=== PATIENT | male | born 1950 | race Caucasian/White ===

== ENCOUNTER 2018-11-09 10:32 | Inpatient (IN) ==
[2018-11-09 11:27] LABS: Basophils % 0.1 %; Hematocrit 40.5 % (37.5-50.1); Hemoglobin 13.8 g/dL (12.9-16.9); Immature Granulocytes % 1.1 % (0-4); Lymphocytes # 0.8 K/mcL (0.6-4.6); Lymphocytes % 4.2 %; Mean Corpuscular HGB Conc 34.1 g/dL (31.6-35.5); Mean Platelet Volume 9.6 fL (9.4-12.4); Monocytes # 1.7 K/mcL (0.0-1.3); Monocytes % 8.8 %; Neutrophils # 16.9 K/mcL (1.6-8.9); Platelet Count 187 K/mcL (140-400); Red Blood Count 4.31 M/mcL (4.19-5.50); Red Cell Distribution Width 14.6 % (11.5-14.5); Segmented Neutrophils % 85.8 %
[2018-11-09 11:53] LABS: Albumin 3.7 g/dL (3.5-5.7); Bilirubin,Total 1.2 mg/dL (0.3-1.0); Calcium 10.1 mg/dL (8.6-10.3); Globulin 3.6 g/dL (2.4-3.5); Potassium 4.1 mEq/L (3.5-5.1); Total Protein 7.3 g/dL (6.4-8.9); Troponin I 0.03 ng/mL (< 0.04)
[2018-11-09] MEDS ORDERED: Aspirin 81 MG TAB.CHEW PO SCH (12:15)
[2018-11-09] MEDS ORDERED: Aspirin 81 MG TAB.CHEW ONE (12:18)
[2018-11-09] MEDS ORDERED: MetroNIDAZOLE 500 MG/100 ML 500 MG/100 ML BAG IVPB ONE (12:30)
--- NOTE | 2018-11-09 13:17 | Emergency Department Note ---
Disposition Clinical Impression: Dehydration, Weakness GI bleed Qualifiers: GI bleed type/associated pathology: melena Qualified Code(s): K92.1 - Melena Pneumonia Qualifiers: Pneumonia type: due to unspecified organism Laterality: unspecified laterality Lung location: unspecified part of lung Qualified Code(s): J18.9 - Pneumonia, unspecified organism Diarrhea Qualifiers: Diarrhea type: unspecified type Qualified Code(s): R19.7 - Diarrhea, unspecified Disposition: Admitted As Inpatient Condition: Fair Time of Disposition: 16:11 General Adult HPI - General Chief complaint: ED Weakness Stated complaint: "weakness all over",CHRISTOPHER Time Seen by Provider: 11/09/18 12:01 Source: patient Limitations: no limitations - History of Present Illness HPI Narrative: 68-year-old male presenting to her 1.5 week history of worsening generalized malaise, weakness, diarrhea, daily fevers. 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 Patient states that fevers have been consistently over 101 degrees Fahrenheit with worst at 104 degrees, somewhat improved with Tylenol at home. Patient states that he has become progressively weaker and is currently unable to walk. Patient describes frequent diarrhea black in color. Onset (ago): week(s) Pain Severity: moderate Pain Scale: 5 - Related Data Home Medications Medication Instructions Recorded Confirmed Allopurinol [Zyloprim] 300 mg PO DAILY 06/05/15 04/19/18 Atorvastatin [Lipitor] 40 mg PO HS 06/05/15 04/19/18 Carvedilol [Coreg] 12.5 mg PO BID 06/05/15 04/19/18 Enoxaparin [Lovenox] 30 mg SQ Q12HR 06/05/15 06/05/15 Furosemide [Lasix] 40 mg PO BID 06/05/15 04/19/18 Gabapentin [Neurontin] 300 mg PO HS 06/05/15 04/19/18 Spironolactone [Aldactone] 25 mg PO DAILY 06/05/15 04/19/18 Tamsulosin [Flomax] 0.4 mg PO HS 06/05/15 04/19/18 Warfarin [Coumadin] 3 mg PO HS 06/05/15 04/19/18 Allergies Allergy/AdvReac Type Severity Reaction Status Date / Time Sulfa (Sulfonamide AdvReac Unknown advised by Verified 06/05/15 10:20 Antibiotics) dr ruff doesn't work for him All systems ED: reviewed and negative except as stated. Review of Systems: As Per HPI Constitutional: Reports: fever, chills, weakness Cardiovascular: Reports: dyspnea on exertion. Denies: chest pain, palpitations Respiratory: Reports: dyspnea. Denies: cough, wheezes, hemoptysis Gastrointestinal: Reports: diarrhea. Denies: abdominal pain, nausea, vomiting, constipation, hematemesis, hematochezia Genitourinary: Denies: dysuria, hematuria Musculoskeletal: Reports: back pain, neck pain Neurological: Reports: headache, weakness, numbness, paresthesias Endocrine: Reports: fatigue Past Medical History - Past Medical History Medical history: Reports: atrial fibrillation, coronary artery disease, hyperlipidemia, hypertension, kidney stones, myocardial infarction Surgical history: Reports: appendectomy, cholecystectomy, pacemaker/AICD, other Psychiatric history: Reports: no psych history - Social History Smoking Status: Never smoker Smokeless Tobacco Status: No Alcohol use: Reports: none Drug use: Reports: none Physical Exam - General Limitations: no limitations General appearance: alert, in no apparent distress - Head Head exam: normocephalic, normal inspection, other (Patient with mild bruising over the left shoulder, elbow-sustained during a recent fall.) - Eye Eye exam: Present: normal appearance, PERRL, EOMI. Absent: scleral icterus - Neck Neck exam: Present: normal inspection, trachea midline. Absent: thyromegaly - Chest Chest inspection: Present: normal inspection, symmetric chest wall rise. Absent: tenderness - Respiratory Respiratory exam: Present: normal lung sounds bilaterally. Absent: respiratory distress, wheezes, stridor, accessory muscle use, prolonged expiratory phase - Cardiovascular Cardiovascular exam: Present: regular rate, normal rhythm, normal heart sounds, +S1, +S2. Absent: systolic murmur, diastolic murmur, JVD, +S3, +S4 - Abdominal Exam Abdominal exam: Present: soft, Non-Tender, normal bowel sounds. Absent: distention, guarding, rebound, rigidity - Rectal Exam Exceptional Needs Teacher present during exam: Yes Rectal exam: Present: normal rectal tone, black stool. Absent: fecal impaction, mass, tenderness - Neurological Exam Neurological exam: Present: alert, oriented X3 - Psychiatric Psychiatric exam: Present: normal affect, normal mood - Skin Skin exam: Present: warm, dry, intact, normal color. Absent: cyanosis, diaphoresis, erythema, pallor, mottled Course Vital Signs Temperature 99.1 F 11/09/18 10:51 Pulse Rate 74 11/09/18 10:51 Respiratory Rate 18 11/09/18 10:51 Blood Pressure 103/62 11/09/18 10:51 O2 Sat by Pulse Oximetry 91 11/09/18 10:51 Temperature 99.1 F 11/09/18 10:51 Pulse Rate 72 11/09/18 14:16 Respiratory Rate 23 11/09/18 15:15 Blood Pressure 124/71 11/09/18 15:15 O2 Sat by Pulse Oximetry 92 11/09/18 14:16 Oxygen Delivery Oxygen Delivery Room Air Medical Decision Making - MDM Narrative Medical decision making narrative: BUN/creatinine elevated White blood cell count elevated Positive Hemoccult Concern for pulmonary nodules versus potential pneumonia Metronidazole plus azithromycin given for management of potential C. difficile versus pneumonia Patient to be admitted to hospitalist medicine service for further evaluation and treatments. - Medical Records Medical records reviewed: Yes I reviewed the patient's medical records. - Lab Data Lab results reviewed: Yes I reviewed the patient's lab results. Result diagrams: 11/09/18 11:14 11/09/18 11:14 Lab Results 11/09/18 11/09/18 11/09/18 Range/Units 11:14 11:14 11:14 WBC 19.7 H (4.3-11.1) K/mcL RBC 4.31 (4.19-5.50) M/mcL Hgb 13.8 (12.9-16.9) g/dL Hct 40.5 (37.5-50.1) % MCV 94.0 (83.0-100.0) fL MCH 32.0 (28.0-33.3) pg MCHC 34.1 (31.6-35.5) g/dL RDW 14.6 H (11.5-14.5) % Plt Count 187 (140-400) K/mcL MPV 9.6 (9.4-12.4) fL Immature Gran % 1.1 (0-4) % Seg Neutrophils % 85.8 % Lymphocytes % 4.2 % Monocytes % 8.8 % Eosinophils % 0.0 % Basophils % 0.1 % Neutrophils # 16.9 H (1.6-8.9) K/mcL Lymphocytes # 0.8 (0.6-4.6) K/mcL Monocytes # 1.7 H (0.0-1.3) K/mcL Eosinophils # 0.0 (0.0-0.6) K/mcL Basophils # 0.0 (0.0-0.2) K/mcL Sodium 135 L (136-145) mEq/L Potassium 4.1 (3.5-5.1) mEq/L Chloride 98 (98-107) mEq/L Carbon Dioxide 25 (23-29) mEq/L BUN 45 H (8-23) mg/dL Creatinine 2.10 H (0.70-1.30) mg/dL Est GFR ( Amer) 38 L (> 60) Est GFR (Non-Af Amer) 31 L (> 60) BUN/Creatinine Ratio 21 (6-26) Glucose 159 H (70-105) mg/dL Calculated Osmolality 295 (280-300) Calcium 10.1 (8.6-10.3) mg/dL Total Bilirubin 1.2 H (0.3-1.0) mg/dL AST 92 H (13-39) Units/L ALT 60 H (7-52) Units/L Alkaline Phosphatase 60 (34-104) Units/L Troponin I 0.03 (< 0.04) ng/mL B-Natriuretic Peptide 123 H (Less than 100) pg/mL Serum Total Protein 7.3 (6.4-8.9) g/dL Albumin 3.7 (3.5-5.7) g/dL Globulin 3.6 H (2.4-3.5) g/dL Albumin/Globulin Ratio 1.0 L (1.1-2.2) Stool Occult Bld Scrn (Negative) 11/09/18 Range/Units 13:05 WBC (4.3-11.1) K/mcL RBC (4.19-5.50) M/mcL Hgb (12.9-16.9) g/dL Hct (37.5-50.1) % MCV (83.0-100.0) fL MCH (28.0-33.3) pg MCHC (31.6-35.5) g/dL RDW (11.5-14.5) % Plt Count (140-400) K/mcL MPV (9.4-12.4) fL Immature Gran % (0-4) % Seg Neutrophils % % Lymphocytes % % Monocytes % % Eosinophils % % Basophils % % Neutrophils # (1.6-8.9) K/mcL Lymphocytes # (0.6-4.6) K/mcL Monocytes # (0.0-1.3) K/mcL Eosinophils # (0.0-0.6) K/mcL Basophils # (0.0-0.2) K/mcL Sodium (136-145) mEq/L Potassium (3.5-5.1) mEq/L Chloride (98-107) mEq/L Carbon Dioxide (23-29) mEq/L BUN (8-23) mg/dL Creatinine (0.70-1.30) mg/dL Est GFR ( Amer) (> 60) Est GFR (Non-Af Amer) (> 60) BUN/Creatinine Ratio (6-26) Glucose (70-105) mg/dL Calculated Osmolality (280-300) Calcium (8.6-10.3) mg/dL Total Bilirubin (0.3-1.0) mg/dL AST (13-39) Units/L ALT (7-52) Units/L Alkaline Phosphatase (34-104) Units/L Troponin I (< 0.04) ng/mL B-Natriuretic Peptide (Less than 100) pg/mL Serum Total Protein (6.4-8.9) g/dL Albumin (3.5-5.7) g/dL Globulin (2.4-3.5) g/dL Albumin/Globulin Ratio (1.1-2.2) Stool Occult Bld Scrn Positive A (Negative) - Radiology Data Radiology results reviewed: Yes I reviewed the patient's radiology results. Chest X-Ray 11/09/18 10:55 IMPRESSION: Vascular congestion with suggestion interstitial disease, suspicious for mild interstitial edema in the acute setting. D/ / Mark Cain MD / Mark Cain MD Interpreting Provider: Mark Cain MD Chest X-Ray 11/09/18 10:55 IMPRESSION: Vascular congestion with suggestion interstitial disease, suspicious for mild interstitial edema in the acute setting. D/ / Mark Cain MD / Mark Cain MD Interpreting Provider: Mark Cain MD Abdomen/Pelvis CT 11/09/18 12:54 IMPRESSION: 1. Small right and trace left partially loculated pleural effusions. Increased consolidative opacities in the lung bases slightly asymmetric right worse than left, either atelectasis or pneumonia. 2. Scattered nodules throughout the lungs bilaterally which are indeterminate and may be infectious, inflammatory or neoplastic in etiology. Recommend follow-up to ensure complete resolution. 3. Mildly enlarged right subcarinal/hilar lymph node, nonspecific. 4. No acute findings in the abdomen or pelvis on this unenhanced study. 5. Indeterminate bilateral renal lesions. Recommend dedicated renal MRI once acute issues have resolved. RECOMMENDATIONS: Fleischner Society guidelines for follow-up and management of incidentally detected pulmonary nodules: Multiple Solid Nodules: Nodule size greater than 8 mm In a low-risk patient, CT at 3-6 months, then consider CT at 18-24 months. In a high-risk patient, CT at 3-6 months, then CT at 18-24 months. - Low risk patients include individuals with minimal or absent history of smoking and other known risk factors. - High risk patients include individuals with a history or smoking or known risk factors. Radiology 2017 http://pubs.[facility]na.org/doi/full/10.1148/radiol.[email or web address] D/ / 11/09/2018 14:13:50 Nya Triana MD / esther Interpreting Provider: Nya Triana MD Chest CT 11/09/18 12:54 IMPRESSION: 1. Small right and trace left partially loculated pleural effusions. Increased consolidative opacities in the lung bases slightly asymmetric right worse than left, either atelectasis or pneumonia. 2. Scattered nodules throughout the lungs bilaterally which are indeterminate and may be infectious, inflammatory or neoplastic in etiology. Recommend follow-up to ensure complete resolution. 3. Mildly enlarged right subcarinal/hilar lymph node, nonspecific. 4. No acute findings in the abdomen or pelvis on this unenhanced study. 5. Indeterminate bilateral renal lesions. Recommend dedicated renal MRI once acute issues have resolved. RECOMMENDATIONS: Fleischner Society guidelines for follow-up and management of incidentally detected pulmonary nodules: Multiple Solid Nodules: Nodule size greater than 8 mm In a low-risk patient, CT at 3-6 months, then consider CT at 18-24 months. In a high-risk patient, CT at 3-6 months, then CT at 18-24 months. - Low risk patients include individuals with minimal or absent history of smoking and other known risk factors. - High risk patients include individuals with a history or smoking or known risk factors. Radiology 2017 http://pubs.[facility]na.org/doi/full/10.1148/radiol.[email or web address] D/ / 11/09/2018 14:13:50 Nya Triana MD / esther Interpreting Provider: Nya Triana MD - EKG Data EKG #1 EKG attestation: Yes I reviewed and interpreted this EKG. EKG results narrative: Patient EKG shows a sinus rhythm with a right bundle branch block and left posterior fascicular block with a rate of 74 bpm, HI interval 160 ms, QRS duration 152 ms, QT/QTc interval 405/433 ms respectively. There are no significant ST segment elevations, depressions, pathologic Q waves, noted. There are abnormally inverted T waves in V1, and V2, otherwise no acute signs of ischemic change. At this time there is no prior EKG available for comparison.
[2018-11-09] MEDS ORDERED: Azithromycin 500 MG in D5% in Water 250 ML IVPB ONE (14:08)
--- NOTE | 2018-11-09 14:35 | Emergency Department Note ---
Disposition Clinical Impression: Weakness GI bleed Qualifiers: GI bleed type/associated pathology: melena Qualified Code(s): K92.1 - Melena Pneumonia Qualifiers: Pneumonia type: due to unspecified organism Laterality: unspecified laterality Lung location: unspecified part of lung Qualified Code(s): J18.9 - Pneumonia, unspecified organism Diarrhea Qualifiers: Diarrhea type: unspecified type Qualified Code(s): R19.7 - Diarrhea, unspecified Disposition: Admitted As Inpatient Condition: Good Referrals: NONE,PCP [Primary Care Provider] - Forms: ED Satisfaction Letter General Adult HPI - General Chief complaint: ED Weakness Stated complaint: "weakness all over",CHRISTOPHER Time Seen by Provider: 11/09/18 12:01 Source: patient Limitations: no limitations - History of Present Illness Pain Scale: 5 - Related Data Home Medications Medication Instructions Recorded Confirmed Allopurinol [Zyloprim] 300 mg PO DAILY 06/05/15 04/19/18 Atorvastatin [Lipitor] 40 mg PO HS 06/05/15 04/19/18 Carvedilol [Coreg] 12.5 mg PO BID 06/05/15 04/19/18 Enoxaparin [Lovenox] 30 mg SQ Q12HR 06/05/15 06/05/15 Furosemide [Lasix] 40 mg PO BID 06/05/15 04/19/18 Gabapentin [Neurontin] 300 mg PO HS 06/05/15 04/19/18 Spironolactone [Aldactone] 25 mg PO DAILY 06/05/15 04/19/18 Tamsulosin [Flomax] 0.4 mg PO HS 06/05/15 04/19/18 Warfarin [Coumadin] 3 mg PO HS 06/05/15 04/19/18 Allergies Allergy/AdvReac Type Severity Reaction Status Date / Time Sulfa (Sulfonamide AdvReac Unknown advised by Verified 06/05/15 10:20 Antibiotics) dr ruff doesn't work for him Constitutional: Reports: fever, chills, weakness Cardiovascular: Reports: dyspnea on exertion. Denies: chest pain, palpitations Respiratory: Reports: dyspnea. Denies: cough, wheezes, hemoptysis Gastrointestinal: Reports: diarrhea. Denies: abdominal pain, nausea, vomiting, constipation, hematemesis, hematochezia Genitourinary: Denies: dysuria, hematuria Musculoskeletal: Reports: back pain, neck pain Neurological: Reports: headache, weakness, numbness, paresthesias Endocrine: Reports: fatigue Past Medical History - Past Medical History Medical history: Reports: atrial fibrillation, coronary artery disease, hyperlipidemia, hypertension, kidney stones, myocardial infarction Surgical history: Reports: appendectomy, cholecystectomy, pacemaker/AICD, other Psychiatric history: Reports: no psych history - Social History Smoking Status: Never smoker Smokeless Tobacco Status: No Alcohol use: Reports: none Drug use: Reports: none Physical Exam - General Limitations: no limitations General appearance: alert, in no apparent distress Course Vital Signs Temperature 99.1 F 11/09/18 10:51 Pulse Rate 74 11/09/18 10:51 Respiratory Rate 18 11/09/18 10:51 Blood Pressure 103/62 11/09/18 10:51 O2 Sat by Pulse Oximetry 91 11/09/18 10:51 Temperature 99.1 F 11/09/18 10:51 Pulse Rate 72 11/09/18 14:16 Respiratory Rate 22 11/09/18 14:16 Blood Pressure 136/71 11/09/18 14:16 O2 Sat by Pulse Oximetry 92 11/09/18 14:16 Oxygen Delivery Oxygen Delivery Room Air Medical Decision Making - Lab Data Result diagrams: 11/09/18 11:14 11/09/18 11:14 Lab Results 11/09/18 11/09/18 11/09/18 Range/Units 11:14 11:14 11:14 WBC 19.7 H (4.3-11.1) K/mcL RBC 4.31 (4.19-5.50) M/mcL Hgb 13.8 (12.9-16.9) g/dL Hct 40.5 (37.5-50.1) % MCV 94.0 (83.0-100.0) fL MCH 32.0 (28.0-33.3) pg MCHC 34.1 (31.6-35.5) g/dL RDW 14.6 H (11.5-14.5) % Plt Count 187 (140-400) K/mcL MPV 9.6 (9.4-12.4) fL Immature Gran % 1.1 (0-4) % Seg Neutrophils % 85.8 % Lymphocytes % 4.2 % Monocytes % 8.8 % Eosinophils % 0.0 % Basophils % 0.1 % Neutrophils # 16.9 H (1.6-8.9) K/mcL Lymphocytes # 0.8 (0.6-4.6) K/mcL Monocytes # 1.7 H (0.0-1.3) K/mcL Eosinophils # 0.0 (0.0-0.6) K/mcL Basophils # 0.0 (0.0-0.2) K/mcL Sodium 135 L (136-145) mEq/L Potassium 4.1 (3.5-5.1) mEq/L Chloride 98 (98-107) mEq/L Carbon Dioxide 25 (23-29) mEq/L BUN 45 H (8-23) mg/dL Creatinine 2.10 H (0.70-1.30) mg/dL Est GFR ( Amer) 38 L (> 60) Est GFR (Non-Af Amer) 31 L (> 60) BUN/Creatinine Ratio 21 (6-26) Glucose 159 H (70-105) mg/dL Calculated Osmolality 295 (280-300) Calcium 10.1 (8.6-10.3) mg/dL Total Bilirubin 1.2 H (0.3-1.0) mg/dL AST 92 H (13-39) Units/L ALT 60 H (7-52) Units/L Alkaline Phosphatase 60 (34-104) Units/L Troponin I 0.03 (< 0.04) ng/mL B-Natriuretic Peptide 123 H (Less than 100) pg/mL Serum Total Protein 7.3 (6.4-8.9) g/dL Albumin 3.7 (3.5-5.7) g/dL Globulin 3.6 H (2.4-3.5) g/dL Albumin/Globulin Ratio 1.0 L (1.1-2.2) Stool Occult Bld Scrn (Negative) 11/09/18 Range/Units 13:05 WBC (4.3-11.1) K/mcL RBC (4.19-5.50) M/mcL Hgb (12.9-16.9) g/dL Hct (37.5-50.1) % MCV (83.0-100.0) fL MCH (28.0-33.3) pg MCHC (31.6-35.5) g/dL RDW (11.5-14.5) % Plt Count (140-400) K/mcL MPV (9.4-12.4) fL Immature Gran % (0-4) % Seg Neutrophils % % Lymphocytes % % Monocytes % % Eosinophils % % Basophils % % Neutrophils # (1.6-8.9) K/mcL Lymphocytes # (0.6-4.6) K/mcL Monocytes # (0.0-1.3) K/mcL Eosinophils # (0.0-0.6) K/mcL Basophils # (0.0-0.2) K/mcL Sodium (136-145) mEq/L Potassium (3.5-5.1) mEq/L Chloride (98-107) mEq/L Carbon Dioxide (23-29) mEq/L BUN (8-23) mg/dL Creatinine (0.70-1.30) mg/dL Est GFR ( Amer) (> 60) Est GFR (Non-Af Amer) (> 60) BUN/Creatinine Ratio (6-26) Glucose (70-105) mg/dL Calculated Osmolality (280-300) Calcium (8.6-10.3) mg/dL Total Bilirubin (0.3-1.0) mg/dL AST (13-39) Units/L ALT (7-52) Units/L Alkaline Phosphatase (34-104) Units/L Troponin I (< 0.04) ng/mL B-Natriuretic Peptide (Less than 100) pg/mL Serum Total Protein (6.4-8.9) g/dL Albumin (3.5-5.7) g/dL Globulin (2.4-3.5) g/dL Albumin/Globulin Ratio (1.1-2.2) Stool Occult Bld Scrn Positive A (Negative) Attestation Statement - Attestation Attestation: I examined this patient and my medical decision-making was reviewed with the Resident Physician. I agree with the documented findings, disposition and treatment plan as described except to the extent set forth below. 68 year old male presnets to the ED with complaints of weakness and is found to have a postitive fecal hemmoccult and elevated wBC with posisble pnuemonia and r/o C/diff colitis panels running. Patient has been started on azirthroy and flagyl and accepted to medicine for further workup.
[2018-11-09] MEDS ORDERED: *HR* OxyCODONE Immed Rel 5 MG TABLET PO PRN (14:49)
[2018-11-09] MEDS ORDERED: Ondansetron 4 MG/2 ML VIAL IVP PRN (14:49)
[2018-11-09] MEDS ORDERED: traMADol 50 MG TABLET PO PRN (14:49)
[2018-11-09] MEDS ORDERED: Naloxone 0.4 MG/ML INJ IVP PRN (14:49)
[2018-11-09] MEDS ORDERED: Ringers Solution, Lactated 1,000 ML IVC SCH (15:00)
[2018-11-09 16:49] LABS: INR 4.1
[2018-11-09] MEDS: Vancomycin Oral Soln 125 MG/2.5 ML UDC PO SCH ×2 (17:19→20:41)
[2018-11-09 17:32] LABS: Bilirubin,Urine Negative (Negative); Blood,Urine Moderate (Negative); Clarity,Urine Cloudy (Clear); Color,Urine Yellow (Yellow); Glucose,Urine (UA) Normal (Normal); Ketones,Urine Negative (Negative); Leukocyte Esterase,Urine Small (Negative); Nitrite,Urine Negative (Negative); Protein,Urine 100 mg/dL (Neg-Trace); Specific Gravity,Urine 1.018 (1.010-1.025); Urobilinogen,Urine Normal (Normal)
[2018-11-09 17:44] LABS: Granular Casts,Urine Few per lpf (None Seen); Hyaline Casts,Urine Few per lpf (None-Few)
[2018-11-09 17:45] LABS: Amorphous Sediment,Urine Few (Few); Bacteria,Urine Moderate per hpf (None-Few); Squamous Epithelial Cell,Urine Few per lpf (None-Few)
--- NOTE | 2018-11-09 18:02 | Internal Med History&Physical ---
Date of Encounter: 11/09/18 Time of Encounter: 16:30 Internal Medicine - H&P: HPI Chief complaint: loose stool Admitted From: Home Plans for Post Hospital Care: Transfer [facility] History of present illness: Mr. Morris is a 68 year old male with hx of a fib on coumadin and CAD brought to ED due to weakness and pain. He was evaluated and subsequently admitted. Mr Morris stated he fell "middle of last week" and laid on the floor for 4 hours. Since that time he has had total body pain and basically has been in bed. He did hit his head on the dresser when he fell. Says he has had fevers 1 01-104. No CP. Feels dyspneic but "not too bad." Has had loose watery diarrhea as well. Denies overt blood in stool. Says he hurts "from toes to above my chest." Nothing has helped it and moving makes it worse. Feels very thirsty at this time. Has had some headache as well. No ill contacts. In ED he was evaluated and there was concern for C diff and possible pneumonia. Past Med Surg Social Fam HX - Past Medical History Source: patient Medical history: atrial fibrillation, coronary artery disease, hyperlipidemia, hypertension, kidney stones, myocardial infarction Additional medical history: mrsa, sleep apnea,. wound on right foot Psychiatric history: no psych history - Past Surgical History Surgical History: appendectomy, cholecystectomy, pacemaker/AICD, other Additional surgical history: eye sx, foot sx - Social History Smoking Status: Never smoker Smokeless Tobacco Status: No Alcohol use: none Drug use: none - Family History Mother Adopted: No Family Member Ethnicity: Non- Living Status: Hx Family Cardiac Disorders: No Hx Family Respiratory Disorders: No Hx Family Cancer: Yes Hx Family GI Disorders: No Hx Family Endocrine Disorder: Yes (Diabetes) Hx Family Neuromuscular Disorders: No Hx Family Neurologic Disorders: No Hx Family HEENT Disorders: No Hx Family Autoimmune Disorders: No Father Adopted: No Family Member Ethnicity: Non- Living Status: Hx Family Cardiac Disorders: No Hx Family Respiratory Disorders: No Hx Family Cancer: Yes Hx Family GI Disorders: No Hx Family Endocrine Disorder: No Hx Family Neuromuscular Disorders: No Hx Family Neurologic Disorders: No Hx Family HEENT Disorders: No Hx Family Autoimmune Disorders: No Internal Medicine - H&P: Meds Allopurinol [Zyloprim] 300 mg PO DAILY 06/05/15 [History] Atorvastatin [Lipitor] 40 mg PO HS 06/05/15 [History] Carvedilol [Coreg] 12.5 mg PO BID 06/05/15 [History] Enoxaparin [Lovenox] 30 mg SQ Q12HR 06/05/15 [History] Furosemide [Lasix] 40 mg PO BID 06/05/15 [History] Gabapentin [Neurontin] 300 mg PO HS 06/05/15 [History] Spironolactone [Aldactone] 25 mg PO DAILY 06/05/15 [History] Tamsulosin [Flomax] 0.4 mg PO HS 06/05/15 [History] Warfarin [Coumadin] 3 mg PO HS 06/05/15 [History] Allergy/AdvReac Type Severity Reaction Status Date / Time Sulfa (Sulfonamide AdvReac Unknown advised by Verified 06/05/15 10:20 Antibiotics) dr ruff doesn't work for him All Systems PM: A 10-system review of systems was performed and is negative for pertinent findings except as documented above in the HPI. - Constitutional Constitutional: fatigue, fever(s), lethargy, malaise, weakness - EENT Eyes: no change in vision, no loss of vision Ears: no decreased hearing Nose, mouth and throat: no dry mouth, no sinus pain - Cardiovascular Cardiovascular ROS IM: dyspnea, no chest pain, no dyspnea on exertion - Gastrointestinal Gastrointestinal: diarrhea, no abdominal pain, no hematochezia - Genitourinary Genitourinary ROS male: urinary urgency, no dysuria - Musculoskeletal Musculoskeletal ROS IM: arthralgias, no back pain, no muscle weakness - Integumentary Integumentary IM: no rash - Neurological Neurological ROS: no confusion, no tremor(s) Additional comments: Pt says he is getting "Alzheimers" - Endocrine Endocrine IM: no excessive sweating - Hematologic/Lymphatic Hematologic/Lymphatic: no easy bleeding - Allergic/Immunologic Allergic/Immunologic: no seasonal rhinorrhea - Constitutional Vitals: Temp Pulse Resp BP Pulse Ox 99.9 F H 78 16 157/77 91 11/09/18 17:21 11/09/18 17:21 11/09/18 17:21 11/09/18 17:21 04/12/19 17:21 General appearance: Present: A&O X 3, obese Exam: See below - Head Head exam: Present: atraumatic, normocephalic - Eye Eye exam: Present: EOMI, PERRL - ENT ENT exam: Present: mucous membranes dry - Neck Neck exam general surgery: Present: supple - Respiratory Respiratory exam: Present: decreased breath sounds. Absent: rhonchi, wheezes - Cardiovascular Cardiovascular exam: Present: RRR. Absent: tachycardia - GI/Abdominal GI/Abdominal exam: Present: diminished bowel sounds, soft, tenderness Additional comments: Tender LLQ area. No peritoneal signs. - Extremities Exam Extremities exam: Present: warm Additional comments: Dressing on R foot. - Neurological Exam Neurological exam: Present: alert, oriented X3 Additional comments: Pt able to move all extremities. Sensation intact. Denies back pain. - Skin Skin exam: Present: dry, warm. Absent: rash Internal Med - H&P Results - Labs CBC & Chem 7: 11/09/18 11:14 11/09/18 11:14 Labs: Short CBC 11/09/18 Range/Units 11:14 WBC 19.7 H (4.3-11.1) K/mcL Hgb 13.8 (12.9-16.9) g/dL Hct 40.5 (37.5-50.1) % Plt Count 187 (140-400) K/mcL Neutrophils # 16.9 H (1.6-8.9) K/mcL BMP 11/09/18 11:14 Sodium 135 L Potassium 4.1 Chloride 98 Carbon Dioxide 25 BUN 45 H Creatinine 2.10 H Glucose 159 H Calcium 10.1 Cardiac Enzymes 11/09/18 Range/Units 11:14 Troponin I 0.03 (< 0.04) ng/mL Liver Function 11/09/18 Range/Units 11:14 Total Bilirubin 1.2 H (0.3-1.0) mg/dL AST 92 H (13-39) Units/L ALT 60 H (7-52) Units/L Alkaline Phosphatase 60 (34-104) Units/L Albumin 3.7 (3.5-5.7) g/dL Urine 11/09/18 Range/Units 17:18 Urine Color Yellow (Yellow) Urine Clarity Cloudy A (Clear) Urine pH 5.0 (5.0-8.0) pH Units Ur Specific [place] 1.018 (1.010-1.025) Urine Protein 100 H (Neg-Trace) mg/dL Urine Glucose (UA) Normal (Normal) mg/dL - Impressions ITS Impressions Chest X-Ray 11/09/18 10:55 IMPRESSION: Vascular congestion with suggestion interstitial disease, suspicious for mild interstitial edema in the acute setting. D/ / Mark Cain MD / Mark Cain MD Interpreting Provider: Mark Cain MD Abdomen/Pelvis CT 11/09/18 12:54 IMPRESSION: 1. Small right and trace left partially loculated pleural effusions. Increased consolidative opacities in the lung bases slightly asymmetric right worse than left, either atelectasis or pneumonia. 2. Scattered nodules throughout the lungs bilaterally which are indeterminate and may be infectious, inflammatory or neoplastic in etiology. Recommend follow-up to ensure complete resolution. 3. Mildly enlarged right subcarinal/hilar lymph node, nonspecific. 4. No acute findings in the abdomen or pelvis on this unenhanced study. 5. Indeterminate bilateral renal lesions. Recommend dedicated renal MRI once acute issues have resolved. RECOMMENDATIONS: Fleischner Society guidelines for follow-up and management of incidentally detected pulmonary nodules: Multiple Solid Nodules: Nodule size greater than 8 mm In a low-risk patient, CT at 3-6 months, then consider CT at 18-24 months. In a high-risk patient, CT at 3-6 months, then CT at 18-24 months. - Low risk patients include individuals with minimal or absent history of smoking and other known risk factors. - High risk patients include individuals with a history or smoking or known risk factors. Radiology 2017 http://pubs.rsna.org/doi/full/10.1148/radiol.[email or web address] D/ / 11/09/2018 14:13:50 Nya Triana MD / [email or web address] Interpreting Provider: Nya Triana MD Chest CT 11/09/18 12:54 IMPRESSION: 1. Small right and trace left partially loculated pleural effusions. Increased consolidative opacities in the lung bases slightly asymmetric right worse than left, either atelectasis or pneumonia. 2. Scattered nodules throughout the lungs bilaterally which are indeterminate and may be infectious, inflammatory or neoplastic in etiology. Recommend follow-up to ensure complete resolution. 3. Mildly enlarged right subcarinal/hilar lymph node, nonspecific. 4. No acute findings in the abdomen or pelvis on this unenhanced study. 5. Indeterminate bilateral renal lesions. Recommend dedicated renal MRI once acute issues have resolved. RECOMMENDATIONS: Fleischner Society guidelines for follow-up and management of incidentally detected pulmonary nodules: Multiple Solid Nodules: Nodule size greater than 8 mm In a low-risk patient, CT at 3-6 months, then consider CT at 18-24 months. In a high-risk patient, CT at 3-6 months, then CT at 18-24 months. - Low risk patients include individuals with minimal or absent history of smoking and other known risk factors. - High risk patients include individuals with a history or smoking or known risk factors. Radiology 2017 http://pubs.rsna.org/doi/full/10.1148/radiol.[email or web address] D/ / 11/09/2018 14:13:50 Nya Triana MD / esther Interpreting Provider: Nya Triana MD - Assessment and Plan (1) Rhabdomyolysis Current Visit: Yes Status: Acute Assessment and plan: Pt reports fall occurring about a week ago. Current CPK is over 1400 and creatinine is elevated over baseline. Pt has diffuse pain consistent with myalgia. Admit to hospital. IV bicarb drip ordered at 150ml/hr (urine pH is 5) Recheck CPK in morning. Pain control. Qualifiers: Rhabdomyolysis type: traumatic Encounter type: initial encounter Qualified Code(s): T79.6XXA - Traumatic ischemia of muscle, initial encounter (2) Dehydration Current Visit: Yes Status: Acute Assessment and plan: Pt is clinically dehydrated. He has been having profuse diarrhea and had fall last week. Will treat with IV fluids at this time. (3) Acute renal failure Current Visit: Yes Status: Acute Assessment and plan: Pt has baseline creatinine around 1.3 His creatinine is elevated on admission Most likely this is ATN related to acute rhabdomyolysis. Hydrate today. Recheck labs tomorrow. Qualifiers: Acute renal failure type: with acute tubular necrosis Qualified Code(s): N17.0 - Acute kidney failure with tubular necrosis (4) Diarrhea Current Visit: Yes Status: Acute Assessment and plan: Pt has been having profuse watery diarrhea for days. Hydrate. GI panel ordered. Has mild elevation in LFTs - hepatitis panel ordered - hep A would do this Qualifiers: Diarrhea type: presumed infectious Qualified Code(s): R19.7 - Diarrhea, unspecified (5) Pneumonia Current Visit: Yes Status: Suspected Assessment and plan: Pt had fall last week and prolonged time on floor. He has been essentially immobile since fall (lying in bed). Will start Unasyn today and reassess as clinical status improves. Qualifiers: Pneumonia type: aspiration pneumonia Laterality: right Lung location: lower lobe of lung Qualified Code(s): J69.0 - Pneumonitis due to inhalation of food and vomit (6) UTI (urinary tract infection) Current Visit: Yes Status: Suspected Assessment and plan: Pt has UA evidence of UTI and has urgency on exam. UA has mod blood and 3-5 RBCs which could also be due to rhabdo. Will treat with unasyn and azithromycin for pneumonia and anticipate will cover urine as well till culture returns. Has leukocytosis as well. Qualifiers: Urinary tract infection type: acute cystitis Hematuria presence: with hematuria Qualified Code(s): N30.01 - Acute cystitis with hematuria (7) GI bleed Current Visit: Yes Status: Suspected Assessment and plan: Pt presents with significant diarrhea. Stool guiac positive but H/H stable (though he is very dehydrated). Recheck H/H in AM. May need further GI work up. Qualifiers: GI bleed type/associated pathology: melena Qualified Code(s): K92.1 - Melena (8) Atrial fibrillation Current Visit: Yes Status: Chronic Assessment and plan: Pt with hx of atrial fibrillation. Currently on coumadin and INR elevated. Pt hit head last week - STAT head CT ordered. Hold coumadin today. Qualifiers: Atrial fibrillation type: chronic Qualified Code(s): I48.2 - Chronic atrial fibrillation (9) HTN (hypertension) Current Visit: Yes Status: Chronic Assessment and plan: BP elevated on admission. Home meds have been ordered. Will start after CT head returned. Qualifiers: Hypertension type: essential hypertension Qualified Code(s): I10 - Essential (primary) hypertension (10) CAD (coronary artery disease) Current Visit: Yes Status: Chronic Assessment and plan: Pt has hx of CAD with multiple RI/stents. Continue home cardiac meds on admit. Hold Lasix at this time due to rhabdo and acute renal failure. Qualifiers: Coronary Disease-Associated Artery/Lesion type: [place] artery [place] vs. transplanted heart: ramona heart Associated angina: without angina Qualified Code(s): I25.10 - Atherosclerotic heart disease of [place] coronary artery without angina pectoris (11) Morbid obesity with BMI of 40.0-44.9, adult Current Visit: Yes Status: Chronic Assessment and plan: Chronic issue. - Time Spent With Patient Total time spent is greater than 50% in coordination of care (as documented) at patient's floor/unit and/or counseling patient:
[2018-11-09 19:11] LABS: Hepatitis B Surface Antigen Nonreactive (Nonreactive)
[2018-11-09] MEDS: Acetaminophen 325 MG TABLET PO PRN (19:18)
[2018-11-09 19:40] LABS: Hepatitis C Virus Antibody Nonreactive (Nonreactive)
[2018-11-09 19:41] LABS: Hepatitis B Core IgM Nonreactive (Nonreactive)
[2018-11-09] MEDS: Gabapentin 300 MG CAPSULE PO SCH (20:41)
[2018-11-09] MEDS: Ampicillin/Sulbactam 1,500 MG in 0.9 % Sodium Chloride Mini Bag 100 ML IVPB SCH (20:49)
[2018-11-09] MEDS: Sodium Bicarbonate 150 MEQ in D5% in Water 1,000 ML IVC SCH (21:42)
[2018-11-09 23:09] LABS: Adenovirus Not Detected (Not Detect); Bordetella Pertussis Not Detected (Not Detect); Chlamydophila pneumoniae Not Detected (Not Detect); Coronavirus 229E Not Detected (Not Detect); Coronavirus HKU1 Not Detected (Not Detect); Coronavirus NL63 Not Detected (Not Detect); Coronavirus OC43 Not Detected (Not Detect); Human Metapneumovirus Not Detected (Not Detect); Human Rhinovirus/Enterovirus Not Detected (Not Detect); Influenza A Subtype 2009 H1 Not Detected (Not Detect); Influenza A Untypeable Not Detected (Not Detect); Influenza B Not Detected (Not Detect); Mycoplasma pneumoniae Not Detected (Not Detect); Parainfluenza Virus 1 Not Detected (Not Detect); Parainfluenza Virus 2 Not Detected (Not Detect); Parainfluenza Virus 3 Not Detected (Not Detect); Parainfluenza Virus 4 Not Detected (Not Detect); Respiratory Syncytial Virus Not Detected (Not Detect)
[2018-11-10] MEDS ORDERED: Acetaminophen 325 MG TABLET PO ONE (00:15)
[2018-11-10 02:43] LABS: Basophils % 0.2 %; Hematocrit 35.1 % (37.5-50.1); Immature Granulocytes % 0.9 % (0-4); Lymphocytes # 0.7 K/mcL (0.6-4.6); Lymphocytes % 3.4 %; Mean Corpuscular HGB Conc 34.5 g/dL (31.6-35.5); Mean Corpuscular Hemoglobin 31.4 pg (28.0-33.3); Mean Corpuscular Volume 91.2 fL (83.0-100.0); Mean Platelet Volume 10.1 fL (9.4-12.4); Monocytes # 1.6 K/mcL (0.0-1.3); Monocytes % 7.9 %; Neutrophils # 17.2 K/mcL (1.6-8.9); Platelet Count 181 K/mcL (140-400); Red Blood Count 3.85 M/mcL (4.19-5.50); Red Cell Distribution Width 14.7 % (11.5-14.5); Segmented Neutrophils % 87.6 %
[2018-11-10 02:45] LABS: Hemoglobin 12.1 g/dL (12.9-16.9)
[2018-11-10 02:51] LABS: Prothrombin Time 56.3 Seconds (9.4-12.1)
[2018-11-10 02:59] LABS: Albumin 3.2 g/dL (3.5-5.7); Bilirubin,Direct 0.2 mg/dL (0.0-0.2); Bilirubin,Indirect 0.6 mg/dL (0.0-1.2); Bilirubin,Total 0.8 mg/dL (0.3-1.0); Globulin 3.3 g/dL (2.4-3.5); Total Protein 6.5 g/dL (6.4-8.9)
[2018-11-10 03:00] LABS: Calcium 9.4 mg/dL (8.6-10.3); Magnesium 1.9 mg/dL (1.6-2.6); Potassium 3.4 mEq/L (3.5-5.1)
[2018-11-10 03:10] LABS: Platelet Estimate Normal (Normal); Reactive Lymphocytes Present (Not Present)
[2018-11-10] MEDS: Ampicillin/Sulbactam 1,500 MG in 0.9 % Sodium Chloride Mini Bag 100 ML IVPB SCH ×3 (04:14→18:09)
[2018-11-10 04:58] LABS: Hepatitis A Antibody IgM Nonreactive (Nonreactive)
[2018-11-10 04:58] LABS: Bilirubin,Urine Negative (Negative); Blood,Urine Large (Negative); Clarity,Urine Cloudy (Clear); Color,Urine Red (Yellow); Glucose,Urine (UA) Normal (Normal); Ketones,Urine Trace mg/dL (Negative); Leukocyte Esterase,Urine Moderate (Negative); Nitrite,Urine Negative (Negative); Protein,Urine 100 mg/dL (Neg-Trace); Specific Gravity,Urine 1.014 (1.010-1.025); Urobilinogen,Urine Normal (Normal)
[2018-11-10 05:00] LABS: Bacteria,Urine None Seen per hpf (None-Few); Hyaline Casts,Urine None Seen per lpf (None-Few); RBC,Urine TNTC per hpf (0-3); Squamous Epithelial Cell,Urine Many per lpf (None-Few); WBC,Urine 15-30 per hpf (0-3)
[2018-11-10 05:20] LABS: Transitional Epi Cells,Urine Few per hpf (None-Few)
[2018-11-10] MEDS: Sodium Bicarbonate 150 MEQ in D5% in Water 1,000 ML IVC SCH ×3 (05:24→22:30)
[2018-11-10] MEDS ORDERED: Perflutren Lipid Microsphere 1.3 ML in 0.9 % Sodium Chloride 8.7 ML IVP ONE (08:16)
[2018-11-10] MEDS: Acetaminophen 325 MG TABLET PO PRN ×2 (08:16→23:20)
[2018-11-10] MEDS: Aspirin Enteric Coated 81 MG Tablet PO SCH (08:16)
[2018-11-10] MEDS: Vancomycin Oral Soln 125 MG/2.5 ML UDC PO SCH (08:17)
[2018-11-10] MEDS: Azithromycin 500 MG in D5% in Water 250 ML IVPB SCH (08:20)
[2018-11-10] MEDS ORDERED: Perflutren Lipid Microsphere 2 ML VIAL ONE (08:21)
[2018-11-10 09:47] LABS: Adenovirus F 40/41 PCR Not detected (Not detect); Astrovirus PCR Not detected (Not detect); C.difficile Toxin A/B Gene PCR Not detected (Not detect); Campylobacter by PCR Not detected (Not detect); Cryptosporidium by PCR Not detected (Not detect); Cyclospora cayetanensis PCR Not detected (Not detect); E. coli O157 by PCR Not detected (Not detect); Entamoeba histolytica PCR Not detected (Not detect); Enteroaggregative E.coli(EAEC) Not detected (Not detect); Enteropathogenic E.coli(EPEC) Not detected (Not detect); Enterotoxigenic E.coli (ETEC) Not detected (Not detect); Giardia lamblia PCR Not detected (Not detect); Norovirus GI/GII PCR Not detected (Not detect); Plesiomonas shigelloides PCR Not detected (Not detect); Rotavirus A PCR Not detected (Not detect); Salmonella PCR Not detected (Not detect); Sapovirus PCR Not detected (Not detect); Shig/EnteroinvasiveE coli EIEC Not detected (Not detect); Shigalike tox-prod E coli STEC Not detected (Not detect); Vibrio PCR Not detected (Not detect); Vibrio cholerae PCR Not detected (Not detect); Yersinia enterocolitica PCR Not detected (Not detect)
[2018-11-10] MEDS: Levalbuterol Neb 1.25 MG/3 ML IH SCH ×2 (09:56→21:37)
[2018-11-10 11:18] LABS: Acinetobacter baumannii by PCR Not Detected (Not Detect); Candida albicans by PCR Not Detected (Not Detect); Candida glabrata by PCR Not Detected (Not Detect); Candida krusei by PCR Not Detected (Not Detect); Candida parapsilosis by PCR Not Detected (Not Detect); Candida tropicalis by PCR Not Detected (Not Detect); Enterobacter cloacae Cmplx PCR Not Detected (Not Detect); Enterobacteriaceae by PCR Not Detected (Not Detect); Enterococcus by PCR Not Detected (Not Detect); Escherichia coli by PCR Not Detected (Not Detect); Klebsiella oxytoca by PCR Not Detected (Not Detect); Klebsiella pneumoniae by PCR Not Detected (Not Detect); Proteus by PCR Not Detected (Not Detect); Pseudomonas aeruginosa by PCR Not Detected (Not Detect); Serratia marcescens by PCR Not Detected (Not Detect); Staphylococcus aureus by PCR DETECTED (Not Detect); Staphylococcus by PCR Not Detected (Not Detect); Streptococcus agalactiae(B)PCR Not Detected (Not Detect); Streptococcus by PCR Not Detected (Not Detect); Streptococcus pneumoniae PCR Not Detected (Not Detect); Streptococcus pyogenes (A) PCR Not Detected (Not Detect); mecA Methicillin-Resist Gene DETECTED (Not Detect)
--- NOTE | 2018-11-10 11:37 | Internal Med Progress Note ---
<Sepideh Morejon - Last Filed: 11/10/18 17:52> Hospitalist Progress Note - Encounter Date of Encounter: 11/10/18 Time of Encounter: 11:35 - Subjective Interval History: Patient seen examined at bedside. He is alert and oriented times 3. He admits to diarrhea that is unchanged. He denies fever, chills, shortness of breath, cough, chest pain, abdominal pain, dysuria, hematuria, melena, hematochezia. He has no other complaints. - Exam Vitals: Temp Pulse Resp BP Pulse Ox 99.8 F H 134 20 113/72 93 11/10/18 10:46 11/10/18 10:46 11/10/18 10:46 11/10/18 10:46 11/10/18 10:46 Exam: Gen.: Vitals noted. No acute distress. AAOx3 HEENT: oropharynx clear, Normocephalic, atraumatic Neck: Supple. No adenopathy. Cardiac: tachycardic, no murmur, +S1/S2 Pulmonary: CTA bilaterally, no wheezes, rales or rhonchi, equal chest expansion Abdomen: soft, nontender, Bowel sounds noted, no guarding Extremities: no BLE edema, nontender calf, no cyanosis or clubbing skin: scabs on bilateral lower extremities Neuro: A&Ox3, moves all extremities, no focal deficits Psych: Appropriate mood and behavior - Assessment and Plan (1) Pneumonia Current Visit: Yes Status: Suspected Assessment and Plan: Pneumonia likely community acquired -afebrile, hemodynamically stable -WBC 19.6 (was 19.7) -patient denies increased shortness of breath or cough -chest CT demonstrating small right interest left partially likely to pleural effusions with findings concerning for pneumonia. Scattered nodules throughout the lungs bilaterally but maybe infectious or inflammatory or neoplastic. plan: -continue unasyn IV day 2 -continue vancomycin day 1 -continue azithromycin day 2 -continue bronchodilators such as Xopenex as needed -pulmonary nodules on chest CT will need repeat CT follow-up outpatient (2) Bacteremia Current Visit: Yes Status: Acute Assessment and Plan: MRSA Bacteremia -this is likely secondary to urinary tract infection as it is growing the same bacteria -11/09/2018 blood culture growing MRSA x2 Plan: -continue IV vancomycin day 1 -will repeat blood cultures (3) GI bleed Current Visit: Yes Status: Suspected Assessment and Plan: Concerned for G.I. bleed possibly due to positive stool occult. This is in the setting of supratherapeutic INR. -hemodynamically stable -hemoglobin 12.1 (13.8 on admission) -stool occult positive Plan: -will continue monitor H&H -may need G.I. workup if decreases (4) Diarrhea Current Visit: Yes Status: Acute Assessment and Plan: Patient presented complaining of profuse continue diarrhea. Son was concerned he had C diff. -Possibly secondary to medication -Stool culture negative for C diff or any other virus -will continue to monitor -during admission patient has not had many bowel movements of diarrhea (5) Rhabdomyolysis Current Visit: Yes Status: Acute Assessment and Plan: Rhabdomyolysis which subsequently caused acute renal failure, secondary to patient having a recent fall and laying for many hours on the ground. -Creatinine kinase 1413 on admission -creatinine kinase currently 863 Plan: -will continue to monitor (6) UTI (urinary tract infection) Current Visit: Yes Status: Suspected Assessment and Plan: Urinary tract infection on urinalysis -Patient denied dysuria could admitted urinary frequency -urinalysis with leukocyte esterase and WBC, granular casts -urinalysis growing Staphylococcus aureus Plan: -continue Rendon catheter -await urinalysis sensitivity -continue vancomycin (7) Acute renal failure Current Visit: Yes Status: Acute Assessment and Plan: Acute renal failure. At admission creatinine 2.1 -likely secondary to rhabdomyolysis -creatinine 1.53 improved -I&O: 1250/1075 + 175 -urinalysis with leukocyte esterase and WBC, granular casts -abdomen/pelvis CT demonstrating bilateral renal lesions with recommendations of dedicated renal MRI Plan: -bilateral renal lesions on abdomen/pelvis CT with recommendations of dedicated renal MRI follow-up -acute renal failure is improving -continue renal protective strategy including renal dose medication and avoid nephrotoxic agents -monitor serum creatinine -monitor I&O (8) Dehydration Current Visit: Yes Status: Acute Assessment and Plan: Dehydration on admission. Patient received IV fluids (9) Atrial fibrillation Current Visit: Yes Status: Chronic Assessment and Plan: History of atrial fibrillation on anticoagulation with Coumadin and rate c ontrolled with carvedilol -continue Coumadin and carvedilol (10) Chronic ulcer of right foot with fat layer exposed Current Visit: No Status: Acute Assessment and Plan: Patient with a chronic wound ulcer of the foot for which he follows with Dr. Darby of podiatry -will consult wound care for further management (11) HTN (hypertension) Current Visit: Yes Status: Chronic Assessment and Plan: History of hypertension taking carvedilol, spironolactone, Lasix -blood pressure stable -continue home carvedilol -labetalol IV PRN (12) CAD (coronary artery disease) Current Visit: Yes Status: Chronic Assessment and Plan: History of CAD taking atorvastatin, carvedilol, spironolactone -continue aspirin, atorvastatin, carvedilol (13) Morbid obesity with BMI of 40.0-44.9, adult Current Visit: Yes Status: Chronic Assessment and Plan: Lifestyle changes (14) DVT prophylaxis Current Visit: Yes Status: Acute Assessment and Plan: Continue home Coumadin (15) Supratherapeutic INR Current Visit: Yes Status: Acute Assessment and Plan: Supratherapeutic INR. INR 4.1 on admission. Patient takes Coumadin for atrial fibrillation. -INR 5.0 -no obvious active bleeding -Pharmacy to manage Coumadin dose -monitor INR -Monitor for bleeding - Time Spent with Patient Total time spent is greater than 50% in coordination of care (as documented) at patient's floor/unit and/or counseling patient: Internal Medicine: Result - Labs CBC & Chem 7: 11/10/18 01:12 11/10/18 01:12 Labs: Short CBC 11/10/18 Range/Units 01:12 WBC 19.6 H (4.3-11.1) K/mcL Hgb 12.1 L D (12.9-16.9) g/dL Hct 35.1 L (37.5-50.1) % Plt Count 181 (140-400) K/mcL Neutrophils # 17.2 H (1.6-8.9) K/mcL BMP 11/09/18 11/10/18 11:14 01:12 Sodium 135 L 132 L Potassium 4.1 3.4 L Chloride 98 97 L Carbon Dioxide 25 26 BUN 45 H 46 H Creatinine 2.10 H 1.53 H Glucose 159 H 178 H Calcium 10.1 9.4 Cardiac Enzymes 11/09/18 Range/Units 11:14 Troponin I 0.03 (< 0.04) ng/mL Liver Function 11/09/18 11/10/18 Range/Units 11:14 01:12 Total Bilirubin 1.2 H 0.8 (0.3-1.0) mg/dL Direct Bilirubin 0.2 (0.0-0.2) mg/dL AST 92 H 71 H (13-39) Units/L ALT 60 H 49 (7-52) Units/L Alkaline Phosphatase 60 59 (34-104) Units/L Albumin 3.7 3.2 L (3.5-5.7) g/dL Urine 11/09/18 11/10/18 Range/Units 17:18 04:30 Urine Color Yellow Red A (Yellow) Urine Clarity Cloudy A Cloudy A (Clear) Urine pH 5.0 6.0 (5.0-8.0) pH Units Ur Specific [place] 1.018 1.014 (1.010-1.025) Urine Protein 100 H 100 H (Neg-Trace) mg/dL Urine Glucose (UA) Normal Normal (Normal) mg/dL - ABG Interpretation ABG results: PT/INR, D-dimer PT 56.3 Seconds (9.4-12.1) H* 11/10/18 01:12 - Impressions Impressions Abdomen/Pelvis CT 11/09/18 12:54 IMPRESSION: 1. Small right and trace left partially loculated pleural effusions. Increased consolidative opacities in the lung bases slightly asymmetric right worse than left, either atelectasis or pneumonia. 2. Scattered nodules throughout the lungs bilaterally which are indeterminate and may be infectious, inflammatory or neoplastic in etiology. Recommend follow-up to ensure complete resolution. 3. Mildly enlarged right subcarinal/hilar lymph node, nonspecific. 4. No acute findings in the abdomen or pelvis on this unenhanced study. 5. Indeterminate bilateral renal lesions. Recommend dedicated renal MRI once acute issues have resolved. RECOMMENDATIONS: Fleischner Society guidelines for follow-up and management of incidentally detected pulmonary nodules: Multiple Solid Nodules: Nodule size greater than 8 mm In a low-risk patient, CT at 3-6 months, then consider CT at 18-24 months. In a high-risk patient, CT at 3-6 months, then CT at 18-24 months. - Low risk patients include individuals with minimal or absent history of smoking and other known risk factors. - High risk patients include individuals with a history or smoking or known risk factors. Radiology 2017 http://pubs.rsna.org/doi/full/10.1148/radiol.[email or web address] D/ / 11/09/2018 14:13:50 Nya Triana MD / esther Interpreting Provider: Nya Triana MD Chest CT 11/09/18 12:54 IMPRESSION: 1. Small right and trace left partially loculated pleural effusions. Increased consolidative opacities in the lung bases slightly asymmetric right worse than left, either atelectasis or pneumonia. 2. Scattered nodules throughout the lungs bilaterally which are indeterminate and may be infectious, inflammatory or neoplastic in etiology. Recommend follow-up to ensure complete resolution. 3. Mildly enlarged right subcarinal/hilar lymph node, nonspecific. 4. No acute findings in the abdomen or pelvis on this unenhanced study. 5. Indeterminate bilateral renal lesions. Recommend dedicated renal MRI once acute issues have resolved. RECOMMENDATIONS: Fleischner Society guidelines for follow-up and management of incidentally detected pulmonary nodules: Multiple Solid Nodules: Nodule size greater than 8 mm In a low-risk patient, CT at 3-6 months, then consider CT at 18-24 months. In a high-risk patient, CT at 3-6 months, then CT at 18-24 months. - Low risk patients include individuals with minimal or absent history of smoking and other known risk factors. - High risk patients include individuals with a history or smoking or known risk factors. Radiology 2017 http://pubs.rsna.org/doi/full/10.1148/radiol.[email or web address] D/ / 11/09/2018 14:13:50 Nya Triana MD / esther Interpreting Provider: Nya Triana MD Head CT 11/09/18 16:52 IMPRESSION: No acute intracranial abnormality. Mild parenchymal volume loss. Mild chronic microvascular disease. D/ / Javier Mathew MD / Javier Mathew MD Interpreting Provider: Javier Mathew MD Consult Discharge Plan - Plan Referrals: NONE,PCP [Primary Care Provider] - <Isak Driscoll - Last Filed: 11/10/18 18:47> Hospitalist Progress Note - Encounter Date of Encounter: 11/10/18 - Exam Vitals: Temp Pulse Resp BP Pulse Ox 99.1 F 105 24 142/83 97 11/10/18 14:17 11/10/18 14:17 11/10/18 14:17 11/10/18 14:17 11/10/18 14:17 - Assessment and Plan (1) Sepsis Current Visit: Yes Status: Acute (2) UTI (urinary tract infection) Current Visit: Yes Status: Suspected (3) Chronic ulcer of right foot with fat layer exposed Current Visit: No Status: Acute (4) GI bleed Current Visit: Yes Status: Suspected (5) Pneumonia Current Visit: Yes Status: Suspected (6) Diarrhea Current Visit: Yes Status: Acute (7) Dehydration Current Visit: Yes Status: Acute (8) Rhabdomyolysis Current Visit: Yes Status: Acute (9) Acute renal failure Current Visit: Yes Status: Acute (10) Atrial fibrillation Current Visit: Yes Status: Chronic (11) HTN (hypertension) Current Visit: Yes Status: Chronic (12) CAD (coronary artery disease) Current Visit: Yes Status: Chronic (13) Morbid obesity with BMI of 40.0-44.9, adult Current Visit: Yes Status: Chronic (14) DVT prophylaxis Current Visit: Yes Status: Acute (15) Bacteremia Current Visit: Yes Status: Acute (16) Supratherapeutic INR Current Visit: Yes Status: Acute - Time Spent with Patient Total time spent is greater than 50% in coordination of care (as documented) at patient's floor/unit and/or counseling patient: Internal Medicine: Result - Labs CBC & Chem 7: 11/10/18 01:12 11/10/18 01:12 Labs: Short CBC 11/10/18 Range/Units 01:12 WBC 19.6 H (4.3-11.1) K/mcL Hgb 12.1 L D (12.9-16.9) g/dL Hct 35.1 L (37.5-50.1) % Plt Count 181 (140-400) K/mcL Neutrophils # 17.2 H (1.6-8.9) K/mcL BMP 11/10/18 01:12 Sodium 132 L Potassium 3.4 L Chloride 97 L Carbon Dioxide 26 BUN 46 H Creatinine 1.53 H Glucose 178 H Calcium 9.4 Liver Function 11/10/18 Range/Units 01:12 Total Bilirubin 0.8 (0.3-1.0) mg/dL Direct Bilirubin 0.2 (0.0-0.2) mg/dL AST 71 H (13-39) Units/L ALT 49 (7-52) Units/L Alkaline Phosphatase 59 (34-104) Units/L Albumin 3.2 L (3.5-5.7) g/dL Urine 11/09/18 11/10/18 Range/Units 17:18 04:30 Urine Color Yellow Red A (Yellow) Urine Clarity Cloudy A Cloudy A (Clear) Urine pH 5.0 6.0 (5.0-8.0) pH Units Ur Specific [place] 1.018 1.014 (1.010-1.025) Urine Protein 100 H 100 H (Neg-Trace) mg/dL Urine Glucose (UA) Normal Normal (Normal) mg/dL - ABG Interpretation ABG results: PT/INR, D-dimer PT 56.3 Seconds (9.4-12.1) H* 11/10/18 01:12 - Impressions Impressions Abdomen/Pelvis CT 11/09/18 12:54 IMPRESSION: 1. Small right and trace left partially loculated pleural effusions. Increased consolidative opacities in the lung bases slightly asymmetric right worse than left, either atelectasis or pneumonia. 2. Scattered nodules throughout the lungs bilaterally which are indeterminate and may be infectious, inflammatory or neoplastic in etiology. Recommend follow-up to ensure complete resolution. 3. Mildly enlarged right subcarinal/hilar lymph node, nonspecific. 4. No acute findings in the abdomen or pelvis on this unenhanced study. 5. Indeterminate bilateral renal lesions. Recommend dedicated renal MRI once acute issues have resolved. RECOMMENDATIONS: Fleischner Society guidelines for follow-up and management of incidentally detected pulmonary nodules: Multiple Solid Nodules: Nodule size greater than 8 mm In a low-risk patient, CT at 3-6 months, then consider CT at 18-24 months. In a high-risk patient, CT at 3-6 months, then CT at 18-24 months. - Low risk patients include individuals with minimal or absent history of smoking and other known risk factors. - High risk patients include individuals with a history or smoking or known risk factors. Radiology 2017 http://pubs.rsna.org/doi/full/10.1148/radiol.[email or web address] D/ / 11/09/2018 14:13:50 Nya Triana MD / esther Interpreting Provider: Nya Triana MD Chest CT 11/09/18 12:54 IMPRESSION: 1. Small right and trace left partially loculated pleural effusions. Increased consolidative opacities in the lung bases slightly asymmetric right worse than left, either atelectasis or pneumonia. 2. Scattered nodules throughout the lungs bilaterally which are indeterminate and may be infectious, inflammatory or neoplastic in etiology. Recommend follow-up to ensure complete resolution. 3. Mildly enlarged right subcarinal/hilar lymph node, nonspecific. 4. No acute findings in the abdomen or pelvis on this unenhanced study. 5. Indeterminate bilateral renal lesions. Recommend dedicated renal MRI once acute issues have resolved. RECOMMENDATIONS: Fleischner Society guidelines for follow-up and management of incidentally detected pulmonary nodules: Multiple Solid Nodules: Nodule size greater than 8 mm In a low-risk patient, CT at 3-6 months, then consider CT at 18-24 months. In a high-risk patient, CT at 3-6 months, then CT at 18-24 months. - Low risk patients include individuals with minimal or absent history of smoking and other known risk factors. - High risk patients include individuals with a history or smoking or known risk factors. Radiology 2017 http://pubs.rsna.org/doi/full/10.1148/radiol.[email or web address] D/ / 11/09/2018 14:13:50 Nya Triana MD / lgray Interpreting Provider: Nya Triana MD Echocardiogram 11/10/18 18:32 Impressions: Technically sub-optimal due to poor echocardiographic windows, clinical condition and body habitus. LVEF grossly normal. Indeterminate diastolic function. Probably normal right ventricular function. No significant valvular dysfunction. No evidence of pulmonary hypertension. Recommend repeat Echo after rate control. Left Ventricular Wall Motion: Rest Echo Findings The apical inferior, mid inferior, basal inferior, apical anterior, mid anterior, basal anterior, mid anterior septal, mid inferior lateral, basal anterior septal and basal inferior lateral ho were not visualized. All other wall segments showed normal motion. Findings: Study Quality * Technically sub-optimal due to poor echocardiographic windows, clinical condition and body habitus. ECG Findings * Atrial fibrillation with RVR, BBB. Left Ventricle * LVEF grossly normal. * Unable to evaluate segmental wall motion due to technical quality. * Indeterminate diastolic function. * Definity echo contrast was used. Right Ventricle * RV not well visualized, probably normal right ventricular sized and function. Left Atrium * Left atrium is not well visualized. Right Atrium * Right atrium is not well visualized. Interatrial Septum * Interatrial septum not well evaluated. Aortic Valve * Aortic valve not well visualized. * No aortic stenosis. * No aortic regurgitation. Mitral Valve * Mitral valve not well visualized. * No mitral stenosis. * Trace mitral regurgitation. Tricuspid Valve * Tricuspid valve not well visualized. * No tricuspid stenosis. * Trace tricuspid regurgitation. * Unable to estimate RVSP due to lack of TR jet. * No evidence of pulmonary hypertension. * Estimated RA pressure is 3 mmHg. Pulmonic Valve * Pulmonic valve is not well visualized. * No pulmonic regurgitation. * No pulmonic stenosis. Aorta * Aorta not well visualized, Pericardium * The pericardium appears normal. IVC * The IVC is not dilated. * > 50% respiratory change - Attending Attestation I examined this patient and my medical decision-making was reviewed with the Resident Physician on 11/10/18. I agree with the documented findings, dispos ition and treatment plan as described except to the extent set forth below. Mr Morris is currently admitted for sepsis due to MRSA bacteremia and UTI. He remains moderate to high risk due to potential for worsening clinical status. Mr Morris is looking and feeling better today. He is able to sit on the side of the bed. No fever since last evening. No CP or worsening dyspnea. Still has diarrhea that is dark. Had hematuria last night as well. Exam alert Mod distress when moving around Mucus membranes dry Heart reg and not tachy Decreased breath sounds but no wheeze ABd soft and nontender Some edema noted I/P 1. Sepsis due to MRSA - on IV Vancomycin. Will need repeat cultures and echocardiogram and LOY 2. MRSA UTI - Vancomycin 3. Diarrhea - GI panel negative. ? if bleeding versus another cause. Check H/H tomorrow. 4. Foot wound - wound care consult. 5. Morbid obesity 6. Acute rhabdo - improving. Continue IV fluids 7. VAZQUEZ - improving 8. CKD 3 Further diagnoses and plan as above. <Simran Morejonanie - Last Filed: 11/10/18 17:52> (1) Pneumonia Qualifiers: Pneumonia type: aspiration pneumonia Laterality: right Lung location: lower lobe of lung (3) GI bleed Qualifiers: GI bleed type/associated pathology: melena Qualified Code(s): K92.1 - Melena (4) Diarrhea Qualifiers: Diarrhea type: presumed infectious Qualified Code(s): R19.7 - Diarrhea, unspecified (5) Rhabdomyolysis Qualifiers: Rhabdomyolysis type: traumatic Encounter type: initial encounter Qualified Code(s): T79.6XXA - Traumatic ischemia of muscle, initial encounter (6) UTI (urinary tract infection) Qualifiers: Urinary tract infection type: acute cystitis Hematuria presence: with hematuria Qualified Code(s): N30.01 - Acute cystitis with hematuria (7) Acute renal failure Qualifiers: Acute renal failure type: with acute tubular necrosis Qualified Code(s): N17.0 - Acute kidney failure with tubular necrosis (9) Atrial fibrillation Qualifiers: Atrial fibrillation type: chronic Qualified Code(s): I48.2 - Chronic atrial fibrillation (11) HTN (hypertension) Qualifiers: Hypertension type: essential hypertension Qualified Code(s): I10 - Essential (primary) hypertension (12) CAD (coronary artery disease) Qualifiers: Coronary Disease-Associated Artery/Lesion type: [place] artery [place] vs. transplanted heart: [place] heart Associated angina: without angina Qualified Code(s): I25.10 - Atherosclerotic heart disease of [place] coronary artery without angina pectoris <Isak Driscoll Herbert - Last Filed: 11/10/18 18:47> (1) Sepsis Qualifiers: Sepsis type: methicillin resistant Staphylococcus aureus Qualified Code(s): A41.02 - Sepsis due to Methicillin resistant Staphylococcus aureus (2) UTI (urinary tract infection) Qualifiers: Urinary tract infection type: acute cystitis Hematuria presence: with hematuria Qualified Code(s): N30.01 - Acute cystitis with hematuria (4) GI bleed Qualifiers: GI bleed type/associated pathology: melena Qualified Code(s): K92.1 - Melena (5) Pneumonia Qualifiers: Pneumonia type: aspiration pneumonia Laterality: right Lung location: lower lobe of lung (6) Diarrhea Qualifiers: Diarrhea type: presumed infectious Qualified Code(s): R19.7 - Diarrhea, unspecified (8) Rhabdomyolysis Qualifiers: Rhabdomyolysis type: traumatic Encounter type: subsequent encounter Qualified Code(s): T79.6XXD - Traumatic ischemia of muscle, subsequent encounter (9) Acute renal failure Qualifiers: Acute renal failure type: with acute tubular necrosis Qualified Code(s): N17.0 - Acute kidney failure with tubular necrosis (10) Atrial fibrillation Qualifiers: Atrial fibrillation type: chronic Qualified Code(s): I48.2 - Chronic atrial fibrillation (11) HTN (hypertension) Qualifiers: Hypertension type: essential hypertension Qualified Code(s): I10 - Essential (primary) hypertension (12) CAD (coronary artery disease) Qualifiers: Coronary Disease-Associated Artery/Lesion type: [place] artery [place] vs. transplanted heart: [place] heart Associated angina: without angina Qualified Code(s): I25.10 - Atherosclerotic heart disease of [place] coronary artery without angina pectoris
[2018-11-10] MEDS: *HR* Labetalol 20 MG/4 ML SYRINGE IVP PRN (11:56)
[2018-11-10] MEDS ORDERED: Vancomycin 1 EACH in 0.9 % Sodium Chloride 500 ML IVPB SCH (14:00)
[2018-11-10] MEDS ORDERED: Warfarin perPT PO PRN (18:00)
[2018-11-10] MEDS: Gabapentin 300 MG CAPSULE PO SCH (22:30)
[2018-11-11 01:47] LABS: Basophils % 0.1 %; Hematocrit 30.2 % (37.5-50.1); Lymphocytes # 1.2 K/mcL (0.6-4.6); Lymphocytes % 6.8 %; Mean Corpuscular HGB Conc 34.4 g/dL (31.6-35.5); Mean Corpuscular Hemoglobin 31.2 pg (28.0-33.3); Mean Corpuscular Volume 90.7 fL (83.0-100.0); Mean Platelet Volume 10.3 fL (9.4-12.4); Monocytes # 1.7 K/mcL (0.0-1.3); Monocytes % 9.5 %; Neutrophils # 14.8 K/mcL (1.6-8.9); Platelet Count 176 K/mcL (140-400); Red Blood Count 3.33 M/mcL (4.19-5.50); Red Cell Distribution Width 14.6 % (11.5-14.5); Segmented Neutrophils % 82.6 %
[2018-11-11 01:53] LABS: Hemoglobin 10.4 g/dL (12.9-16.9)
[2018-11-11 01:58] LABS: Prothrombin Time 55.6 Seconds (9.4-12.1)
[2018-11-11 01:59] LABS: INR 4.9
[2018-11-11 02:05] LABS: Calcium 8.7 mg/dL (8.6-10.3)
[2018-11-11 02:14] LABS: Platelet Estimate Normal (Normal)
[2018-11-11] MEDS: Ampicillin/Sulbactam 1,500 MG in 0.9 % Sodium Chloride Mini Bag 100 ML IVPB SCH ×3 (04:22→18:39)
[2018-11-11] MEDS: Sodium Bicarbonate 150 MEQ in D5% in Water 1,000 ML IVC SCH (06:59)
[2018-11-11] MEDS: Levalbuterol Neb 1.25 MG/3 ML IH SCH ×2 (07:58→21:13)
[2018-11-11] MEDS: Aspirin Enteric Coated 81 MG Tablet PO SCH (08:53)
[2018-11-11] MEDS: Azithromycin 500 MG in D5% in Water 250 ML IVPB SCH (08:58)
--- NOTE | 2018-11-11 09:12 | Internal Med Progress Note ---
<Sepideh Morejon - Last Filed: 11/11/18 09:09> Hospitalist Progress Note - Encounter Date of Encounter: 11/11/18 Time of Encounter: 08:50 - Subjective Interval History: Patient seen them examined at bedside. He is alert and oriented times 3. He reports that he will occasionally have difficulty initially starting his urinary stream. Denies dysuria, hematuria, fever, chills, chest pain, shortness of breath, body aches. There were no overnight events. He did Timothy fever of 101.5 yesterday evening. - Exam Vitals: Temp Pulse Resp BP Pulse Ox 98.3 F 83 18 133/69 96 11/11/18 06:25 11/11/18 06:25 11/11/18 07:58 11/11/18 06:25 11/11/18 07:58 Exam: Gen.: Vitals noted. No acute distress. AAOx3 HEENT: oropharynx clear, Normocephalic, atraumatic Neck: Supple. No adenopathy. Cardiac: tachycardic, no murmur, +S1/S2 Pulmonary: bilaterally wheezes, rales or rhonchi, equal chest expansion Abdomen: soft, nontender, Bowel sounds noted, no guarding Extremities: no BLE edema, nontender calf, no cyanosis or clubbing skin: scabs on bilateral lower extremities, right foot is bandaged from wound being treated Neuro: A&Ox3, moves all extremities, no focal deficits Psych: Appropriate mood and behavior - Assessment and Plan (1) Bacteremia Current Visit: Yes Status: Acute Assessment and Plan: MRSA Bacteremia -this is likely secondary to urinary tract infection as it is growing the same bacteria -11/09/2018 blood culture growing MRSA x2 -11/11/2018 blood cultures pending -TTE was technically suboptimal due to poor echocardiographic window in body habitus. No significant valvular dysfunction. -There are no vascular, immunologic findings of endocarditis such as [place] lesions, [place] nodes Plan: -continue IV vancomycin - LOY ordered -will repeat blood cultures (2) UTI (urinary tract infection) Current Visit: Yes Status: Suspected Assessment and Plan: Urinary tract infection on urinalysis -Patient denied dysuria could admitted urinary frequency -urinalysis with leukocyte esterase and WBC, granular casts -urinalysis growing MRSA -patient denied recent catheterization Plan: -continue Ackerman catheter -await urinalysis sensitivity -continue vancomycin (3) Pneumonia Current Visit: Yes Status: Suspected Assessment and Plan: Pneumonia likely community acquired -patient denies increased shortness of breath or cough -chest CT demonstrating small right interest left partially likely to pleural effusions with findings concerning for pneumonia. Scattered nodules throughout the lungs bilaterally but maybe infectious or inflammatory or neoplastic. plan: -continue unasyn IV day 3 -continue vancomycin day 2 -continue azithromycin day 3 -continue bronchodilators such as Xopenex as needed -pulmonary nodules on chest CT will need repeat CT follow-up outpatient (4) Supratherapeutic INR Current Visit: Yes Status: Acute Assessment and Plan: Supratherapeutic INR. INR 4.1 on admission. Patient takes Coumadin for atrial fibrillation. -INR 4.9, yesterday 5.0 -no obvious active bleeding -Pharmacy to manage Coumadin dose -monitor INR -Monitor for bleeding (5) Acute renal failure Current Visit: Yes Status: Acute Assessment and Plan: Acute renal failure. At admission creatinine 2.1 -likely secondary to rhabdomyolysis -creatinine 1.47 improved -I&O: 4350/1775 + 2575 -urinalysis with leukocyte esterase and WBC, granular casts -abdomen/pelvis CT demonstrating bilateral renal lesions with recommendations of dedicated renal MRI Plan: -bilateral renal lesions on abdomen/pelvis CT with recommendations of dedicated renal MRI follow-up -acute renal failure is improving -continue renal protective strategy including renal dose medication and avoid nephrotoxic agents -monitor serum creatinine -monitor I&O (6) Rhabdomyolysis Current Visit: Yes Status: Acute Assessment and Plan: Improving Rhabdomyolysis which subsequently caused acute renal failure, secondary to patient having a recent fall and laying for many hours on the ground. -Creatinine kinase 1413 on admission -creatinine kinase currently 863 -received IV sodium bicarb Plan: -will continue to monitor (7) GI bleed Current Visit: Yes Status: Suspected Assessment and Plan: Concerned for G.I. bleed possibly due to positive stool occult. This is in the setting of supratherapeutic INR. -hemodynamically stable -hemoglobin 10.4 (13.8 on admission) -stool occult positive Plan: -will continue monitor H&H -may need G.I. workup if decreases -Coumadin for his age of fibrillation is currently being managed by pharmacy. He is not receiving any doses due to bleeding and supratherapeutic INR. (8) Diarrhea Current Visit: Yes Status: Acute Assessment and Plan: Patient presented complaining of profuse continue diarrhea. Son was concerned he had C diff. -Possibly secondary to medication -Stool culture negative for C diff or any other virus -will continue to monitor -during admission patient has not had many bowel movements of diarrhea (9) Chronic ulcer of right foot with fat layer exposed Current Visit: No Status: Acute Assessment and Plan: Patient with a chronic wound ulcer of the foot for which he follows with Dr. Darby of podiatry -will consult wound care for further management (10) Dehydration Current Visit: Yes Status: Acute Assessment and Plan: Dehydration on admission. Patient received IV fluids (11) Atrial fibrillation Current Visit: Yes Status: Chronic Assessment and Plan: History of atrial fibrillation on anticoagulation with Coumadin and rate controlled with carvedilol -continue carvedilol -Coumadin being held due to supratherapeutic INR. Management perpharmacy (12) HTN (hypertension) Current Visit: Yes Status: Chronic Assessment and Plan: History of hypertension taking carvedilol, spironolactone, Lasix -blood pressure stable -continue home carvedilol -labetalol IV PRN (13) CAD (coronary artery disease) Current Visit: Yes Status: Chronic Assessment and Plan: History of CAD taking atorvastatin, carvedilol, spironolactone -continue aspirin, atorvastatin, carvedilol (14) Morbid obesity with BMI of 40.0-44.9, adult Current Visit: Yes Status: Chronic Assessment and Plan: Lifestyle changes (15) DVT prophylaxis Current Visit: Yes Status: Acute Assessment and Plan: SCD (16) Sepsis Current Visit: Yes Status: Acute Assessment and Plan: Patient met sepsis criteria on admission with 2 SIRS: temperature 101, WBC 19.7. Patient an initial presentation was not hemodynamically unstable and did not require the 30ml/kg IVF. -source is UTI, bacteremia, pneumonia -organism is MRSA -afebrile (was febrile overnight with a temperature max of 101.5) -WBC 17.9 (was 19.7) improving -hemodynamically stable -WBC 17.9 improving -urinalysis growing MRSA -11/09/2018 blood culture growing MRSA x2 -11/11/2018 blood cultures pending -chest CT demonstrating small right interest left partially likely to pleural effusions with findings concerning for pneumonia. Scattered nodules throughout the lungs bilaterally but maybe infectious or inflammatory or neoplastic. Plan: -continue IV vancomycin Day 3 -await blood culture results -continue contact precautions - Time Spent with Patient Total time spent is greater than 50% in coordination of care (as documented) at patient's floor/unit and/or counseling patient: Internal Medicine: Result - Labs CBC & Chem 7: 11/11/18 01:05 11/11/18 01:05 Labs: Short CBC 11/11/18 Range/Units 01:05 WBC 17.9 H (4.3-11.1) K/mcL Hgb 10.4 L D (12.9-16.9) g/dL Hct 30.2 L (37.5-50.1) % Plt Count 176 (140-400) K/mcL Neutrophils # 14.8 H (1.6-8.9) K/mcL BMP 11/11/18 01:05 Sodium 134 L Potassium 3.0 L Chloride 94 L Carbon Dioxide 31 H BUN 54 H Creatinine 1.47 H Glucose 173 H Calcium 8.7 Urine 11/09/18 Range/Units 17:18 Urine Color Yellow (Yellow) Urine Clarity Cloudy A (Clear) Urine pH 5.0 (5.0-8.0) pH Units Ur Specific [place] 1.018 (1.010-1.025) Urine Protein 100 H (Neg-Trace) mg/dL Urine Glucose (UA) Normal (Normal) mg/dL - ABG Interpretation ABG results: PT/INR, D-dimer PT 55.6 Seconds (9.4-12.1) H* 11/11/18 01:05 - Impressions Impressions Abdomen/Pelvis CT 11/09/18 12:54 IMPRESSION: 1. Small right and trace left partially loculated pleural effusions. Increased consolidative opacities in the lung bases slightly asymmetric right worse than left, either atelectasis or pneumonia. 2. Scattered nodules throughout the lungs bilaterally which are indeterminate and may be infectious, inflammatory or neoplastic in etiology. Recommend follow-up to ensure complete resolution. 3. Mildly enlarged right subcarinal/hilar lymph node, nonspecific. 4. No acute findings in the abdomen or pelvis on this unenhanced study. 5. Indeterminate bilateral renal lesions. Recommend dedicated renal MRI once acute issues have resolved. RECOMMENDATIONS: Fleischner Society guidelines for follow-up and management of incidentally detected pulmonary nodules: Multiple Solid Nodules: Nodule size greater than 8 mm In a low-risk patient, CT at 3-6 months, then consider CT at 18-24 months. In a high-risk patient, CT at 3-6 months, then CT at 18-24 months. - Low risk patients include individuals with minimal or absent history of smoking and other known risk factors. - High risk patients include individuals with a history or smoking or known risk factors. Radiology 2017 http://pubs.rsna.org/doi/full/10.1148/radiol.0992810034 D/ / 11/09/2018 14:13:50 Nya Triana MD / esther Interpreting Provider: Nya Triana MD Chest CT 11/09/18 12:54 IMPRESSION: 1. Small right and trace left partially loculated pleural effusions. Increased consolidative opacities in the lung bases slightly asymmetric right worse than left, either atelectasis or pneumonia. 2. Scattered nodules throughout the lungs bilaterally which are indeterminate and may be infectious, inflammatory or neoplastic in etiology. Recommend follow-up to ensure complete resolution. 3. Mildly enlarged right subcarinal/hilar lymph node, nonspecific. 4. No acute findings in the abdomen or pelvis on this unenhanced study. 5. Indeterminate bilateral renal lesions. Recommend dedicated renal MRI once acute issues have resolved. RECOMMENDATIONS: Fleischner Society guidelines for follow-up and management of incidentally detected pulmonary nodules: Multiple Solid Nodules: Nodule size greater than 8 mm In a low-risk patient, CT at 3-6 months, then consider CT at 18-24 months. In a high-risk patient, CT at 3-6 months, then CT at 18-24 months. - Low risk patients include individuals with minimal or absent history of smoking and other known risk factors. - High risk patients include individuals with a history or smoking or known risk factors. Radiology 2017 http://pubs.rsna.org/doi/full/10.1148/radiol.[email or web address] D/ / 11/09/2018 14:13:50 Nya Triana MD / esther Interpreting Provider: Nya Triana MD Echocardiogram 11/10/18 18:32 Impressions: Technically sub-optimal due to poor echocardiographic windows, clinical condition and body habitus. LVEF grossly normal. Indeterminate diastolic function. Probably normal right ventricular function. No significant valvular dysfunction. No evidence of pulmonary hypertension. Recommend repeat Echo after rate control. Left Ventricular Wall Motion: Rest Echo Findings The apical inferior, mid inferior, basal inferior, apical anterior, mid anterior, basal anterior, mid anterior septal, mid inferior lateral, basal anterior septal and basal inferior lateral ho were not visualized. All other wall segments showed normal motion. Findings: Study Quality * Technically sub-optimal due to poor echocardiographic windows, clinical condition and body habitus. ECG Findings * Atrial fibrillation with RVR, BBB. Left Ventricle * LVEF grossly normal. * Unable to evaluate segmental wall motion due to technical quality. * Indeterminate diastolic function. * Definity echo contrast was used. Right Ventricle * RV not well visualized, probably normal right ventricular sized and function. Left Atrium * Left atrium is not well visualized. Right Atrium * Right atrium is not well visualized. Interatrial Septum * Interatrial septum not well evaluated. Aortic Valve * Aortic valve not well visualized. * No aortic stenosis. * No aortic regurgitation. Mitral Valve * Mitral valve not well visualized. * No mitral stenosis. * Trace mitral regurgitation. Tricuspid Valve * Tricuspid valve not well visualized. * No tricuspid stenosis. * Trace tricuspid regurgitation. * Unable to estimate RVSP due to lack of TR jet. * No evidence of pulmonary hypertension. * Estimated RA pressure is 3 mmHg. Pulmonic Valve * Pulmonic valve is not well visualized. * No pulmonic regurgitation. * No pulmonic stenosis. Aorta * Aorta not well visualized, Pericardium * The pericardium appears normal. IVC * The IVC is not dilated. * > 50% respiratory change Consult Discharge Plan - Plan Referrals: NONE,PCP [Primary Care Provider] - <Isak Driscoll - Last Filed: 11/11/18 16:31> Hospitalist Progress Note - Encounter Date of Encounter: 11/11/18 - Exam Vitals: Temp Pulse Resp BP Pulse Ox 98.8 F 135 21 106/69 96 11/11/18 14:29 11/11/18 14:29 11/11/18 14:29 11/11/18 14:29 11/11/18 14:29 - Assessment and Plan (1) Chronic ulcer of right foot with fat layer exposed Current Visit: No Status: Acute (2) GI bleed Current Visit: Yes Status: Suspected (3) Pneumonia Current Visit: Yes Status: Suspected (4) Diarrhea Current Visit: Yes Status: Acute (5) Dehydration Current Visit: Yes Status: Acute (6) Rhabdomyolysis Current Visit: Yes Status: Acute (7) Acute renal failure Current Visit: Yes Status: Acute (8) UTI (urinary tract infection) Current Visit: Yes Status: Suspected (9) Atrial fibrillation Current Visit: Yes Status: Chronic (10) HTN (hypertension) Current Visit: Yes Status: Chronic (11) CAD (coronary artery disease) Current Visit: Yes Status: Chronic (12) Morbid obesity with BMI of 40.0-44.9, adult Current Visit: Yes Status: Chronic (13) DVT prophylaxis Current Visit: Yes Status: Acute (14) Bacteremia Current Visit: Yes Status: Acute (15) Supratherapeutic INR Current Visit: Yes Status: Acute (16) Sepsis Current Visit: Yes Status: Acute - Time Spent with Patient Total time spent is greater than 50% in coordination of care (as documented) at patient's floor/unit and/or counseling patient: Internal Medicine: Result - Labs CBC & Chem 7: 11/11/18 01:05 11/11/18 01:05 Labs: Short CBC 11/11/18 Range/Units 01:05 WBC 17.9 H (4.3-11.1) K/mcL Hgb 10.4 L D (12.9-16.9) g/dL Hct 30.2 L (37.5-50.1) % Plt Count 176 (140-400) K/mcL Neutrophils # 14.8 H (1.6-8.9) K/mcL BMP 11/11/18 01:05 Sodium 134 L Potassium 3.0 L Chloride 94 L Carbon Dioxide 31 H BUN 54 H Creatinine 1.47 H Glucose 173 H Calcium 8.7 - ABG Interpretation ABG results: PT/INR, D-dimer PT 55.6 Seconds (9.4-12.1) H* 11/11/18 01:05 - Attending Attestation I examined this patient and my medical decision-making was reviewed with the Resident Physician on 11/11/18. I agree with the documented findings, disposition and treatment plan as described except to the extent set forth below. Mr Morris is currently admitted for sepsis related to MRSA UTI/bacteremia. He remains moderate to high risk due to potential for worsening clinical status. Mr Morris feels OK. He is wanting to take a nap. Had fever last night but none now. No CP or SOB. Some cough. Still with some diarrhea. Tolerating ackerman at this time. Exam Alert Comfortable Mucus membranes dry Heart irreg - tachy now No wheeze. Diminished Abd soft and nontender Edema present Moves all extremities I/P 1. Sepsis due to MRSA - UTI and bacteremia. On IV Vancomycin. TTE poor quality. Will need LOY. 2. Atrial fibrillation - rate uncontrolled. Meds to be adjusted. 3. Morbid obesity 4. Acute renal failure - resolved 5. CKD 3 Further diagnoses and plan as above. <MorejonSepideh - Last Filed: 11/11/18 09:09> (2) UTI (urinary tract infection) Qualifiers: Urinary tract infection type: acute cystitis Hematuria presence: with hematuria Qualified Code(s): N30.01 - Acute cystitis with hematuria (3) Pneumonia Qualifiers: Pneumonia type: aspiration pneumonia Laterality: right Lung location: lower lobe of lung (5) Acute renal failure Qualifiers: Acute renal failure type: with acute tubular necrosis Qualified Code(s): N17.0 - Acute kidney failure with tubular necrosis (6) Rhabdomyolysis Qualifiers: Rhabdomyolysis type: traumatic Encounter type: subsequent encounter Qualified Code(s): T79.6XXD - Traumatic ischemia of muscle, subsequent encounter (7) GI bleed Qualifiers: GI bleed type/associated pathology: melena Qualified Code(s): K92.1 - Melena (8) Diarrhea Qualifiers: Diarrhea type: presumed infectious Qualified Code(s): R19.7 - Diarrhea, unspecified (11) Atrial fibrillation Qualifiers: Atrial fibrillation type: chronic Qualified Code(s): I48.2 - Chronic atrial fibrillation (12) HTN (hypertension) Qualifiers: Hypertension type: essential hypertension Qualified Code(s): I10 - Essential (primary) hypertension (13) CAD (coronary artery disease) Qualifiers: Coronary Disease-Associated Artery/Lesion type: [place] artery [place] vs. transplanted heart: [place] heart Associated angina: without angina Qualified Code(s): I25.10 - Atherosclerotic heart disease of [place] coronary artery without angina pectoris (16) Sepsis Qualifiers: Sepsis type: methicillin resistant Staphylococcus aureus Qualified Code(s): A41.02 - Sepsis due to Methicillin resistant Staphylococcus aureus <Isak Driscoll - Last Filed: 11/11/18 16:31> (2) GI bleed Qualifiers: GI bleed type/associated pathology: melena Qualified Code(s): K92.1 - Melena (3) Pneumonia Qualifiers: Pneumonia type: aspiration pneumonia Laterality: right Lung location: lower lobe of lung Qualified Code(s): J69.0 - Pneumonitis due to inhalation of food and vomit (4) Diarrhea Qualifiers: Diarrhea type: presumed infectious Qualified Code(s): R19.7 - Diarrhea, unspecified (6) Rhabdomyolysis Qualifiers: Rhabdomyolysis type: traumatic Encounter type: subsequent encounter Qualified Code(s): T79.6XXD - Traumatic ischemia of muscle, subsequent encounter (7) Acute renal failure Qualifiers: Acute renal failure type: with acute tubular necrosis Qualified Code(s): N17.0 - Acute kidney failure with tubular necrosis (8) UTI (urinary tract infection) Qualifiers: Urinary tract infection type: acute cystitis Hematuria presence: with hematuria Qualified Code(s): N30.01 - Acute cystitis with hematuria (9) Atrial fibrillation Qualifiers: Atrial fibrillation type: chronic Qualified Code(s): I48.2 - Chronic atrial fibrillation (10) HTN (hypertension) Qualifiers: Hypertension type: essential hypertension Qualified Code(s): I10 - Essential (primary) hypertension (11) CAD (coronary artery disease) Qualifiers: Coronary Disease-Associated Artery/Lesion type: [place] artery [place] vs. transplanted heart: [place] heart Associated angina: without angina Qualified Code(s): I25.10 - Atherosclerotic heart disease of [place] coronary artery without angina pectoris (16) Sepsis Qualifiers: Sepsis type: methicillin resistant Staphylococcus aureus Qualified Code(s): A41.02 - Sepsis due to Methicillin resistant Staphylococcus aureus
--- NOTE | 2018-11-11 10:14 | Electrocardiograph Report ---
[place] [employer] Test Date: 2018-11-09 Pat Name: Yaakov Morris Department: [id number] Room: 3A25 Gender: M Spd Manager: : [id number] Requested By: Roscoe Diaz Order Number: [id number] Reading MD: Usama Jolly Measurements Intervals [place] Rate: 74 P: -5 TN: 162 QRS: 136 QRSD: 152 T: 7 QT: 405 QTc: 433 Interpretive Statements SINUS RHYTHM RIGHT BUNDLE BRANCH BLOCK LEFT POSTERIOR FASCICULAR BLOCK Electronically Signed On 11-11-2018 10:13:01 EDT by Usama Jolly
[2018-11-11] MEDS: *HR* Labetalol 20 MG/4 ML SYRINGE IVP PRN ×2 (14:20→15:37)
[2018-11-11] MEDS: Gabapentin 300 MG CAPSULE PO SCH (20:07)
[2018-11-11 23:26] LABS: Acinetobacter baumannii by PCR Not Detected (Not Detect); Candida albicans by PCR Not Detected (Not Detect); Candida glabrata by PCR Not Detected (Not Detect); Candida krusei by PCR Not Detected (Not Detect); Candida parapsilosis by PCR Not Detected (Not Detect); Candida tropicalis by PCR Not Detected (Not Detect); Enterobacter cloacae Cmplx PCR Not Detected (Not Detect); Enterobacteriaceae by PCR Not Detected (Not Detect); Enterococcus by PCR Not Detected (Not Detect); Escherichia coli by PCR Not Detected (Not Detect); Klebsiella oxytoca by PCR Not Detected (Not Detect); Klebsiella pneumoniae by PCR Not Detected (Not Detect); Proteus by PCR Not Detected (Not Detect); Pseudomonas aeruginosa by PCR Not Detected (Not Detect); Serratia marcescens by PCR Not Detected (Not Detect); Staphylococcus aureus by PCR DETECTED (Not Detect); Staphylococcus by PCR DETECTED (Not Detect); Streptococcus agalactiae(B)PCR Not Detected (Not Detect); Streptococcus by PCR Not Detected (Not Detect); Streptococcus pneumoniae PCR Not Detected (Not Detect); Streptococcus pyogenes (A) PCR Not Detected (Not Detect); blaKPC Carbapenem-Resist Gene Not Detected (Not Detect); mecA Methicillin-Resist Gene DETECTED (Not Detect); vanA/B Vancomycin-Resist Genes Not Detected (Not Detect)
[2018-11-12] MEDS: Ampicillin/Sulbactam 1,500 MG in 0.9 % Sodium Chloride Mini Bag 100 ML IVPB SCH ×3 (03:40→19:59)
[2018-11-12 05:29] LABS: Basophils % 0.1 %; Eosinophils # 0.1 K/mcL (0.0-0.6); Eosinophils % 0.8 %; Hematocrit 26.3 % (37.5-50.1); Hemoglobin 9.1 g/dL (12.9-16.9); Immature Granulocytes % 1.5 % (0-4); Lymphocytes # 1.1 K/mcL (0.6-4.6); Lymphocytes % 7.7 %; Mean Corpuscular HGB Conc 34.6 g/dL (31.6-35.5); Mean Corpuscular Hemoglobin 31.6 pg (28.0-33.3); Mean Corpuscular Volume 91.3 fL (83.0-100.0); Mean Platelet Volume 10.1 fL (9.4-12.4); Monocytes # 1.6 K/mcL (0.0-1.3); Neutrophils # 11.2 K/mcL (1.6-8.9); Platelet Count 189 K/mcL (140-400); Red Blood Count 2.88 M/mcL (4.19-5.50); Red Cell Distribution Width 14.8 % (11.5-14.5); Segmented Neutrophils % 78.9 %
[2018-11-12 05:37] LABS: INR 5.9; Prothrombin Time 66.3 Seconds (9.4-12.1)
[2018-11-12 05:47] LABS: BUN/Creatinine Ratio 40 (6-26); Blood Urea Nitrogen 51 mg/dL (8-23); Calcium 9.5 mg/dL (8.6-10.3); Carbon Dioxide 32 mEq/L (23-29); Chloride 100 mEq/L (98-107); Glucose 139 mg/dL (70-105); Magnesium 2.5 mg/dL (1.6-2.6); Osmolality,Calculated 302 (280-300); Potassium 3.3 mEq/L (3.5-5.1); Sodium 138 mEq/L (136-145); eGFR For Non-African Americans 55 (> 60)
[2018-11-12] MEDS ORDERED: Lidocaine Viscous Oral Soln 15 ML SOLUTION MM PRN ×2 (08:14→13:18)
[2018-11-12] MEDS ORDERED: *HR* FentaNYL (PF) 100 MCG/2 ML VIAL IVP PRN ×2 (08:14→13:18)
[2018-11-12] MEDS ORDERED: *HR* Midazolam HCl 5 MG/5 ML VIAL IVP PRN (08:15)
[2018-11-12] MEDS ORDERED: 0.9 % Sodium Chloride 500 ML IVC ONE ×2 (08:15→13:19)
[2018-11-12] MEDS: Aspirin Enteric Coated 81 MG Tablet PO SCH (08:50)
[2018-11-12] MEDS: Azithromycin 500 MG in D5% in Water 250 ML IVPB SCH (08:51)
--- NOTE | 2018-11-12 10:11 | Internal Med Progress Note ---
<Polly Cade - Last Filed: 11/12/18 18:16> Hospitalist Progress Note - Encounter Date of Encounter: 11/12/18 Time of Encounter: 09:00 - Subjective Interval History: Mr. Morris is a 68Yo M with a h/o a-fib, CAD and and HTN who initially presented d/t weakness, pain and diarrhea. Pt was found to have MRSA bacteremia 2/2 UTI and PNA. Today pt has no complaints and denies fever, chills, H/A, dizziness, chest pain, palpitations, SOB, cough, dyspnea, NVD, constipation, abdominal pain, dysuria, urinary frequency or urgency. - Exam Vitals: Temp Pulse Resp BP Pulse Ox 98.1 F 74 16 126/62 90 11/12/18 06:50 11/12/18 06:50 11/12/18 06:50 11/12/18 08:58 11/12/18 06:50 Exam: General: AAOX3, NAD, answers questions appropriately Cardiovascular: distant heart sounds, no murmurs, no gallops Respiratory: Wheezing heard bilaterally increased on the left, equal chest expansion Abdomen: normal bowel sounds X4, soft, non-tender to palpation, no guarding Ext: no pedal/leg edema bilaterally Skin: right foot is bandaged d/t chronic foot ulcer that is being treated - Assessment and Plan (1) Sepsis Current Visit: Yes Status: Acute Assessment and Plan: Patient met sepsis criteria on admission with 2 SIRS: temperature 101, WBC 19.7. Patient on initial presentation was not hemodynamically unstable and did not require the 30ml/kg IVF. Infectious source is likely 2/2 UTI vs bacteremia vs pneumonia /12 blood cx MRSA X2 4/12 urine cx MRSA 4/ chest CT demonstrating small right interest left partially likely to pl eural effusions with findings concerning for pneumonia. Scattered nodules throughout the lungs bilaterally but maybe infectious or inflammatory or neoplastic. / blood cx growing gram + cocci / Respiratory panel positive for MRSA gene Pt currently hemodynamically stable and is afebrile at 98.5, WBC at 14.2 improved from 17.9 yesterday, HR 65-112, RR 14-28 Pt meets sepsis criteria with 3/4 SIRS and a present source of infection Plan: -continue IV vancomycin Day 3 -Continue unasyn day 4 -Continue azithromycin day 4 -continue contact precautions -will repeat blood cx -CRP pending -Sputum cx pending -Strep pneumo and legionella pending -ID following (2) Bacteremia Current Visit: Yes Status: Acute Assessment and Plan: Likely 2/2 UTI vs PNA vs chronic right foot ulcer 11/09- blood culture MRSA x2 11/11- blood cultures growing gram + cocci 11/10-TTE was technically suboptimal due to poor echocardiographic window in body habitus. No significant valvular dysfunction. There are no vascular, immunologic findings of endocarditis such as [place] lesions, [place] nodes Patient has one major and two minor modified Romero's criteria LOY attempted today however pt drank water after being NPO and INR was 5.9, not in patients best interest to have instrumentation done until his INR decreases to a therapeutic range Plan: -continue IV vancomycin -LOY ordered -repeat blood cultures -ID following (3) UTI (urinary tract infection) Current Visit: Yes Status: Suspected Assessment and Plan: Pt has urinary tract infection on urinalysis with positive WBC and leukocyte esterase, pt denies fever, chills, dysuria, or urinary frequency or urgency today, patient denied recent catheterization 11/09 U/A with leukocyte esterase, WBC, and granular casts 11/09 Urine Cx MRSA resistant to oxacillin and cipro 11/10 U/A positive WBC, leukocyte esterase, and protein Plan: -continue Rendon catheter -continue vancomycin (4) Pneumonia Current Visit: Yes Status: Suspected Assessment and Plan: Pneumonia likely community acquired, patient denies shortness of breath or cough today 11/[address] demonstrating small right and trace left partially loculated pleural effusions with findings concerning for pneumonia/atelectasis. Scattered nodules throughout the lungs bilaterally but maybe infectious or inflammatory or neoplastic. 11/11 Respiratory panel positive for MRSA gene plan: -continue unasyn IV day 4 -continue vancomycin day 3 -continue azithromycin day 4 -continue bronchodilators such as Xopenex as needed -pulmonary nodules on chest CT will need repeat CT follow-up outpatient -Sputum cx pending -strep pneumo and legionella pending (5) Supratherapeutic INR Current Visit: Yes Status: Acute Assessment and Plan: Pt has Supratherapeutic INR which was 4.1 on admission. Patient takes Coumadin for atrial fibrillation. INR today is 5.9, yesterday 4.9 Pt having no obvious active bleeding, has positive stool occult test s/p 1 FFP Plan: -Pharmacy to manage Coumadin dose -monitor INR -Monitor for bleeding (6) Acute renal failure Current Visit: Yes Status: Acute Assessment and Plan: Acute renal failure likey 2/2 rhabdomyolysis. Cr on admission was 2.1 Cr today is improved at 1.29 I&Os today: intake total 513mL, output total 2125mL 11/09 CT abd/pelvis showed bilateral renal lesions and recommend dedicated renal MRI once acute issues have resolved 11/09 U/A showed positive leukocyte esterase, WBC, and granular casts 11/10 U/A showed positive leukocyte esterase, protein, WBC and TNTC RBC Pt acute renal failure has improved Plan: -Improving -avoid nephrotoxic substances and renally dose medications -monitor Cr -Monitor I&Os (7) Rhabdomyolysis Current Visit: Yes Status: Acute Assessment and Plan: Rhabdomyolysis 2/2 pt having recent fall resulting in pt laying on the floor for 4 hours, pt reported general body pain and mylagias on admission CK on admission was 1413 CK on 11/10 was improved at 863 Pt received IV sodium bicarbonate Today pt denies pain and states he feels fine Plan: -Continue to monitor (8) GI bleed Current Visit: Yes Status: Suspected Assessment and Plan: Pt was found to have a positive stool occult test. Pt currently has supratherapeutic INR. Pt is currently hemodynamically stable Concern for GI bleed possibly 2/2 INR, ulcer, polyps, colon ca Hgb today is 9.1 down from 10.4 yesterday Pt received FFP today Plan: -Monitor H&H -Coumadin held, managed by pharmacy -Plans for EGD and colonoscopy once INR is 1.5 or less per GI recommendations -Check INR in AM -GI recommends iron profile, ferritin, folate and B12 (9) Diarrhea Current Visit: Yes Status: Acute Assessment and Plan: Pt admitted to profuse diarrhea on admission, possibly 2/2 medication 11/10 C-diff negative 11/10 Stool Cx negative for other viral/bacterial causes Today pt denies diarrhea or constipation. Plan: -Continue to monitor -GI recommends check fecal calprotectin (10) Chronic ulcer of right foot with fat layer exposed Current Visit: No Status: Acute Assessment and Plan: Pt has a chronic ulcer of the right foot on the inner surface which is managed by Dr. Darby of podiatry. Foot is currently bandaged. Plan: -Wound care consulted (11) Dehydration Current Visit: Yes Status: Acute Assessment and Plan: Pt was dehydrated on admission and was given IVF Plan: -Continue to monitor (12) Atrial fibrillation Current Visit: Yes Status: Chronic Assessment and Plan: Pt has h/o a-fib for which he takes coumadin, pt also takes home carvedilol for rate control HR today 65-112 PT INR today was 66.3 and 5.9 respectively Plan: -Continue home carvedilol -Coumadin held d/t supratherapeutic INR -Continue IV labetolol IV PRN (13) HTN (hypertension) Current Visit: Yes Status: Chronic Assessment and Plan: Pt BP today is stable at 124-146/56-84. Takes home Carvedilol, lasix and spironolactone Plan: -Continue home carvedilol -Continue labetolol PRN (14) CAD (coronary artery disease) Current Visit: Yes Status: Chronic Assessment and Plan: Pt has h/o CAD, and takes home atorvastatin, carvedilol and spironolactone Plan: -Continue ASA -Continue Statin, carvedilol (15) Morbid obesity with BMI of 40.0-44.9, adult Current Visit: Yes Status: Chronic Assessment and Plan: Pt BMI is 41.2. Plan: -Lifestyle modifications (16) DVT prophylaxis Current Visit: Yes Status: Acute Assessment and Plan: Plan: -SCDs - Time Spent with Patient Total time spent is greater than 50% in coordination of care (as documented) at patient's floor/unit and/or counseling patient: Internal Medicine: Result - Labs CBC & Chem 7: 11/12/18 05:15 11/12/18 05:15 Labs: Short CBC 11/12/18 Range/Units 05:15 WBC 14.2 H (4.3-11.1) K/mcL Hgb 9.1 L (12.9-16.9) g/dL Hct 26.3 L (37.5-50.1) % Plt Count 189 (140-400) K/mcL Neutrophils # 11.2 H (1.6-8.9) K/mcL BMP 11/12/18 05:15 Sodium 138 Potassium 3.3 L Chloride 100 Carbon Dioxide 32 H BUN 51 H Creatinine 1.29 Glucose 139 H Calcium 9.5 - ABG Interpretation ABG results: PT/INR, D-dimer PT 66.3 Seconds (9.4-12.1) H* 11/12/18 05:15 Consult Discharge Plan - Plan Referrals: NONE,PCP [Primary Care Provider] - <Isak Driscoll - Last Filed: 11/12/18 19:29> Hospitalist Progress Note - Encounter Date of Encounter: 11/12/18 - Exam Vitals: Temp Pulse Resp BP Pulse Ox 98.5 F 74 16 127/84 96 11/12/18 16:10 11/12/18 16:10 11/12/18 16:10 11/12/18 16:10 11/12/18 16:10 - Assessment and Plan (1) Chronic ulcer of right foot with fat layer exposed Current Visit: No Status: Acute (2) GI bleed Current Visit: Yes Status: Suspected (3) Pneumonia Current Visit: Yes Status: Suspected (4) Diarrhea Current Visit: Yes Status: Acute (5) Dehydration Current Visit: Yes Status: Acute (6) Rhabdomyolysis Current Visit: Yes Status: Acute (7) Acute renal failure Current Visit: Yes Status: Acute (8) UTI (urinary tract infection) Current Visit: Yes Status: Suspected (9) Atrial fibrillation Current Visit: Yes Status: Chronic (10) HTN (hypertension) Current Visit: Yes Status: Chronic (11) CAD (coronary artery disease) Current Visit: Yes Status: Chronic (12) Morbid obesity with BMI of 40.0-44.9, adult Current Visit: Yes Status: Chronic (13) DVT prophylaxis Current Visit: Yes Status: Acute (14) Bacteremia Current Visit: Yes Status: Acute (15) Supratherapeutic INR Current Visit: Yes Status: Acute (16) Sepsis Current Visit: Yes Status: Acute - Time Spent with Patient Total time spent is greater than 50% in coordination of care (as documented) at patient's floor/unit and/or counseling patient: Internal Medicine: Result - Labs CBC & Chem 7: 11/12/18 05:15 11/12/18 05:15 Labs: Short CBC 11/12/18 Range/Units 05:15 WBC 14.2 H (4.3-11.1) K/mcL Hgb 9.1 L (12.9-16.9) g/dL Hct 26.3 L (37.5-50.1) % Plt Count 189 (140-400) K/mcL Neutrophils # 11.2 H (1.6-8.9) K/mcL BMP 11/12/18 05:15 Sodium 138 Potassium 3.3 L Chloride 100 Carbon Dioxide 32 H BUN 51 H Creatinine 1.29 Glucose 139 H Calcium 9.5 - ABG Interpretation ABG results: PT/INR, D-dimer PT 66.3 Seconds (9.4-12.1) H* 11/12/18 05:15 - Attending Attestation The history, physical exam, and medical decision making was performed by the medical student either while I was physically present and actively involved or I personally re-performed the exam and medical decision making. I have verified the accuracy of the medical student's documentation with regards to the history, physical exam findings, and medical decision making on 11/12/18. Mr Morris is currently admitted for acute MRSA bacteremia and UTI. He remains moderate to high risk due to potential for worsening clinical status. Mr Morris is doing about the same. No fever at this time. No CP. No abd pain. Tolerating IV abx. Repeat blood cultures remain positive. Exam alert Comfortable Normocephalic Mucus membranes dry Neck supple Heart irreg - not tachy now. Scant rhonchi bilaterally Abd soft and nontender now Edema present Pulses palpable Moves extremities I/P 1. Sepsis due to MRSA - on IV Vancomycin. ID consulted today. 2. MRSA UTI - on IV Vancomycin 3. Elevated INR - FFP given today 4. Chronic atrial fibrillation - rate better controlled today. 4. Morbid obesity Further diagnoses and plan as above Hopeful for LOY tomorrow. <Polly Cade - Last Filed: 11/12/18 18:16> (1) Sepsis Qualifiers: Sepsis type: methicillin resistant Staphylococcus aureus Qualified Code(s): A41.02 - Sepsis due to Methicillin resistant Staphylococcus aureus (3) UTI (urinary tract infection) Qualifiers: Urinary tract infection type: acute cystitis Hematuria presence: with hematuria Qualified Code(s): N30.01 - Acute cystitis with hematuria (4) Pneumonia Qualifiers: Pneumonia type: due to unspecified organism Laterality: right Lung location: lower lobe of lung Qualified Code(s): J18.1 - Lobar pneumonia, unspecified organism (6) Acute renal failure Qualifiers: Acute renal failure type: with acute tubular necrosis Qualified Code(s): N17.0 - Acute kidney failure with tubular necrosis (7) Rhabdomyolysis Qualifiers: Rhabdomyolysis type: traumatic Encounter type: subsequent encounter Qualified Code(s): T79.6XXD - Traumatic ischemia of muscle, subsequent encounter (8) GI bleed Qualifiers: GI bleed type/associated pathology: melena Qualified Code(s): K92.1 - Melena (9) Diarrhea Qualifiers: Diarrhea type: presumed infectious Qualified Code(s): R19.7 - Diarrhea, unspecified (12) Atrial fibrillation Qualifiers: Atrial fibrillation type: chronic Qualified Code(s): I48.2 - Chronic atrial fibrillation (13) HTN (hypertension) Qualifiers: Hypertension type: essential hypertension Qualified Code(s): I10 - Essential (primary) hypertension (14) CAD (coronary artery disease) Qualifiers: Coronary Disease-Associated Artery/Lesion type: [place] artery [place] vs. transplanted heart: [place] heart Associated angina: without angina Qualified Code(s): I25.10 - Atherosclerotic heart disease of [place] coronary artery without angina pectoris <Isak Driscoll - Last Filed: 11/12/18 19:29> (2) GI bleed Qualifiers: GI bleed type/associated pathology: melena Qualified Code(s): K92.1 - Melena (3) Pneumonia Qualifiers: Pneumonia type: due to unspecified organism Laterality: right Lung location: lower lobe of lung Qualified Code(s): J18.1 - Lobar pneumonia, unspecified organism (4) Diarrhea Qualifiers: Diarrhea type: presumed infectious Qualified Code(s): R19.7 - Diarrhea, unspecified (6) Rhabdomyolysis Qualifiers: Rhabdomyolysis type: traumatic Encounter type: subsequent encounter Qualified Code(s): T79.6XXD - Traumatic ischemia of muscle, subsequent encounter (7) Acute renal failure Qualifiers: Acute renal failure type: with acute tubular necrosis Qualified Code(s): N17.0 - Acute kidney failure with tubular necrosis (8) UTI (urinary tract infection) Qualifiers: Urinary tract infection type: acute cystitis Hematuria presence: with hematuria Qualified Code(s): N30.01 - Acute cystitis with hematuria (9) Atrial fibrillation Qualifiers: Atrial fibrillation type: chronic Qualified Code(s): I48.2 - Chronic atrial f ibrillation (10) HTN (hypertension) Qualifiers: Hypertension type: essential hypertension Qualified Code(s): I10 - Essential (primary) hypertension (11) CAD (coronary artery disease) Qualifiers: Coronary Disease-Associated Artery/Lesion type: [place] artery [place] vs. transplanted heart: [place] heart Associated angina: without angina Qualified C ode(s): I25.10 - Atherosclerotic heart disease of [place] coronary artery without angina pectoris (16) Sepsis Qualifiers: Sepsis type: methicillin resistant Staphylococcus aureus Qualified Code(s): A41.02 - Sepsis due to Methicillin resistant Staphylococcus aureus
[2018-11-12] MEDS: Levalbuterol Neb 1.25 MG/3 ML IH SCH ×2 (10:19→21:55)
[2018-11-12] MEDS ORDERED: 0.9 % Sodium Chloride 250 ML ONE (10:27)
--- NOTE | 2018-11-12 11:04 | Infectious Disease Consult ---
Infectious Disease-Consult - Encounter Date/Time Date of Encounter: 11/12/18 Time of Encounter: 10:59 - Data of Consult Patient: new to practice Reason for consult: MRSA bacteremia Consult date: 11/12/18 Requesting Physician: Isak Driscoll DO Primary Care Provider: PCP NONE - HPI HPI: Mr. Morris is a 68-year-old male with past medical history of VA status post CABG, A. fib on Coumadin, CAD, hyperlipidemia, hypertension, and pacer/AICD. The patient was admitted to the hospital for for dehydration, weakness, pneumonia, diarrhea, and GI bleed. We are consulted for for further workup and treatment recommendations for MRSA bacteremia. Briefly, the patient is a 68-year-old male with past medical history as stated above. The patient presented to the emergency department with a one-week history of generalized fatigue, malaise, weakness, diarrhea, and fevers of 101-104 at home. Upon arrival, the patient had a low-grade temp of 99 1. He had leukocytosis and an acute kidney injury. His LFTs were mildly elevated. His INR was high at 4.1. Urinalysis was positive for pyuria. Blood cultures were obtained 2 sets. Chest x-ray showed vascular congestion with interstitial lung disease. He had a CT of the chest, abdomen, and pelvis that showed a small right and trace left loculated pleural effusions with scattered pulmonary nodules as well as nonspecific indeterminate bilateral renal lesions. Due to concern for C. difficile, he was given IV Flagyl and oral vancomycin in the ER and admitted to the hospital for further evaluation. Since admission, the patient has had fevers as high as 102.5 and some tachycardia. He had a CT of the head that was negative. He had a MRSA screen that was positive. Fecal occult blood test was positive as well. He had a GI panel and C. difficile PCR that were negative. LFTs have normalized. On admission, his CK level was noted to be elevated at 1413. Blood x2 sets and urine culture obtained in the emergency department are positive for MRSA. Repeat blood cultures obtained 11/11/18 are also +2 out of 2 sets. His INR remains elevated at 5.9. His transthoracic echocardiogram that was suboptimal due to the patient's body habitus. He is scheduled to undergo a LOY later today. Currently, the patient is on IV azithromycin, IV Vancomycin, and IV Unasyn. We've been asked to evaluate and make further recommendations. During my exam today, the patient is somewhat of a poor historian, therefore, most of the information is obtained from the patient's is at the bedside. Apparently, the patient became weak and tired and fatigued and fell last Monday at home. He laid on the floor most of the night unable to get up. He continued to feel worse and his symptoms progressed. They endorse fevers, chills, and rigors. Denies headache or neck pain. States he generally felt overall very poor. Denies any specific joint or extremity pain. Denies chest pain. Reports some shortness of breath, but denies cough. Denies nausea, vomiting, or constipation. Reports profuse diarrhea that is green in nature. Denies abdominal pain or urinary complaints. Denies oral thrush. Reports multiple scabbed lesions to the bilateral lower extremities from when he fell. Reports a chronic ulceration to the lateral aspect of the right foot for which she follows with Dr. Darby to wound clinic. Per his , it looks better and has not had any drainage or foul odor from it. The patient lives at home with his . He is retired. He denies any tobacco, alcohol, or illicit drug use. Denies any chronic infectious diseases. Denies any pet or animal exposures. - ROS Review of Systems: All systems reviewed and no additional remarkable complaints except as stated. - Results CBC & Chem 7: 11/13/18 07:23 11/13/18 07:23 - Exam Vitals: Temp Pulse Resp BP Pulse Ox 98.1 F 74 16 126/62 90 11/12/18 06:50 11/12/18 06:50 11/12/18 10:22 11/12/18 08:58 11/12/18 10:22 Exam: Head: Atraumatic, normal inspection, normocephalic. Eye: EOMI, PERRLA, no scleral icterus noted. No subconjunctival hemorrhage noted. ENT: Mucous membranes dry. No odontogenic infection noted. Neck: Normal inspection, no meningismus. Respiratory: Fine expiratory wheezes throughout. No rales, respiratory distress, rhonchi noted. Cardiovascular: Regular rate and irregular rhythm, S1 and S2 audible. No murmurs, rubs, or gallops. GI: Soft, nondistended, normal bowel sounds. Nontender. Incontinent of liquid green stool. Rendon catheter noted to be draining clear yellow urine. Extremities: No joint swelling, pedal edema, or tenderness noted. Ulceration noted to the lateral aspect of the right foot overlying MTP joint #5. Wound bed is pink and moist with wound edges dry and scabbed. No surrounding erythema or fluctuance noted. No foul odor or drainage noted. Back: Normal inspection. No vertebral tenderness noted. Neurological: Alert, oriented 3, no focal deficits. Psychiatric: normal affect, normal mood. Skin: Dry, intact, warm. Pale. No rashes. Additional exam findings: Pacer/AICD site noted to the left upper chest well healed, nontender without erythema. Atorvastatin [Lipitor] 40 mg PO DAILY 11/11/18 [History] Carvedilol 12.5 mg PO BID 11/11/18 [History] Enoxaparin [Lovenox] 30 mg SQ Q12HR 11/11/18 [History] RX: Allopurinol [Zyloprim 300 MG] 300 mg PO DAILY 11/11/18 [History] RX: Furosemide [Lasix] 40 mg PO BID 11/11/18 [History] RX: Gabapentin [Neurontin] 300 mg PO TID 11/11/18 [History] RX: Spironolactone 50 mg PO BID 11/11/18 [History] Tamsulosin HCl [Flomax] 0.4 mg PO DAILY 11/11/18 [History] Warfarin [Coumadin] 3 mg PO SUTUWETHSA 11/11/18 [History] Warfarin [Coumadin] 4.5 mg PO MOFR 11/11/18 [History] Allergy/AdvReac Type Severity Reaction Status Date / Time Sulfa (Sulfonamide AdvReac Unknown advised by Verified 06/05/15 10:20 Antibiotics) dr ruff doesn't work for him - Assessment and Plan (1) Sepsis Current Visit: Yes Status: Acute The patient had 3 sepsis criteria with acute kidney injury. Likely secondary to MRSA bacteremia. Improved. White blood cell count is trending down. Acute kidney injury is improved. Afebrile 24 hours. Tachycardia resolved. Blood cultures drawn 11/09/18 a +2 out of 2 sets for MRSA. Repeat blood cultures from 11/11/18 are positive for MRSA. Qualifiers: Sepsis type: methicillin resistant Staphylococcus aureus Qualified Code(s): A41.02 - Sepsis due to Methicillin resistant Staphylococcus aureus SNOMED Code(s): 63694609 (2) Bacteremia Current Visit: Yes Status: Acute Causative organism: MRSA. Source: Unclear. The patient does have a chronic nonhealing ulceration to the right foot, however, does not appear clinically infected. Blood cultures drawn 11/09/18 are +2 out of 2 sets. Repeat blood cultures on 11/11/18 are +2 out of 2 sets. Complicated due to the presence of a pacer/AICD and left hip hardware as well as likely septic emboli to the lung and seeding of the kidneys. TTE suboptimal. No endocarditis stigmata noted on exam. The patient has one major and 2 minor modified Bullock criteria. Currently on IV vancomycin. SNOMED Code(s): 1754938 (3) Pneumonia Current Visit: Yes Status: Suspected CT chest showed small right and trace left partially loculated pleural effusions with increased consolidative opacities in the lung bases slightly asymmetric right worse than left, either atelectasis or pneumonia. Causative organism: Unclear. MRSA screen is positive. Given the patient's weakness, aspiration is on the differential. Currently on vancomycin, Unasyn, and Zithromax. Qualifiers: Pneumonia type: due to unspecified organism Laterality: right Lung location: lower lobe of lung Qualified Code(s): J18.1 - Lobar pneumonia, unspecified organism SNOMED Code(s): 445712308 (4) Acute renal failure Current Visit: Yes Status: Acute Likely secondary to sepsis, dehydration, and rhabdomyolysis. Improved. Continue to trend. Dosage of medications. Avoid nephrotoxins as able. Qualifiers: Acute renal failure type: with acute tubular necrosis Qualified Code(s): N17.0 - Acute kidney failure with tubular necrosis SNOMED Code(s): 46486648 (5) Pulmonary nodules Current Visit: Yes Status: Acute CT chest showed scattered nodules throughout the lungs bilaterally which are indeterminate and may be infectious, inflammatory, or neoplastic in etiology. Given the patient's MRSA bacteremia, concern for septic emboli. SNOMED Code(s): 909448676 (6) Asymptomatic bacteriuria Current Visit: Yes Status: Acute Urine culture positive for MRSA. The patient was asymptomatic prior to admission. Likely secondary to seeding of the kidneys from the bacteremia. Currently on vancomycin. SNOMED Code(s): 342080669 (7) Supratherapeutic INR Current Visit: Yes Status: Acute Etiology: Unclear. INR remains elevated at 5.9. Further workup and management per the primary team. SNOMED Code(s): 040254023 (8) Elevated liver function tests Current Visit: Yes Status: Resolved Total bili, AST, ALT, alkaline phosphatase elevated on admission. Etiology: Unclear. Sepsis versus other. Hepatitis profile negative. Resolved. SNOMED Code(s): 421122622, 877859885 (9) Chronic ulcer of right foot with fat layer exposed Current Visit: No Status: Acute Location: Lateral aspect of fifth metatarsal on the right foot. Likely secondary to callus her patient's history. Follows with the [facility]. Clinically does not appear infected, but as a potential source for the patient's bacteremia. SNOMED Code(s): 197845682 (10) GI bleed Current Visit: Yes Status: Suspected Hemoglobin down to 9. Fecal occult blood test positive. GI consulted. Qualifiers: GI bleed type/associated pathology: melena Qualified Code(s): K92.1 - Melena SNOMED Code(s): 49318729 (11) Weakness Current Visit: Yes Status: Acute Likely secondary to sepsis. PT/OT to evaluate. SNOMED Code(s): 09534380 (12) Diarrhea Current Visit: Yes Status: Acute Etiology: Unclear. C. difficile negative. GI panel negative. GI consulted. Qualifiers: Diarrhea type: presumed infectious Qualified Code(s): R19.7 - Diarrhea, unspecified SNOMED Code(s): 37617454 (13) Dehydration Current Visit: Yes Status: Acute Likely secondary to poor by mouth intake and high GI output. Management per the primary team. SNOMED Code(s): 62199544 (14) Rhabdomyolysis Current Visit: Yes Status: Acute Likely secondary to fall. CK noted to be 1400 on admission. Improved. Further workup and management per the primary team. Qualifiers: Rhabdomyolysis type: traumatic Encounter type: subsequent encounter Qualified Code(s): T79.6XXD - Traumatic ischemia of muscle, subsequent encounter SNOMED Code(s): 263148982 (15) Atrial fibrillation Current Visit: Yes Status: Chronic Qualifiers: Atrial fibrillation type: chronic Qualified Code(s): I48.2 - Chronic atrial fibrillation SNOMED Code(s): 25053195 (16) HTN (hypertension) Current Visit: Yes Status: Chronic Qualifiers: Hypertension type: essential hypertension Qualified Code(s): I10 - Essential (primary) hypertension SNOMED Code(s): 79088944 (17) CAD (coronary artery disease) Current Visit: Yes Status: Chronic Qualifiers: Coronary Disease-Associated Artery/Lesion type: [place] artery [place] vs. transplanted heart: [place] heart Associated angina: without angina Qualified Code(s): I25.10 - Atherosclerotic heart disease of [place] coronary artery without angina pectoris SNOMED Code(s): 82351198 (18) Morbid obesity with BMI of 40.0-44.9, adult Current Visit: Yes Status: Chronic SNOMED Code(s): 992965173, 97860802219975 - Recommendations Recommendations: Check ESR and CRP. Check respiratory infectious panel. Check strep pneumococcal and legionella urinary antigens. Since sputum for culture if the patient was able to provide an adequate specimen. Check rheumatoid factor. Repeat blood cultures 2 sets. LOY prior to discharge. Recommend podiatry to evaluate. Recommend pulmonology to evaluate. Discontinue Unasyn. Start Zosyn 3.375 g IV every 8 hours. Continue vancomycin IV. Pharmacy to dose. Goal trough approximately 15. Continue azithromycin 500 mg IV daily for now. If urinary antigen tests are negative, can discontinue. Duration of treatment depends on the clinical picture, but likely at least 4 weeks. Monitor renal function for drug toxicity and does adjust antibiotics. guest services assistant to assist with discharge planning. Avoid insertion of long-term IV access until repeat blood cultures are negative 48 hours. Past Med Surg Social Fam HX - Past Medical History Medical history: atrial fibrillation, coronary artery disease, hyperlipidemia, hypertension, kidney stones, myocardial infarction Additional medical history: mrsa, sleep apnea,. wound on right foot Psychiatric history: no psych history - Past Surgical History Surgical History: appendectomy, cholecystectomy, pacemaker/AICD, other Additional surgical history: eye sx, foot sx - Social History Smoking Status: Never smoker Smokeless Tobacco Status: No Alcohol use: none Drug use: none - Family History Father Adopted: No Family Member Ethnicity: Non- Living Status: Hx Family Cardiac Disorders: No Hx Family Respiratory Disorders: No Hx Family Cancer: Yes Hx Family GI Disorders: No Hx Family Endocrine Disorder: No Hx Family Neuromuscular Disorders: No Hx Family Neurologic Disorders: No Hx Family HEENT Disorders: No Hx Family Autoimmune Disorders: No Mother Adopted: No Family Member Ethnicity: Non- Living Status: Hx Family Cardiac Disorders: No Hx Family Respiratory Disorders: No Hx Family Cancer: Yes Hx Family GI Disorders: No Hx Family Endocrine Disorder: Yes (Diabetes) Hx Family Neuromuscular Disorders: No Hx Family Neurologic Disorders: No Hx Family HEENT Disorders: No Hx Family Autoimmune Disorders: No Consult Discharge Plan - Plan Referrals: NONE,PCP [Primary Care Provider] - - Attending Attestation I have personally performed a face to face evaluation on this patient. I have reviewed and agree with the care plan. History and Exam by me shows: Patient seen and examined. at bedside. Assessment and plan: Sepsis Bacteremia causative organism MRSA. Source likely chronic nonhealing ulceration of the right footcomplicated because the patient has an AICD and has a right hip for plastic Pneumonia questionable at best. There are nodules, likely due to septic emboli. Acute kidney injury Asymptomatic bacteriuria Supratherapeutic INR Recommendations For now continue broad-spectrum antibiotics. I will discuss with pulmonary. I looked at the CAT scan myself was really not impressed with what they called pneumonia but we will see. There is no signs of aspiration. We might de- escalate antibiotics adjust vancomycin. Patient will need LOY prior to discharge Duration of treatment at least 6 weeks We will probably start rifampin prior to discharge
[2018-11-12] MEDS ORDERED: *HR* Midazolam HCl 2 MG/2 ML VIAL IVP PRN (13:19)
[2018-11-12] MEDS ORDERED: *HR* Midazolam HCl 5 MG/5 ML VIAL IVP ONE ×2 (14:08)
--- NOTE | 2018-11-12 14:55 | Event Note ---
Date of Encounter: 11/12/18 Time of Encounter: 14:51 LOY ordered to evaluate bacteremia. Procedure held this morning as patient was not NPO and drank water. We brought patient down this afternoon to perform the procedure. Unfortunately, his INR is 5.9. He was reportedly given FFP, but INR has not been rechecked. Although we commonly perform TEEs with a therapeutic INR, it is not in this patient's best interest to have instrumentation at this time until his INR comes down to a therapeutic range. Clinically, he appears to be stable. Please make patient NPO after midnight and recheck INR as clinically appropriate. Thanks, [place]
--- NOTE | 2018-11-12 16:16 | Gastroenterology Consult Note ---
<Bk Topete - Last Filed: 11/12/18 16:13> Date of Encounter: 11/12/18 Time of Encounter: 11:30 - Assessment and plan (1) Anemia Current Visit: Yes Status: Acute Assessment and plan: Hgb 13.8 on admission and today Hgb 9.1. Continue to monitor CBC and transfuse PRBC as needed. Plan for EGD and colonoscopy once INR 1.5 or less. Patient received FFP today. Check INR in AM. Check iron profile, ferritin, folate, and B12. Qualifiers: Anemia type: unspecified type Qualified Code(s): D64.9 - Anemia, unspecified (2) GI bleed Current Visit: Yes Status: Suspected Assessment and plan: Fecal occult blood test positive. hgb dropped to 9.1 today. Plan for EGD and colonoscopy once INR 1.5 or less. Qualifiers: GI bleed type/associated pathology: melena Qualified Code(s): K92.1 - Melena (3) Diarrhea Current Visit: Yes Status: Acute Assessment and plan: GI panel negative. Check fecal calprotectin. Plan for colonoscopy once INR 1.5 or less. Qualifiers: Diarrhea type: presumed infectious Qualified Code(s): R19.7 - Diarrhea, unspecified (4) Supratherapeutic INR Current Visit: Yes Status: Acute Assessment and plan: His INR 4.1 on admission which has increased to 5.9 today. Patient received FFP today. Recheck INR in AM. Plan for EGD and colonoscopy once INR 1.5 or less. - Time Spent With Patient Total time spent is greater than 50% in coordination of care (as documented) at patient's floor/unit and/or counseling patient: GI History of Present Illness - Data of Consult Patient: known to practice within the last 3 years Consult date: 11/12/18 Requesting Physician: Isak Driscoll DO - Consult Narrative Reason for consult: GI bleed History of present illness: Mr. Morris is a 68 year old male with PMHx of Afib on Coumadin, CAD, HLD, HTN, kidney stones, [place], pacemaker/defibrillator presented to the ED with generalized fatigue, malaise, weakness, diarrhea, and fevers of 101-104 at home. He reports diarrhea, and was started on Flagyl and Vanco in the ED for concern of Cdiff (GI panel and Cdiff PCR negative). We were consulted to evaluate possible GI bleed with positive fecal occult blood test in setting of suprathera peutic INR. His INR 4.1 on admission which has increased to 5.[address] A/P showed no acute abnormalities in the abdomen or pelvis. Procedures: Colonoscopy 06/05/2015 Dr. Kauffman: Two tubular adenoma ranging 3-10 mm, 6 mm tubulovillous adenoma, internal hemorrhoids, repeat 3 years. NSAIDs: None Anticoagulation: Coumadin Past Med Surg Social Fam HX - Past Medical History Medical history: atrial fibrillation, coronary artery disease, diabetes, hyperlipidemia, hypertension, kidney stones, myocardial infarction Additional medical history: mrsa, sleep apnea,. wound on right foot Psychiatric history: no psych history - Past Surgical History Surgical History: appendectomy, cholecystectomy, coronary bypass (CABG), pacemaker/AICD, other Additional surgical history: eye sx, foot sx - Social History Smoking Status: Former smoker Smokeless Tobacco Status: No Alcohol use: none Drug use: none - Family History Mother Adopted: No Family Member Ethnicity: Non- Living Status: Hx Family Cardiac Disorders: No Hx Family Respiratory Disorders: No Hx Family Cancer: Yes Hx Family GI Disorders: No Hx Family Endocrine Disorder: Yes (Diabetes) Hx Family Neuromuscular Disorders: No Hx Family Neurologic Disorders: No Hx Family HEENT Disorders: No Hx Family Autoimmune Disorders: No Father Adopted: No Family Member Ethnicity: Non- Living Status: Hx Family Cardiac Disorders: No Hx Family Respiratory Disorders: No Hx Family Cancer: Yes Hx Family GI Disorders: No Hx Family Endocrine Disorder: No Hx Family Neuromuscular Disorders: No Hx Family Neurologic Disorders: No Hx Family HEENT Disorders: No Hx Family Autoimmune Disorders: No - Gastrointestinal Gastrointestinal: Present: as per HPI - Constitutional Constitutional: as per HPI - EENT Eyes: as per HPI Ears: Present: as per HPI Nose, mouth and throat: Present: as per HPI - Cardiovascular Cardiovascular ROS: Present: as per HPI - Respiratory Respiratory IM: Present: as per HPI - Genitourinary Genitourinary: Absent: change in color, Urinary frequency - Neurological ROS Neurological GI: Present: as per HPI - Hematologic/Lymphatic Hematologic/Lymphatic pediatric: Present: as per HPI - Musculoskeletal Musculoskeletal ROS GI: Present: as per HPI - Integumentary Integumentary GI: Present: as per HPI - Psychiatric ROS Psychiatric GI: Present: as per HPI - Endocrine Endocrine IM: Present: as per HPI - Constitutional Vitals: Temp Pulse Resp BP Pulse Ox 98.5 F 74 16 127/84 96 11/12/18 16:10 11/12/18 16:10 11/12/18 16:10 11/12/18 16:10 11/12/18 16:10 General appearance: Present: cooperative, A&O X 3, no acute distress, answers questions appropriately - Head Head exam: Present: atraumatic, normocephalic - Eye Eye exam: Present: normal appearance, sclera anicteric - ENT ENT exam: Present: mucous membranes dry - Neck Neck exam general surgery: Present: normal inspection, trachea midline - Respiratory Respiratory exam: Present: CTAB. Absent: rales, rhonchi - Cardiovascular Cardiovascular exam: Present: RRR, +S1, +S2 - GI/Abdominal GI/Abdominal exam: Present: soft, no peritoneal signs. Absent: distended, firm, guarding, tenderness - Rectal Rectal exam: Present: deferred - Extremities Exam Extremities exam: Present: warm - Neurological Exam Neurological exam: Present: no focal deficits - Psychiatric Psychiatric exam: Present: normal affect, normal mood - Skin Skin exam: Present: dry, intact, normal color, warm Results - Labs CBC & Chem 7: 11/12/18 05:15 11/12/18 05:15 Labs: Last Result ESR 125 mm/hr (0-10) H 11/12/18 15:40 Calcium 9.5 mg/dL (8.6-10.3) 11/12/18 05:15 Troponin I 0.03 ng/mL (< 0.04) 11/09/18 11:14 Entire Visit Hgb 9.1 g/dL (12.9-16.9) L 11/12/18 05:15 Hct 26.3 % (37.5-50.1) L 11/12/18 05:15 PT 66.3 Seconds (9.4-12.1) H* 11/12/18 05:15 Total Bilirubin 0.8 mg/dL (0.3-1.0) 11/10/18 01:12 AST 71 Units/L (13-39) H 11/10/18 01:12 ALT 49 Units/L (7-52) 11/10/18 01:12 E. coli (PCR) Not Detected (Not Detect) 11/11/18 01:05 - ABG ABG results: PT/INR, D-dimer PT 66.3 Seconds (9.4-12.1) H* 11/12/18 05:15 Consult Discharge Plan - Plan Referrals: NONE,PCP [Primary Care Provider] - <Génesis Kauffman - Last Filed: 11/12/18 19:40> Date of Encounter: 11/12/18 Time of Encounter: 14:00 - Time Spent With Patient Total time spent is greater than 50% in coordination of care (as documented) at patient's floor/unit and/or counseling patient: GI History of Present Illness - Data of Consult Requesting Physician: Isak Driscoll DO - Consult Narrative History of present illness: Mr. Morris is a 68 year old male - Constitutional Vitals: Temp Pulse Resp BP Pulse Ox 98.5 F 74 16 127/84 96 11/12/18 16:10 11/12/18 16:10 11/12/18 16:10 11/12/18 16:10 11/12/18 16:10 Results - Labs CBC & Chem 7: 11/12/18 05:15 11/12/18 05:15 Labs: Last Result ESR 125 mm/hr (0-10) H 11/12/18 15:40 Calcium 9.5 mg/dL (8.6-10.3) 11/12/18 05:15 Iron 34 mcg/dL (65-175) L 11/12/18 16:22 % Saturation 16 % (20-55) L 11/12/18 16:22 Transferrin 148 mg/dL (203-362) L 11/12/18 16:22 Ferritin 565 ng/mL (20-250) H 11/12/18 16:22 Troponin I 0.03 ng/mL (< 0.04) 11/09/18 11:14 C-Reactive Protein 201 mg/L (Less than 10) H 11/12/18 16:09 Vitamin B12 814 pg/mL (250-1100) 11/12/18 16:22 Folate > 22.3 ng/mL (3.0-16.0) H 11/12/18 16:22 Entire Visit Hgb 9.1 g/dL (12.9-16.9) L 11/12/18 05:15 Hct 26.3 % (37.5-50.1) L 11/12/18 05:15 PT 66.3 Seconds (9.4-12.1) H* 11/12/18 05:15 Ferritin 565 ng/mL (20-250) H 11/12/18 16:22 Total Bilirubin 0.8 mg/dL (0.3-1.0) 11/10/18 01:12 AST 71 Units/L (13-39) H 11/10/18 01:12 ALT 49 Units/L (7-52) 11/10/18 01:12 Folate > 22.3 ng/mL (3.0-16.0) H 11/12/18 16:22 E. coli (PCR) Not Detected (Not Detect) 11/11/18 01:05 - ABG ABG results: PT/INR, D-dimer PT 66.3 Seconds (9.4-12.1) H* 11/12/18 05:15 - Attending Attestation I have personally performed a face to face evaluation on this patient. I have reviewed and agree with the care plan. History and Exam by me shows: Patient seen. Examination alert and awake not in acute distress.A; Pt with Afib on Coumadin, CAD, HLD, HTN, kidney stones, [place], pacemaker/defibrillator presented to the ED with generalized fatigue, malaise, weakness, diarrhea, and fevers of 101-104 at home. Now with MRSA bacteremia suspicious for endocarditis. LOY today not done because of his high INR. #2: Pt With drop in his hemoglobin but no overt GI bleeding. Has supratherapeutic INR REc: We will wait for endoscopy till MRSA bacteremia diagnosis is more clear and his INR is less than 1.5. No acute indication for scopes at this point
[2018-11-12 17:12] LABS: % Iron Saturation 16 % (20-55); Iron 34 mcg/dL (65-175); Transferrin 148 mg/dL (203-362)
[2018-11-12 17:30] LABS: Ferritin 565 ng/mL (20-250)
[2018-11-12 17:34] LABS: Adenovirus Not Detected (Not Detect); Bordetella Pertussis Not Detected (Not Detect); Chlamydophila pneumoniae Not Detected (Not Detect); Coronavirus 229E Not Detected (Not Detect); Coronavirus HKU1 Not Detected (Not Detect); Coronavirus NL63 Not Detected (Not Detect); Coronavirus OC43 Not Detected (Not Detect); Human Metapneumovirus Not Detected (Not Detect); Human Rhinovirus/Enterovirus Not Detected (Not Detect); Influenza A Subtype 2009 H1 Not Detected (Not Detect); Influenza A Untypeable Not Detected (Not Detect); Influenza B Not Detected (Not Detect); Mycoplasma pneumoniae Not Detected (Not Detect); Parainfluenza Virus 1 Not Detected (Not Detect); Parainfluenza Virus 2 Not Detected (Not Detect); Parainfluenza Virus 3 Not Detected (Not Detect); Parainfluenza Virus 4 Not Detected (Not Detect); Respiratory Syncytial Virus Not Detected (Not Detect)
[2018-11-12 17:47] LABS: Folate > 22.3 ng/mL (3.0-16.0); Vitamin B12 814 pg/mL (250-1100)
[2018-11-12] MEDS: Pantoprazole 40 MG VIAL IVP SCH (17:49)
[2018-11-12] MEDS: Gabapentin 300 MG CAPSULE PO SCH (20:00)
[2018-11-12] MEDS ORDERED: diazePAM 2 MG TABLET PO ONE (22:38)
[2018-11-13] MEDS ORDERED: Furosemide 40 MG/4 ML VIAL IVP ONE (01:32)
[2018-11-13] MEDS ORDERED: diazePAM 10 MG/2 ML SYRINGE IVP ONE (01:34)
[2018-11-13] MEDS: Ampicillin/Sulbactam 1,500 MG in 0.9 % Sodium Chloride Mini Bag 100 ML IVPB SCH (02:13)
[2018-11-13] MEDS: Levalbuterol Neb 1.25 MG/3 ML IH SCH ×8 (04:03→23:38)
--- NOTE | 2018-11-13 05:10 | Event Note ---
Date of Encounter: 11/12/18 Time of Encounter: 22:37 Alerted by patient's nurse LEXUS Tavarez that patient was becoming agitated and threatening to hit and kick staff. One-time order of 2 mg by mouth Valium ordered. Alerted at 22:46 the patient's heart rate was in the 130s, likely due to agitation. Notified at 23:18 the patient was now calmer but heart rate was still 120s to 140s and looking like A. fib for which patient has a history. Stat EKG ordered which showed A. fib with RVR. Cardizem gtt ordered to start at 2.5. Titrated to 5 at 00:59 w/BP at the time 118/76. Pts. IV site went bad so second IV site obtained. Alerted at 01:10 to come see patient who is noted to be diaphoretic. Went to see pt. immediately who denied any CP, SOB, headache, or other complaints or symptoms. Pt. became agitated during examination and was trying to get out of bed to urinate even though Rendon is in place. Bladder scans PRN ordered to assess retention. Pt. normally takes PO lasix 40 mg BID but has not received any while inpatient. One-time dose of 40 mg IV push Lasix ordered with instructions to monitor I&O carefully. Second dose of IVP Valium 2.5 mg ordered to help calm patient who again was swinging at staff. Cardizem gtt will continue to be titrated until HR <80. Sitter ordered. U/A ordered. Strict I&O hourly. Nurse instructed to continue monitoring pt. very closely and notify me immediately of any adverse changes.
[2018-11-13 05:51] LABS: Bilirubin,Urine Negative (Negative); Blood,Urine Large (Negative); Clarity,Urine Clear (Clear); Color,Urine Yellow (Yellow); Glucose,Urine (UA) Normal (Normal); Ketones,Urine Negative (Negative); Leukocyte Esterase,Urine Negative (Negative); Nitrite,Urine Negative (Negative); PH,Urine 6.5 pH Units (5.0-8.0); Protein,Urine 30 mg/dL (Neg-Trace); Specific Gravity,Urine 1.014 (1.010-1.025); Urobilinogen,Urine Normal (Normal)
[2018-11-13 05:52] LABS: Bacteria,Urine None Seen per hpf (None-Few); Hyaline Casts,Urine None Seen per lpf (None-Few); RBC,Urine TNTC per hpf (0-3); Squamous Epithelial Cell,Urine Many per lpf (None-Few)
[2018-11-13] MEDS: Pantoprazole 40 MG VIAL IVP SCH ×2 (06:11→17:22)
--- NOTE | 2018-11-13 07:02 | Electrocardiograph Report ---
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
[2018-11-13 07:46] LABS: Basophils % 0.1 %; Eosinophils % 0.2 %; Hematocrit 26.1 % (37.5-50.1); Hemoglobin 8.9 g/dL (12.9-16.9); Immature Granulocytes % 3.6 % (0-4); Lymphocytes # 1.6 K/mcL (0.6-4.6); Lymphocytes % 7.2 %; Mean Corpuscular HGB Conc 34.1 g/dL (31.6-35.5); Mean Corpuscular Hemoglobin 31.8 pg (28.0-33.3); Mean Corpuscular Volume 93.2 fL (83.0-100.0); Mean Platelet Volume 10.2 fL (9.4-12.4); Monocytes # 2.5 K/mcL (0.0-1.3); Monocytes % 11.3 %; Neutrophils # 16.8 K/mcL (1.6-8.9); Nucleated Red Blood Cells 0.1 /100 WBC (0); Platelet Count 362 K/mcL (140-400); Red Cell Distribution Width 14.6 % (11.5-14.5); Segmented Neutrophils % 77.6 %
[2018-11-13 07:55] LABS: INR 4.9; Prothrombin Time 55.5 Seconds (9.4-12.1)
[2018-11-13 07:58] LABS: BUN/Creatinine Ratio 43 (6-26); Blood Urea Nitrogen 54 mg/dL (8-23); Calcium 9.7 mg/dL (8.6-10.3); Carbon Dioxide 28 mEq/L (23-29); Chloride 103 mEq/L (98-107); Glucose 171 mg/dL (70-105); Osmolality,Calculated 311 (280-300); Potassium 3.4 mEq/L (3.5-5.1); Sodium 141 mEq/L (136-145); eGFR For Non-African Americans 57 (> 60)
--- NOTE | 2018-11-13 08:50 | Internal Med Progress Note ---
<Polly Cade - Last Filed: 11/13/18 11:27> Hospitalist Progress Note - Encounter Date of Encounter: 11/13/18 Time of Encounter: 08:00 - Subjective Interval History: Mr. Morris is a 68Yo M with a h/o a-fib, CAD and and HTN who initially presented d/t weakness, pain and diarrhea. Pt was found to have MRSA bacteremia 2/2 UTI and PNA. Today pt has no complaints and denies fever, chills, H/A, dizziness, chest pain, palpitations, SOB, cough, dyspnea, NVD, constipation, abdominal pain, dysuria, urinary frequency or urgency. Nurse reports that pt had loose stool this AM that was sent for culture. Pt had increased agitation and elevated HR overnight and was found to be in afib with RVR, pt was given cardizem drip. - Exam Vitals: Temp Pulse Resp BP Pulse Ox 97.8 F 133 20 126/84 93 11/13/18 08:00 11/13/18 04:25 11/13/18 08:00 11/13/18 08:00 11/13/18 08:00 Exam: General: AAOX3, NAD, answers questions appropriately, somnolent Cardiovascular: irregular rate and rhythm consistent with pt known afib, no murmurs, no gallops Respiratory: Wheezing heard bilaterally increased on the left, equal chest expansion Abdomen: normal bowel sounds X4, soft, non-tender to palpation, no guarding Ext: no pedal/leg edema bilaterally Skin: right foot is bandaged d/t chronic foot ulcer that is being treated - Assessment and Plan (1) Sepsis Current Visit: Yes Status: Acute Assessment and Plan: Patient met sepsis criteria on admission with 2 SIRS: temperature 101, WBC 19.7. Patient on initial presentation was not hemodynamically unstable and did not require the 30ml/kg IVF. Infectious source is likely 2/2 UTI vs bacteremia vs pneumonia vs septic emboli vs aspiration PNA 4/ blood cx MRSA X2 4/12 urine cx MRSA 4/ chest CT demonstrating small right interest left partially likely to pleural effusions with findings concerning for pneumonia. Scattered nodules throughout the lungs bilaterally but maybe infectious or inflammatory or neoplastic. / blood cx MRSA X2 11/11 Respiratory panel positive for MRSA gene 11/12 CRP is high at 201 11/12 Strep pneumoniae and legionella are negative Pt currently hemodynamically stable and is afebrile at 97.8-98.6, WBC at 21.7 increased from 14.2 yesterday, HR 120-140, RR 17-25 Pt meets sepsis criteria with 3/4 SIRS and a present source of infection Plan: -continue IV vancomycin Day 4 -Continue unasyn day 5 -Continue azithromycin day 5 -continue contact precautions -will repeat blood cx -Sputum cx pending -ID following -GI following (2) Bacteremia Current Visit: Yes Status: Acute Assessment and Plan: Likely 2/2 UTI vs PNA vs chronic right foot ulcer 11/09- blood culture MRSA x2 11/11- blood cultures MRSA X2 11/10-TTE was technically suboptimal due to poor echocardiographic window in body habitus. No significant valvular dysfunction. There are no vascular, immunologic findings of endocarditis such as [place] lesions, [place] nodes Patient has one major and two minor modified Romero's criteria LOY attempted yesterday however pt drank water after being NPO and INR was 5.9, not in patients best interest to have instrumentation done until his INR decreases to a therapeutic range INR today is 4.9 Plan: -continue IV vancomycin -LOY ordered -repeat blood cultures -ID following (3) Agitation Current Visit: Yes Status: Acute Assessment and Plan: Nursing reports pt became agitated overnight threatening to hit and kick staff and HR became elevated in 130s, was found to be in afib with RVR and was put on cardizem drip. HR today is still in 120-140s today. Unclear if agitation is due to alcohol abuse, pt was put on CIWA protocol d/t unclear pt h/o alcoholism. Plan: -CIWA protocol -Continue to monitor (4) UTI (urinary tract infection) Current Visit: Yes Status: Suspected Assessment and Plan: Pt has urinary tract infection on urinalysis with positive WBC and leukocyte esterase, pt denies fever, chills, dysuria, or urinary frequency or urgency today, patient denied recent catheterization / U/A with leukocyte esterase, WBC, and granular casts 11/09 Urine Cx MRSA resistant to oxacillin and cipro 11/10 U/A positive WBC, leukocyte esterase, and protein /16 U/A positive for protein, WBC and TNTC RBC; no bacteria, leukocyte esterase or nitrites seen Plan: -continue Rendon catheter -continue vancomycin (5) Pneumonia Current Visit: Yes Status: Suspected Assessment and Plan: Pneumonia likely community acquired, patient denies shortness of breath or cough today, concerns for aspiration PNA or septic emboli 11/[address] demonstrating small right and trace left partially loculated pleural effusions with findings concerning for pneumonia/atelectasis. Scattered nodules throughout the lungs bilaterally but maybe infectious or inflammatory or neoplastic. 11/11 Respiratory panel positive for MRSA gene 11/12 Strep Pneumo and legionella negative plan: -continue unasyn IV day 5 -continue vancomycin day 4 -continue azithromycin day 5 -continue bronchodilators such as Xopenex as needed -pulmonary nodules on chest CT will need repeat CT follow-up outpatient -Sputum cx pending (6) Supratherapeutic INR Current Visit: Yes Status: Acute Assessment and Plan: Pt has Supratherapeutic INR which was 4.1 on admission. Patient takes Coumadin for atrial fibrillation. INR today is 4.9, yesterday 5.9 Pt having no obvious active bleeding, has positive stool occult test s/p 1 FFP Plan: -2nd FFP and vit K ordered -Pharmacy to manage Coumadin dose -monitor INR, recheck at 2pm -Monitor for bleeding (7) Acute renal failure Current Visit: Yes Status: Acute Assessment and Plan: Acute renal failure likey 2/2 rhabdomyolysis. Cr on admission was 2.1 Cr today is improved at 1.25 I&Os currently today: intake total 160.2mL, output total 1500mL 11/09 CT abd/pelvis showed bilateral renal lesions and recommend dedicated renal MRI once acute issues have resolved 11/09 U/A showed positive leukocyte esterase, WBC, and granular casts 11/10 U/A showed positive leukocyte esterase, protein, WBC and TNTC RBC 11/13 U/A showed positive WBC, TNTC RBC, and protein Pt acute renal failure has improved Plan: -Improving -avoid nephrotoxic substances and renally dose medications -monitor Cr -Monitor I&Os (8) Rhabdomyolysis Current Visit: Yes Status: Acute Assessment and Plan: Rhabdomyolysis 2/2 pt having recent fall resulting in pt laying on the floor for 4 hours, pt reported general body pain and mylagias on admission CK on admission was 1413 CK on 11/10 was improved at 863 Pt received IV sodium bicarbonate Today pt denies pain and has no complaints Plan: -Continue to monitor (9) GI bleed Current Visit: Yes Status: Suspected Assessment and Plan: Pt was found to have a positive stool occult test. Pt currently has supratherapeutic INR. Pt is currently hemodynamically stable Concern for GI bleed possibly 2/2 INR, ulcer, polyps, colon ca Hgb today is 8.9 down from 9.1 yesterday Pt received FFP yesterday 11/13 Fe 34; % saturation 16; Transferrin 148; Ferritin 565 11/13 Vitamin B12 814; Folate >22.3 Plan: -2nd FFP and vit K ordered -Monitor H&H -Coumadin held, managed by pharmacy -Plans for EGD and colonoscopy once INR is 1.5 or less per GI recommendations -Check INR this afternoon (10) Diarrhea Current Visit: Yes Status: Acute Assessment and Plan: Pt admitted to profuse diarrhea on admission, possibly 2/2 medication 11/10 C-diff negative 11/10 Stool Cx negative for other viral/bacterial causes Today pt denies diarrhea or constipation, however patient's sitter admits to pt having a loose foamy appearing bowel movement that was sent for culture this AM Plan: -Continue to monitor -GI recommends check fecal calprotectin (11) Chronic ulcer of right foot with fat layer exposed Current Visit: No Status: Acute Assessment and Plan: Pt has a chronic ulcer of the right foot on the inner surface which is managed by Dr. Darby of podiatry. Foot is currently bandaged. Plan: -Wound care consulted (12) Dehydration Current Visit: Yes Status: Acute Assessment and Plan: Pt was dehydrated on admission and was given IVF Plan: -Continue to monitor (13) Atrial fibrillation Current Visit: Yes Status: Chronic Assessment and Plan: Pt has h/o a-fib for which he takes coumadin, pt also takes home carvedilol for rate control HR today 120-140 PT INR today was 55.5 and 4.9 respectively Overnight pt became agitated, had an elevated HR and was found to be in afib with RVR, pt was put on a cardizem drip Plan: -Continue cardizem drip -Continue home carvedilol -Coumadin held d/t supratherapeutic INR -Continue IV labetolol IV PRN (14) HTN (hypertension) Current Visit: Yes Status: Chronic Assessment and Plan: Pt BP today is stable at 118-138/75-89. Takes home Carvedilol, lasix and spironolactone Plan: -Continue home carvedilol -Continue labetolol PRN (15) CAD (coronary artery disease) Current Visit: Yes Status: Chronic Assessment and Plan: Pt has h/o CAD, and takes home atorvastatin, carvedilol and spironolactone Plan: -Continue ASA -Continue Statin, carvedilol (16) Morbid obesity with BMI of 40.0-44.9, adult Current Visit: Yes Status: Chronic Assessment and Plan: Pt BMI is 41.2. Plan: -Lifestyle modifications (17) DVT prophylaxis Current Visit: Yes Status: Acute Assessment and Plan: Plan: -SCDs - Time Spent with Patient Total time spent is greater than 50% in coordination of care (as documented) at patient's floor/unit and/or counseling patient: Internal Medicine: Result - Labs CBC & Chem 7: 11/13/18 07:23 11/13/18 07:23 Labs: Short CBC 11/13/18 Range/Units 07:23 WBC 21.7 H D (4.3-11.1) K/mcL Hgb 8.9 L (12.9-16.9) g/dL Hct 26.1 L (37.5-50.1) % Plt Count 362 D (140-400) K/mcL Neutrophils # 16.8 H (1.6-8.9) K/mcL BMP 11/13/18 07:23 Sodium 141 Potassium 3.4 L Chloride 103 Carbon Dioxide 28 BUN 54 H Creatinine 1.25 Glucose 171 H Calcium 9.7 Urine 11/13/18 Range/Units 05:13 Urine Color Yellow (Yellow) Urine Clarity Clear (Clear) Urine pH 6.5 (5.0-8.0) pH Units Ur Specific [place] 1.014 (1.010-1.025) Urine Protein 30 H (Neg-Trace) mg/dL Urine Glucose (UA) Normal (Normal) mg/dL Urine Clinitest Cancelled - ABG Interpretation ABG results: PT/INR, D-dimer PT 55.5 Seconds (9.4-12.1) H* 11/13/18 07:23 - Impressions Impressions Chest X-Ray 11/13/18 01:23 IMPRESSION: Mild cardiomegaly with features essentially equivocal for heart failure given shallow inspiratory effort. Bilateral opacities favored to reflect atelectasis with or without edema. Correlate for clinical signs of infection. D/ / James Corado / James Corado Interpreting Provider: James Coraod Consult Discharge Plan - Plan Referrals: NONE,PCP [Primary Care Provider] - <Isak Driscoll - Last Filed: 11/13/18 17:51> Hospitalist Progress Note - Encounter Date of Encounter: 11/13/18 - Exam Vitals: Temp Pulse Resp BP Pulse Ox 99.4 F 106 18 134/76 95 11/13/18 16:00 11/13/18 16:00 11/13/18 16:15 11/13/18 16:00 11/13/18 16:15 - Assessment and Plan (1) Chronic ulcer of right foot with fat layer exposed Current Visit: No Status: Acute (2) GI bleed Current Visit: Yes Status: Suspected (3) Pneumonia Current Visit: Yes Status: Suspected (4) Diarrhea Current Visit: Yes Status: Acute (5) Dehydration Current Visit: Yes Status: Acute (6) Rhabdomyolysis Current Visit: Yes Status: Acute (7) Acute renal failure Current Visit: Yes Status: Acute (8) UTI (urinary tract infection) Current Visit: Yes Status: Suspected (9) Atrial fibrillation Current Visit: Yes Status: Chronic (10) HTN (hypertension) Current Visit: Yes Status: Chronic (11) CAD (coronary artery disease) Current Visit: Yes Status: Chronic (12) Morbid obesity with BMI of 40.0-44.9, adult Current Visit: Yes Status: Chronic (13) DVT prophylaxis Current Visit: Yes Status: Acute (14) Bacteremia Current Visit: Yes Status: Acute (15) Supratherapeutic INR Current Visit: Yes Status: Acute (16) Sepsis Current Visit: Yes Status: Acute - Time Spent with Patient Total time spent is greater than 50% in coordination of care (as documented) at patient's floor/unit and/or counseling patient: Internal Medicine: Result - Labs CBC & Chem 7: 11/13/18 07:23 11/13/18 07:23 Labs: Short CBC 11/13/18 Range/Units 07:23 WBC 21.7 H D (4.3-11.1) K/mcL Hgb 8.9 L (12.9-16.9) g/dL Hct 26.1 L (37.5-50.1) % Plt Count 362 D (140-400) K/mcL Neutrophils # 16.8 H (1.6-8.9) K/mcL BMP 11/13/18 07:23 Sodium 141 Potassium 3.4 L Chloride 103 Carbon Dioxide 28 BUN 54 H Creatinine 1.25 Glucose 171 H Calcium 9.7 Urine 11/13/18 Range/Units 05:13 Urine Color Yellow (Yellow) Urine Clarity Clear (Clear) Urine pH 6.5 (5.0-8.0) pH Units Ur Specific [place] 1.014 (1.010-1.025) Urine Protein 30 H (Neg-Trace) mg/dL Urine Glucose (UA) Normal (Normal) mg/dL Urine Clinitest Cancelled - ABG Interpretation ABG results: PT/INR, D-dimer PT 37.1 Seconds (9.4-12.1) H 11/13/18 14:00 - Impressions Impressions Chest X-Ray 11/13/18 01:23 IMPRESSION: Mild cardiomegaly with features essentially equivocal for heart failure given shallow inspiratory effort. Bilateral opacities favored to reflect atelectasis with or without edema. Correlate for clinical signs of infection. D/ / James Corado / James Corado Interpreting Provider: James Corado - Attending Attestation The history, physical exam, and medical decision making was performed by the medical student either while I was physically present and actively involved or I personally re-performed the exam and medical decision making. I have verified the accuracy of the medical student's documentation with regards to the history, physical exam findings, and medical decision making on 11/13/18. Mr Morris is currently admitted for sepsis related to MRSA. He remains moderate to high risk due to potential for worsening clinical status. Mr Morris is resting at this time. Last night he became very agitated and was given sedation. He is calm at this time. No fever or chills. No new symptoms. Exam alert Comfortable Normocephalic Mucus membranes dry Heart irreg - not tachy now Decreased breath sounds ABd soft Edema unchanged Moves extremities I/P 1. Sepsis due to MRSA - on IV abx. Trying to get LOY. 2. Agitation - denies ETOH. Started CIWA 3. Atrial fibrillation - on drip at this time. Will increase PO meds Further diagnoses and plan as above. <Polly Cade - Last Filed: 11/13/18 11:27> (1) Sepsis Qualifiers: Sepsis type: methicillin resistant Staphylococcus aureus Qualified Code(s): A41.02 - Sepsis due to Methicillin resistant Staphylococcus aureus (4) UTI (urinary tract infection) Qualifiers: Urinary tract infection type: acute cystitis Hematuria presence: with hematuria Qualified Code(s): N30.01 - Acute cystitis with hematuria (5) Pneumonia Qualifiers: Pneumonia type: due to unspecified organism Laterality: right Lung location: lower lobe of lung Qualified Code(s): J18.1 - Lobar pneumonia, unspecified organism (7) Acute renal failure Qualifiers: Acute renal failure type: with acute tubular necrosis Qualified Code(s): N17.0 - Acute kidney failure with tubular necrosis (8) Rhabdomyolysis Qualifiers: Rhabdomyolysis type: traumatic Encounter type: subsequent encounter Q ualified Code(s): T79.6XXD - Traumatic ischemia of muscle, subsequent encounter (9) GI bleed Qualifiers: GI bleed type/associated pathology: melena Qualified Code(s): K92.1 - Melena (10) Diarrhea Qualifiers: Diarrhea type: presumed infectious Qualified Code(s): R19.7 - Diarrhea, unspecified (13) Atrial fibrillation Qualifiers: Atrial fibrillation type: chronic Qualified Code(s): I48.2 - Chronic atrial fibrillation (14) HTN (hypertension) Qualifiers: Hypertension type: essential hypertension Qualified Code(s): I10 - Essential (primary) hypertension (15) CAD (coronary artery disease) Qualifiers: Coronary Disease-Associated Artery/Lesion type: [place] artery [place] vs. transplanted heart: [place] heart Associated angina: without angina Qualified Code(s): I25.10 - Atherosclerotic heart disease of [place] coronary artery without angina pectoris <Isak Driscoll - Last Filed: 11/13/18 17:51> (2) GI bleed Qualifiers: GI bleed type/associated pathology: melena Qualified Code(s): K92.1 - Melena (3) Pneumonia Qualifiers: Pneumonia type: due to unspecified organism Laterality: right Lung location: lower lobe of lung Qualified Code(s): J18.1 - Lobar pneumonia, unspecified organism (4) Diarrhea Qualifiers: Diarrhea type: presumed infectious Qualified Code(s): R19.7 - Diarrhea, unspecified (6) Rhabdomyolysis Qualifiers: Rhabdomyolysis type: traumatic Encounter type: subsequent encounter Qualified Code(s): T79.6XXD - Traumatic ischemia of muscle, subsequent encounter (7) Acute renal failure Qualifiers: Acute renal failure type: with acute tubular necrosis Qualified Code(s): N17.0 - Acute kidney failure with tubular necrosis (8) UTI (urinary tract infection) Qualifiers: Urinary tract infection type: acute cystitis Hematuria presence: with hematuria Qualified Code(s): N30.01 - Acute cystitis with hematuria (9) Atrial fibrillation Qualifiers: Atrial fibrillation type: chronic Qualified Code(s): I48.2 - Chronic atrial fibrillation (10) HTN (hypertension) Qualifiers: Hypertension type: essential hypertension Qualified Code(s): I10 - Essential (primary) hypertension (11) CAD (coronary artery disease) Qualifiers: Coronary Disease-Associated Artery/Lesion type: [place] artery [place] vs. transplanted heart: [place] heart Associated angina: without angina Qualified Code(s): I25.10 - Atherosclerotic heart disease of [place] coronary artery without angina pectoris (16) Sepsis Qualifiers: Sepsis type: methicillin resistant Staphylococcus aureus Qualified Code(s): A41.02 - Sepsis due to Methicillin resistant Staphylococcus aureus
[2018-11-13] MEDS: Aspirin Enteric Coated 81 MG Tablet PO SCH (08:52)
[2018-11-13] MEDS: Azithromycin 500 MG in D5% in Water 250 ML IVPB SCH (08:52)
--- NOTE | 2018-11-13 10:00 | Electrocardiograph Report ---
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
[2018-11-13] MEDS ORDERED: 0.9 % Sodium Chloride 250 ML ONE ×2 (10:39→17:28)
[2018-11-13] MEDS ORDERED: *HR* Phytonadione 10 MG/ML AMPUL SQ ONE (10:45)
[2018-11-13] MEDS ORDERED: *HR* LORazepam 2 MG/ML VIAL IVP PRN ×3 (10:46)
--- NOTE | 2018-11-13 11:48 | Infectious Disease Progress No ---
ID Progress Note Date of Encounter: 11/13/18 Time of Encounter: 09:25 - Subjective Subjective: Patient seen and examined. Overnight events noted. Patient apparently became combative and confused overnight. Distal status appears improved this morning. He does have a sitter at the bedside. He denies any fevers or chills or rigors. Denies headache or neck pain. Denies chest pain, shortness of breath, or cough. Denies nausea, vomiting, or constipation. Per nursing documentation, he continues to have some loose stools. Denies abdominal pain. Rendon catheter remains patent. Denies any back, joint, or extremity pain at this time. - Objective CBC & Chem 7: 11/15/18 05:57 11/15/18 05:57 - Exam Vitals: Temp Pulse Resp BP Pulse Ox 98.2 F 103 19 130/85 94 11/13/18 11:25 11/13/18 11:25 11/13/18 11:25 11/13/18 11:25 11/13/18 11:25 Exam: Head: Atraumatic, normal inspection, normocephalic. Eye: EOMI, PERRLA, no scleral icterus noted. No subconjunctival hemorrhage noted. ENT: Mucous membranes dry. No odontogenic infection noted. Neck: Normal inspection, no meningismus. Respiratory: Fine expiratory wheezes throughout. No rales, respiratory distress, rhonchi noted. Cardiovascular: Regular rate and irregular rhythm, S1 and S2 audible. No murmurs, rubs, or gallops. GI: Soft, nondistended, normal bowel sounds. Nontender. Rendon catheter noted to be draining clear yellow urine. Extremities: No joint swelling, pedal edema, or tenderness noted. Right foot dressing C/D/I. Back: Normal inspection. No vertebral tenderness noted. Neurological: Alert, oriented to person, place, and time, no focal deficits. GENAO x 4 on command. Psychiatric: normal affect, normal mood. Skin: Dry, intact, warm. Pale. No rashes. Additional exam findings: Pacer/AICD site noted to the left upper chest well healed, nontender without erythema. - Assessment and Plan (1) Sepsis Current Visit: Yes Status: Acute The patient had 3 sepsis criteria with acute kidney injury and metabolic encephalopathy. Likely secondary to MRSA bacteremia. WBC worse this morning. Acute kidney injury is improved. Afebrile 48 hours. Tachycardic overnight. Blood cultures drawn 11/09/18 a +2 out of 2 sets for MRSA. Repeat blood cultures from 11/11/18 are positive for MRSA. Additional blood cultures drawn 11/13/18 are pending x 2 sets. Qualifiers: Sepsis type: methicillin resistant Staphylococcus aureus Qualified Code(s): A41.02 - Sepsis due to Methicillin resistant Staphylococcus aureus SNOMED Code(s): 54749713 (2) Bacteremia Current Visit: Yes Status: Acute Causative organism: MRSA. Source: Unclear. The patient does have a chronic nonhealing ulceration to the right foot, however, does not appear clinically infected. Blood cultures drawn 11/09/18 are +2 out of 2 sets. Repeat blood cultures on 11/11/18 are +2 out of 2 sets. Repeat blood cultures drawn 11/13/08 are pending x 2 sets. Complicated due to the presence of a pacer/AICD and left hip hardware as well as likely septic emboli to the lung and seeding of the kidneys. TTE suboptimal. No endocarditis stigmata noted on exam. Rheumatoid factor normal. The patient has one major and 2 minor modified [place] criteria. LOY ordered, but on hold due to coagulopathy. Currently on IV vancomycin. SNOMED Code(s): 7778428 (3) Acute encephalopathy Current Visit: Yes Status: Acute Likely secondary to sepsis, but concern for septic emboli to the brain. CT head negative on admission. Consider repeat imaging if AMS continues/worsens. SNOMED Code(s): 39430094, 780400836 (4) Pneumonia Current Visit: Yes Status: Ruled-out CT chest showed small right and trace left partially loculated pleural effusions with increased consolidative opacities in the lung bases slightly asymmetric ri ght worse than left, either atelectasis or pneumonia. Causative organism: Unclear. MRSA screen is positive. UATs negative. RIP negative. Given the patient's weakness, aspiration is on the differential. Currently on vancomycin, Unasyn, and Zithromax. Qualifiers: Pneumonia type: due to unspecified organism Laterality: right Lung location: lower lobe of lung Qualified Code(s): J18.1 - Lobar pneumonia, unspecified organism SNOMED Code(s): 406705707 (5) Acute renal failure Current Visit: Yes Status: Acute Likely secondary to sepsis, dehydration, and rhabdomyolysis. Improved. Continue to trend. Dose-adjust medications. Avoid nephrotoxins as able. Qualifiers: Acute renal failure type: with acute tubular necrosis Qualified Code(s): N17.0 - Acute kidney failure with tubular necrosis SNOMED Code(s): 95714629 (6) Pulmonary nodules Current Visit: Yes Status: Acute CT chest showed scattered nodules throughout the lungs bilaterally which are indeterminate and may be infectious, inflammatory, or neoplastic in etiology. Given the patient's MRSA bacteremia, concern for septic emboli. SNOMED Code(s): 999951666 (7) Asymptomatic bacteriuria Current Visit: Yes Status: Acute Urine culture positive for MRSA. The patient was asymptomatic prior to admission. Likely secondary to seeding of the kidneys from the bacteremia. Currently on vancomycin. SNOMED Code(s): 090334598 (8) Supratherapeutic INR Current Visit: Yes Status: Acute Etiology: Unclear. INR remains elevated at 4.9. Further workup and management per the primary team. SNOMED Code(s): 608653128 (9) Elevated liver function tests Current Visit: Yes Status: Resolved Total bili, AST, ALT, alkaline phosphatase elevated on admission. Etiology: Unclear. Sepsis versus other. Hepatitis profile negative. Resolved. SNOMED Code(s): 351277684, 251701587 (10) Chronic ulcer of right foot with fat layer exposed Current Visit: No Status: Acute Location: Lateral aspect of fifth metatarsal on the right foot. Likely secondary to callus her patient's history. Follows with the [facility]. Clinically does not appear infected, but as a potential source for the patient's bacteremia. ESR 125, CRP 201. SNOMED Code(s): 523279502 (11) GI bleed Current Visit: Yes Status: Suspected Hemoglobin down to 8. Fecal occult blood test positive. GI consulted. EGD/C-scope pending once INR improved. Transfusion parameters per the primary team. Qualifiers: GI bleed type/associated pathology: melena Qualified Code(s): K92.1 - Melena SNOMED Code(s): 71012427 (12) Weakness Current Visit: Yes Status: Acute Likely secondary to sepsis. PT/OT to evaluate. SNOMED Code(s): 15683310 (13) Diarrhea Current Visit: Yes Status: Acute Etiology: Unclear. C. difficile negative. GI panel negative. GI consulted. Qualifiers: Diarrhea type: presumed infectious Qualified Code(s): R19.7 - Diarrhea, uns pecified SNOMED Code(s): 95064671 (14) Dehydration Current Visit: Yes Status: Acute Likely secondary to poor by mouth intake and high GI output. Management per the primary team. SNOMED Code(s): 89791446 (15) Rhabdomyolysis Current Visit: Yes Status: Acute Likely secondary to fall. CK noted to be 1400 on admission. Improved. Further workup and management per the primary team. Qualifiers: Rhabdomyolysis type: traumatic Encounter type: subsequent encounter Qualified Code(s): T79.6XXD - Traumatic ischemia of muscle, subsequent encounter SNOMED Code(s): 094923576 (16) Atrial fibrillation Current Visit: Yes Status: Chronic Qualifiers: Atrial fibrillation type: chronic Qualified Code(s): I48.2 - Chronic atrial fibrillation SNOMED Code(s): 46223131 (17) HTN (hypertension) Current Visit: Yes Status: Chronic Qualifiers: Hypertension type: essential hypertension Qualified Code(s): I10 - Essential (primary) hypertension SNOMED Code(s): 15971670 (18) CAD (coronary artery disease) Current Visit: Yes Status: Chronic Qualifiers: Coronary Disease-Associated Artery/Lesion type: [place] artery [place] vs. transplanted heart: [place] heart Associated angina: without angina Qualified Code(s): I25.10 - Atherosclerotic heart disease of [place] coronary artery without angina pectoris SNOMED Code(s): 41938287 (19) Morbid obesity with BMI of 40.0-44.9, adult Current Visit: Yes Status: Chronic SNOMED Code(s): 429379406, 38678036336013 - Recommendations Recommendations: Since sputum for culture if the patient was able to provide an adequate specimen. Repeat blood cultures 2 sets. LOY prior to discharge. Consider MRI/repeat CT of the head if AMS persists/worsens. Recommend podiatry to evaluate. Recommend pulmonology to evaluate. Discontinue Unasyn. Start Zosyn 3.375 g IV every 8 hours. Continue vancomycin IV. Pharmacy to dose. Goal trough approximately 15. Discontinue azithromycin. Duration of treatment depends on the clinical picture, but likely at least 4 weeks. Monitor renal function for drug toxicity and does adjust antibiotics. patient financial services coordinator to assist with discharge planning. Avoid insertion of long-term IV access until repeat blood cultures are negative 48 hours. Consult Discharge Plan - Plan Referrals: NONE,PCP [Primary Care Provider] - - Attending Attestation I have personally performed a face to face evaluation on this patient. I have reviewed and agree with the care plan. History and Exam by me shows: Assessment and plan: 1.Sepsis 2.Bacteremia causative organism MRSA. Source likely chronic nonhealing ulceration of the right footcomplicated because the patient has an AICD and has a 3.right hip for plastic 4.Pneumonia questionable at best. There are nodules, likely due to septic emboli. 5.Acute kidney injury 6.Asymptomatic bacteriuria 7.Supratherapeutic INR Recommendations At this point will continue vancomycin Discussed with pulmonary team, no obvious pneumonia. Status post pleurocentesis. We will consider de-escalating antibiotics. Await for the LOY. Duration of treatment at least 6 weeks because this is complicated MRSA bacteremia Consider adding rifampin prior to discharge
[2018-11-13 14:30] LABS: INR 3.3; Prothrombin Time 37.1 Seconds (9.4-12.1)
[2018-11-13] MEDS: Piperacillin/Tazobactam 3.375 GM in 0.9 % Sodium Chloride Mini Bag 100 ML IVPB SCH ×2 (16:40→23:40)
[2018-11-13] MEDS: Gabapentin 300 MG CAPSULE PO SCH (20:25)
[2018-11-14] MEDS: Levalbuterol Neb 1.25 MG/3 ML IH SCH ×7 (04:21→21:55)
[2018-11-14 06:21] LABS: Basophils # 0.1 K/mcL (0.0-0.2); Basophils % 0.2 %; Eosinophils # 0.2 K/mcL (0.0-0.6); Eosinophils % 0.9 %; Hematocrit 21.6 % (37.5-50.1); Immature Granulocytes % 5.5 % (0-4); Lymphocytes # 2.2 K/mcL (0.6-4.6); Lymphocytes % 9.2 %; Mean Corpuscular HGB Conc 33.3 g/dL (31.6-35.5); Mean Corpuscular Hemoglobin 31.4 pg (28.0-33.3); Mean Corpuscular Volume 94.3 fL (83.0-100.0); Mean Platelet Volume 10.2 fL (9.4-12.4); Neutrophils # 17.4 K/mcL (1.6-8.9); Nucleated Red Blood Cells 0.4 /100 WBC (0); Platelet Count 393 K/mcL (140-400); Red Blood Count 2.29 M/mcL (4.19-5.50); Red Cell Distribution Width 14.7 % (11.5-14.5); Segmented Neutrophils % 74.2 %
[2018-11-14 06:31] LABS: Monocytes # 2.4 K/mcL (0.0-1.3)
[2018-11-14 06:32] LABS: Hemoglobin 7.2 g/dL (12.9-16.9); INR 3.3; Prothrombin Time 37.1 Seconds (9.4-12.1)
[2018-11-14 06:39] LABS: Calcium 9.7 mg/dL (8.6-10.3); Potassium 3.3 mEq/L (3.5-5.1)
[2018-11-14 06:49] LABS: Platelet Estimate Normal (Normal)
[2018-11-14 07:18] LABS: mecA Methicillin-Resist Gene DETECTED (Not Detect)
[2018-11-14 07:19] LABS: Acinetobacter baumannii by PCR Not Detected (Not Detect); Candida albicans by PCR Not Detected (Not Detect); Candida glabrata by PCR Not Detected (Not Detect); Candida krusei by PCR Not Detected (Not Detect); Candida parapsilosis by PCR Not Detected (Not Detect); Candida tropicalis by PCR Not Detected (Not Detect); Enterobacter cloacae Cmplx PCR Not Detected (Not Detect); Enterobacteriaceae by PCR Not Detected (Not Detect); Enterococcus by PCR Not Detected (Not Detect); Escherichia coli by PCR Not Detected (Not Detect); Klebsiella oxytoca by PCR Not Detected (Not Detect); Klebsiella pneumoniae by PCR Not Detected (Not Detect); Proteus by PCR Not Detected (Not Detect); Pseudomonas aeruginosa by PCR Not Detected (Not Detect); Serratia marcescens by PCR Not Detected (Not Detect); Staphylococcus aureus by PCR DETECTED (Not Detect); Staphylococcus by PCR Not Detected (Not Detect); Streptococcus agalactiae(B)PCR Not Detected (Not Detect); Streptococcus by PCR Not Detected (Not Detect); Streptococcus pneumoniae PCR Not Detected (Not Detect); Streptococcus pyogenes (A) PCR Not Detected (Not Detect)
[2018-11-14] MEDS ORDERED: *HR* Phytonadione 10 MG/ML AMPUL SQ ONE (08:25)
[2018-11-14] MEDS: Pantoprazole 40 MG VIAL IVP SCH ×2 (09:21→17:25)
[2018-11-14] MEDS: Piperacillin/Tazobactam 3.375 GM in 0.9 % Sodium Chloride Mini Bag 100 ML IVPB SCH (09:22)
[2018-11-14] MEDS: Aspirin Enteric Coated 81 MG Tablet PO SCH (09:47)
[2018-11-14] MEDS ORDERED: Lidocaine Viscous Oral Soln 15 ML SOLUTION MM PRN (10:32)
[2018-11-14] MEDS ORDERED: *HR* FentaNYL (PF) 100 MCG/2 ML VIAL IVP PRN (10:32)
--- NOTE | 2018-11-14 10:32 | Infectious Disease Progress No ---
ID Progress Note Date of Encounter: 11/14/18 Time of Encounter: 10:00 - Subjective Subjective: Patient seen and examined. No acute events noted overnight. Remains confused this morning and thinks he is at the [facility]. He denies any fevers or chills or rigors. Denies headache or neck pain. Denies chest pain, shortness of breath, or cough. Denies nausea, vomiting, or constipation. Per nursing documentation, he continues to have some loose stools. Incontinent of liquid brown stool during exam. Denies abdominal pain. Rendon catheter remains patent. Denies any back, joint, or extremity pain at this time. - Objective CBC & Chem 7: 11/15/18 05:57 11/15/18 05:57 - Exam Vitals: Temp Pulse Resp BP Pulse Ox 98.2 F 91 16 118/72 97 11/14/18 07:48 11/14/18 07:48 11/14/18 07:48 11/14/18 07:48 11/14/18 09:30 Exam: Head: Atraumatic, normal inspection, normocephalic. Eye: EOMI, PERRLA, no scleral icterus noted. No subconjunctival hemorrhage n oted. ENT: Mucous membranes dry. No odontogenic infection noted. Neck: Normal inspection, no meningismus. Respiratory: CTA throughout. No rales, respiratory distress, rhonchi noted. Cardiovascular: Regular rate and irregular rhythm, S1 and S2 audible. No murmurs, rubs, or gallops. GI: Soft, nondistended, normal bowel sounds. Nontender. Rendon catheter noted to be draining clear yellow urine. Extremities: No joint swelling, pedal edema, or tenderness noted. Right foot dressing C/D/I. Neurological: Alert, oriented to person and time, but not situation or place. No focal deficits. GENAO x 4 on command. Psychiatric: normal affect, normal mood. Skin: Dry, intact, warm. Pale. No rashes. Additional exam findings: Pacer/AICD site noted to the left upper chest well healed, nontender without erythema - Assessment and Plan (1) Sepsis Current Visit: Yes Status: Acute The patient had 3 sepsis criteria with acute kidney injury and metabolic encephalopathy. Likely secondary to MRSA bacteremia. WBC continues to trend up. Acute kidney injury is improved. Afebrile. Tachycardic overnight. Blood cultures drawn 11/09/18 a +2 out of 2 sets for MRSA. Repeat blood cultures from 11/11/18 are positive for MRSA. Additional blood cultures drawn 11/13/18 are positive x 2 sets as well. Qualifiers: Sepsis type: methicillin resistant Staphylococcus aureus Qualified Code(s): A41.02 - Sepsis due to Methicillin resistant Staphylococcus aureus SNOMED Code(s): 94760267 (2) Bacteremia Current Visit: Yes Status: Acute Causative organism: MRSA. Source: Unclear. The patient does have a chronic nonhealing ulceration to the right foot, however, does not appear clinically infected. Blood cultures drawn 11/09/18 are +2 out of 2 sets. Repeat blood cultures on 11/11/18 are +2 out of 2 sets. Repeat blood cultures drawn 11/13/08 are positive x 2 sets. Complicated due to the presence of a pacer/AICD and left hip hardware as well as likely septic emboli to the lung and seeding of the kidneys. TTE suboptimal. No endocarditis stigmata noted on exam. Rheumatoid factor normal. The patient has one major and 2 minor modified [place] criteria. LOY ordered, but on hold due to coagulopathy. Currently on IV vancomycin (FABRICIO 1). SNOMED Code(s): 0795512 (3) Acute encephalopathy Current Visit: Yes Status: Acute Likely secondary to sepsis, but concern for septic emboli to the brain. CT head negative on admission. Consider ABG. Consider repeat imaging if AMS continues/worsens. Discussed with the primary team. SNOMED Code(s): 02099167, 094815695 (4) Pneumonia Current Visit: Yes Status: Ruled-out CT chest showed small right and trace left partially loculated pleural effusions with increased consolidative opacities in the lung bases slightly asymmetric right worse than left, either atelectasis or pneumonia. Causative organism: Unclear. MRSA screen is positive. Given the patient's weakness, aspiration is on the differential. Imaging reviewed. Low index of suspicion for PNA at this point. Currently on vancomycin and Zosyn. Qualifiers: Pneumonia type: due to unspecified organism Laterality: right Lung location: lower lobe of lung Qualified Code(s): J18.1 - Lobar pneumonia, unspecified organism SNOMED Code(s): 104937625 (5) Acute renal failure Current Visit: Yes Status: Acute Likely secondary to sepsis, dehydration, and rhabdomyolysis. Improved initially, but worse overnight. Continue to trend. Dosage of medications. Avoid nephrotoxins as able. Consider nephrology to evaluate. Qualifiers: Acute renal failure type: with acute tubular necrosis Qualified Code(s): N17.0 - Acute kidney failure with tubular necrosis SNOMED Code(s): 18404113 (6) Pulmonary nodules Current Visit: Yes Status: Acute CT chest showed scattered nodules throughout the lungs bilaterally which are indeterminate and may be infectious, inflammatory, or neoplastic in etiology. Given the patient's MRSA bacteremia, concern for septic emboli. SNOMED Code(s): 896360180 (7) Asymptomatic bacteriuria Current Visit: Yes Status: Acute Urine culture positive for MRSA. The patient was asymptomatic prior to admission. Likely secondary to seeding of the kidneys from the bacteremia. Currently on vancomycin. SNOMED Code(s): 701589783 (8) Supratherapeutic INR Current Visit: Yes Status: Acute Etiology: Unclear. INR improved at 3.3 this morning. Further workup and management per the primary team. SNOMED Code(s): 758109526 (9) Elevated liver function tests Current Visit: Yes Status: Resolved Total bili, AST, ALT, alkaline phosphatase elevated on admission. Etiology: Unclear. Sepsis versus other. Hepatitis profile negative. Resolved. SNOMED Code(s): 131597943, 371556187 (10) Chronic ulcer of right foot with fat layer exposed Current Visit: No Status: Acute Location: Lateral aspect of fifth metatarsal on the right foot. Likely secondary to callus her patient's history. Follows with the [facility]. Clinically does not appear infected, but as a potential source for the patient's bacteremia. Get CT of the foot. SNOMED Code(s): 316265908 (11) GI bleed Current Visit: Yes Status: Suspected Hemoglobin down to7.2. Fecal occult blood test positive. GI consulted. EGD/C-scope on hold due to elevated INR. Qualifiers: GI bleed type/associated pathology: melena Qualified Code(s): K92.1 - Melena SNOMED Code(s): 62857142 (12) Weakness Current Visit: Yes Status: Acute Likely secondary to sepsis. PT/OT to evaluate. SNOMED Code(s): 83017148 (13) Diarrhea Current Visit: Yes Status: Acute Etiology: Unclear. C. difficile negative. GI panel negative. GI consulted. Qualifiers: Diarrhea type: presumed infectious Qualified Code(s): R19.7 - Diarrhea, unspecified SNOMED Code(s): 87129883 (14) Dehydration Current Visit: Yes Status: Acute Likely secondary to poor by mouth intake and high GI output. Management per the primary team. SNOMED Code(s): 56546993 (15) Rhabdomyolysis Current Visit: Yes Status: Acute Likely secondary to fall. CK noted to be 1400 on admission. Improved. Further workup and management per the primary team. Qualifiers: Rhabdomyolysis type: traumatic Encounter type: subsequent encounter Qualified Code(s): T79.6XXD - Traumatic ischemia of muscle, subsequent encounter SNOMED Code(s): 045526844 (16) Atrial fibrillation Current Visit: Yes Status: Chronic Qualifiers: Atrial fibrillation type: chronic Qualified Code(s): I48.2 - Chronic atrial fibrillation SNOMED Code(s): 18128718 (17) HTN (hypertension) Current Visit: Yes Status: Chronic Qualifiers: Hypertension type: essential hypertension Qualified Code(s): I10 - Essential (primary) hypertension SNOMED Code(s): 73967510 (18) CAD (coronary artery disease) Current Visit: Yes Status: Chronic Qualifiers: Coronary Disease-Associated Artery/Lesion type: [place] artery [place] vs. transplanted heart: [place] heart Associated angina: without angina Qualified Code(s): I25.10 - Atherosclerotic heart disease of [place] coronary artery without angina pectoris SNOMED Code(s): 04377732 (19) Morbid obesity with BMI of 40.0-44.9, adult Current Visit: Yes Status: Chronic SNOMED Code(s): 882117104, 89006202478066 - Recommendations Recommendations: Send sputum for culture if the patient is able to provide an adequate specimen. Repeat blood cultures 2 sets. LOY prior to discharge. Consider repeat CT of the head if AMS persists/worsens. Get CT of the right foot. Consider neurology to evaluate. Recommend podiatry to evaluate. Recommend pulmonology to evaluate. Discontinue Zosyn. Continue vancomycin IV. Pharmacy to dose. Goal trough approximately 15. Vanc level a little low. Will discuss with pharmacy. Duration of treatment depends on the clinical picture, but likely at least 4 weeks. Monitor renal function for drug toxicity and does adjust antibiotics. coordinator volunteer services to assist with discharge planning. Avoid insertion of long-term IV access until repeat blood cultures are negative 48 hours. Consult Discharge Plan - Plan Referrals: NONE,PCP [Primary Care Provider] - - Attending Attestation I have personally performed a face to face evaluation on this patient. I have r eviewed and agree with the care plan. History and Exam by me shows: Assessment and plan: 1.Sepsis 2.Bacteremia causative organism MRSA. Source likely chronic nonhealing ulceration of the right footcomplicated because the patient has an AICD and has a 3.right hip for plastic 4.Pneumonia questionable at best. There are nodules, likely due to septic emboli. 5.Acute kidney injury 6.Asymptomatic bacteriuria 7.Supratherapeutic INR Recommendations At this point will continue vancomycin Discussed with pulmonary team, no obvious pneumonia. Status post pleurocentesis. We will consider de-escalating antibiotics. Await for the LOY. Duration of treatment at least 6 weeks because this is complicated MRSA bacteremia Consider adding rifampin prior to discharge
[2018-11-14] MEDS ORDERED: 0.9 % Sodium Chloride 500 ML IVC ONE (10:33)
[2018-11-14] MEDS ORDERED: *HR* Midazolam HCl 5 MG/5 ML VIAL IVP PRN (10:33)
--- NOTE | 2018-11-14 10:44 | Internal Med Progress Note ---
<Polly Cade - Last Filed: 11/14/18 13:02> Hospitalist Progress Note - Encounter Date of Encounter: 11/14/18 Time of Encounter: 09:00 - Subjective Interval History: Mr. Morris is a 68Yo M with a h/o a-fib, CAD and and HTN who initially presented d/t weakness, pain and diarrhea. Pt was found to have MRSA bacteremia 2/2 UTI and PNA. Today pt denies fever, chills, H/A, dizziness, chest pain, palpitations, nausea, vomiting, constipation, abdominal pain, urinary frequency or urgency. He does admit to some diarrhea, SOB and mild urethral pain at the catheter site. Nurse reports that pt had loose 'foamy' stool yesterday that was sent for culture. - Exam Vitals: Temp Pulse Resp BP Pulse Ox 98.2 F 91 16 118/72 97 11/14/18 07:48 11/14/18 07:48 11/14/18 07:48 11/14/18 07:48 11/14/18 09:30 Exam: General: Awake alert and oriented to person and place, NAD, answers questions appropriately, somnolent Cardiovascular: irregular rate and rhythm consistent with pt known afib, no murmurs, no gallops Respiratory: Wheezing heard bilaterally increased on the left, equal chest expansion Abdomen: normal bowel sounds X4, soft, non-tender to palpation, no guarding Ext: no pedal/leg edema bilaterally Skin: right foot is bandaged d/t chronic foot ulcer that is being treated - Assessment and Plan (1) Sepsis Current Visit: Yes Status: Acute Assessment and Plan: Patient met sepsis criteria on admission with 2 SIRS: temperature 101, WBC 19.7. Patient on initial presentation was not hemodynamically unstable and did not re quire the 30ml/kg IVF. Infectious source is likely 2/2 UTI vs bacteremia vs pneumonia vs septic emboli vs aspiration PNA / blood cx MRSA X2 / urine cx MRSA 11/[address] demonstrating small right interest left partially likely to pleural effusions with findings concerning for pneumonia. Scattered nodules throughout the lungs bilaterally but maybe infectious or inflammatory or neoplastic. / blood cx MRSA X2 11/11 Respiratory panel positive for MRSA gene 11/12 CRP is high at 201 11/12 Strep pneumoniae and legionella are negative 11/13 Blood cx positive for gram + cocci Pt currently hemodynamically stable and is afebrile at 98.2-98.9, WBC at 23.5 increased from 21.7 yesterday, HR 89-91, RR 15-18 Pt meets sepsis criteria with 2/4 SIRS and a present source of infection Plan: -continue IV vancomycin Day 5 -Continue Zosyn day 1 -D/C azithromycin and unasyn -continue contact precautions -will repeat blood cx -Sputum cx pending -ID following -GI following -Started on IVF per Dr. Sellers, anticipate lasix use later (2) Bacteremia Current Visit: Yes Status: Acute Assessment and Plan: Likely 2/2 UTI vs PNA vs chronic right foot ulcer 11/09- blood culture MRSA x2 11/11- blood cultures MRSA X2 11/10-TTE was technically suboptimal due to poor echocardiographic window in body habitus. No significant valvular dysfunction. 11/13-blood cultures gram + cocci X2 There are no vascular, immunologic findings of endocarditis such as [place] lesions, [place] nodes Patient has one major and two minor modified Romero's criteria LOY attempted 11/12 however pt drank water after being NPO and INR was 5.9, not in patients best interest to have instrumentation done until his INR decreases to a therapeutic range INR today is 3.3 Plan: -continue IV vancomycin -LOY ordered -repeat blood cultures -ID following (3) Agitation Current Visit: Yes Status: Acute Assessment and Plan: Nursing reports pt became agitated night of 11/12 threatening to hit and kick staff and HR became elevated in 130s, was found to be in afib with RVR and was put on cardizem drip. HR today is 85-91. Unclear if agitation is due to alcohol abuse, pt was put on CIWA protocol d/t unclear pt h/o alcoholism. Plan: -CIWA protocol -Continue to monitor (4) UTI (urinary tract infection) Current Visit: Yes Status: Suspected Assessment and Plan: Pt has urinary tract infection on urinalysis with positive WBC and leukocyte esterase, pt denies fever, chills, dysuria, or urinary frequency or urgency today, patient denied recent catheterization 11/09 U/A with leukocyte esterase, WBC, and granular casts 11/09 Urine Cx MRSA resistant to oxacillin and cipro 11/10 U/A positive WBC, leukocyte esterase, and protein 11/13 U/A positive for protein, WBC and TNTC RBC; no bacteria, leukocyte esterase or nitrites seen Today pt states he has mild urethral pain at catheter site. Plan: -continue Rendon catheter -continue vancomycin (5) Pneumonia Current Visit: Yes Status: Ruled-out Assessment and Plan: Pneumonia likely community acquired, patient denies shortness of breath or cough today, concerns for aspiration PNA or septic emboli 11/[address] demonstrating small right and trace left partially loculated pleural effusions with findings concerning for pneumonia/atelectasis. Scattered nodules throughout the lungs bilaterally but maybe infectious or inflammatory or neoplastic. 11/11 Respiratory panel positive for MRSA gene 11/12 Strep Pneumo and legionella negative plan: -continue vancomycin day 5 -continue zosyn day 1 -d/c azithromycin and unasyn per ID -continue bronchodilators such as Xopenex as needed -pulmonary nodules on chest CT will need repeat CT follow-up outpatient -Sputum cx pending (6) Supratherapeutic INR Current Visit: Yes Status: Acute Assessment and Plan: Pt has Supratherapeutic INR which was 4.1 on admission. Patient takes Coumadin for atrial fibrillation. INR today is 3.3, yesterday 3.3-4.9 Pt having no obvious active bleeding, has positive stool occult test s/p 2 FFP, and vitamin K Plan: -vit K ordered -Pharmacy to manage Coumadin dose -monitor INR recheck in AM -Monitor for bleeding (7) Acute renal failure Current Visit: Yes Status: Acute Assessment and Plan: Acute renal failure likey 2/2 rhabdomyolysis. Cr on admission was 2.1 Cr today is improved at 1.43 I&Os currently today: intake total 329mL, output total 825mL 11/09 CT abd/pelvis showed bilateral renal lesions and recommend dedicated renal MRI once acute issues have resolved 11/09 U/A showed positive leukocyte esterase, WBC, and granular casts 11/10 U/A showed positive leukocyte esterase, protein, WBC and TNTC RBC 11/13 U/A showed positive WBC, TNTC RBC, and protein Pt acute renal failure has improved Plan: -Improving -avoid nephrotoxic substances and renally dose medications -monitor Cr -Monitor I&Os (8) Rhabdomyolysis Current Visit: Yes Status: Acute Assessment and Plan: Rhabdomyolysis 2/2 pt having recent fall resulting in pt laying on the floor for 4 hours, pt reported general body pain and mylagias on admission CK on admission was 1413 CK on 11/10 was improved at 863 Pt received IV sodium bicarbonate Today pt denies body pain besides urethral pain Plan: -Continue to monitor (9) GI bleed Current Visit: Yes Status: Suspected Assessment and Plan: Pt was found to have a positive stool occult test. Pt currently has supratherapeutic INR. Pt is currently hemodynamically stable Concern for GI bleed possibly 2/2 INR, ulcer, polyps, colon ca Hgb today is 7.2 down from 8.9 yesterday Pt received 2 FFP and vitamin K 11/13 Fe 34; % saturation 16; Transferrin 148; Ferritin 565 11/13 Vitamin B12 814; Folate >22.3 Plan: -vit K ordered -Monitor H&H, repeat pending -Coumadin held, managed by pharmacy -Plans for EGD and colonoscopy once INR is 1.5 or less per GI recommendations -Plans for EGD in AM, NPO at midnight -Check INR in AM -GI following (10) Diarrhea Current Visit: Yes Status: Acute Assessment and Plan: Pt admitted to profuse diarrhea on admission, possibly 2/2 medication 11/10 C-diff negative 11/10 Stool Cx negative for other viral/bacterial causes Today pt denies constipation, and admits to diarrhea, patient's sitter admits to pt having a loose foamy appearing bowel movement that was sent for culture yesterday AM Plan: -Continue to monitor -fecal calprotectin pending (11) Chronic ulcer of right foot with fat layer exposed Current Visit: No Status: Acute Assessment and Plan: Pt has a chronic ulcer of the right foot on the inner surface which is managed by Dr. Darby of podiatry. Foot is currently bandaged. Plan: -Wound care consulted -Consider podiatry consult per ID -CT of right foot pending (12) Dehydration Current Visit: Yes Status: Acute Assessment and Plan: Pt was dehydrated on admission and was given IVF Plan: -Continue to monitor (13) Atrial fibrillation Current Visit: Yes Status: Chronic Assessment and Plan: Pt has h/o a-fib for which he takes coumadin, pt also takes home carvedilol for rate control HR today 85-91 PT/INR today was 37.1 and 3.3 respectively 11/12 overnight pt became agitated, had an elevated HR and was found to be in afib with RVR, pt was put on a cardizem drip Plan: -Continue cardizem drip -Increase home carvedilol with plans to decrease cardizem -Coumadin held d/t supratherapeutic INR -Continue IV labetolol IV PRN (14) HTN (hypertension) Current Visit: Yes Status: Chronic Assessment and Plan: Pt BP today is stable at 113-118/56-72. Takes home Carvedilol, lasix and spironolactone Plan: -Increase home carvedilol -Continue labetolol PRN (15) CAD (coronary artery disease) Current Visit: Yes Status: Chronic Assessment and Plan: Pt has h/o CAD, and takes home atorvastatin, carvedilol and spironolactone Plan: -Continue ASA -Continue Statin, increae carvedilol as above (16) Morbid obesity with BMI of 40.0-44.9, adult Current Visit: Yes Status: Chronic Assessment and Plan: Pt BMI is 41.2. Plan: -Lifestyle modifications (17) DVT prophylaxis Current Visit: Yes Status: Acute Assessment and Plan: Plan: -SCDs - Time Spent with Patient Total time spent is greater than 50% in coordination of care (as documented) at patient's floor/unit and/or counseling patient: Internal Medicine: Result - Labs CBC & Chem 7: 11/14/18 05:51 11/14/18 05:51 Labs: Short CBC 11/14/18 Range/Units 05:51 WBC 23.5 H (4.3-11.1) K/mcL Hgb 7.2 L D (12.9-16.9) g/dL Hct 21.6 L (37.5-50.1) % Plt Count 393 (140-400) K/mcL Neutrophils # 17.4 H (1.6-8.9) K/mcL BMP 11/14/18 05:51 Sodium 142 Potassium 3.3 L Chloride 106 Carbon Dioxide 29 BUN 55 H Creatinine 1.43 H Glucose 150 H Calcium 9.7 - ABG Interpretation ABG results: PT/INR, D-dimer PT 37.1 Seconds (9.4-12.1) H 11/14/18 05:51 Consult Discharge Plan - Plan Referrals: NONE,PCP [Primary Care Provider] - <Isak Driscoll - Last Filed: 11/14/18 16:23> Hospitalist Progress Note - Encounter Date of Encounter: 11/14/18 - Exam Vitals: Temp Pulse Resp BP Pulse Ox 98.1 F 95 16 120/67 93 11/14/18 15:14 11/14/18 15:14 11/14/18 15:14 11/14/18 15:14 11/14/18 15:14 - Assessment and Plan (1) Chronic ulcer of right foot with fat layer exposed Current Visit: No Status: Acute (2) GI bleed Current Visit: Yes Status: Suspected (3) Pneumonia Current Visit: Yes Status: Ruled-out (4) Diarrhea Current Visit: Yes Status: Acute (5) Dehydration Current Visit: Yes Status: Acute (6) Rhabdomyolysis Current Visit: Yes Status: Acute (7) Acute renal failure Current Visit: Yes Status: Acute (8) UTI (urinary tract infection) Current Visit: Yes Status: Suspected (9) Atrial fibrillation Current Visit: Yes Status: Chronic (10) HTN (hypertension) Current Visit: Yes Status: Chronic (11) CAD (coronary artery disease) Current Visit: Yes Status: Chronic (12) Morbid obesity with BMI of 40.0-44.9, adult Current Visit: Yes Status: Chronic (13) DVT prophylaxis Current Visit: Yes Status: Acute (14) Bacteremia Current Visit: Yes Status: Acute (15) Supratherapeutic INR Current Visit: Yes Status: Acute (16) Sepsis Current Visit: Yes Status: Acute (17) Anemia Current Visit: Yes Status: Suspected - Time Spent with Patient Total time spent is greater than 50% in coordination of care (as documented) at patient's floor/unit and/or counseling patient: Internal Medicine: Result - Labs CBC & Chem 7: 11/14/18 13:20 11/14/18 05:51 Labs: Short CBC 11/14/18 11/14/18 Range/Units 05:51 13:20 WBC 23.5 H (4.3-11.1) K/mcL Hgb 7.2 L D 7.0 L (12.9-16.9) g/dL Hct 21.6 L 21.5 L (37.5-50.1) % Plt Count 393 (140-400) K/mcL Neutrophils # 17.4 H (1.6-8.9) K/mcL BMP 11/14/18 05:51 Sodium 142 Potassium 3.3 L Chloride 106 Carbon Dioxide 29 BUN 55 H Creatinine 1.43 H Glucose 150 H Calcium 9.7 - ABG Interpretation ABG results: PT/INR, D-dimer PT 37.1 Seconds (9.4-12.1) H 11/14/18 05:51 - Impressions Impressions Foot CT 11/14/18 08:23 IMPRESSION: No acute periostitis or bony destruction. If there is continued clinical concern for osteomyelitis, three-phase bone scan could be considered. D/ : / 11/14/2018 13:01:42 Lewis Rivas MD / wong Interpreting Provider: Lewis Rivas MD - Attending Attestation The history, physical exam, and medical decision making was performed by the medical student either while I was physically present and actively involved or I personally re-performed the exam and medical decision making. I have verified the accuracy of the medical student's documentation with regards to the history, physical exam findings, and medical decision making on 11/14/18. Mr Morris is currently admitted for MRSA bacteremia and sepsis. He remains moderate to high risk due to potential for worsening clinical status. Mr Morris seems a little more confused this AM. His INR has decreased but his H/H is lower today as well. No fever or chill. Blood cx remain positive. Exam alert Comfortable at rest Normocephalic Mucus membranes dry Heart irreg and slightly tachy Some end exp wheeze noted Abd soft and nontender Edema present. Dressing intact Pulses palpable I/P 1. MRSA sepsis and bacteremia - to have LOY today. Continue IV abx 2. Acute encephalopathy 3. Atrial fib - wean off Cardizem drip 4. Foot ulcer- CT today Further diagnoses and plan as above. <Polly Cade - Last Filed: 11/14/18 13:02> (1) Sepsis Qualifiers: Sepsis type: methicillin resistant Staphylococcus aureus Qualified Code(s): A41.02 - Sepsis due to Methicillin resistant Staphylococcus aureus (4) UTI (urinary tract infection) Qualifiers: Urinary tract infection type: acute cystitis Hematuria presence: with hematuria Qualified Code(s): N30.01 - Acute cystitis with hematuria (5) Pneumonia Qualifiers: Pneumonia type: due to unspecified organism Laterality: right Lung location: lower lobe of lung Qualified Code(s): J18.1 - Lobar pneumonia, unspecified organism (7) Acute renal failure Qualifiers: Acute renal failure type: with acute tubular necrosis Qualified Code(s): N17.0 - Acute kidney failure with tubular necrosis (8) Rhabdomyolysis Qualifiers: Rhabdomyolysis type: traumatic Encounter type: subsequent encounter Qualified Code(s): T79.6XXD - Traumatic ischemia of muscle, subsequent encounter (9) GI bleed Qualifiers: GI bleed type/associated pathology: melena Qualified Code(s): K92.1 - Melena (10) Diarrhea Qualifiers: Diarrhea type: presumed infectious Qualified Code(s): R19.7 - Diarrhea, unspecified (13) Atrial fibrillation Qualifiers: Atrial fibrillation type: chronic Qualified Code(s): I48.2 - Chronic atrial fibrillation (14) HTN (hypertension) Qualifiers: Hypertension type: essential hypertension Qualified Code(s): I10 - Essential (primary) hypertension (15) CAD (coronary artery disease) Qualifiers: Coronary Disease-Associated Artery/Lesion type: [place] artery [place] vs. transplanted heart: [place] heart Associated angina: without angina Qualified Code(s): I25.10 - Atherosclerotic heart disease of [place] coronary artery without angina pectoris <Isak Driscoll - Last Filed: 11/14/18 16:23> (2) GI bleed Qualifiers: GI bleed type/associated pathology: melena Qualified Code(s): K92.1 - Melena (3) Pneumonia Qualifiers: Pneumonia type: due to unspecified organism Laterality: right Lung location: lower lobe of lung Qualified Code(s): J18.1 - Lobar pneumonia, unspecified organism (4) Diarrhea Qualifiers: Diarrhea type: presumed infectious Qualified Code(s): R19.7 - Diarrhea, uns pecified (6) Rhabdomyolysis Qualifiers: Rhabdomyolysis type: traumatic Encounter type: subsequent encounter Qualified Code(s): T79.6XXD - Traumatic ischemia of muscle, subsequent encounter (7) Acute renal failure Qualifiers: Acute renal failure type: with acute tubular necrosis Qualified Code(s): N17.0 - Acute kidney failure with tubular necrosis (8) UTI (urinary tract infection) Qualifiers: Urinary tract infection type: acute cystitis Hematuria presence: with hematuria Qualified Code(s): N30.01 - Acute cystitis with hematuria (9) Atrial fibrillation Qualifiers: Atrial fibrillation type: chronic Qualified Code(s): I48.2 - Chronic atrial fibrillation (10) HTN (hypertension) Qualifiers: Hypertension type: essential hypertension Qualified Code(s): I10 - Essential (primary) hypertension (11) CAD (coronary artery disease) Qualifiers: Coronary Disease-Associated Artery/Lesion type: [place] artery [place] vs. [place] heart: [place] heart Associated angina: without angina Qualified Code(s): I25.10 - Atherosclerotic heart disease of [place] coronary artery without angina pectoris (16) Sepsis Qualifiers: Sepsis type: methicillin resistant Staphylococcus aureus Qualified Code(s): A41.02 - Sepsis due to Methicillin resistant Staphylococcus aureus (17) Anemia Qualifiers: Anemia type: iron deficiency Iron deficiency anemia type: chronic blood loss Qualified Code(s): D50.0 - Iron deficiency anemia secondary to blood loss (chronic)
[2018-11-14] MEDS ORDERED: Furosemide 40 MG/4 ML VIAL IVP ONE ×2 (11:32→16:45)
[2018-11-14 13:51] LABS: Hematocrit 21.5 % (37.5-50.1)
[2018-11-14] MEDS ORDERED: 0.9 % Sodium Chloride 250 ML ONE ×2 (14:48→19:09)
[2018-11-14 16:21] LABS: ABG Base Excess 5 mEq/L (-2 to 3); ABG HCO3 30 mEq/L (21-27); ABG Oxygen Saturation 93 % (95-98); ABG PCO2 42 mmHg (35-45); ABG PH 7.46 pH Units (7.32-7.45); ABG PO2 62 mmHg (85-104); ABG TCO2 31 mEq/L (20-26)
[2018-11-14] MEDS: Gabapentin 300 MG CAPSULE PO SCH (20:41)
--- NOTE | 2018-11-14 21:56 | Event Note ---
Date of Encounter: 11/14/18 Time of Encounter: 21:56 Notified by nurse of patient having difficulty swallowing pills. NPO and speech consult ordered.
[2018-11-14 22:04] LABS: Hematocrit 24.4 % (37.5-50.1); Hemoglobin 8.1 g/dL (12.9-16.9)
[2018-11-15] MEDS: Levalbuterol Neb 1.25 MG/3 ML IH SCH ×9 (00:08→23:11)
[2018-11-15] MEDS: Pantoprazole 40 MG VIAL IVP SCH ×2 (05:40→17:58)
[2018-11-15] MEDS: Ampicillin/Sulbactam 1,500 MG in 0.9 % Sodium Chloride Mini Bag 100 ML IVPB SCH (06:40)
[2018-11-15 06:42] LABS: Hematocrit 24.3 % (37.5-50.1); Mean Corpuscular HGB Conc 32.9 g/dL (31.6-35.5); Mean Corpuscular Hemoglobin 31.7 pg (28.0-33.3); Mean Corpuscular Volume 96.4 fL (83.0-100.0); Mean Platelet Volume 9.9 fL (9.4-12.4); Nucleated Red Blood Cells 0.8 /100 WBC (0); Platelet Count 491 K/mcL (140-400); Red Blood Count 2.52 M/mcL (4.19-5.50); Red Cell Distribution Width 14.9 % (11.5-14.5)
[2018-11-15 06:50] LABS: INR 1.5; Prothrombin Time 17.2 Seconds (9.4-12.1)
[2018-11-15 06:59] LABS: Calcium 9.8 mg/dL (8.6-10.3); Magnesium 2.5 mg/dL (1.6-2.6); Potassium 3.7 mEq/L (3.5-5.1)
[2018-11-15 07:53] LABS: Lymphocytes # 2.4 K/mcL (0.6-4.6); Monocytes # 0.7 K/mcL (0.0-1.3); Neutrophils # 19.9 K/mcL (1.6-8.9)
[2018-11-15 07:55] LABS: Anisocytosis 1+ (Not Present); Polychromasia 1+ (Not Present)
[2018-11-15] MEDS: Aspirin Enteric Coated 81 MG Tablet PO SCH (08:27)
[2018-11-15] MEDS ORDERED: Potassium Chloride Elixir 20 MEQ/15 ML UDC PO SCH (09:00)
--- NOTE | 2018-11-15 09:54 | Infectious Disease Progress No ---
ID Progress Note Date of Encounter: 11/15/18 Time of Encounter: 09:30 - Subjective Subjective: Patient seen and examined. No acute events noted overnight. Remains confused this morning and thinks he is in [place]. He denies any fevers or chills or rigors. Denies headache or neck pain. Denies chest pain, shortness of breath, or cough. Denies nausea, vomiting, or constipation. Per nursing documentation, he continues to have some loose stools. Denies abdominal pain. Rendon catheter remains patent. Denies any back, joint, or extremity pain at this time. Sitter at bedside states the patient has been resting quietly all morning. NPO pending [employer] evaluation. - Objective CBC & Chem 7: 11/15/18 05:57 11/15/18 05:57 - Line Documentation Line Documentation: Rendon Catheter (Draining clear yellow urine) - Exam Vitals: Temp Pulse Resp BP Pulse Ox 98.0 F 89 20 135/79 95 11/15/18 05:16 11/15/18 06:58 11/15/18 07:35 11/15/18 06:58 11/15/18 07:35 Exam: Head: Atraumatic, normal inspection, normocephalic. Eye: EOMI, PERRLA, no scleral icterus noted. No subconjunctival hemorrhage noted. ENT: Mucous membranes dry. No odontogenic infection noted. Neck: Normal inspection, no meningismus. Respiratory: Fine expiratory wheezes throughout. No rales, respiratory distress, rhonchi noted. Cardiovascular: Regular rate and irregular rhythm, S1 and S2 audible. No murmurs, rubs, or gallops. GI: Soft, nondistended, normal bowel sounds. Nontender. Rendon catheter noted to be draining clear yellow urine. Extremities: No joint swelling, pedal edema, or tenderness noted. Right foot dressing C/D/I. Neurological: Alert, oriented to person and time, but not situation or place. No focal deficits. GENAO x 4 on command. Psychiatric: normal affect, normal mood. Skin: Dry, intact, warm. Pale. No rashes. Additional exam findings: Pacer/AICD site noted to the left upper chest well healed, nontender without erythema - Assessment and Plan (1) Sepsis Current Visit: Yes Status: Acute The patient had 3 sepsis criteria with acute kidney injury and metabolic encephalopathy. Likely secondary to MRSA bacteremia. WBC continues to trend up. Acute kidney injury is improved. Afebrile. Tachycardic overnight. Blood cultures drawn 11/09/18 a +2 out of 2 sets for MRSA. Repeat blood cultures from 11/11/18 are positive for MRSA. Additional blood cultures drawn 11/13/18 are positive x 2 sets as well. Repeat blood cultures 11/15/18 pending 2 sets. Qualifiers: Qualified Code(s): A41.02 - Sepsis due to Methicillin resistant Staphylococcus aureus SNOMED Code(s): 57808350 (2) Bacteremia Current Visit: Yes Status: Acute Causative organism: MRSA. Source: Unclear. The patient does have a chronic nonhealing ulceration to the right foot, however, does not appear clinically infected. Blood cultures drawn 11/09/18 are +2 out of 2 sets. Repeat blood cultures on 11/11/18 are +2 out of 2 sets. Repeat blood cultures drawn 11/13/18 are positive x 2 sets. Repeat blood cultures from 11/15/18 are pending 2 sets. Complicated due to the presence of a pacer/AICD and left hip hardware as well as likely septic emboli to the lung and seeding of the kidneys. TTE suboptimal. No endocarditis stigmata noted on exam. Rheumatoid factor normal. LOY negative for valvular or device lead vegetations. The patient has one major and 2 minor modified Loup criteria. Currently on IV vancomycin (FABRICIO 1). SNOMED Code(s): 1892678 (3) Acute encephalopathy Current Visit: Yes Status: Acute Likely secondary to sepsis, but concern for septic emboli to the brain. CT head negative on admission. Consider repeat imaging if AMS continues/worsens. Discussed with the primary team. SNOMED Code(s): 73020418, 020561899 (4) Pneumonia Current Visit: Yes Status: Ruled-out CT chest showed small right and trace left partially loculated pleural effusions with increased consolidative opacities in the lung bases slightly asymmetric right worse than left, either atelectasis or pneumonia. Causative organism: Unclear. MRSA screen is positive. Given the patient's weakness, aspiration is on the differential. Imaging reviewed. Low index of suspicion for PNA at this point. Currently on vancomycin. Qualifiers: Qualified Code(s): J18.1 - Lobar pneumonia, unspecified organism SNOMED Code(s): 864762452 (5) Acute renal failure Current Visit: Yes Status: Acute Likely secondary to sepsis, dehydration, and rhabdomyolysis. Improved initially, but worse overnight. Continue to trend. Dosage of medications. Avoid nephrotoxins as able. Consider nephrology to evaluate. Qualifiers: Qualified Code(s): N17.0 - Acute kidney failure with tubular necrosis SNOMED Code(s): 17589489 (6) Pulmonary nodules Current Visit: Yes Status: Acute CT chest showed scattered nodules throughout the lungs bilaterally which are indeterminate and may be infectious, inflammatory, or neoplastic in etiology. Given the patient's MRSA bacteremia, concern for septic emboli. SNOMED Code(s): 434840468 (7) Asymptomatic bacteriuria Current Visit: Yes Status: Acute Urine culture positive for MRSA. The patient was asymptomatic prior to admission. Likely secondary to seeding of the kidneys from the bacteremia. Currently on vancomycin. SNOMED Code(s): 280088915 (8) Supratherapeutic INR Current Visit: Yes Status: Acute Etiology: Unclear. Resolved. Further workup and management per the primary team. SNOMED Code(s): 489083821 (9) Elevated liver function tests Current Visit: Yes Status: Resolved Total bili, AST, ALT, alkaline phosphatase elevated on admission. Etiology: Unclear. Sepsis versus other. Hepatitis profile negative. Resolved. SNOMED Code(s): 043211415, 594036790 (10) Chronic ulcer of right foot with fat layer exposed Current Visit: No Status: Acute Location: Lateral aspect of fifth metatarsal on the right foot. Likely secondary to callus her patient's history. Follows with the [facility]. Clinically does not appear infected, but as a potential source for the patient's bacteremia. CT of the right foot negative for ostium myelitis or abscess. SNOMED Code(s): 703582311 (11) GI bleed Current Visit: Yes Status: Suspected Hemoglobin down to7.2. Fecal occult blood test positive. GI consulted. EGD/C-scope on hold due to elevated INR. Qualifiers: Qualified Code(s): K92.1 - Melena SNOMED Code(s): 37507907 (12) Weakness Current Visit: Yes Status: Acute Likely secondary to sepsis. PT/OT to evaluate. SNOMED Code(s): 85813527 (13) Diarrhea Current Visit: Yes Status: Acute Etiology: Unclear. C. difficile negative. GI panel negative. GI consulted. Qualifiers: Qualified Code(s): R19.7 - Diarrhea, unspecified SNOMED Code(s): 82394033 (14) Dehydration Current Visit: Yes Status: Acute Likely secondary to poor by mouth intake and high GI output. Management per the primary team. SNOMED Code(s): 87228683 (15) Rhabdomyolysis Current Visit: Yes Status: Acute Likely secondary to fall. CK noted to be 1400 on admission. Improved. Further workup and management per the primary team. Qualifiers: Qualified Code(s): T79.6XXD - Traumatic ischemia of muscle, subsequent encounter SNOMED Code(s): 343519168 (16) Atrial fibrillation Current Visit: Yes Status: Chronic Qualifiers: Qualified Code(s): I48.2 - Chronic atrial fibrillation SNOMED Code(s): 17091566 (17) HTN (hypertension) Current Visit: Yes Status: Chronic Qualifiers: Qualified Code(s): I10 - Essential (primary) hypertension SNOMED Code(s): 13760881 (18) CAD (coronary artery disease) Current Visit: Yes Status: Chronic Qualifiers: Qualified Code(s): I25.10 - Atherosclerotic heart disease of [place] coronary artery without angina pectoris SNOMED Code(s): 28879546 (19) Morbid obesity with BMI of 40.0-44.9, adult Current Visit: Yes Status: Chronic SNOMED Code(s): 064775094, 67108478085621 - Recommendations Recommendations: Send sputum for culture if the patient is able to provide an adequate specimen. Consider neurology to evaluate. Recommend podiatry to evaluate. Recommend pulmonology to evaluate. Etiology of persistent bacteremia remains unclear. Get CT head, chest, abdomen, and pelvis. Continue vancomycin IV. Pharmacy to dose. Goal trough approximately 15. Vanc level a little low. Discussed with pharmacy. Duration of treatment depends on the clinical picture, but likely at least 4 weeks. Monitor renal function for drug toxicity and does adjust antibiotics. human services instructor to assist with discharge planning. Avoid insertion of long-term IV access until repeat blood cultures are negative 48 hours. Consult Discharge Plan - Plan Referrals: NONE,PCP [Primary Care Provider] - - Attending Attestation I have personally performed a face to face evaluation on this patient. I have reviewed and agree with the care plan. History and Exam by me shows: Assessment and plan: 1.Sepsis 2.Bacteremia causative organism MRSA. Source likely chronic nonhealing ulceration of the right footcomplicated because the patient has an AICD and has a 3.right hip for plastic 4.Pneumonia questionable at best. There are nodules, likely due to septic emboli. 5.Acute kidney injury 6.Asymptomatic bacteriuria 7.Supratherapeutic INR Recommendations At this point will continue vancomycin Not sure the patient continues to do worse clinically. Recommend urology to evaluate. Patient also continues to be persistently bacteremic with negative endocarditis on LOY We will consider repeating imaging including CT head chest abdomen and pelvis. Now vancomycin is in the therapeutic range. Patient will also need rifampin prior to discharge.
[2018-11-15] MEDS ORDERED: Furosemide 40 MG/4 ML VIAL IVP ONE (10:56)
[2018-11-15] MEDS ORDERED: E-Z-HD (BARIUM SULF) SUSPENSION PO ONE (13:02)
[2018-11-15] MEDS ORDERED: E-Z-PAQUE (BARIUM SULF) SUSP 1 BOTTLE PO ONE (13:02)
--- NOTE | 2018-11-15 16:01 | Internal Med Progress Note ---
<Sejal Rachel E - Last Filed: 11/15/18 15:58> Hospitalist Progress Note - Encounter Date of Encounter: 11/15/18 Time of Encounter: 08:45 - Subjective Interval History: Mr. Morris is a 68-year-old male with a history of A. fib, coronary artery disease, hypertension. Presented with weakness, pain and diarrhea. Some MRSA bacteremia, UTI, pneumonia. Patient denies fever, chills, headache, dizziness, chest pain, shortness of breath, abdominal pain, diarrhea He states he is feeling well today, which is some mild pain at the catheter site. - Exam Vitals: Temp Pulse Resp BP Pulse Ox 99.4 F 87 20 133/85 96 11/15/18 11:30 11/15/18 11:30 11/15/18 11:30 11/15/18 11:30 11/15/18 11:30 Exam: General: On first attempt patient was asleep not readily awoken, second attempt patient was awake and alert, answered questions appropriately, mild distress Head: normocephalic, atraumatic Eyes: SEAN, no icterus Cardio: RRR, no mumurs, rubs, or gallops Respiratory: CTAB, no wheezing, rhonchi, rales Abd: Increased bowel sounds, no gaurding or rigidity Extremties: Pedal edema noted 2+ to the knee bilaterally, pulses equal bilat erally, warm Skin: warm, dry, intact - Assessment and Plan (1) Acute renal failure Current Visit: Yes Status: Acute Assessment and Plan: Likely due to rhabdomyolysis Creatinine on admission 2.1 Creatinine today 1.[address] abdomen pelvis showed bilateral renal lesions and recommended dedicated renal MRI once acute issues have resolved November 09 urinalysis showed positive leukocyte esterase, WBC, granular casts November 10 urinalysis showed positive leukocyte esterase, protein, WBC, and too numerous to count RBC November 13 UA showed positive WBC, too numerous to count RBC, protein Acute renal failure has improved Avoid nephrotoxic substances and renally dose medications Continue to monitor creatinine (2) Agitation Current Visit: Yes Status: Acute Assessment and Plan: Sitter was discontinued today as patient was no longer trying to rip out lines Patient was resting comfortably and not agitated overnight We will reconsider sitter if patient has agitation recurrence (3) Bacteremia Current Visit: Yes Status: Acute Assessment and Plan: Since likely due to his UTI or pneumonia, possibly due to chronic right foot ulcer Blood cultures on November 09 grew MRSA 2 Blood cultures on November 11 grew MRSA 2 TTE on November 10 was suboptimal but showed no significant valvular dysfunction Blood cultures on November 13 positive for gram-positive cocci Today INR has decreased to 1.5 Continue IV mycin Repeat blood cultures ID is following currently and we appreciate recommendations (4) Dehydration Current Visit: Yes Status: Resolved Assessment and Plan: Dehydrated on admission given IVF Resolved (5) Diarrhea Current Visit: Yes Status: Acute Assessment and Plan: Diffuse diarrhea on admission This could be due to medication or infection November 10 C. difficile was negative November 10 stool culture negative for other viral or bacterial causes Today patient denies any new diarrhea Continue to monitor Fecal calprotectin pending (6) Rhabdomyolysis Current Visit: Yes Status: Resolved Assessment and Plan: Rhabdomyolysis possibly due to recent fall inpatient on floor for 4 hours At that time the patient reported general body pain and myalgia Patient denies this today CK On admission 1413 CK on November 10 improved to 863 Patient had received IV sodium bicarbonate Continue to monitor (7) Sepsis Current Visit: Yes Status: Acute Assessment and Plan: Sepsis criteria on admission temperature 101 and white blood cell count of 19.7. Infectious source possibly from UTI, pneumonia, septic emboli, aspiration pneu monia, chronic ulcer of foot November 09 blood culture grew MRSA 2 November 09 urine culture grew MRSA November [address] small right and left pleural effusions with findings concerning for pneumonia with scattered nodules throughout the lungs bilaterally that may be infectious or inflammatory or neoplastic November 11 blood culture MRSA 2 November 11 respiratory panel positive for MRSA gene November 12 CRP 201 November 12 strep pneumonia and legionella negative November 13 blood culture positive gram-positive cocci preliminary Patient is hemodynamically stable afebrile white blood cell count slightly increased to 24 from 23.5 yesterday Continue IV antibiotics Continue contact precautions Repeat blood cultures pending Sputum culture pending Infectious disease is following and we appreciate recommendations GI is following we appreciate recommendations (8) Supratherapeutic INR Current Visit: Yes Status: Resolved Assessment and Plan: Resolved after patient was given fresh frozen plasma and vitamin K Is 1.5 today (9) Atrial fibrillation Current Visit: Yes Status: Chronic Assessment and Plan: History of A. fib with Coumadin and carvedilol for rate control Patient was supratherapeutic INR on admission On November 12 was found to be in A. fib RVR and was found Cardizem drip Decreased Cardizem drip as possible Increase carvedilol when needed Coumadin has been held due to possible GI bleed Continue IV labetalol as needed (10) CAD (coronary artery disease) Current Visit: Yes Status: Chronic Assessment and Plan: History of CAD Takes atorvastatin at home Carvedilol and spironolactone Continue atorvastatin, increase carvedilol (11) HTN (hypertension) Current Visit: Yes Status: Chronic Assessment and Plan: Currently controlled on home carvedilol, Lasix, spironolactone Continue carvedilol Continue labetalol as needed (12) GI bleed Current Visit: Yes Status: Suspected Assessment and Plan: Patient positive for Hemoccult Supratherapeutic INR on admission which has now resolved to 1.5 Patient currently hemodynamically stable Concern for GI bleed possibly due to supratherapeutic INR, ulcer,, colon cancer Patient has received fresh frozen plasma and vitamin K Continue to monitor H&H Coumadin has been held EGD and colonoscopy either tonight or tomorrow GI is following (13) UTI (urinary tract infection) Current Visit: Yes Status: Suspected Assessment and Plan: Patient urinary tract infection on urinalysis with positive WBC and leukocyte esterase Patient denied fevers, chills, dysuria, urinary frequency or urgency Mild urethral pain at catheter site Continue Rendon catheter Continue vancomycin (14) Pneumonia Current Visit: Yes Status: Ruled-out Assessment and Plan: Likely community-acquired Patient denied shortness of breath and cough Possible concern for aspiration pneumonia or septic emboli November 09 CT showed small right and trace left partially loculated pleural effusions with findings concerning for pneumonia or atelectasis. Scattered nodules are of the lungs bilaterally but may be infectious or inflammatory or neoplastic November 11 respiratory panel positive for MRSA gene November 12 strep pneumonia and legionella negative Continue IV antibiotics Continue bronchodilators as needed Pulmonary nodules on chest CT will need repeat CT follow-up as an outpatient ID is consulted we appreciate recommendations Sputum cultures still pending (15) Chronic ulcer of right foot with fat layer exposed Current Visit: No Status: Acute Assessment and Plan: Chronic ulcer of right foot on the inner surface managed by Dr. Darby Continue wound care ID is consulted CT foot showed no peristitis or bony destruction (16) DVT prophylaxis Current Visit: Yes Status: Acute Assessment and Plan: scds DVT Prophylaxis: scds - Time Spent with Patient Total time spent is greater than 50% in coordination of care (as documented) at patient's floor/unit and/or counseling patient: Internal Medicine: Result - Labs CBC & Chem 7: 11/15/18 05:57 11/15/18 05:57 Labs: Short CBC 11/14/18 11/15/18 Range/Units 20:57 05:57 WBC 24.0 H (4.3-11.1) K/mcL Hgb 8.1 L 8.0 L (12.9-16.9) g/dL Hct 24.4 L 24.3 L (37.5-50.1) % Plt Count 491 H (140-400) K/mcL Neutrophils # 19.9 H (1.6-8.9) K/mcL BMP 11/15/18 05:57 Sodium 145 Potassium 3.7 Chloride 110 H Carbon Dioxide 29 BUN 52 H Creatinine 1.48 H Glucose 138 H Calcium 9.8 - ABG Interpretation ABG results: ABG ABG pH 7.46 pH Units (7.32-7.45) H 11/14/18 16:18 ABG pCO2 42 mmHg (35-45) 11/14/18 16:18 ABG pO2 62 mmHg (85-104) L 11/14/18 16:18 ABG O2 Saturation 93 % (95-98) L 11/14/18 16:18 PT/INR, D-dimer PT 17.2 Seconds (9.4-12.1) H D 11/15/18 05:57 - Impressions Impressions Videofluoroscopic Swallow 11/15/18 09:14 IMPRESSION: Markedly limited examination due to obscuration by patient's shoulders. Patient experience a coughing episode after thin liquids via cup presumably related aspiration. There appears to be transient laryngeal penetration with thin liquids and nectar thickened liquids via a straw. Please see separate speech pathology report for full discussion of findings and recommendations. D/ / Dilip Levy MD / Dilip Levy MD Interpreting Provider: Dilip Levy MD Abdomen/Pelvis CT 11/15/18 12:10 IMPRESSION: No acute intra-abdominal or intrapelvic abnormalities. Indeterminate high attenuation focus to the right kidney measuring 1.6 cm. There is also an indeterminate cystic appearing focus with layering high attenuation material versus mural nodularity to the mid region of the right kidney measuring overall 2.4 cm. Suggest further evaluation with renal mass protocol MRI to exclude neoplastic process. Bilateral pleural effusions, right worse than left, worsened from prior CT abdomen and pelvis 11/09/2018. There are also worsened airspace opacities to bilateral lower lobes, right more than left felt most likely to reflect atelectasis although multifocal pneumonia or aspiration pneumonitis could have a similar appearance. D/ / 11/15/2018 14:02:51 Brayden German MD / [facility] [email or web address] Interpreting Provider: Brayden German MD Chest CT 11/15/18 12:10 IMPRESSION: Large right pleural effusion and small left pleural effusion, both worsened from prior exam 11/09/2018. Worsened consolidations to bilateral lower lobes, right more than left. This may be on the basis of worsening atelectasis, multifocal pneumonia or aspiration pneumonitis. Previously noted nodules/nodular opacities on prior CT exam are not well demonstrated currently as above. However, no change in the recommendation for follow-up noted on prior exam. Reference to that study can be made for additional information and for the recommendation. Atherosclerosis to include coronary artery disease. D/ / 11/15/2018 14:13:59 Brayden German MD / [facility] Interpreting Provider: Brayden German MD Head CT 11/15/18 12:10 IMPRESSION: No acute intracranial abnormality. D/ / 11/15/2018 14:11:31 Jeri Foley MD / [email or web address] Interpreting Provider: Jeri Foley MD Consult Discharge Plan - Plan Referrals: NONE,PCP [Primary Care Provider] - <Isak Driscoll - Last Filed: 11/15/18 16:46> Hospitalist Progress Note - Encounter Date of Encounter: 11/15/18 - Exam Vitals: Temp Pulse Resp BP Pulse Ox 98.2 F 102 20 142/71 94 11/15/18 16:25 11/15/18 16:25 11/15/18 16:25 11/15/18 16:25 11/15/18 16:25 - Assessment and Plan (1) Chronic ulcer of right foot with fat layer exposed Current Visit: No Status: Acute (2) GI bleed Current Visit: Yes Status: Suspected (3) Pneumonia Current Visit: Yes Status: Ruled-out (4) Diarrhea Current Visit: Yes Status: Acute (5) Dehydration Current Visit: Yes Status: Resolved (6) Rhabdomyolysis Current Visit: Yes Status: Resolved (7) Acute renal failure Current Visit: Yes Status: Acute (8) UTI (urinary tract infection) Current Visit: Yes Status: Suspected (9) Atrial fibrillation Current Visit: Yes Status: Chronic (10) HTN (hypertension) Current Visit: Yes Status: Chronic (11) CAD (coronary artery disease) Current Visit: Yes Status: Chronic (12) Morbid obesity with BMI of 40.0-44.9, adult Current Visit: Yes Status: Chronic (13) DVT prophylaxis Current Visit: Yes Status: Acute (14) Bacteremia Current Visit: Yes Status: Acute (15) Supratherapeutic INR Current Visit: Yes Status: Resolved (16) Sepsis Current Visit: Yes Status: Acute (17) Anemia Current Visit: Yes Status: Suspected (18) Dysphagia Current Visit: Yes Status: Suspected - Time Spent with Patient Total time spent is greater than 50% in coordination of care (as documented) at patient's floor/unit and/or counseling patient: Internal Medicine: Result - Labs CBC & Chem 7: 11/15/18 05:57 11/15/18 05:57 Labs: Short CBC 11/14/18 11/15/18 Range/Units 20:57 05:57 WBC 24.0 H (4.3-11.1) K/mcL Hgb 8.1 L 8.0 L (12.9-16.9) g/dL Hct 24.4 L 24.3 L (37.5-50.1) % Plt Count 491 H (140-400) K/mcL Neutrophils # 19.9 H (1.6-8.9) K/mcL BMP 11/15/18 05:57 Sodium 145 Potassium 3.7 Chloride 110 H Carbon Dioxide 29 BUN 52 H Creatinine 1.48 H Glucose 138 H Calcium 9.8 - ABG Interpretation ABG results: ABG ABG pH 7.46 pH Units (7.32-7.45) H 11/14/18 16:18 ABG pCO2 42 mmHg (35-45) 11/14/18 16:18 ABG pO2 62 mmHg (85-104) L 11/14/18 16:18 ABG O2 Saturation 93 % (95-98) L 11/14/18 16:18 PT/INR, D-dimer PT 17.2 Seconds (9.4-12.1) H D 11/15/18 05:57 - Impressions Impressions Videofluoroscopic Swallow 11/15/18 09:14 IMPRESSION: Markedly limited examination due to obscuration by patient's shoulders. Patient experience a coughing episode after thin liquids via cup presumably related aspiration. There appears to be transient laryngeal penetration with thin liquids and nectar thickened liquids via a straw. Please see separate speech pathology report for full discussion of findings and recommendations. D/ / Dilip Levy MD / Dilip Levy MD Interpreting Provider: Dilip Levy MD Abdomen/Pelvis CT 11/15/18 12:10 IMPRESSION: No acute intra-abdominal or intrapelvic abnormalities. Indeterminate high attenuation focus to the right kidney measuring 1.6 cm. There is also an indeterminate cystic appearing focus with layering high attenuation material versus mural nodularity to the mid region of the right kidney measuring overall 2.4 cm. Suggest further evaluation with renal mass protocol MRI to exclude neoplastic process. Bilateral pleural effusions, right worse than left, worsened from prior CT abdomen and pelvis 11/09/2018. There are also worsened airspace opacities to bilateral lower lobes, right more than left felt most likely to reflect atelectasis although multifocal pneumonia or aspiration pneumonitis could have a similar appearance. D/ / 11/15/2018 14:02:51 Brayden German MD / [email or web address] Interpreting Provider: Brayden German MD Chest CT 11/15/18 12:10 IMPRESSION: Large right pleural effusion and small left pleural effusion, both worsened from prior exam 11/09/2018. Worsened consolidations to bilateral lower lobes, right more than left. This may be on the basis of worsening atelectasis, multifocal pneumonia or aspiration pneumonitis. Previously noted nodules/nodular opacities on prior CT exam are not well demonstrated currently as above. However, no change in the recommendation for follow-up noted on prior exam. Reference to that study can be made for additional information and for the recommendation. Atherosclerosis to include coronary artery disease. D/ / 11/15/2018 14:13:59 Brayden German MD / [facility] Interpreting Provider: Brayden German MD Head CT 11/15/18 12:10 IMPRESSION: No acute intracranial abnormality. D/ / 11/15/2018 14:11:31 Jeri Foley MD / [facility] Interpreting Provider: Jeri Foley MD - Attending Attestation I examined this patient and my medical decision-making was reviewed with the Resident Physician on 11/15/18. I agree with the documented findings, disposition and treatment plan as described except to the extent set forth below. Mr Morris is currently admitted for sepsis due to MRSA. He remains moderate to high risk due to potential for worsening clinical status. Mr Morris is resting at this time. He seems more tired. No fever or chills. WBC remains elevated. Seems more confused off and on. No new symptoms overnight. Exam alert. COmfortable at this time. Mucus membranes dry Heart irreg - not tachy now Diffuse wheeze heard ABd soft Edema present Dressing intact I/P 1. Resp failure - weaning oxygen as able 2. MRSA bacteremia 3. Encephalopathy - intermittent 4. CT of head, chest and abdomen to be done today 5. Anemia - GI bleed. For endoscopy today 6. Dysphagia - MBS today. Further diagnoses and plan as above. <Jose LuisTony pelayogómez Peres - Last Filed: 11/15/18 15:58> (1) Acute renal failure Qualifiers: Acute renal failure type: with acute tubular necrosis Qualified Code(s): N17.0 - Acute kidney failure with tubular necrosis (5) Diarrhea Qualifiers: Diarrhea type: presumed infectious Qualified Code(s): R19.7 - Diarrhea, unspecified (6) Rhabdomyolysis Qualifiers: Rhabdomyolysis type: traumatic Encounter type: subsequent encounter Qualified Code(s): T79.6XXD - Traumatic ischemia of muscle, subsequent encounter (7) Sepsis Qualifiers: Sepsis type: methicillin resistant Staphylococcus aureus Qualified Code(s): A41.02 - Sepsis due to Methicillin resistant Staphylococcus aureus (9) Atrial fibrillation Qualifiers: Atrial fibrillation type: chronic Qualified Code(s): I48.2 - Chronic atrial fibrillation (10) CAD (coronary artery disease) Qualifiers: Coronary Disease-Associated Artery/Lesion type: [place] artery [place] vs. transplanted heart: [place] heart Associated angina: without angina Qualified Code(s): I25.10 - Atherosclerotic heart disease of [place] coronary artery without angina pectoris (11) HTN (hypertension) Qualifiers: Hypertension type: essential hypertension Qualified Code(s): I10 - Essential (primary) hypertension (12) GI bleed Qualifiers: GI bleed type/associated pathology: melena Qualified Code(s): K92.1 - Melena (13) UTI (urinary tract infection) Qualifiers: Urinary tract infection type: acute cystitis Hematuria presence: with hematuria Qualified Code(s): N30.01 - Acute cystitis with hematuria (14) Pneumonia Qualifiers: Pneumonia type: due to unspecified organism Laterality: right Lung location: lower lobe of lung Qualified Code(s): J18.1 - Lobar pneumonia, unspecified organism <Isak Driscoll - Last Filed: 11/15/18 16:46> (2) GI bleed Qualifiers: GI bleed type/associated pathology: melena Qualified Code(s): K92.1 - Melena (3) Pneumonia Qualifiers: Pneumonia type: due to unspecified organism Laterality: right Lung location: lower lobe of lung Qualified Code(s): J18.1 - Lobar pneumonia, unspecified organism (4) Diarrhea Qualifiers: Diarrhea type: presumed infectious Qualified Code(s): R19.7 - Diarrhea, unspecified (6) Rhabdomyolysis Qualifiers: Rhabdomyolysis type: traumatic Encounter type: subsequent encounter Qualified Code(s): T79.6XXD - Traumatic ischemia of muscle, subsequent encounter (7) Acute renal failure Qualifiers: Acute renal failure type: with acute tubular necrosis Qualified Code(s): N17.0 - Acute kidney failure with tubular necrosis (8) UTI (urinary tract infection) Qualifiers: Urinary tract infection type: acute cystitis Hematuria presence: with hematuria Qualified Code(s): N30.01 - Acute cystitis with hematuria (9) Atrial fibrillation Qualifiers: Atrial fibrillation type: chronic Qualified Code(s): I48.2 - Chronic atrial fibrillation (10) HTN (hypertension) Qualifiers: Hypertension type: essential hypertension Qualified Code(s): I10 - Essential (primary) hypertension (11) CAD (coronary artery disease) Qualifiers: Coronary Disease-Associated Artery/Lesion type: [place] artery [place] vs. transplanted heart: [place] heart Associated angina: without angina Qualified Code(s): I25.10 - Atherosclerotic heart disease of [place] coronary artery without angina pectoris (16) Sepsis Qualifiers: Sepsis type: methicillin resistant Staphylococcus aureus Qualified Code(s): A41.02 - Sepsis due to Methicillin resistant Staphylococcus aureus (17) Anemia Qualifiers: Anemia type: iron deficiency Iron deficiency anemia type: chronic blood loss Qualified Code(s): D50.0 - Iron deficiency anemia secondary to blood loss (chronic) (18) Dysphagia Qualifiers: Dysphagia type: oropharyngeal phase Qualified Code(s): R13.12 - Dysphagia, oropharyngeal phase
[2018-11-15] MEDS ORDERED: SODIUM CHLORIDE/NAHCO3/KCL/PEG 4,000 ML SOLN.RECON PO ONE (17:00)
[2018-11-15] MEDS: Piperacillin/Tazobactam 3.375 GM in 0.9 % Sodium Chloride Mini Bag 100 ML IVPB SCH (17:57)
[2018-11-15] MEDS ORDERED: *HR* Warfarin 3 MG TABLET PO ONE (18:00)
[2018-11-15] MEDS: Gabapentin 300 MG CAPSULE PO SCH (22:04)
[2018-11-16] MEDS: Piperacillin/Tazobactam 3.375 GM in 0.9 % Sodium Chloride Mini Bag 100 ML IVPB SCH ×4 (01:05→23:58)
[2018-11-16] MEDS: Levalbuterol Neb 1.25 MG/3 ML IH SCH ×6 (04:12→23:32)
[2018-11-16] MEDS: Pantoprazole 40 MG VIAL IVP SCH ×2 (04:18→18:06)
[2018-11-16 07:03] LABS: Hematocrit 26.9 % (37.5-50.1); Hemoglobin 8.5 g/dL (12.9-16.9); Mean Corpuscular HGB Conc 31.6 g/dL (31.6-35.5); Mean Corpuscular Hemoglobin 31.6 pg (28.0-33.3); Mean Platelet Volume 9.7 fL (9.4-12.4); Nucleated Red Blood Cells 0.2 /100 WBC (0); Platelet Count 534 K/mcL (140-400); Red Blood Count 2.69 M/mcL (4.19-5.50); Red Cell Distribution Width 15.8 % (11.5-14.5)
[2018-11-16 07:15] LABS: INR 1.3; Prothrombin Time 14.8 Seconds (9.4-12.1)
[2018-11-16 07:21] LABS: Alanine Aminotransferase 64 Units/L (7-52); Albumin/Globulin Ratio 0.9 (1.1-2.2); Alkaline Phosphatase 48 Units/L (34-104); Aspartate Amino Transferase 44 Units/L (13-39); BUN/Creatinine Ratio 30 (6-26); Bilirubin,Total 0.7 mg/dL (0.3-1.0); Blood Urea Nitrogen 38 mg/dL (8-23); Calcium 10.2 mg/dL (8.6-10.3); Carbon Dioxide 26 mEq/L (23-29); Chloride 114 mEq/L (98-107); Globulin 3.4 g/dL (2.4-3.5); Glucose 123 mg/dL (70-105); Lactate Dehydrogenase 212 Units/L (140-271); Osmolality,Calculated 320 (280-300); Potassium 3.8 mEq/L (3.5-5.1); Sodium 150 mEq/L (136-145); Total Protein 6.4 g/dL (6.4-8.9); eGFR For Non-African Americans 56 (> 60)
[2018-11-16 07:55] LABS: Lymphocytes # 1.7 K/mcL (0.6-4.6); Monocytes # 1.7 K/mcL (0.0-1.3); Neutrophils # 17.3 K/mcL (1.6-8.9); Platelet Estimate Increased (Normal)
[2018-11-16] MEDS ORDERED: Lidocaine -MPF 2% 2 ML VIAL ONE ×2 (08:20→12:25)
[2018-11-16] MEDS ORDERED: *HR* Propofol 200 MG/20 ML VIAL IVP ONE ×2 (08:20→12:25)
[2018-11-16] MEDS: Aspirin Enteric Coated 81 MG Tablet PO SCH (08:21)
--- NOTE | 2018-11-16 08:52 | Anesthesia Evaluation PreOp ---
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 History: Other (Pt somewhat confused, New this hospitalization.) Other Medical History: Renal (kidney stones), Other (R-foot wound) Anesthesia History: No Prior Anesthetic Complications, Past Anesthesia (Appy, Nel[place], AICD/Pacer, Eye surgery, Foot surgery) Alcohol Use: none Drug use: none Medications and Allergies Allopurinol [Zyloprim 300 MG] 300 mg PO DAILY 11/11/18 [History] Atorvastatin [Lipitor] 40 mg PO DAILY 11/11/18 [History] Carvedilol 12.5 mg PO BID 11/11/18 [History] Enoxaparin [Lovenox] 30 mg SQ Q12HR 11/11/18 [History] Furosemide [Lasix] 40 mg PO BID 11/11/18 [History] Gabapentin [Neurontin] 300 mg PO TID 11/11/18 [History] Spironolactone 50 mg PO BID 11/11/18 [History] Tamsulosin HCl [Flomax] 0.4 mg PO DAILY 11/11/18 [History] Warfarin [Coumadin] 3 mg PO SUTUWETHSA 11/11/18 [History] Warfarin [Coumadin] 4.5 mg PO MOFR 11/11/18 [History] Allergy/AdvReac Type Severity Reaction Status Date / Time Sulfa (Sulfonamide AdvReac Unknown advised by Verified 06/05/15 10:20 Antibiotics) dr ruff doesn't work for him - Meds/Allergy Pre-op Review Medications Reviewed: Yes Allergies Reviewed: Yes Beta Blockers on Current Med List: Yes (Carvedilol) If Beta Blockers taken, Date/Time (Last Dose taken): 11/16/2018 @ 0921 Anesthesia Results - Labs 11/16/18 06:32 11/16/18 06:32 Laboratory Results Laboratory Tests 11/09/18 11/09/18 11/13/18 13:05 21:50 07:20 INR Creatinine Est GFR ( Amer) Est GFR (Non-Af Amer) POC Glucose Nasal Screen MRSA (PCR) Positive A Stool Occult Bld Scrn Positive A Staph aureus (PCR) DETECTED A mecA-Methicil Res Gene DETECTED A 11/16/18 11/16/18 11/16/18 06:32 06:32 07:41 INR 1.3 Creatinine 1.27 Est GFR ( Amer) > 60 Est GFR (Non-Af Amer) 56 L POC Glucose 127 H Nasal Screen MRSA (PCR) Stool Occult Bld Scrn Staph aureus (PCR) mecA-Methicil Res Gene Impressions Echocardiogram 11/10/18 18:32 Impressions: Technically sub-optimal due to poor echocardiographic windows, clinical condition and body habitus. LVEF grossly normal. Indeterminate diastolic function. Probably normal right ventricular function. No significant valvular dysfunction. No evidence of pulmonary hypertension. Recommend repeat Echo after rate control. Left Ventricular Wall Motion: Rest Echo Findings The apical inferior, mid inferior, basal inferior, apical anterior, mid anterior, basal anterior, mid anterior septal, mid inferior lateral, basal anterior septal and basal inferior lateral ho were not visualized. All other wall segments showed normal motion. Findings: Study Quality * Technically sub-optimal due to poor echocardiographic windows, clinical condition and body habitus. ECG Findings * Atrial fibrillation with RVR, BBB. Left Ventricle * LVEF grossly normal. * Unable to evaluate segmental wall motion due to technical quality. * Indeterminate diastolic function. * Definity echo contrast was used. Right Ventricle * RV not well visualized, probably normal right ventricular sized and function. Left Atrium * Left atrium is not well visualized. Right Atrium * Right atrium is not well visualized. Interatrial Septum * Interatrial septum not well evaluated. Aortic Valve * Aortic valve not well visualized. * No aortic stenosis. * No aortic regurgitation. Mitral Valve * Mitral valve not well visualized. * No mitral stenosis. * Trace mitral regurgitation. Tricuspid Valve * Tricuspid valve not well visualized. * No tricuspid stenosis. * Trace tricuspid regurgitation. * Unable to estimate RVSP due to lack of TR jet. * No evidence of pulmonary hypertension. * Estimated RA pressure is 3 mmHg. Pulmonic Valve * Pulmonic valve is not well visualized. * No pulmonic regurgitation. * No pulmonic stenosis. Aorta * Aorta not well visualized, Pericardium * The pericardium appears normal. IVC * The IVC is not dilated. * > 50% respiratory change Chest X-Ray 11/13/18 01:23 IMPRESSION: Mild cardiomegaly with features essentially equivocal for heart failure given shallow inspiratory effort. Bilateral opacities favored to reflect atelectasis with or without edema. Correlate for clinical signs of infection. D/ / James Corado / James Corado Interpreting Provider: James Corado Chest CT 11/15/18 12:10 IMPRESSION: Large right pleural effusion and small left pleural effusion, both worsened from prior exam 11/09/2018. Worsened consolidations to bilateral lower lobes, right more than left. This may be on the basis of worsening atelectasis, multifocal pneumonia or aspiration pneumonitis. Previously noted nodules/nodular opacities on prior CT exam are not well demonstrated currently as above. However, no change in the recommendation for follow-up noted on prior exam. Reference to that study can be made for additional information and for the recommendation. Atherosclerosis to include coronary artery disease. D/ / 11/15/2018 14:13:59 Brayden German MD / [email or web address] Interpreting Provider: Brayden German MD - Imaging EKG: report reviewed (119bpm - ATRIAL FIBRILLATION WITH RAPID VENTRICULAR RESPONSE RIGHT BUNDLE BRANCH BLOCK ST DEPRESSION, CONSIDER SUBENDOCARDIAL INJURY Electronically Signed On 11-13-2018 9:59:30 EDT by Ankit Muhammad) Additional studies: ECHO 11/14/2018 Impressions: Technically sub-optimal due to clinical status. LVEF 65%. Normal LV size and function. Right ventricle was normal in size and systolic function. Unable to assess RVSP due to lack of TR. Portions of device lead visualized in the right atrium and right ventricle. No significant valvular dysfunction. No vegetations visualized. Clinical correlation suggested. Repeat study as clinically indicated. Left Ventricular Wall Motion: Transesophageal Echo Findings All wall segments showed normal motion. Anesthesia Exam Vital Signs Temp Pulse Resp BP Pulse Ox 11/16/18 07:19 14 94 11/16/18 07:02 98.1 F 89 20 132/82 94 04/19/19 03:50 98.0 F 88 22 133/88 96 11/16/18 00:17 96 11/15/18 23:12 15 92 11/15/18 19:54 15 95 11/15/18 19:10 98.2 F 80 19 112/74 95 11/15/18 16:25 98.2 F 102 20 142/71 94 11/15/18 15:24 20 94 11/15/18 11:30 99.4 F 87 20 133/85 96 11/15/18 11:21 16 96 Intake and Output 11/15/18 11/16/18 11/16/18 23:59 07:59 15:59 Intake Total 1375 / 1375 789.9 / 789.9 Output Total 925 / 925 660 / 660 Balance 450 / 450 129.9 / 129.9 Intake: IV Fluids 475 / 475 189.9 / 189.9 Cardizem 125 MG In 0.9 % Sodium 125 / 125 89.9 / 89.9 Chloride 100 ML @ 2.5 MG/HR 2. 5 mls/hr IVC .Q24H ANGEL[facility] Rx#: [id number] Zosyn 3.375 GM In 0.9 % Sodium 100 / 100 100 / 100 Chloride (Mini-Bag +) 100 ML @ 25 mls/hr IVPB Q8HR ANGELES Rx#: [id number] Vancocin 1,000 MG In 0.9 % 250 / 250 Sodium Chloride 250 ML @ 167 mls/hr IVPB Q12H ANG[facility] Rx#: [id number] Oral 900 / 900 600 / 600 Output: Urine 350 / 350 35 / 35 Catheter 575 / 575 625 / 625 Other: Stool Size Large Large Stool Consistency liquid liquid Stool Color Brown Brown # Bowel Movements 5 2 Weight 131 kg Blood Glucose* 127 Patient Weight 11/16/18 23:59 Weight 131 kg - HEENT Mallampati: III Teeth: Edentulous, Poor dentition Oral Opening: Greater than 3 - HYDRAULIC MINER LOC: Oriented, Confused HYDRAULIC MINER Motor: Deficit RUE (Unable to assess as Pt is somewhat confused and unable to fully participate in examination) - Cardiac Rhythm: Irregular - Pulmonary Breath Sounds: bilateral Clear (distant breath sounds throughout), bilateral Rhonchi ( faint basilar breath sounds) Respiratory Effort: Symmetrical Anesthesia Assess/Plan ASA Score: 4 (MO/BMI = 41, AFib, HTN, Chol, DM,) Anes Supervising Prov Stmt: Pt seen/evaluated, R&B Discussed, questions answered and consent obtained. Yogi Doyle MD
--- NOTE | 2018-11-16 08:57 | Internal Med Progress Note ---
Hospitalist Progress Note - Encounter Date of Encounter: 11/16/18 Time of Encounter: 03:30 - Subjective Interval History: Mr. Morris is a 68-year-old male with a history of A. fib, coronary artery disease, hypertension. Presented with weakness, pain and diarrhea. Some MRSA bacteremia, UTI, pneumonia. Patient denies fever, chills, headache, dizziness, chest pain, shortness of breath, abdominal pain, diarrhea Unable to converse with patient due to him falling back asleep after each try to arouse. - Exam Vitals: Temp Pulse Resp BP Pulse Ox 98.1 F 89 14 132/82 94 11/16/18 07:02 11/16/18 07:02 11/16/18 07:19 11/16/18 07:02 11/16/18 07:19 Exam: General: Patient somnolent, arousable to voice and touch but falls back asleep immediately without answering questions Head: normocephalic, atraumatic Eyes: SEAN, no icterus Cardio: RRR, no mumurs, rubs, or gallops Respiratory: CTAB, no wheezing, rhonchi, rales Abd: Increased bowel sounds, no gaurding or rigidity Extremties: Pedal edema noted 2+ to the knee bilaterally, pulses equal bilaterally, warm Skin: warm, dry, intact - Assessment and Plan (1) Acute renal failure Current Visit: Yes Status: Acute Assessment and Plan: Likely due to rhabdomyolysis Creatinine on admission 2.1 Creatinine today 1.[address] abdomen pelvis showed bilateral renal lesions and recommended dedicated renal MRI once acute issues have resolved November 09 urinalysis showed positive leukocyte esterase, WBC, granular casts November 10 urinalysis showed positive leukocyte esterase, protein, WBC, and too numerous to count RBC November 13 UA showed positive WBC, too numerous to count RBC, protein Acute renal failure has improved Avoid nephrotoxic substances and renally dose medications Continue to monitor creatinine (2) Agitation Current Visit: Yes Status: Acute Assessment and Plan: Patient was resting comfortably and not agitated on exam Continue sitter as he has taken out his lines multiple times in the last few days (3) Bacteremia Current Visit: Yes Status: Acute Assessment and Plan: Since likely due to his UTI or pneumonia, empyema, possibly due to chronic right foot ulcer Blood cultures on November 09 grew MRSA 2 Blood cultures on November 11 grew MRSA 2 TTE on November 10 was suboptimal but showed no significant valvular dysfunction Blood cultures on November 13 positive for gram-positive cocci Today INR has decreased to 1.3 Continue IV vancomycin Repeat blood cultures ID is following currently and we appreciate recommendations (4) Dehydration Current Visit: Yes Status: Resolved Assessment and Plan: Dehydrated on admission given IVF Resolved (5) Diarrhea Current Visit: Yes Status: Acute Assessment and Plan: Diffuse diarrhea on admission This could be due to medication or infection November 10 C. difficile was negative November 10 stool culture negative for other viral or bacterial causes Patient has had lingering diarrhea but had bowel prep last night for colonoscopy today Continue to monitor (6) Rhabdomyolysis Current Visit: Yes Status: Resolved Assessment and Plan: Rhabdomyolysis possibly due to recent fall inpatient on floor for 4 hours At that time the patient reported general body pain and myalgia Patient denies this today CK On admission 1413 CK on November 10 improved to 863 Patient had received IV sodium bicarbonate Continue to monitor (7) Sepsis Current Visit: Yes Status: Acute Assessment and Plan: Sepsis criteria on admission temperature 101 and white blood cell count of 19.7. Infectious source possibly from UTI, pneumonia, septic emboli, aspiration pneumonia, chronic ulcer of foot November 09 blood culture grew MRSA 2 November 09 urine culture grew MRSA November [address] small right and left pleural effusions with findings concerning for pneumonia with scattered nodules throughout the lungs bilaterally that may be infectious or inflammatory or neoplastic November 11 blood culture MRSA 2 November 11 respiratory panel positive for MRSA gene November 12 CRP 201 November 12 strep pneumonia and legionella negative November 13 blood culture positive gram-positive cocci preliminary Patient is hemodynamically stable afebrile white blood cell count decreasing Continue IV antibiotics Continue contact precautions Repeat blood cultures pending Sputum culture pending Infectious disease is following and we appreciate recommendations GI is following we appreciate recommendations 250ml of dark brown fluid was drained by IR via thoracentesis of left lung concerning for empyema (8) Supratherapeutic INR Current Visit: Yes Status: Resolved Assessment and Plan: Resolved after patient was given fresh frozen plasma and vitamin K Is 1.3 today (9) Atrial fibrillation Current Visit: Yes Status: Chronic Assessment and Plan: History of A. fib with Coumadin and carvedilol for rate control Patient was supratherapeutic INR on admission On November 12 was found to be in A. fib RVR and was found Cardizem drip cardizem drip d/c continue carvedalol Coumadin has been held due to possible GI bleed Continue IV labetalol as needed (10) CAD (coronary artery disease) Current Visit: Yes Status: Chronic Assessment and Plan: History of CAD Takes atorvastatin at home Carvedilol and spironolactone Continue atorvastatin, carvedilol (11) HTN (hypertension) Current Visit: Yes Status: Chronic Assessment and Plan: Currently controlled on home carvedilol, Lasix, spironolactone Continue carvedilol Continue labetalol as needed (12) GI bleed Current Visit: Yes Status: Suspected Assessment and Plan: Patient positive for Hemoccult Supratherapeutic INR on admission which has now resolved to 1.5 Patient currently hemodynamically stable Concern for GI bleed possibly due to supratherapeutic INR, ulcer,, colon cancer Patient has received fresh frozen plasma and vitamin K Continue to monitor H&H Coumadin has been held EGD showed 5mm sessile polyp no stigmata of recent bleeding, removed , graular mucosa in duodenum, single 20mm pedunculated polyp wtih large ulcer on tip in 3rd part of duodenum colonoscopy showed internal hemmerhoids, multiple small and large mouthed diverticuli no active bleed GI is following (13) UTI (urinary tract infection) Current Visit: Yes Status: Suspected Assessment and Plan: Patient urinary tract infection on urinalysis with positive WBC and leukocyte esterase Continue Rendon catheter Continue vancomycin (14) Pneumonia Current Visit: Yes Status: Ruled-out Assessment and Plan: Likely community-acquired Patient denied shortness of breath and cough Possible concern for aspiration pneumonia or septic emboli November 09 CT showed small right and trace left partially loculated pleural effusions with findings concerning for pneumonia or atelectasis. Scattered nodules are of the lungs bilaterally but may be infectious or inflammatory or neoplastic November 11 respiratory panel positive for MRSA gene November 12 strep pneumonia and legionella negative Continue IV antibiotics Continue bronchodilators as needed Pulmonary nodules on chest CT will need repeat CT follow-up as an outpatient ID is consulted we appreciate recommendations Sputum cultures still pending 250 ml brown fluid removed by IR via thoracenesis due to left lung pleural effusion becoming larger, concerning for empyema (15) Chronic ulcer of right foot with fat layer exposed Current Visit: No Status: Acute Assessment and Plan: Chronic ulcer of right foot on the inner surface managed by Dr. Darby Continue wound care ID is consulted CT foot showed no peristitis or bony destruction (16) DVT prophylaxis Current Visit: Yes Status: Acute Assessment and Plan: scds DVT Prophylaxis: scds - Time Spent with Patient Total time spent is greater than 50% in coordination of care (as documented) at patient's floor/unit and/or counseling patient: Internal Medicine: Result - Labs CBC & Chem 7: 11/16/18 06:32 11/16/18 06:32 Labs: Short CBC 11/16/18 Range/Units 06:32 WBC 20.6 H (4.3-11.1) K/mcL Hgb 8.5 L (12.9-16.9) g/dL Hct 26.9 L (37.5-50.1) % Plt Count 534 H (140-400) K/mcL Neutrophils # 17.3 H (1.6-8.9) K/mcL BMP 11/16/18 06:32 Sodium 150 H Potassium 3.8 Chloride 114 H Carbon Dioxide 26 BUN 38 H Creatinine 1.27 Glucose 123 H Calcium 10.2 Liver Function 11/16/18 Range/Units 06:32 Total Bilirubin 0.7 (0.3-1.0) mg/dL AST 44 H (13-39) Units/L ALT 64 H (7-52) Units/L Alkaline Phosphatase 48 (34-104) Units/L Albumin 3.0 L (3.5-5.7) g/dL - ABG Interpretation ABG results: ABG ABG pH 7.46 pH Units (7.32-7.45) H 11/14/18 16:18 ABG pCO2 42 mmHg (35-45) 11/14/18 16:18 ABG pO2 62 mmHg (85-104) L 11/14/18 16:18 ABG O2 Saturation 93 % (95-98) L 11/14/18 16:18 PT/INR, D-dimer PT 14.8 Seconds (9.4-12.1) H 11/16/18 06:32 - Impressions Impressions Videofluoroscopic Swallow 11/15/18 09:14 IMPRESSION: Markedly limited examination due to obscuration by patient's shoulders. Patient experience a coughing episode after thin liquids via cup presumably related aspiration. There appears to be transient laryngeal penetration with thin liquids and nectar thickened liquids via a straw. Please see separate speech pathology report for full discussion of findings and recommendations. D/ / Dilip Levy MD / Dilip Levy MD Interpreting Provider: Dilip Levy MD Abdomen/Pelvis CT 11/15/18 12:10 IMPRESSION: No acute intra-abdominal or intrapelvic abnormalities. Indeterminate high attenuation focus to the right kidney measuring 1.6 cm. There is also an indeterminate cystic appearing focus with layering high attenuation material versus mural nodularity to the mid region of the right kidney measuring overall 2.4 cm. Suggest further evaluation with renal mass protocol MRI to exclude neoplastic process. Bilateral pleural effusions, right worse than left, worsened from prior CT abdomen and pelvis 11/09/2018. There are also worsened airspace opacities to bilateral lower lobes, right more than left felt most likely to reflect atelectasis although multifocal pneumonia or aspiration pneumonitis could have a similar appearance. D/ / 11/15/2018 14:02:51 Brayden German MD / [email or web address] Interpreting Provider: Brayden German MD Chest CT 11/15/18 12:10 IMPRESSION: Large right pleural effusion and small left pleural effusion, both worsened from prior exam 11/09/2018. Worsened consolidations to bilateral lower lobes, right more than left. This may be on the basis of worsening atelectasis, multifocal pneumonia or aspiration pneumonitis. Previously noted nodules/nodular opacities on prior CT exam are not well demonstrated currently as above. However, no change in the recommendation for follow-up noted on prior exam. Reference to that study can be made for additional information and for the recommendation. Atherosclerosis to include coronary artery disease. D/ / 11/15/2018 14:13:59 Brayden German MD / [email or web address] Interpreting Provider: Brayden German MD Head CT 11/15/18 12:10 IMPRESSION: No acute intracranial abnormality. D/ / 11/15/2018 14:11:31 Jeri Foley MD / [email or web address] Interpreting Provider: Jeri Foley MD Consult Discharge Plan - Plan Referrals: NONE,PCP [Primary Care Provider] - (1) Acute renal failure Qualifiers: Acute renal failure type: with acute tubular necrosis Qualified Code(s): N17.0 - Acute kidney failure with tubular necrosis (5) Diarrhea Qualifiers: Diarrhea type: presumed infectious Qualified Code(s): R19.7 - Diarrhea, un specified (6) Rhabdomyolysis Qualifiers: Rhabdomyolysis type: traumatic Encounter type: subsequent encounter Qualified Code(s): T79.6XXD - Traumatic ischemia of muscle, subsequent encounter (7) Sepsis Qualifiers: Sepsis type: methicillin resistant Staphylococcus aureus Qualified Code(s): A41.02 - Sepsis due to Methicillin resistant Staphylococcus aureus (9) Atrial fibrillation Qualifiers: Atrial fibrillation type: chronic Qualified Code(s): I48.2 - Chronic atrial fibrillation (10) CAD (coronary artery disease) Qualifiers: Coronary Disease-Associated Artery/Lesion type: [place] artery [place] vs. transplanted heart: [place] heart Associated angina: without angina Qualified Code(s): I25.10 - Atherosclerotic heart disease of [place] coronary artery without angina pectoris (11) HTN (hypertension) Qualifiers: Hypertension type: essential hypertension Qualified Code(s): I10 - Essential (primary) hypertension (12) GI bleed Qualifiers: GI bleed type/associated pathology: melena Qualified Code(s): K92.1 - Melena (13) UTI (urinary tract infection) Qualifiers: Urinary tract infection type: acute cystitis Hematuria presence: with hematuria Qualified Code(s): N30.01 - Acute cystitis with hematuria (14) Pneumonia Qualifiers: Pneumonia type: due to unspecified organism Laterality: right Lung location: lower lobe of lung Qualified Code(s): J18.1 - Lobar pneumonia, unspecified organism
[2018-11-16] MEDS: 0.9 % Sodium Chloride 500 ML IVC SCH ×2 (09:14→18:06)
--- NOTE | 2018-11-16 09:58 | Event Note ---
Date of Encounter: 11/16/18 Time of Encounter: 09:42 Patient was seen and examined. I agree with the progress note as written by the resident physician. Patient admitted due to generalized weakness and fevers. Fell a week prior and was on the ground for a few hours. On initial presentation had leukocytosis (19.7). INR was elevated and kept on increasing initially (on coumadin). Had VAZQUEZ which improved. Had mildly elevated LFT's which improved. CK was elevated and trended down with IV fluids. Initial imaging studies showed loculated pleural effusion on left. There was scattered nodules b/l. Indeterminate b/l renal lesions and MRI was recommended once acute issues resolved. Also had diarrhea with + FOBT initially. Issues with afib with RVR while here treated with cardizem drip. While here, Bld cultures have been + for MRSA repeatedly with last + on 11/15. Urine cx + MRSA on 11/09. Echo was indeterminate but no vegetations. LOY followed and was negative for vegatations. Had repeat CT chest/abd/pelvis showing kidney lesions again on the right. Large right pleural effusions and small left pleural effusion worse than before. Worse consolidation. GEN: NAD CVS: RRR. S1, S2, No m/r/g RESP: Scattered rhonchi and bibasilar crackles ABD: Soft, NT, ND, +BS EXT: No edema. 2+ DP. No rashes NEURO: Nonfocal Leukocytosis is worsening. Patient is on vancomycin and Zosyn per ID Would need to arrange for thoracentesis and evaluated the loculated effusions. We will discuss with ID. Appreciate their help Would hold coumadin for now in case of any procedural needs. Can place on heparin drip but not urgent as it is for afib and not an active PE or DVT. Hemoglobin is at 8.5. On admission was 13.8. Some point was 7.0. Transfused 1 unit PRBCs while here. After these were given as well. INR was supratherapeutic on admission GI is following. Heart rate is controlled. Continue beta chris. We will need dedicated MRIs of the kidneys once acute issues resolve. Follow-up CT chest will need to be done in the outpatient setting as well.
[2018-11-16] MEDS: *HR* LORazepam 2 MG/ML VIAL IVP PRN (12:33)
--- NOTE | 2018-11-16 15:09 | IR Procedure Note ---
Date of procedure: 11/16/18 Consent Obtained: Verbal consent Timeout: Correct patient and procedure verified, Correct site verified, Time out performed, Skin prep completed Local anesthetic: Lidocaine 1% Indications: effusions Procedure Performed: rt thoracentesis Was there an middle [employer] assistant principal present: No Site/Technique: rt, 8F sheath Results/Findings: adequate drainage Estimated blood loss (cc): 0 Complications: None; Tolerated procedure well Post Procedure Treatment Plan: CXR Specimen: rt pleural fluid
--- NOTE | 2018-11-16 15:35 | Infectious Disease Progress No ---
ID Progress Note Date of Encounter: 11/16/18 Time of Encounter: 14:45 - Subjective Subjective: Patient seen and examined. No acute events noted overnight. Status post EGD/C- scope today and he just returned to his room. ROS unobtainable from the patient at this time. Per nursing documentation, he continues to have some loose stools, likely secondary to bowel prep overnight. Denies Rendon catheter remains patent. - Objective CBC & Chem 7: 11/16/18 06:32 11/16/18 06:32 - Line Documentation Line Documentation: Rendon Catheter (Draining clear yellow urine) - Exam Vitals: Temp Pulse Resp BP Pulse Ox 98.5 F 90 19 123/64 93 11/16/18 11:43 11/16/18 11:43 11/16/18 11:43 11/16/18 11:43 11/16/18 11:43 Exam: Head: Atraumatic, normal inspection, normocephalic. Eye: EOMI, PERRLA, no scleral icterus noted. No subconjunctival hemorrhage noted. ENT: Mucous membranes dry. No odontogenic infection noted. Neck: Normal inspection, no meningismus. Respiratory: Fine expiratory wheezes throughout. No rales, respiratory distress, rhonchi noted. Cardiovascular: Regular rate and irregular rhythm, S1 and S2 audible. No murmurs, rubs, or gallops. GI: Soft, nondistended, normal bowel sounds. Nontender. Rendon catheter noted to be draining clear yellow urine. Extremities: No joint swelling, pedal edema, or tenderness noted. Right foot dressing C/D/I. Neurological: Sedated. Opens eyes to verbal stimuli, but does not follow commands. Psychiatric: normal affect, normal mood. Skin: Dry, intact, warm. Pale. No rashes. Additional exam findings: Pacer/AICD site noted to the left upper chest well healed, nontender without erythema - Assessment and Plan (1) Sepsis Current Visit: Yes Status: Acute The patient had 3 sepsis criteria with acute kidney injury and metabolic encephalopathy. Likely secondary to MRSA bacteremia. WBC continues to trend up. Acute kidney injury is improved. Afebrile. Tachycardic overnight. Blood cultures drawn 11/09/18 a +2 out of 2 sets for MRSA. Repeat blood cultures from 11/11/18 are positive for MRSA. Additional blood cultures drawn 11/13/18 are positive x 2 sets as well. Repeat blood cultures 11/15/18 positive 1/2 sets. Qualifiers: Sepsis type: methicillin resistant Staphylococcus aureus Qualified Code(s): A41.02 - Sepsis due to Methicillin resistant Staphylococcus aureus SNOMED Code(s): 94457620 (2) Bacteremia Current Visit: Yes Status: Acute Causative organism: MRSA. Source: Unclear. The patient does have a chronic nonhealing ulceration to the right foot, however, does not appear clinically infected. Blood cultures drawn 11/09/18 are +2 out of 2 sets. Repeat blood cultures on 11/11/18 are +2 out of 2 sets. Repeat blood cultures drawn 11/13/18 are positive x 2 sets. Repeat blood cultures from 11/15/18 are positive 1/2 sets. Complicated due to the presence of a pacer/AICD and left hip hardware as well as likely septic emboli to the lung and seeding of the kidneys. TTE suboptimal. No endocarditis stigmata noted on exam. Rheumatoid factor normal. LOY negative for valvular or device lead vegetations. The patient has one major and 2 minor modified [place] criteria. Currently on IV vancomycin (FABRICIO 1). SNOMED Code(s): 1630366 (3) Acute encephalopathy Current Visit: Yes Status: Acute Likely secondary to sepsis, but concern for septic emboli to the brain. CT head negative on admission. Consider repeat imaging if AMS continues/worsens. Discussed with the primary team. SNOMED Code(s): 04350803, 201095337 (4) Pneumonia Current Visit: Yes Status: Ruled-out CT chest showed small right and trace left partially loculated pleural effusions with increased consolidative opacities in the lung bases slightly asymmetric right worse than left, either atelectasis or pneumonia. Causative organism: Unclear. MRSA screen is positive. RIP negative. UATs negative. Given the patient's weakness, aspiration is on the differential. DOCUMENTATION LIAISON consulted. Recommended MBS to further assess swallow status. Repeat CT of the chest shows large right pleural effusion and small left pleural effusion, both worse since previous imaging. Worsened consolidations to the bilateral lower lobes, right more than left, concerning for worsening atelectasis, multifocal PNA or aspiration pneumonitis also seen. Currently on vancomycin and Zosyn. Qualifiers: Pneumonia type: due to unspecified organism Laterality: right Lung location: lower lobe of lung Qualified Code(s): J18.1 - Lobar pneumonia, unspecified organism SNOMED Code(s): 696116967 (5) Acute renal failure Current Visit: Yes Status: Acute Likely secondary to sepsis, dehydration, and rhabdomyolysis. Improved. Continue to trend. Dosage of medications. Avoid nephrotoxins as able. Consider nephrology to evaluate. Qualifiers: Acute renal failure type: with acute tubular necrosis Qualified Code(s): N17.0 - Acute kidney failure with tubular necrosis SNOMED Code(s): 68167963 (6) Pulmonary nodules Current Visit: Yes Status: Acute CT chest showed scattered nodules throughout the lungs bilaterally which are indeterminate and may be infectious, inflammatory, or neoplastic in etiology. Given the patient's MRSA bacteremia, concern for septic emboli. SNOMED Code(s): 275214075 (7) Asymptomatic bacteriuria Current Visit: Yes Status: Acute Urine culture positive for MRSA. The patient was asymptomatic prior to admission. Likely secondary to seeding of the kidneys from the bacteremia. Currently on vancomycin. SNOMED Code(s): 287045228 (8) Supratherapeutic INR Current Visit: Yes Status: Resolved Etiology: Unclear. Resolved. Further workup and management per the primary team. SNOMED Code(s): 816062115 (9) Elevated liver function tests Current Visit: Yes Status: Resolved Total bili, AST, ALT, alkaline phosphatase elevated on admission. Etiology: Unclear. Sepsis versus other. Hepatitis profile negative. Resolved. SNOMED Code(s): 769928486, 480883862 (10) Chronic ulcer of right foot with fat layer exposed Current Visit: No Status: Acute Location: Lateral aspect of fifth metatarsal on the right foot. Likely secondary to callus her patient's history. Follows with the [place] [facility]. Clinically does not appear infected, but as a potential source for the patient's bacteremia. CT of the right foot negative for osteomyelitis or abscess. SNOMED Code(s): 534990049 (11) GI bleed Current Visit: Yes Status: Suspected Hemoglobin down to7.2. Fecal occult blood test positive. GI consulted. EGD/C-scope completed this morning. Report pending. Qualifiers: GI bleed type/associated pathology: melena Qualified Code(s): K92.1 - Melena SNOMED Code(s): 59755374 (12) Weakness Current Visit: Yes Status: Acute Likely secondary to sepsis. PT/OT to evaluate. SNOMED Code(s): 66449786 (13) Diarrhea Current Visit: Yes Status: Acute Etiology: Unclear. C. difficile negative. GI panel negative. GI consulted. Qualifiers: Diarrhea type: presumed infectious Qualified Code(s): R19.7 - Diarrhea, unspecified SNOMED Code(s): 54451369 (14) Dehydration Current Visit: Yes Status: Resolved Likely secondary to poor by mouth intake and high GI output. Management per the primary team. SNOMED Code(s): 32409600 (15) Rhabdomyolysis Current Visit: Yes Status: Resolved Likely secondary to fall. CK noted to be 1400 on admission. Improved. Further workup and management per the primary team. Qualifiers: Rhabdomyolysis type: traumatic Encounter type: subsequent encounter Qualified Code(s): T79.6XXD - Traumatic ischemia of muscle, subsequent encounter SNOMED Code(s): 315292055 (16) Atrial fibrillation Current Visit: Yes Status: Chronic Qualifiers: Atrial fibrillation type: chronic Qualified Code(s): I48.2 - Chronic atrial fibrillation SNOMED Code(s): 70294005 (17) HTN (hypertension) Current Visit: Yes Status: Chronic Qualifiers: Hypertension type: essential hypertension Qualified Code(s): I10 - Essential (primary) hypertension SNOMED Code(s): 36961991 (18) CAD (coronary artery disease) Current Visit: Yes Status: Chronic Qualifiers: Coronary Disease-Associated Artery/Lesion type: [place] artery [place] vs. transplanted heart: [place] heart Associated angina: without angina Qualified Code(s): I25.10 - Atherosclerotic heart disease of [place] coronary artery without angina pectoris SNOMED Code(s): 77349806 (19) Morbid obesity with BMI of 40.0-44.9, adult Current Visit: Yes Status: Chronic SNOMED Code(s): 720586982, 20824177777830 (20) Pleural effusion Current Visit: Yes Status: Acute CT of the chest 11/15/18 shows large right and small left pleural effusion, worsened since prior exam. Concern for infectious etiology. IR consulted. Thoracentesis pending completion. SNOMED Code(s): 92168352 - Recommendations Recommendations: Repeat blood cultures x 2 sets. Send sputum for culture if the patient is able to provide an adequate specimen. Consider neurology to evaluate. Recommend podiatry to evaluate. Recommend pulmonology to evaluate. IR consult for thoracentesis. Please send specimen for cell count with diff, protein, glucose, LDH, and culture (aerobic, anaerobic, AFB, and fungal). Continue vancomycin IV. Pharmacy to dose. Goal trough approximately 15. Duration of treatment depends on the clinical picture, but likely at least 4 weeks. Monitor renal function for drug toxicity and does adjust antibiotics. disability services coordinator to assist with discharge planning. Avoid insertion of long-term IV access until repeat blood cultures are negative 48 hours. Consult Discharge Plan - Plan Referrals: NONE,PCP [Primary Care Provider] -
[2018-11-16 18:23] LABS: Total Protein,Pleural Fluid 3.3 g/dL (No Ref Range)
[2018-11-16 18:32] LABS: RBC,Pleural Fluid 0.087 M/mcL
[2018-11-16 19:11] LABS: Appearance of Pleural Fl Bloody (Clear)
[2018-11-16] MEDS: Gabapentin 300 MG CAPSULE PO SCH (20:57)
[2018-11-17] MEDS: Levalbuterol Neb 1.25 MG/3 ML IH SCH ×6 (04:42→23:44)
[2018-11-17] MEDS: Pantoprazole 40 MG VIAL IVP SCH (06:17)
[2018-11-17 08:12] LABS: Basophils % 0.2 %; Eosinophils # 0.2 K/mcL (0.0-0.6); Hematocrit 26.1 % (37.5-50.1); Hemoglobin 8.1 g/dL (12.9-16.9); Immature Granulocytes % 2.7 % (0-4); Lymphocytes # 1.4 K/mcL (0.6-4.6); Lymphocytes % 9.2 %; Mean Corpuscular Hemoglobin 31.5 pg (28.0-33.3); Mean Corpuscular Volume 101.6 fL (83.0-100.0); Mean Platelet Volume 9.8 fL (9.4-12.4); Monocytes # 1.1 K/mcL (0.0-1.3); Monocytes % 7.2 %; Neutrophils # 12.4 K/mcL (1.6-8.9); Platelet Count 522 K/mcL (140-400); Red Blood Count 2.57 M/mcL (4.19-5.50); Red Cell Distribution Width 16.5 % (11.5-14.5); Segmented Neutrophils % 79.7 %
--- NOTE | 2018-11-17 08:17 | Internal Med Progress Note ---
Hospitalist Progress Note - Encounter Date of Encounter: 11/17/18 Time of Encounter: 08:15 - Subjective Interval History: Patient was seen and examined. still altered. Alert to self only. Went for a right sided thoracentesis yesterday. afebrile. Had EGD and colonoscopy yesterday and showed stool in entire colon. There was internal hemorrhoids and diverti culosis noted. EGD showed normal esophagus and a single gastric polyp that was resected and a clip was placed. There was also a single duodenum polyp resected and clipped. Patient admitted due to generalized weakness and fevers. Fell a week prior and was on the ground for a few hours. On initial presentation had leukocytosis (19.7). INR was elevated and kept on increasing initially (on coumadin). Had VAZQUEZ which improved. Had mildly elevated LFT's which improved. CK was elevated and trended down with IV fluids. Initial imaging studies showed a suspected loculated pleural effusions. There was scattered nodules b/l. Indeterminate b/l renal lesions and MRI was recommended once acute issues resolved. Also had diarrhea with + FOBT initially. Issues with afib with RVR while here treated with cardizem drip. While here, Bld cultures have been + for MRSA repeatedly with last + on 11/15. Urine cx + MRSA on 11/09. Echo was indeterminate but no vegetations. LOY followed and was negative for vegatations. Had repeat CT chest/abd/pelvis showing kidney lesions again on the right. Large right pleural effusions and small left pleural effusion worse than before. Worse consolidation. - Exam Vitals: Temp Pulse Resp BP Pulse Ox 98.2 F 103 24 120/75 97 11/17/18 07:44 11/17/18 07:44 11/17/18 07:44 11/17/18 07:44 11/17/18 07:44 Exam: GEN: NAD CVS: RRR. S1, S2, No m/r/g RESP: Scattered rhonchi and bibasilar crackles ABD: Soft, NT, ND, +BS EXT: No edema. 2+ DP. No rashes NEURO: Nonfocal. A/Ox1 - Assessment and Plan (1) Bacteremia Current Visit: Yes Status: Acute Assessment and Plan: MRSA +. Recurrent. ID follwoing. On Vancomycin. TTE and LOY did not show vegetations. (2) Pleural effusion Current Visit: Yes Status: Acute Assessment and Plan: s/p thoracentesis. f/u on cultures. (3) GI bleed Current Visit: Yes Status: Suspected Assessment and Plan: Had EGD and colonoscopy yesterday and showed stool in entir colon. There was internal hemorrhoids and diverticulosis noted. EGD showed normal esophagus and a single gastric polyp that was resected and a clip was placed. There was also a single duodena polyp resected and clipped. Monitor H/H. Switch protnix to oral. Coumadin on hold and can be resumed once we are sure the patient wont need any procedures. (4) Pneumonia Current Visit: Yes Status: Ruled-out Assessment and Plan: c/w vancomycin/zosyn. ID following. s/p thoracentesis. f/u on cultures. O2 support. Nebs (5) Diarrhea Current Visit: Yes Status: Acute Assessment and Plan: resolved. C. Diff neg (6) Dehydration Current Visit: Yes Status: Resolved Assessment and Plan: Dehydration on admission. Patient received IV fluids. Sodium is 150 yesterday. Will f/u on labs this morning. (7) Rhabdomyolysis Current Visit: Yes Status: Resolved Assessment and Plan: Resolved. (8) Acute renal failure Current Visit: Yes Status: Acute Assessment and Plan: Resolved. (9) UTI (urinary tract infection) Current Visit: Yes Status: Suspected Assessment and Plan: Urinary tract infection on urinalysis. Cx + for MRSA. On vancomycin (10) Atrial fibrillation Current Visit: Yes Status: Chronic Assessment and Plan: History of atrial fibrillation on anticoagulation with Coumadin and rate controlled with carvedilol -continue carvedilol -Coumadin being held (11) HTN (hypertension) Current Visit: Yes Status: Chronic Assessment and Plan: c/w home meds (12) CAD (coronary artery disease) Current Visit: Yes Status: Chronic Assessment and Plan: c/w home meds (13) Morbid obesity with BMI of 40.0-44.9, adult Current Visit: Yes Status: Chronic Assessment and Plan: Lifestyle changes (14) Bacteremia Current Visit: Yes Status: Acute (15) Supratherapeutic INR Current Visit: Yes Status: Resolved (16) Sepsis Current Visit: Yes Status: Acute (17) Anemia Current Visit: Yes Status: Suspected (18) Dysphagia Current Visit: Yes Status: Suspected Assessment and Plan: On modified diet. (19) Chronic ulcer of right foot with fat layer exposed Current Visit: No Status: Acute Assessment and Plan: Patient with a chronic wound ulcer of the foot for which he follows with Dr. Darby of podiatry c/w wound care (20) DVT prophylaxis Current Visit: Yes Status: Acute Assessment and Plan: SCD - Time Spent with Patient Total time spent is greater than 50% in coordination of care (as documented) at patient's floor/unit and/or counseling patient: Internal Medicine: Result - Labs CBC & Chem 7: 11/17/18 07:42 11/17/18 07:42 Labs: Short CBC 11/17/18 Range/Units 07:42 WBC 15.6 H (4.3-11.1) K/mcL Hgb 8.1 L (12.9-16.9) g/dL Hct 26.1 L (37.5-50.1) % Plt Count 522 H (140-400) K/mcL Neutrophils # 12.4 H (1.6-8.9) K/mcL - ABG Interpretation ABG results: ABG ABG pH 7.46 pH Units (7.32-7.45) H 11/14/18 16:18 ABG pCO2 42 mmHg (35-45) 11/14/18 16:18 ABG pO2 62 mmHg (85-104) L 11/14/18 16:18 ABG O2 Saturation 93 % (95-98) L 11/14/18 16:18 PT/INR, D-dimer PT 14.8 Seconds (9.4-12.1) H 11/16/18 06:32 - Impressions Impressions Chest X-Ray 11/16/18 15:09 IMPRESSION: 1. No pneumothorax status post thoracentesis. 2. Right pleural effusion. 3. Cardiomegaly and pulmonary edema compatible with CHF. D/ / Gus Ortiz MD / Gus Ortiz MD Interpreting Provider: Gus Ortiz MD Consult Discharge Plan - Plan Referrals: NONE,PCP [Primary Care Provider] - (3) GI bleed Qualifiers: GI bleed type/associated pathology: melena Qualified Code(s): K92.1 - Melena (4) Pneumonia Qualifiers: Pneumonia type: due to unspecified organism Laterality: right Lung location: lower lobe of lung Qualified Code(s): J18.1 - Lobar pneumonia, unspecified organism (5) Diarrhea Qualifiers: Diarrhea type: presumed infectious Qualified Code(s): R19.7 - Diarrhea, unspecified (7) Rhabdomyolysis Qualifiers: Rhabdomyolysis type: traumatic Encounter type: subsequent encounter Qualified Code(s): T79.6XXD - Traumatic ischemia of muscle, subsequent encounter (8) Acute renal failure Qualifiers: Acute renal failure type: with acute tubular necrosis Qualified Code(s): N17.0 - Acute kidney failure with tubular necrosis (9) UTI (urinary tract infection) Qualifiers: Urinary tract infection type: acute cystitis Hematuria presence: with hematuria Qualified Code(s): N30.01 - Acute cystitis with hematuria (10) Atrial fibrillation Qualifiers: Atrial fibrillation type: chronic Qualified Code(s): I48.2 - Chronic atrial fibrillation (11) HTN (hypertension) Qualifiers: Hypertension type: essential hypertension Qualified Code(s): I10 - Essential (primary) hypertension (12) CAD (coronary artery disease) Qualifiers: Coronary Disease-Associated Artery/Lesion type: [place] artery [place] vs. transplanted heart: [place] heart Associated angina: without angina Qualified Code(s): I25.10 - Atherosclerotic heart disease of [place] coronary artery without angina pectoris (16) Sepsis Qualifiers: Sepsis type: methicillin resistant Staphylococcus aureus Qualified Code(s): A41.02 - Sepsis due to Methicillin resistant Staphylococcus aureus (17) Anemia Qualifiers: Anemia type: iron deficiency Iron deficiency anemia type: chronic blood loss Qualified Code(s): D50.0 - Iron deficiency anemia secondary to blood loss (chronic) (18) Dysphagia Qualifiers: Dysphagia type: oropharyngeal phase Qualified Code(s): R13.12 - Dysphagia, oropharyngeal phase
[2018-11-17 08:19] LABS: INR 1.3
[2018-11-17 08:34] LABS: Alanine Aminotransferase 51 Units/L (7-52); Albumin 2.9 g/dL (3.5-5.7); Albumin/Globulin Ratio 0.8 (1.1-2.2); Alkaline Phosphatase 43 Units/L (34-104); Aspartate Amino Transferase 29 Units/L (13-39); BUN/Creatinine Ratio 24 (6-26); Bilirubin,Total 0.6 mg/dL (0.3-1.0); Blood Urea Nitrogen 33 mg/dL (8-23); Calcium 10.4 mg/dL (8.6-10.3); Carbon Dioxide 26 mEq/L (23-29); Chloride 121 mEq/L (98-107); Globulin 3.6 g/dL (2.4-3.5); Glucose 110 mg/dL (70-105); Osmolality,Calculated 322 (280-300); Potassium 3.8 mEq/L (3.5-5.1); Sodium 152 mEq/L (136-145); Total Protein 6.5 g/dL (6.4-8.9); eGFR For Non-African Americans 51 (> 60)
[2018-11-17] MEDS: Aspirin Enteric Coated 81 MG Tablet PO SCH (09:07)
[2018-11-17] MEDS: Piperacillin/Tazobactam 3.375 GM in 0.9 % Sodium Chloride Mini Bag 100 ML IVPB SCH ×3 (09:12→23:55)
[2018-11-17] MEDS: Gabapentin 300 MG CAPSULE PO SCH (20:36)
[2018-11-18 01:35] LABS: Albumin 2.7 g/dL (3.5-5.7); Albumin/Globulin Ratio 0.8 (1.1-2.2); Bilirubin,Total 0.5 mg/dL (0.3-1.0); Calcium 10.4 mg/dL (8.6-10.3); Globulin 3.5 g/dL (2.4-3.5); Magnesium 2.6 mg/dL (1.6-2.6); Potassium 4.3 mEq/L (3.5-5.1); Total Protein 6.2 g/dL (6.4-8.9)
[2018-11-18] MEDS: Levalbuterol Neb 1.25 MG/3 ML IH SCH ×6 (04:29→23:55)
[2018-11-18] MEDS: 0.9 % Sodium Chloride 500 ML IVC SCH (10:20)
[2018-11-18] MEDS ORDERED: D5% in Water 1,000 ML IVC PRN (10:29)
[2018-11-18] MEDS: Aspirin Enteric Coated 81 MG Tablet PO SCH (10:30)
--- NOTE | 2018-11-18 10:31 | Internal Med Progress Note ---
Hospitalist Progress Note - Encounter Date of Encounter: 11/18/18 Time of Encounter: 10:37 - Subjective Interval History: Patient was seen and examined. More awake. Went for a right sided thoracentesis 11/16. afebrile. Had EGD and colonoscopy 11/17 and showed stool in entire colon. There was internal hemorrhoids and diverticulosis noted. EGD showed normal esophagus and a single gastric polyp that was resected and a clip was placed. There was also a single duodenum polyp resected and clipped. Patient admitted due to generalized weakness and fevers. Fell a week prior and was on the ground for a few hours. On initial presentation had leukocytosis (19 .7). INR was elevated and kept on increasing initially (on coumadin). Had VAZQUEZ which improved. Had mildly elevated LFT's which improved. CK was elevated and trended down with IV fluids. Initial imaging studies showed a suspected loculated pleural effusions. There was scattered nodules b/l. Indeterminate b/l renal lesions and MRI was recommended once acute issues resolved. Also had diarrhea with + FOBT initially. Issues with afib with RVR while here treated with cardizem drip. off of that now. While here, Bld cultures have been + for MRSA repeatedly with last + on 11/15. Urine cx + MRSA on 11/09. Echo was indeterminate but no vegetations. LOY followed and was negative for vegatations. Had repeat CT chest/abd/pelvis showing kidney lesions again on the right. Large right pleural effusions and small left pleural effusion worse than before. Worse consolidation. - Exam Vitals: Temp Pulse Resp BP Pulse Ox 98.8 F 87 24 136/61 93 11/18/18 07:26 11/18/18 07:26 11/18/18 07:46 11/18/18 07:26 11/18/18 07:46 Exam: GEN: NAD CVS: RRR. S1, S2, No m/r/g RESP: Scattered rhonchi and bibasilar crackles ABD: Soft, NT, ND, +BS EXT: No edema. 2+ DP. No rashes NEURO: Nonfocal. A/Ox1 - Assessment and Plan (1) Sepsis Current Visit: Yes Status: Acute Assessment and Plan: Treat causes as below (2) Bacteremia Current Visit: Yes Status: Acute Assessment and Plan: MRSA +. Recurrent. ID following. On Vancomycin. TTE and LOY did not show vegetations. last bld cx on 11/15. Repeat bld cx today. (3) Pleural effusion Current Visit: Yes Status: Acute Assessment and Plan: s/p thoracentesis. f/u on cultures. (4) GI bleed Current Visit: Yes Status: Suspected Assessment and Plan: Had EGD and colonoscopy yesterday and showed stool in entire colon. There was internal hemorrhoids and diverticulosis noted. EGD showed normal esophagus and a single gastric polyp that was resected and a clip was placed. There was also a single duodena polyp resected and clipped. Monitor H/H. Switch protnix to oral. Coumadin on hold and can be resumed once we are sure the patient wont need any procedures. (5) Pneumonia Current Visit: Yes Status: Ruled-out Assessment and Plan: c/w vancomycin/zosyn. ID following. s/p thoracentesis. f/u on cultures. O2 support. Nebs (6) Diarrhea Current Visit: Yes Status: Acute Assessment and Plan: resolved. C. Diff neg (7) Dehydration Current Visit: Yes Status: Resolved Assessment and Plan: Dehydration on admission. Patient received IV fluids. Started D5W given hypernatremia (8) Rhabdomyolysis Current Visit: Yes Status: Resolved Assessment and Plan: Resolved. (9) Acute renal failure Current Visit: Yes Status: Acute Assessment and Plan: Going back up. IV fluids started again. (10) Hypernatremia Current Visit: Yes Status: Acute Assessment and Plan: Start D5W at 75cc/hr. labs in am. (11) UTI (urinary tract infection) Current Visit: Yes Status: Suspected Assessment and Plan: Urinary tract infection on urinalysis. Cx + for MRSA. On vancomycin (12) Atrial fibrillation Current Visit: Yes Status: Chronic Assessment and Plan: History of atrial fibrillation on anticoagulation with Coumadin and rate controlled with carvedilol -continue carvedilol -Coumadin being held (13) HTN (hypertension) Current Visit: Yes Status: Chronic Assessment and Plan: c/w home meds (14) CAD (coronary artery disease) Current Visit: Yes Status: Chronic Assessment and Plan: c/w home meds (15) Morbid obesity with BMI of 40.0-44.9, adult Current Visit: Yes Status: Chronic Assessment and Plan: Lifestyle changes (16) Supratherapeutic INR Current Visit: Yes Status: Resolved Assessment and Plan: resolved. Coumadin on hold for now. (17) Anemia Current Visit: Yes Status: Suspected Assessment and Plan: stable. Plans as per GI bleed assessment. (18) Dysphagia Current Visit: Yes Status: Suspected Assessment and Plan: On modified diet. (19) Chronic ulcer of right foot with fat layer exposed Current Visit: No Status: Acute Assessment and Plan: Patient with a chronic wound ulcer of the foot for which he follows with Dr. Darby of podiatry c/w wound care (20) DVT prophylaxis Current Visit: Yes Status: Acute Assessment and Plan: SCD - Time Spent with Patient Total time spent is greater than 50% in coordination of care (as documented) at patient's floor/unit and/or counseling patient: Internal Medicine: Result - Labs CBC & Chem 7: 11/17/18 07:42 11/18/18 00:37 Labs: BMP 11/18/18 00:37 Sodium 154 H Potassium 4.3 Chloride 124 H Carbon Dioxide 25 BUN 31 H Creatinine 1.47 H Glucose 113 H Calcium 10.4 H Liver Function 11/18/18 Range/Units 00:37 Total Bilirubin 0.5 (0.3-1.0) mg/dL AST 26 (13-39) Units/L ALT 44 (7-52) Units/L Alkaline Phosphatase 39 (34-104) Units/L Albumin 2.7 L (3.5-5.7) g/dL - ABG Interpretation ABG results: ABG ABG pH 7.46 pH Units (7.32-7.45) H 11/14/18 16:18 ABG pCO2 42 mmHg (35-45) 11/14/18 16:18 ABG pO2 62 mmHg (85-104) L 11/14/18 16:18 ABG O2 Saturation 93 % (95-98) L 11/14/18 16:18 PT/INR, D-dimer PT 15.0 Seconds (9.4-12.1) H 11/17/18 07:42 - Impressions Impressions Thoracentesis 11/16/18 11:52 IMPRESSION: Successful ultrasound guided thoracentesis. D/ / Rose Marie Page MD / Rose Marie Page MD Interpreting Provider: Rose Marie Page MD Consult Discharge Plan - Plan Referrals: NONE,PCP [Primary Care Provider] - (1) Sepsis Qualifiers: Sepsis type: methicillin resistant Staphylococcus aureus Qualified Code(s): A41.02 - Sepsis due to Methicillin resistant Staphylococcus aureus (4) GI bleed Qualifiers: GI bleed type/associated pathology: melena Qualified Code(s): K92.1 - Melena (5) Pneumonia Qualifiers: Pneumonia type: due to unspecified organism Laterality: right Lung location: lower lobe of lung Qualified Code(s): J18.1 - Lobar pneumonia, unspecified organism (6) Diarrhea Qualifiers: Diarrhea type: presumed infectious Qualified Code(s): R19.7 - Diarrhea, unspecified (8) Rhabdomyolysis Qualifiers: Rhabdomyolysis type: traumatic Encounter type: subsequent encounter Qualified Code(s): T79.6XXD - Traumatic ischemia of muscle, subsequent encounter (9) Acute renal failure Qualifiers: Acute renal failure type: with acute tubular necrosis Qualified Code(s): N17.0 - Acute kidney failure with tubular necrosis (11) UTI (urinary tract infection) Qualifiers: Urinary tract infection type: acute cystitis Hematuria presence: with hematuria Qualified Code(s): N30.01 - Acute cystitis with hematuria (12) Atrial fibrillation Qualifiers: Atrial fibrillation type: chronic Qualified Code(s): I48.2 - Chronic atrial fibrillation (13) HTN (hypertension) Qualifiers: Hypertension type: essential hypertension Qualified Code(s): I10 - Essential (primary) hypertension (14) CAD (coronary artery disease) Qualifiers: Coronary Disease-Associated Artery/Lesion type: [place] artery [place] vs. transplanted heart: [place] heart Associated angina: without angina Qualified Code(s): I25.10 - Atherosclerotic heart disease of [place] coronary artery without angina pectoris (17) Anemia Qualifiers: Anemia type: iron deficiency Iron deficiency anemia type: chronic blood loss Qualified Code(s): D50.0 - Iron deficiency anemia secondary to blood loss (chronic) (18) Dysphagia Qualifiers: Dysphagia type: oropharyngeal phase Qualified Code(s): R13.12 - Dysphagia, oropharyngeal phase
[2018-11-18] MEDS: Piperacillin/Tazobactam 3.375 GM in 0.9 % Sodium Chloride Mini Bag 100 ML IVPB SCH ×2 (10:33→17:53)
[2018-11-18] MEDS: *HR* LORazepam 2 MG/ML VIAL IVP PRN (12:06)
[2018-11-18 22:51] LABS: Basophils % 0.1 %; Eosinophils # 0.1 K/mcL (0.0-0.6); Eosinophils % 0.9 %; Hematocrit 29.2 % (37.5-50.1); Hemoglobin 8.6 g/dL (12.9-16.9); Immature Granulocytes % 1.7 % (0-4); Lymphocytes # 1.2 K/mcL (0.6-4.6); Lymphocytes % 8.1 %; Mean Corpuscular HGB Conc 29.5 g/dL (31.6-35.5); Mean Corpuscular Hemoglobin 31.9 pg (28.0-33.3); Mean Platelet Volume 9.1 fL (9.4-12.4); Monocytes # 1.2 K/mcL (0.0-1.3); Monocytes % 7.6 %; Neutrophils # 12.5 K/mcL (1.6-8.9); Platelet Count 516 K/mcL (140-400); Red Cell Distribution Width 16.2 % (11.5-14.5); Segmented Neutrophils % 81.6 %
[2018-11-18 22:58] LABS: ABG Base Excess 3 mEq/L (-2 to 3); ABG HCO3 29 mEq/L (21-27); ABG Oxygen Saturation 93 % (95-98); ABG PCO2 55 mmHg (35-45); ABG PH 7.33 pH Units (7.32-7.45); ABG PO2 72 mmHg (85-104); ABG TCO2 31 mEq/L (20-26)
[2018-11-18 23:13] LABS: Calcium 10.9 mg/dL (8.6-10.3); Potassium 5.3 mEq/L (3.5-5.1)
[2018-11-18 23:14] LABS: Albumin 2.9 g/dL (3.5-5.7); Albumin/Globulin Ratio 0.7 (1.1-2.2); Bilirubin,Total 0.4 mg/dL (0.3-1.0); Globulin 3.9 g/dL (2.4-3.5); Total Protein 6.8 g/dL (6.4-8.9)
[2018-11-18 23:24] LABS: Mean Corpuscular Volume 108.1 fL (83.0-100.0)
--- NOTE | 2018-11-18 23:46 | Event Note ---
Date of Encounter: 11/18/18 Time of Encounter: 22:30 Notified by nurse of patient being increasingly lethargic. Assessed at bedside by myself and Dr Calderon. Vitals and blood sugar stable but patient only slightly opens eyes or moves with stimuli. Unable to assess any neuro deficits. ABG, labs, EKG, chest xray, and head ct ordered. Patient placed on BIPAP due to slightly increased C02 and made NPO. Repeat labs and ABG ordered for later in morning. Nurse to notify of any changes, sitter remains at bedside.
[2018-11-19] MEDS: Gabapentin 300 MG CAPSULE PO SCH ×2 (00:31→20:32)
[2018-11-19] MEDS: Piperacillin/Tazobactam 3.375 GM in 0.9 % Sodium Chloride Mini Bag 100 ML IVPB SCH ×2 (00:55→09:25)
[2018-11-19] MEDS: Levalbuterol Neb 1.25 MG/3 ML IH SCH ×5 (03:29→19:46)
[2018-11-19 06:16] LABS: ABG Base Excess 3 mEq/L (-2 to 3); ABG HCO3 27 mEq/L (21-27); ABG Oxygen Saturation 96 % (95-98); ABG PCO2 37 mmHg (35-45); ABG PH 7.47 pH Units (7.32-7.45); ABG PO2 80 mmHg (85-104); ABG TCO2 28 mEq/L (20-26); Blood Gas Modality NIV
[2018-11-19] MEDS ORDERED: Acetaminophen IV 500 MG/50 ML INFUS..BTL IVPB ONE (06:35)
[2018-11-19 06:53] LABS: Basophils % 0.1 %; Eosinophils # 0.2 K/mcL (0.0-0.6); Eosinophils % 1.4 %; Hematocrit 26.8 % (37.5-50.1); Hemoglobin 7.8 g/dL (12.9-16.9); Immature Granulocytes % 1.2 % (0-4); Lymphocytes # 1.6 K/mcL (0.6-4.6); Lymphocytes % 11.1 %; Mean Corpuscular HGB Conc 29.1 g/dL (31.6-35.5); Mean Corpuscular Volume 106.3 fL (83.0-100.0); Mean Platelet Volume 9.3 fL (9.4-12.4); Neutrophils # 11.5 K/mcL (1.6-8.9); Platelet Count 491 K/mcL (140-400); Red Blood Count 2.52 M/mcL (4.19-5.50); Red Cell Distribution Width 15.9 % (11.5-14.5); Segmented Neutrophils % 79.2 %
[2018-11-19 07:18] LABS: Calcium 11.1 mg/dL (8.6-10.3); Magnesium 2.6 mg/dL (1.6-2.6); Potassium 4.5 mEq/L (3.5-5.1)
--- NOTE | 2018-11-19 09:42 | Event Note ---
Date of Encounter: 11/19/18 Time of Encounter: 09:35 Patient was seen and examined. I agree with the progress note as written by the resident physician. Patient hypoxic, lethargic overnight. Fever up to 100.8. Blood cultures sent. CXR showd signs of CHF. CT head unremarkable. ABG with some mild hypercarbia that corrected with BIPAP. Patient went for a right sided thoracentesis 11/16. afebrile. Had EGD and colonoscopy 11/17 and showed stool in entire colon. There was internal hemorrhoids and diverticulosis noted. EGD showed normal esophagus and a single gastric polyp that was resected and a clip was placed. There was also a single duodenum polyp resected and clipped. Patient admitted due to generalized weakness and fevers. Fell a week prior and was on the ground for a few hours. On initial presentation had leukocytosis (19.7). INR was elevated and kept on increasing initially (on coumadin). Had VAZQUEZ which improved. Had mildly elevated LFT's which improved. CK was elevated and trended down with IV fluids. Initial imaging studies showed a suspected loculated pleural effusions. There was scattered nodules b/l. Indeterminate b/l renal lesions and MRI was recommended once acute issues resolved. Also had diarrhea with + FOBT initially. Issues with afib with RVR while here treated with cardizem drip. off of that now. While here, Bld cultures have been + for MRSA repeatedly with last + on 11/15. Urine cx + MRSA on 11/09. Echo was indeterminate but no vegetations. LOY followed and was negative for vegatations. Had repeat CT chest/abd/pelvis showing kidney lesions again on the right. Large right pleural effusions and small left pleural effusion worse than before. Worse consolidation. GEN: Lethargic CVS: RRR. S1, S2, No m/r/g RESP: Scattered rhonchi and bibasilar crackles ABD: Soft, NT, ND, +BS EXT: No edema. 2+ DP. No rashes NEURO: Nonfocal. A/Ox1 Can try to get off bipap Give one dose lasix 40 mg IV. Check BNP Consult nephrology for hypernatremia Difficult to continue D5W with CXR findings. c/w Vancomycin and Zosyn Pleural fluid cx negative to date TTE and LOY negative for vegetations Monitor H/H Continue to hold coumadin We will need dedicated MRIs of the kidneys once acute issues resolve. Follow-up CT chest will need to be done in the outpatient setting as well.
[2018-11-19] MEDS: Aspirin Enteric Coated 81 MG Tablet PO SCH (12:01)
--- NOTE | 2018-11-19 12:35 | Nephrology Consult Note ---
Date of Encounter: 11/19/18 Time of Encounter: 12:35 Assessment and Plan (1) Hypernatremia Current Visit: Yes Status: Acute Patient has significant and progressive hypernatremia of unclear etiology. His last furosemide was 11/15/18. He continues to be volume negative since developing hypernatremia. By my calculations his free water deficit is 11 liters. I recommend aggressive administration of free water by NG or OG vs intravenous D5. I will increase his D5 MIV and give a bolus liter of D5 and reasses his serum sodium to assess for a response. If his UOP picks up with no change in his serum sodium he may have DI and may require a dose of Ddavp to assess for central DI especially given his recent reported head trauma. While he is not polyuric I would expect lower urine output which raises the possibliity of DI. At this time ok for rapid correction as the rise in his serum sodium is also rapid. Hold diuretics. Follow serum sodium and call if serum sodium rises any further. Patient with complicated clinical picture requiring high level decision making. Thank you for the consult we will follow with you. (2) Acute encephalopathy Current Visit: Yes Status: Acute Likely related to hypernatremia, but patient also has sepsis. (3) Pleural effusion Current Visit: Yes Status: Acute Per the primary team. May limit ability to administer fluid. (4) CAD (coronary artery disease) Current Visit: Yes Status: Chronic Qualifiers: Coronary Disease-Associated Artery/Lesion type: [place] artery [place] vs. transplanted heart: [place] heart Associated angina: without angina Qualified Code(s): I25.10 - Atherosclerotic heart disease of [place] coronary artery without angina pectoris (5) HTN (hypertension) Current Visit: Yes Status: Chronic Titrate blood pressure medication as needed Qualifiers: Hypertension type: essential hypertension Qualified Code(s): I10 - Essential (primary) hypertension (6) Morbid obesity with BMI of 40.0-44.9, adult Current Visit: Yes Status: Chronic (7) Anemia Current Visit: Yes Status: Suspected Transfuse as needed Qualifiers: Anemia type: iron deficiency Iron deficiency anemia type: chronic blood loss Qualified Code(s): D50.0 - Iron deficiency anemia secondary to blood loss (chronic) (8) Acute kidney injury superimposed on chronic kidney disease Current Visit: Yes Status: Acute Patient has acute kidney injury superimposed on chronic kidney disease. This is likely secondary to volume depletion. We will replace volume and follow creatinine levels. (9) Bacteremia Current Visit: Yes Status: Acute Infectious disease is following. Etiology is unclear. (10) Sepsis Current Visit: Yes Status: Acute Patient followed by infectious disease. He is still having fevers. Qualifiers: Sepsis type: methicillin resistant Staphylococcus aureus Qualified Code(s): A41.02 - Sepsis due to Methicillin resistant Staphylococcus aureus History of Present Illness - Reason for Consult Consult date: 11/19/18 Acute Kidney Injury, Chronic Kidney Disease, hypernatremia - Chief Complaint hypernatremia - History of Present Illness Mr. Morris is a 68 yo man with a history of chronic kidney disease who presented to the hospital with progressive weakness and pain after a fall at his [facility]. He has had a prolonged and complicated hospital stay. I refer the reader to the electronic chart for details. [facility] was consulted secondary to progressive hypernatremia of unclear etiology. The history is o btained from talking with the primary team and review of electronic charting. The patient is confused and unable to participate in the history taking. He is also unable to provide a review of systems. Past Med Surg Social Fam HX - Past Medical History Medical history: atrial fibrillation, coronary artery disease, hyperlipidemia, h ypertension, kidney stones, myocardial infarction Additional medical history: mrsa, sleep apnea,. wound on right foot Psychiatric history: no psych history - Past Surgical History Surgical History: appendectomy, cholecystectomy, pacemaker/AICD, other Additional surgical history: eye sx, foot sx - Social History Smoking Status: Never smoker Smokeless Tobacco Status: No Alcohol use: none Drug use: none - Family History Mother Adopted: No Family Member Ethnicity: Non- Living Status: Hx Family Cardiac Disorders: No Hx Family Respiratory Disorders: No Hx Family Cancer: Yes Hx Family GI Disorders: No Hx Family Endocrine Disorder: Yes (Diabetes) Hx Family Neuromuscular Disorders: No Hx Family Neurologic Disorders: No Hx Family HEENT Disorders: No Hx Family Autoimmune Disorders: No Father Adopted: No Family Member Ethnicity: Non- Living Status: Hx Family Cardiac Disorders: No Hx Family Respiratory Disorders: No Hx Family Cancer: Yes Hx Family GI Disorders: No Hx Family Endocrine Disorder: No Hx Family Neuromuscular Disorders: No Hx Family Neurologic Disorders: No Hx Family HEENT Disorders: No Hx Family Autoimmune Disorders: No Medications and Allergies Allopurinol [Zyloprim 300 MG] 300 mg PO DAILY 11/11/18 [History] Atorvastatin [Lipitor] 40 mg PO DAILY 11/11/18 [History] Carvedilol 12.5 mg PO BID 11/11/18 [History] Enoxaparin [Lovenox] 30 mg SQ Q12HR 11/11/18 [History] Furosemide [Lasix] 40 mg PO BID 11/11/18 [History] Gabapentin [Neurontin] 300 mg PO TID 11/11/18 [History] Spironolactone 50 mg PO BID 11/11/18 [History] Tamsulosin HCl [Flomax] 0.4 mg PO DAILY 11/11/18 [History] Warfarin [Coumadin] 3 mg PO SUTUWETHSA 11/11/18 [History] Warfarin [Coumadin] 4.5 mg PO MOFR 11/11/18 [History] Allergy/AdvReac Type Severity Reaction Status Date / Time Sulfa (Sulfonamide AdvReac Unknown advised by Verified 06/05/15 10:20 Antibiotics) dr ruff doesn't work for him Review of Systems ROS unobtainable: due to mental status Exam - Vital Signs Vital signs: Initial Vital Signs Temp Pulse Resp BP Pulse Ox 99.1 F 74 18 103/62 91 11/09/18 10:51 11/09/18 10:51 11/09/18 10:51 11/09/18 10:51 11/09/18 10:51 Vital Signs - Last 8 Hours Temp Pulse Resp BP Pulse Ox 11/19/18 11:00 100.8 F H 72 34 132/62 93 11/19/18 06:58 98.4 F 61 28 129/53 98 Intake and Output 11/18/18 11/19/18 11/19/18 23:59 07:59 15:59 Intake Total 350 / 350 100 / 100 0 / 0 Output Total 450 / 450 750 / 750 325 / 325 Balance -100 / -100 -650 / -650 -325 / -325 Intake: IV Fluids 350 / 350 100 / 100 Zosyn 3.375 GM In 0.9 % Sodium 100 / 100 100 / 100 Chloride (Mini-Bag +) 100 ML @ 25 mls/hr IVPB Q8HR [facility] Rx#: [id number] Vancocin 1,000 MG In 0.9 % 250 / 250 Sodium Chloride 250 ML @ 167 mls/hr IVPB Q12H [facility] Rx#: [id number] Oral 0 / 0 Output: Catheter 450 / 450 750 / 750 325 / 325 Other: # Bowel Movements 0 Weight 126.4 kg Blood Glucose* 85 89 Patient Weight 11/19/18 23:59 Weight 126.4 kg - General Appearance General appearance: well-developed, well-nourished, obese EENT: ATNC Neck: supple Respiratory: clear Cardiology: no edema, regular rate Gastrointestinal: no tenderness, obese Integumentary: warm and dry Neurologic: confused, disoriented Musculoskeletal: no cyanosis Psychiatric: agitated Results - Lab Results 11/19/18 06:33 11/19/18 06:33 Most recent lab results ABG pH 7.47 pH Units (7.32-7.45) H 11/19/18 06:13 ABG pCO2 37 mmHg (35-45) 11/19/18 06:13 ABG pO2 80 mmHg (85-104) L 11/19/18 06:13 ABG HCO3 27 mEq/L (21-27) 11/19/18 06:13 ABG O2 Saturation 96 % (95-98) 11/19/18 06:13 Calcium 11.1 mg/dL (8.6-10.3) H 11/19/18 06:33 Magnesium 2.6 mg/dL (1.6-2.6) 11/19/18 06:33 Consult Discharge Plan - Plan Referrals: NONE,PCP [Primary Care Provider] -
--- NOTE | 2018-11-19 13:40 | Infectious Disease Progress No ---
ID Progress Note Date of Encounter: 11/19/18 Time of Encounter: 13:37 - Subjective Subjective: Patient seen and examined. No acute events noted overnight. ROS unobtainable from the patient at this time. Remains confused and appears agitated. Patient courier remains at bedside. Rendon catheter remains patent. No stools this morning per the sitter. - Objective CBC & Chem 7: 11/19/18 06:33 11/19/18 06:33 - Line Documentation Line Documentation: Rendon Catheter (Draining clear yellow urine) - Exam Vitals: Temp Pulse Resp BP Pulse Ox 100.8 F H 72 34 132/62 93 11/19/18 11:00 11/19/18 11:00 11/19/18 11:00 11/19/18 11:00 11/19/18 11:00 Exam: Head: Atraumatic, normal inspection, normocephalic. Eye: EOMI, PERRLA, no scleral icterus noted. No subconjunctival hemorrhage noted. ENT: Mucous membranes dry. No odontogenic infection noted. Neck: Normal inspection, no meningismus. Respiratory: CTA throughout. No rales, respiratory distress, rhonchi noted. Cardiovascular: Regular rate and irregular rhythm, S1 and S2 audible. No murmurs, rubs, or gallops. GI: Soft, obese, normal bowel sounds. Nontender. Rendon catheter noted to be draining clear yellow urine. Extremities: No joint swelling, pedal edema, or tenderness noted. Right foot dressing C/D/I. Bullous lesion noted to the plantar aspect of the left great toe without erythema or drainage. Multiple scabbed lesions noted to the BLE. Neurological: Opens eyes to verbal stimuli, but does not follow commands. Psychiatric: appears agitated. Pulling at O2 Skin: Dry, intact, warm. Pale. No rashes. Additional exam findings: Pacer/AICD site noted to the left upper chest well healed, nontender without erythema - Assessment and Plan (1) Sepsis Current Visit: Yes Status: Acute The patient had 3 sepsis criteria with acute kidney injury and metabolic encephalopathy. Likely secondary to MRSA bacteremia. WBC improved. Acute kidney injury is stable. Febrile this morning. Tachycardia resolved. Blood cultures drawn 11/09/18 a +2 out of 2 sets for MRSA. Repeat blood cultures from 11/11/18 are positive for MRSA. Additional blood cultures drawn 11/13/18 are positive x 2 sets as well. Repeat blood cultures 11/15/18 positive 1/2 sets. Repeat blood cultures drawn 11/18/18 are pending x 2 sets. Qualifiers: Sepsis type: methicillin resistant Staphylococcus aureus Qualified Code(s): A41.02 - Sepsis due to Methicillin resistant Staphylococcus aureus SNOMED Code(s): 04474571 (2) Bacteremia Current Visit: Yes Status: Acute Causative organism: MRSA. Source: Unclear. The patient does have a chronic nonhealing ulceration to the right foot, however, does not appear clinically infected. Blood cultures drawn 11/09/18 are +2 out of 2 sets. Repeat blood cultures on 11/11/18 are +2 out of 2 sets. Repeat blood cultures drawn 11/13/18 are positive x 2 sets. Repeat blood cultures from 11/15/18 are positive 2/2 sets. Repeat blood cultures drawn 11/18/18 are pending x 2 sets. Complicated due to the presence of a pacer/AICD and left hip hardware as well as likely septic emboli to the lung and seeding of the kidneys. TTE suboptimal. No endocarditis stigmata noted on exam. Rheumatoid factor normal. LOY negative for valvular or device lead vegetations. The patient has one major and 2 minor modified [place] criteria. Currently on IV vancomycin (FABRICIO 1). SNOMED Code(s): 8096048 (3) Acute encephalopathy Current Visit: Yes Status: Acute Likely secondary to sepsis and hypernatremia and medication-related, but concern for septic emboli to the brain. CT head negative x2. Consider neurology to evaluate. SNOMED Code(s): 23459447, 214792189 (4) Pneumonia Current Visit: Yes Status: Acute CT chest showed small right and trace left partially loculated pleural effusions with increased consolidative opacities in the lung bases slightly asymmetric right worse than left, either atelectasis or pneumonia. Causative organism: Unclear. MRSA screen is positive. RIP negative. UATs negative. Given the patient's weakness, aspiration is on the differential. AWS SOLUTION ARCHITECT consulted. Recommended MBS to further assess swallow status, but patient unable to participate. Repeat CT of the chest shows large right pleural effusion and small left pleural effusion, both worse since previous imaging. Worsened consolidations to the bilateral lower lobes, right more than left, concerning for worsening atelectasis, multifocal PNA or aspiration pneumonitis also seen. Currently on vancomycin and Zosyn. Qualifiers: Pneumonia type: due to unspecified organism Laterality: right Lung locat ion: lower lobe of lung Qualified Code(s): J18.1 - Lobar pneumonia, unspecified organism SNOMED Code(s): 446876361 (5) Acute renal failure Current Visit: Yes Status: Acute Likely secondary to sepsis, dehydration, and rhabdomyolysis. Improved. Continue to trend. Dosage of medications. Avoid nephrotoxins as able. Nephrology consulted. Qualifiers: Acute renal failure type: with acute tubular necrosis Qualified Code(s): N17.0 - Acute kidney failure with tubular necrosis SNOMED Code(s): 47089007 (6) Pulmonary nodules Current Visit: Yes Status: Acute CT chest showed scattered nodules throughout the lungs bilaterally which are indeterminate and may be infectious, inflammatory, or neoplastic in etiology. Given the patient's MRSA bacteremia, concern for septic emboli. SNOMED Code(s): 696170853 (7) Asymptomatic bacteriuria Current Visit: Yes Status: Acute Urine culture positive for MRSA. The patient was asymptomatic prior to admission. Likely secondary to seeding of the kidneys from the bacteremia. Currently on vancomycin. SNOMED Code(s): 646384141 (8) Supratherapeutic INR Current Visit: Yes Status: Resolved Etiology: Unclear. Resolved. Further workup and management per the primary team. SNOMED Code(s): 954424621 (9) Elevated liver function tests Current Visit: Yes Status: Resolved Total bili, AST, ALT, alkaline phosphatase elevated on admission. Etiology: Unclear. Sepsis versus other. Hepatitis profile negative. Resolved. SNOMED Code(s): 009849352, 912865435 (10) Chronic ulcer of right foot with fat layer exposed Current Visit: No Status: Acute Location: Lateral aspect of fifth metatarsal on the right foot. Likely secondary to callus her patient's history. Follows with the [place] [facility]. Clinically does not appear infected, but as a potential source for the patient's bacteremia. CT of the right foot negative for osteomyelitis or abscess. SNOMED Code(s): 372444429 (11) GI bleed Current Visit: Yes Status: Suspected Hemoglobin down to7.2. Fecal occult blood test positive. GI consulted. EGD/C-scope negative for acute bleeding. Qualifiers: GI bleed type/associated pathology: melena Qualified Code(s): K92.1 - Melena SNOMED Code(s): 65986064 (12) Weakness Current Visit: Yes Status: Acute Likely secondary to sepsis. PT/OT to evaluate. SNOMED Code(s): 70743376 (13) Diarrhea Current Visit: Yes Status: Acute Etiology: Unclear. C. difficile negative. GI panel negative. Improved. GI consulted. Qualifiers: Diarrhea type: presumed infectious Qualified Code(s): R19.7 - Diarrhea, unspecified SNOMED Code(s): 35711970 (14) Dehydration Current Visit: Yes Status: Resolved Likely secondary to poor by mouth intake and high GI output. Management per the primary team. SNOMED Code(s): 25101007 (15) Rhabdomyolysis Current Visit: Yes Status: Resolved Likely secondary to fall. CK noted to be 1400 on admission. Improved. Further workup and management per the primary team. Qualifiers: Rhabdomyolysis type: traumatic Encounter type: subsequent encounter Qualified Code(s): T79.6XXD - Traumatic ischemia of muscle, subsequent encounter SNOMED Code(s): 307973414 (16) Atrial fibrillation Current Visit: Yes Status: Chronic Qualifiers: Atrial fibrillation type: chronic Qualified Code(s): I48.2 - Chronic atrial fibrillation SNOMED Code(s): 30321851 (17) HTN (hypertension) Current Visit: Yes Status: Chronic Qualifiers: Hypertension type: essential hypertension Qualified Code(s): I10 - E ssential (primary) hypertension SNOMED Code(s): 06388751 (18) CAD (coronary artery disease) Current Visit: Yes Status: Chronic Qualifiers: Coronary Disease-Associated Artery/Lesion type: [place] artery [place] vs. transplanted heart: [place] heart Associated angina: without angina Qualified Code(s): I25.10 - Atherosclerotic heart disease of [place] coronary artery without angina pectoris SNOMED Code(s): 48549781 (19) Morbid obesity with BMI of 40.0-44.9, adult Current Visit: Yes Status: Chronic SNOMED Code(s): 930414059, 85943401855020 (20) Pleural effusion Current Visit: Yes Status: Acute CT of the chest 11/15/18 shows large right and small left pleural effusion, worsened since prior exam. Concern for infectious etiology. IR consulted. Thoracentesis 11/16/18. Exudative per Light's criteria, but gram stain and culture negative. SNOMED Code(s): 70563536 (21) Hypernatremia Current Visit: Yes Status: Acute Na 161 today. Nephrology consulted. Appreciate recommendations. SNOMED Code(s): 673029365 - Recommendations Recommendations: Await repeat blood cultures. Await pleural fluid cultures to finalize. Send sputum for culture if the patient is able to provide an adequate specimen. Consider neurology to evaluate. Recommend podiatry to evaluate. Recommend pulmonology to evaluate. Recommend nephrology to evaluate for hypernatremia. Continue vancomycin IV. Pharmacy to dose. Goal trough approximately 15. Continue Zosyn 3.375 grams IV Q8H. Duration of treatment depends on the clinical picture, but likely at least 4 weeks. Monitor renal function for drug toxicity and does adjust antibiotics. disabilities services officer to assist with discharge planning. Avoid insertion of long-term IV access until repeat blood cultures are negative 48 hours. - VTE Documentation of Mechanical Device: Intermittent pneumatic compression device Consult Discharge Plan - Plan Referrals: NONE,PCP [Primary Care Provider] - - Attending Attestation I have personally performed a face to face evaluation on this patient. I have reviewed and agree with the care plan. History and Exam by me shows: Assessment and plan: 1.Sepsis 2.Bacteremia causative organism MRSA. Source likely chronic nonhealing ulceration of the right footcomplicated because the patient has an AICD and has a 3.right hip for plastic 4.Pneumonia questionable at best. There are nodules, likely due to septic emboli. 5.Acute kidney injury 6.Asymptomatic bacteriuria 7.Supratherapeutic INR Recommendations: Await repeat blood cultures. Await pleural fluid cultures to finalize. Send sputum for culture if the patient is able to provide an adequate specimen. Consider neurology to evaluate. Recommend podiatry to evaluate. Recommend pulmonology to evaluate. Recommend nephrology to evaluate for hypernatremia. Continue vancomycin IV. Pharmacy to dose. Goal trough approximately 15. Continue Zosyn 3.375 grams IV Q8H. Duration of treatment depends on the clinical picture, but likely at least 4 weeks. Monitor renal function for drug toxicity and does adjust antibiotics. disabilities services officer to assist with discharge planning. Avoid insertion of long-term IV access until repeat blood cultures are negative 48 hours.
[2018-11-19] MEDS ORDERED: D5% in Water 1,000 ML IVC SCH ×2 (14:00→15:45)
--- NOTE | 2018-11-19 14:19 | Internal Med Progress Note ---
Hospitalist Progress Note - Encounter Date of Encounter: 11/19/18 Time of Encounter: 14:19 - Subjective Interval History: Patient seen and examined at bedside. He is still confused but is more interactive today with the family of the bedside. Overnights he was noted to be confused so a repeat head CT was done and was to be stable with no acute intracranial abnormality. There is concerns of possible aspiration. - Exam Vitals: Temp Pulse Resp BP Pulse Ox 99.7 F H 72 18 132/62 95 11/19/18 14:17 11/19/18 11:00 11/19/18 11:17 11/19/18 11:00 11/19/18 11:17 Exam: Gen.: Vitals noted. No acute distress. AAOx1 HEENT: oropharynx clear, Normocephalic, atraumatic Cardiac: RRR, no murmur, +S1/S2 Pulmonary: bilaterally wheezes, no rales or rhonchi, equal chest expansion Abdomen: soft, mild left lower quadrant tender, Bowel sounds noted, no guarding MSK: ROM intact, no joint swelling noted Extremities: no BLE edema, nontender calf, no cyanosis or clubbing Neuro: A&Ox1, moves all extremities, Psych: confused - Assessment and Plan (1) Sepsis Current Visit: Yes Status: Acute Assessment and Plan: Patient met sepsis criteria on admission with 2 SIRS: temperature 101, WBC 19.7. Patient an initial presentation was not hemodynamically unstable and did not require the 30ml/kg IVF. -source is UTI, MRSA bacteremia, pneumonia -organism is MRSA -temperature 100.8F -WBC 14.6 improving -hemodynamically stable -WBC 17.9 improving -urinalysis growing MRSA -pleural fluid appears exudative -11/09/2018- 11/15/2018 blood culture growing MRSA x2 -chest CT demonstrating small right interest left partially likely to pleural effusions with findings concerning for pneumonia. Scattered nodules throughout the lungs bilaterally but maybe infectious or inflammatory or neoplastic. -Chest CT show enlarged right pleural effusion and small left pleural effusion, worsened. Plan: -continue vancomycin and Zosyn -infectious disease following -await blood culture results -await pleural fluid cultures -continue contact precautions (2) Pneumonia Current Visit: Yes Status: Acute Assessment and Plan: Pneumonia likely community acquired -chest CT demonstrating small right interest left partially likely to pleural effusions with findings concerning for pneumonia. Scattered nodules throughout the lungs bilaterally but maybe infectious or inflammatory or neoplastic. -Chest CT show enlarged right pleural effusion and small left pleural effusion, worsened. plan: -continue vancomycin and Zosyn -continue bronchodilators such as Xopenex as needed -pulmonary nodules on chest CT will need repeat CT follow-up outpatient (3) Chronic ulcer of right foot with fat layer exposed Current Visit: No Status: Acute Assessment and Plan: Patient with a chronic wound ulcer of the foot for which he follows with Dr. Darby of podiatry c/w wound care (4) GI bleed Current Visit: Yes Status: Suspected Assessment and Plan: Concerned for G.I. bleed possibly due to positive stool occult. This is in the setting of supratherapeutic INR. -hemodynamically stable -hemoglobin 7.8 (13.8 on admission) -stool occult positive -s/p 1 PRBC -colonoscopy-poor prep with stool and entire colon, internal hemorrhoids, diverticulosis in sigmoid colon -EGD- normal esophagus, single gastric polyp. Granular mucosa in the 2nd portion of duodenum, single duodenal polyp. Biopsies taken. -No obvious active bleeding Plan: -biopsies pending -will continue monitor H&H -may need G.I. workup if decreases -Coumadin for his age of fibrillation is currently being managed by pharmacy. He is not receiving any doses due to bleeding (5) Diarrhea Current Visit: Yes Status: Acute Assessment and Plan: Resolved. Patient presented complaining of profuse continue diarrhea. Son was concerned he had C diff. -Possibly secondary to medication -Stool culture negative for C diff or any other virus (6) Dehydration Current Visit: Yes Status: Resolved Assessment and Plan: Dehydration on admission. Patient received IV fluids (7) Rhabdomyolysis Current Visit: Yes Status: Resolved Assessment and Plan: Resolved Rhabdomyolysis which subsequently caused acute renal failure, secondary to patient having a recent fall and laying for many hours on the ground. -Creatinine kinase 1413 on admission -creatinine kinase currently 863 -received IV sodium bicarb (8) Acute renal failure Current Visit: Yes Status: Acute Assessment and Plan: Acute renal failure. At admission creatinine 2.1 -likely secondary to rhabdomyolysis -creatinine 1.52 improved -urinalysis with leukocyte esterase and WBC, granular casts -abdomen/pelvis CT demonstrating bilateral renal lesions with recommendations of dedicated renal MRI Plan: -continue renal protective strategy including renal dose medication and avoid nephrotoxic agents -monitor serum creatinine -monitor I&O (9) UTI (urinary tract infection) Current Visit: Yes Status: Suspected Assessment and Plan: Urinary tract infection on urinalysis -Patient denied dysuria could admitted urinary frequency -urinalysis with leukocyte esterase and WBC, granular casts -urinalysis growing MRSA -patient denied recent catheterization Plan: -continue Rendon catheter -antibiotics as above (10) Atrial fibrillation Current Visit: Yes Status: Chronic Assessment and Plan: History of atrial fibrillation on anticoagulation with Coumadin and rate controlled with carvedilol -continue carvedilol -Coumadin being held due to supratherapeutic INR. Management perpharmacy (11) HTN (hypertension) Current Visit: Yes Status: Chronic Assessment and Plan: History of hypertension taking carvedilol, spironolactone, Lasix -blood pressure stable -continue home carvedilol -labetalol IV PRN (12) CAD (coronary artery disease) Current Visit: Yes Status: Chronic Assessment and Plan: History of CAD taking atorvastatin, carvedilol, spironolactone -continue aspirin, atorvastatin, carvedilol (13) Supratherapeutic INR Current Visit: Yes Status: Resolved Assessment and Plan: Supratherapeutic INR. INR 4.1 on admission. Patient takes Coumadin for atrial fibrillation. -INR 1.3 -no obvious active bleeding -Pharmacy to manage Coumadin dose. Continue to hold Coumadin due to concern for G.I. bleed and low hemoglobin. -monitor INR -Monitor for bleeding (14) Anemia Current Visit: Yes Status: Suspected Assessment and Plan: Anemia in setting of supratherapeutic INR on admission concerning for G.I. bleed as well. -Hemoglobin 7.8 (8.6 yesterday) slightly decreased -colonoscopy-poor prep with stool and entire colon, internal hemorrhoids, dive rticulosis in sigmoid colon -EGD- normal esophagus, single gastric polyp. Granular mucosa in the 2nd portion of duodenum, single duodenal polyp. Biopsies taken. -no obvious active bleeding -Will continue to monitor hemoglobin and for bleeding (15) Dysphagia Current Visit: Yes Status: Suspected Assessment and Plan: Currently on a modified diet (16) Bacteremia Current Visit: Yes Status: Acute Assessment and Plan: MRSA Bacteremia -this is likely secondary to urinary tract infection as it is growing the same bacteria -11/09/2018-11/15 2019 blood culture growing MRSA x2 -TTE was technically suboptimal due to poor echocardiographic window in body habitus. No significant valvular dysfunction. -LOY negative for vegetations-There are no vascular, immunologic findings of endocarditis such as [place] lesions, [place] nodes Plan: -continue IV vancomycin -continue to monitor blood cultures (17) Pleural effusion Current Visit: Yes Status: Acute Assessment and Plan: -Likely secondary to pneumonia. No history of malignancy. -Chest CT show enlarged right pleural effusion and small left pleural effusion, worsened. -11/16/2017 s/p thoracentesis -appears exudate is thus far. No empyema. -Pleural fluid studies pending -antibiotics as above (18) Hypernatremia Current Visit: Yes Status: Acute Assessment and Plan: Hypernatremia -sodium 161 despite given D5 fluids -creatinine function improving -May be contributing to confusion -nephrology consulted for recommendations, appreciated -will continue to monitor sodium (19) DVT prophylaxis Current Visit: Yes Status: Acute Assessment and Plan: SCD (20) Morbid obesity with BMI of 40.0-44.9, adult Current Visit: Yes Status: Chronic Assessment and Plan: Lifestyle changes (21) Acute encephalopathy Current Visit: Yes Status: Acute Assessment and Plan: Acute encephalopathy -likely secondary to metabolic pathology from infection, consider also hypernatremia -multiple head CT is negative for acute cranial abnormality -patient today more alert and interactive -will continue to monitor - Time Spent with Patient Total time spent is greater than 50% in coordination of care (as documented) at patient's floor/unit and/or counseling patient: Internal Medicine: Result - Labs CBC & Chem 7: 11/19/18 06:33 11/19/18 06:33 Labs: Short CBC 11/18/18 11/19/18 Range/Units 22:30 06:33 WBC 15.3 H 14.6 H (4.3-11.1) K/mcL Hgb 8.6 L 7.8 L (12.9-16.9) g/dL Hct 29.2 L 26.8 L (37.5-50.1) % Plt Count 516 H 491 H (140-400) K/mcL Neutrophils # 12.5 H 11.5 H (1.6-8.9) K/mcL BMP 11/18/18 11/19/18 22:30 06:33 Sodium 158 H 161 H* Potassium 5.3 H 4.5 Chloride 127 H 127 H Carbon Dioxide 28 27 BUN 30 H 29 H Creatinine 1.55 H 1.52 H Glucose 99 89 Calcium 10.9 H 11.1 H Liver Function 11/18/18 Range/Units 22:30 Total Bilirubin 0.4 (0.3-1.0) mg/dL AST 28 (13-39) Units/L ALT 45 (7-52) Units/L Alkaline Phosphatase 41 (34-104) Units/L Albumin 2.9 L (3.5-5.7) g/dL - ABG Interpretation ABG results: ABG ABG pH 7.47 pH Units (7.32-7.45) H 11/19/18 06:13 ABG pCO2 37 mmHg (35-45) 11/19/18 06:13 ABG pO2 80 mmHg (85-104) L 11/19/18 06:13 ABG O2 Saturation 96 % (95-98) 11/19/18 06:13 PT/INR, D-dimer PT 15.0 Seconds (9.4-12.1) H 11/17/18 07:42 - Impressions Impressions Chest X-Ray 11/18/18 23:10 IMPRESSION: 1. Congestive heart failure. 2. Calcific atherosclerosis aorta. 3. Cardiomegaly. D/ / Erickson Fernandes / Erickson Fernandes Interpreting Provider: Erickson Fernandes Head CT 11/19/18 00:00 IMPRESSION: Stable appearing CT scan of the head without acute intracranial abnormality. D/ / Ming Barrios MD / Ming Barrios MD Interpreting Provider: Ming Barrios MD - VTE Documentation of Mechanical Device: Intermittent pneumatic compression device Consult Discharge Plan - Plan Referrals: NONE,PCP [Primary Care Provider] - (1) Sepsis Qualifiers: Sepsis type: methicillin resistant Staphylococcus aureus Qualified Code(s): A41.02 - Sepsis due to Methicillin resistant Staphylococcus aureus (2) Pneumonia Qualifiers: Pneumonia type: due to unspecified organism Laterality: right Lung location: lower lobe of lung Qualified Code(s): J18.1 - Lobar pneumonia, unspecified or ganism (4) GI bleed Qualifiers: GI bleed type/associated pathology: melena Qualified Code(s): K92.1 - Melena (5) Diarrhea Qualifiers: Diarrhea type: presumed infectious Qualified Code(s): R19.7 - Diarrhea, unspecified (7) Rhabdomyolysis Qualifiers: Rhabdomyolysis type: traumatic Encounter type: subsequent encounter Qualified Code(s): T79.6XXD - Traumatic ischemia of muscle, subsequent encounter (8) Acute renal failure Qualifiers: Acute renal failure type: with acute tubular necrosis Qualified Code(s): N17.0 - Acute kidney failure with tubular necrosis (9) UTI (urinary tract infection) Qualifiers: Urinary tract infection type: acute cystitis Hematuria presence: with hematuria Qualified Code(s): N30.01 - Acute cystitis with hematuria (10) Atrial fibrillation Qualifiers: Atrial fibrillation type: chronic Qualified Code(s): I48.2 - Chronic atrial fibrillation (11) HTN (hypertension) Qualifiers: Hypertension type: essential hypertension Qualified Code(s): I10 - Essential (primary) hypertension (12) CAD (coronary artery disease) Qualifiers: Coronary Disease-Associated Artery/Lesion type: [place] artery [place] vs. transplanted heart: [place] heart Associated angina: without angina Qualified Code(s): I25.10 - Atherosclerotic heart disease of [place] coronary artery without angina pectoris (14) Anemia Qualifiers: Anemia type: iron deficiency Iron deficiency anemia type: chronic blood loss Qualified Code(s): D50.0 - Iron deficiency anemia secondary to blood loss (chronic) (15) Dysphagia Qualifiers: Dysphagia type: oropharyngeal phase Qualified Code(s): R13.12 - Dysphagia, oropharyngeal phase
[2018-11-19] MEDS ORDERED: Gabapentin 300 MG CAPSULE PO SCH (15:00)
--- NOTE | 2018-11-19 16:15 | Electrocardiograph Report ---
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
[2018-11-19] MEDS: MetroNIDAZOLE 500 MG/100 ML 500 MG/100 ML BAG IVPB SCH (16:35)
[2018-11-19] MEDS: Acetaminophen IV 1,000 MG/100 ML INFUS..BTL IVPB SCH (17:47)
[2018-11-19] MEDS: Cefepime HCl 2,000 MG in Water for inj. (sterile) 20 ML 20 ML IVP SCH (17:52)
[2018-11-19] MEDS ORDERED: Desmopressin Acetate SPRAY 5 ML BOTTLE NS ONE (19:50)
[2018-11-19] MEDS: D5% in Water 1,000 ML IVC SCH (20:32)
[2018-11-19] MEDS ORDERED: NON-FORMULARY MEDICATION 1 EACH EACH (Carvedilol [Carvedilol] 12.5 MG) PO SCH (21:00)
[2018-11-19] MEDS: *HR* Labetalol 20 MG/4 ML SYRINGE IVP PRN (21:28)
[2018-11-20] MEDS: MetroNIDAZOLE 500 MG/100 ML 500 MG/100 ML BAG IVPB SCH ×3 (00:09→17:41)
[2018-11-20] MEDS: Acetaminophen IV 1,000 MG/100 ML INFUS..BTL IVPB SCH ×3 (00:10→12:30)
[2018-11-20 01:34] LABS: Basophils % 0.2 %; Eosinophils # 0.2 K/mcL (0.0-0.6); Eosinophils % 1.5 %; Hematocrit 28.1 % (37.5-50.1); Hemoglobin 8.2 g/dL (12.9-16.9); Immature Granulocytes % 0.6 % (0-4); Lymphocytes # 1.5 K/mcL (0.6-4.6); Lymphocytes % 11.4 %; Mean Corpuscular HGB Conc 29.2 g/dL (31.6-35.5); Mean Corpuscular Hemoglobin 31.1 pg (28.0-33.3); Mean Corpuscular Volume 106.4 fL (83.0-100.0); Mean Platelet Volume 9.4 fL (9.4-12.4); Monocytes % 7.9 %; Neutrophils # 10.2 K/mcL (1.6-8.9); Platelet Count 457 K/mcL (140-400); Red Blood Count 2.64 M/mcL (4.19-5.50); Red Cell Distribution Width 15.8 % (11.5-14.5); Segmented Neutrophils % 78.4 %
[2018-11-20 01:54] LABS: Calcium 10.7 mg/dL (8.6-10.3); Potassium 4.1 mEq/L (3.5-5.1)
[2018-11-20] MEDS: D5% in Water 1,000 ML IVC SCH ×2 (03:32→10:13)
[2018-11-20] MEDS: Levalbuterol Neb 1.25 MG/3 ML IH SCH ×7 (03:56→23:43)
[2018-11-20] MEDS: Cefepime HCl 2,000 MG in Water for inj. (sterile) 20 ML 20 ML IVP SCH ×2 (05:47→17:35)
--- NOTE | 2018-11-20 08:03 | Event Note ---
Date of Encounter: 11/20/18 Time of Encounter: 07:58 Patient was seen and examined. I agree with the progress note as written by the resident physician. Went into afib RVR last night and started on cardizem drip again. Was off of it for a few days. On 4 L NC. Blood cultures sent yesterday +. Patient went for a right sided thoracentesis 11/16. Had EGD and colonoscopy 11/17 and showed stool in entire colon. There was internal hemorrhoids and diverticulosis noted. EGD showed normal esophagus and a single gastric polyp that was resected and a clip was placed. There was also a single duodenum polyp resected and clipped. Patient admitted due to generalized weakness and fevers. Fell a week prior and was on the ground for a few hours. On initial presentation had leukocytosis (19.7). INR was elevated and kept on increasing initially (on coumadin). Had VAZQUEZ which improved. Had mildly elevated LFT's which improved. CK was elevated and trended down with IV fluids. Initial imaging studies showed a suspected loculated pleural effusions. There was scattered nodules b/l. Indeterminate b/l renal lesions and MRI was recommended once acute issues resolved. Also had diarrhea with + FOBT initially. Issues with afib with RVR while here treated with cardizem drip. off of that now. While here, Bld cultures have been + for MRSA repeatedly. Urine cx + MRSA on 11/09. Echo was indeterminate but no vegetations. LOY followed and was negative for vegatations. Had repeat CT chest/abd/pelvis showing kidney lesions again on the right. Large right pleural effusions and small left pleural effusion worse than before. Worse consolidation. GEN: Lethargic CVS: RRR. S1, S2, No m/r/g RESP: Scattered rhonchi and bibasilar crackles ABD: Soft, NT, ND, +BS EXT: No edema. 2+ DP. No rashes NEURO: Nonfocal. A/Ox1 c/w O2 support Nephrology gave a dose of desmopressin as Na was not changing on D5W. c/w Vancomycin and Zosyn. Will discuss with ID. Possibly get a podiatry consult Pleural fluid cx negative to date TTE and LOY negative for vegetations c/s pulm for res failure and ??bronch?? c/w cardizem drip Monitor H/H Continue to hold coumadin Will need dedicated MRIs of the kidneys once acute issues resolve. Follow-up CT chest will need to be done in the outpatient setting as well.
--- NOTE | 2018-11-20 08:43 | Internal Med Progress Note ---
Hospitalist Progress Note - Encounter Date of Encounter: 11/20/18 Time of Encounter: 08:30 - Subjective Interval History: Patient admitted with sepsis secondary to MRSA bacteremia and pneumonia, UTI, foot wound. Patient seen and examined at bedside. He is alert and oriented times 1. He seems lethargic. Overnight. Went to atrial fibrillation with RVR and Cardizem drip was started. The patient and desmopressin was added to regimen. Nephrology helping to manage hypernatremia. - Exam Vitals: Temp Pulse Resp BP Pulse Ox 97.6 F 100 16 121/86 94 11/20/18 06:21 11/20/18 06:21 11/20/18 07:30 11/20/18 06:21 11/20/18 07:30 Exam: Gen.: Vitals noted. No acute distress. AAOx1 HEENT: oropharynx clear, Normocephalic, atraumatic Cardiac: RRR, no murmur, +S1/S2 Pulmonary: bilaterally wheezes, no rales or rhonchi, equal chest expansion Abdomen: soft, mild left lower quadrant tender, Bowel sounds noted, no guarding MSK: ROM intact, no joint swelling noted Extremities: no BLE edema, nontender calf, no cyanosis or clubbing skin: wound on right heel with blister like lesion on left big toe Neuro: A&Ox1, moves all extremities, Psych: confused - Assessment and Plan (1) Sepsis Current Visit: Yes Status: Acute (2) Pneumonia Current Visit: Yes Status: Acute (3) Chronic ulcer of right foot with fat layer exposed Current Visit: No Status: Acute (4) GI bleed Current Visit: Yes Status: Suspected (5) Diarrhea Current Visit: Yes Status: Acute (6) Dehydration Current Visit: Yes Status: Resolved (7) Rhabdomyolysis Current Visit: Yes Status: Resolved (8) Acute renal failure Current Visit: Yes Status: Acute (9) UTI (urinary tract infection) Current Visit: Yes Status: Suspected (10) Atrial fibrillation Current Visit: Yes Status: Chronic (11) HTN (hypertension) Current Visit: Yes Status: Chronic (12) CAD (coronary artery disease) Current Visit: Yes Status: Chronic (13) Supratherapeutic INR Current Visit: Yes Status: Resolved (14) Anemia Current Visit: Yes Status: Suspected (15) Dysphagia Current Visit: Yes Status: Suspected (16) Bacteremia Current Visit: Yes Status: Acute (17) Pleural effusion Current Visit: Yes Status: Acute (18) Hypernatremia Current Visit: Yes Status: Acute (19) DVT prophylaxis Current Visit: Yes Status: Acute (20) Morbid obesity with BMI of 40.0-44.9, adult Current Visit: Yes Status: Chronic (21) Acute encephalopathy Current Visit: Yes Status: Acute - Time Spent with Patient Total time spent is greater than 50% in coordination of care (as documented) at patient's floor/unit and/or counseling patient: Internal Medicine: Result - Labs CBC & Chem 7: 11/20/18 01:21 11/20/18 01:21 Labs: Short CBC 11/20/18 Range/Units 01:21 WBC 13.0 H (4.3-11.1) K/mcL Hgb 8.2 L (12.9-16.9) g/dL Hct 28.1 L (37.5-50.1) % Plt Count 457 H (140-400) K/mcL Neutrophils # 10.2 H (1.6-8.9) K/mcL BMP 11/19/18 11/19/18 11/19/18 16:27 18:08 22:04 Sodium 162 H* 161 H* 156 H Potassium Chloride Carbon Dioxide BUN Creatinine Glucose Calcium 11/20/18 01:21 Sodium 156 H Potassium 4.1 Chloride 125 H Carbon Dioxide 26 BUN 26 H Creatinine 1.44 H Glucose 130 H Calcium 10.7 H - ABG Interpretation ABG results: ABG ABG pH 7.47 pH Units (7.32-7.45) H 11/19/18 06:13 ABG pCO2 37 mmHg (35-45) 11/19/18 06:13 ABG pO2 80 mmHg (85-104) L 11/19/18 06:13 ABG O2 Saturation 96 % (95-98) 11/19/18 06:13 PT/INR, D-dimer PT 15.0 Seconds (9.4-12.1) H 11/17/18 07:42 - VTE Documentation of Mechanical Device: Intermittent pneumatic compression device Consult Discharge Plan - Plan Referrals: NONE,PCP [Primary Care Provider] - (1) Sepsis Qualifiers: Sepsis type: methicillin resistant Staphylococcus aureus Qualified Code(s): A41.02 - Sepsis due to Methicillin resistant Staphylococcus aureus (2) Pneumonia Qualifiers: Pneumonia type: due to unspecified organism Laterality: right Lung location: lower lobe of lung Qualified Code(s): J18.1 - Lobar pneumonia, unspecified organism (4) GI bleed Qualifiers: GI bleed type/associated pathology: melena Qualified Code(s): K92.1 - Melena (5) Diarrhea Qualifiers: Diarrhea type: presumed infectious Qualified Code(s): R19.7 - Diarrhea, unspecified (7) Rhabdomyolysis Qualifiers: Rhabdomyolysis type: traumatic Encounter type: subsequent encounter Qualified Code(s): T79.6XXD - Traumatic ischemia of muscle, subsequent encounter (8) Acute renal failure Qualifiers: Acute renal failure type: with acute tubular necrosis Qualified Code(s): N17.0 - Acute kidney failure with tubular necrosis (9) UTI (urinary tract infection) Qualifiers: Urinary tract infection type: acute cystitis Hematuria presence: with hematuria Qualified Code(s): N30.01 - Acute cystitis with hematuria (10) Atrial fibrillation Qualifiers: Atrial fibrillation type: chronic Qualified Code(s): I48.2 - Chronic atrial fibrillation (11) HTN (hypertension) Qualifiers: Hypertension type: essential hypertension Qualified Code(s): I10 - Essential (primary) hypertension (12) CAD (coronary artery disease) Qualifiers: Coronary Disease-Associated Artery/Lesion type: [place] artery [place] vs. transplanted heart: [place] heart Associated angina: without angina Qualified Code(s): I25.10 - Atherosclerotic heart disease of [place] coronary artery wi thout angina pectoris (14) Anemia Qualifiers: Anemia type: iron deficiency Iron deficiency anemia type: chronic blood loss Qualified Code(s): D50.0 - Iron deficiency anemia secondary to blood loss (chronic) (15) Dysphagia Qualifiers: Dysphagia type: oropharyngeal phase Qualified Code(s): R13.12 - Dysphagia, oropharyngeal phase
[2018-11-20] MEDS: Aspirin Enteric Coated 81 MG Tablet PO SCH (09:14)
--- NOTE | 2018-11-20 09:58 | Infectious Disease Progress No ---
ID Progress Note Date of Encounter: 11/20/18 Time of Encounter: 09:55 - Subjective Subjective: Patient seen and examined. No acute events noted overnight. He complains of pain in his foot, but unable to localize and ROS otherwise unobtainable from the patient at this time. He does awaken and tell me his is with him today. Rendon catheter remains patent. No stools documented overnight. - Objective CBC & Chem 7: 11/22/18 03:16 11/22/18 03:16 - Line Documentation Line Documentation: Rendon Catheter (Draining clear yellow urine) - Exam Vitals: Temp Pulse Resp BP Pulse Ox 97.6 F 100 16 121/86 94 11/20/18 06:21 11/20/18 06:21 11/20/18 07:30 11/20/18 06:21 11/20/18 07:30 Exam: Head: Atraumatic, normal inspection, normocephalic. Eye: EOMI, PERRLA, no scleral icterus noted. No subconjunctival hemorrhage noted. ENT: Mucous membranes dry. No odontogenic infection noted. Neck: Normal inspection, no meningismus. Respiratory: CTA throughout. No rales, respiratory distress, rhonchi noted. Cardiovascular: Regular rate and irregular rhythm, S1 and S2 audible. No murmurs, rubs, or gallops. GI: Soft, obese, hypoactive bowel sounds. Nontender. Rendon catheter noted to be draining clear dark yellow urine. Extremities: No joint swelling, pedal edema, or tenderness noted. Right foot dressing C/D/I. Bullous lesion noted to the plantar aspect of the left great toe without erythema or drainage. Multiple scabbed lesions noted to the BLE. Neurological: Opens eyes to verbal stimuli, follows some commands. Speech difficult to understand. Psychiatric: Calm, cooperative. Skin: Dry, intact, warm. Pale. No rashes. Additional exam findings: Pacer/AICD site noted to the left upper chest well healed, nontender without erythema - Assessment and Plan (1) Sepsis Current Visit: Yes Status: Acute The patient had 3 sepsis criteria with acute kidney injury and metabolic encephalopathy. Likely secondary to MRSA bacteremia. WBC improved. Acute kidney injury is stable. Tmax 100.1 overnight. Tachycardia resolved. Blood cultures drawn 11/09/18 a +2 out of 2 sets for MRSA. Repeat blood cultures from 11/11/18 are positive for MRSA. Additional blood cultures drawn 11/13/18 are positive x 2 sets as well. Repeat blood cultures 11/15/18 positive 2/2 sets. Repeat blood cultures drawn 11/18/18 are positive 1/2 sets. Qualifiers: Sepsis type: methicillin resistant Staphylococcus aureus Qualified Code(s): A41.02 - Sepsis due to Methicillin resistant Staphylococcus aureus SNOMED Code(s): 93374962 (2) Bacteremia Current Visit: Yes Status: Acute Causative organism: MRSA. Source: Unclear. The patient does have a chronic nonhealing ulceration to the right foot, however, does not appear clinically infected. Blood cultures drawn 11/09/18 are +2 out of 2 sets. Repeat blood cultures on 11/11/18 are +2 out of 2 sets. Repeat blood cultures drawn 11/13/18 are positive x 2 sets. Repeat blood cultures from 11/15/18 are positive 2/2 sets. Repeat blood cultures drawn 11/18/18 are positive 1/2 sets. Etiology of persistent bacteremia unclear. Complicated due to the presence of a pacer/AICD and left hip hardware as well as likely septic emboli to the lung and seeding of the kidneys. TTE suboptimal. No endocarditis stigmata noted on exam. Rheumatoid factor normal. LOY negative for valvular or device lead vegetations. The patient has one major and 2 minor modified Dupage criteria. Currently on IV vancomycin (FABRICIO 1). SNOMED Code(s): 7605126 (3) Acute encephalopathy Current Visit: Yes Status: Acute Likely secondary to sepsis and hypernatremia and medication-related, but concern for septic emboli to the brain. CT head negative x2. Continue to monitor closely. SNOMED Code(s): 89969436, 363184040 (4) Pneumonia Current Visit: Yes Status: Acute CT chest showed small right and trace left partially loculated pleural effusions with increased consolidative opacities in the lung bases slightly asymmetric right worse than left, either atelectasis or pneumonia. Causative organism: Unclear. MRSA screen is positive. RIP negative. UATs negative. Given the patient's weakness, aspiration is on the differential. HORTICULTURAL TECHNICAL OFFICER consulted. Recommended MBS to further assess swallow status, but patient unable to participate. Repeat CT of the chest shows large right pleural effusion and small left pleural effusion, both worse since previous imaging. Worsened consolidations to the bilateral lower lobes, right more than left, concerning for worsening atelectasis, multifocal PNA or aspiration pneumonitis also seen. Currently on vancomycin and cefepime and flagyl. Qualifiers: Pneumonia type: due to unspecified organism Laterality: right Lung location: lower lobe of lung Qualified Code(s): J18.1 - Lobar pneumonia, unspecified organism SNOMED Code(s): 091036669 (5) Acute renal failure Current Visit: Yes Status: Acute Likely secondary to sepsis, dehydration, and rhabdomyolysis. Improved. Continue to trend. Dosage of medications. Avoid nephrotoxins as able. Nephrology consulted. Qualifiers: Acute renal failure type: with acute tubular necrosis Qualified Code(s): N17.0 - Acute kidney failure with tubular necrosis SNOMED Code(s): 20026847 (6) Pulmonary nodules Current Visit: Yes Status: Acute CT chest showed scattered nodules throughout the lungs bilaterally which are indeterminate and may be infectious, inflammatory, or neoplastic in etiology. Given the patient's MRSA bacteremia, concern for septic emboli. SNOMED Code(s): 304033669 (7) Asymptomatic bacteriuria Current Visit: Yes Status: Acute Urine culture positive for MRSA. The patient was asymptomatic prior to admission. Likely secondary to seeding of the kidneys from the bacteremia. Currently on vancomycin. SNOMED Code(s): 045172097 (8) Supratherapeutic INR Current Visit: Yes Status: Resolved Etiology: Unclear. Resolved. Further workup and management per the primary team. SNOMED Code(s): 809528781 (9) Elevated liver function tests Current Visit: Yes Status: Resolved Total bili, AST, ALT, alkaline phosphatase elevated on admission. Etiology: Unclear. Sepsis versus other. Hepatitis profile negative. Resolved. SNOMED Code(s): 677488402, 530515337 (10) Chronic ulcer of right foot with fat layer exposed Current Visit: No Status: Acute Location: Lateral aspect of fifth metatarsal on the right foot. Likely secondary to callus her patient's history. Follows with the [facility]. Clinically does not appear infected, but as a potential source for the patient's bacteremia. CT of the right foot negative for osteomyelitis or abscess. SNOMED Code(s): 042937082 (11) GI bleed Current Visit: Yes Status: Suspected Hemoglobin down to7.2. Fecal occult blood test positive. GI consulted. EGD/C-scope negative for acute bleeding. Qualifiers: GI bleed type/associated pathology: melena Qualified Code(s): K92.1 - Melena SNOMED Code(s): 53577712 (12) Weakness Current Visit: Yes Status: Acute Likely secondary to sepsis. PT/OT to evaluate. SNOMED Code(s): 72292123 (13) Diarrhea Current Visit: Yes Status: Resolved Etiology: Unclear. C. difficile negative. GI panel negative. Improved. GI consulted. Qualifiers: Diarrhea type: presumed infectious Qualified Code(s): R19.7 - Diarrhea, unspecified SNOMED Code(s): 79859246 (14) Dehydration Current Visit: Yes Status: Resolved Likely secondary to poor by mouth intake and high GI output. Management per the primary team. SNOMED Code(s): 54187087 (15) Rhabdomyolysis Current Visit: Yes Status: Resolved Likely secondary to fall. CK noted to be 1400 on admission. Improved. Further workup and management per the primary team. Qualifiers: Rhabdomyolysis type: traumatic Encounter type: subsequent encounter Qualified Code(s): T79.6XXD - Traumatic ischemia of muscle, subsequent encounter SNOMED Code(s): 844552409 (16) Atrial fibrillation Current Visit: Yes Status: Chronic Qualifiers: Atrial fibrillation type: chronic Qualified Code(s): I48.2 - Chronic atrial fibrillation SNOMED Code(s): 00122698 (17) HTN (hypertension) Current Visit: Yes Status: Chronic Qualifiers: Hypertension type: essential hypertension Qualified Code(s): I10 - Essential (primary) hypertension SNOMED Code(s): 60481128 (18) CAD (coronary artery disease) Current Visit: Yes Status: Chronic Qualifiers: Coronary Disease-Associated Artery/Lesion type: [place] artery [place] vs. transplanted heart: [place] heart Associated angina: without angina Qualified Code(s): I25.10 - Atherosclerotic heart disease of [place] coronary artery witho ut angina pectoris SNOMED Code(s): 30507674 (19) Morbid obesity with BMI of 40.0-44.9, adult Current Visit: Yes Status: Chronic SNOMED Code(s): 525640709, 69830177198808 (20) Pleural effusion Current Visit: Yes Status: Acute CT of the chest 11/15/18 shows large right and small left pleural effusion, wo rsened since prior exam. Concern for infectious etiology. IR consulted. Thoracentesis 11/16/18. Exudative per Light's criteria, but gram stain and culture negative. SNOMED Code(s): 36680294 (21) Hypernatremia Current Visit: Yes Status: Acute Improved. Nephrology consulted. Appreciate recommendations. SNOMED Code(s): 028640986 - Recommendations Recommendations: Check baseline CK level. Hold atorvastatin while on Daptomycin. Repeat blood cultures x 2 in the morning. Send sputum for culture if the patient is able to provide an adequate specimen. Recommend podiatry to evaluate. Recommend pulmonology to evaluate. VAZQUEZ/hypernatremia management per the nephrology team. Continue vancomycin IV. Pharmacy to dose. Goal trough approximately 15. Continue cefepime 2 grams IV Q12H. Continue flagyl 500mg IV TID. Start Daptomycin 6mg/kg IV daily due to the persistent bacteremia. Duration of treatment depends on the clinical picture, but likely at least 4 weeks. Monitor renal function for drug toxicity and does adjust antibiotics. assistant guest services manager to assist with discharge planning. Avoid insertion of long-term IV access until repeat blood cultures are negative 48 hours. Contact precautions per hospital policy. - VTE Documentation of Mechanical Device: Intermittent pneumatic compression device Consult Discharge Plan - Plan Referrals: NONE,PCP [Primary Care Provider] - - Attending Attestation I have personally performed a face to face evaluation on this patient. I have reviewed and agree with the care plan. History and Exam by me shows: Assessment and plan: 1.Sepsis 2.Bacteremia causative organism MRSA. Source likely chronic nonhealing ulceration of the right footcomplicated because the patient has an AICD and has a 3.right hip for plastic 4.Pneumonia questionable at best. There are nodules, likely due to septic emboli. 5.Acute kidney injury 6.Asymptomatic bacteriuria 7.Supratherapeutic INR Recommendation: Check baseline CK level. Hold atorvastatin while on Daptomycin. Repeat blood cultures x 2 in the morning. Send sputum for culture if the patient is able to provide an adequate specimen. Recommend podiatry to evaluate. Recommend pulmonology to evaluate. VAZQUEZ/hypernatremia management per the nephrology team. Continue vancomycin IV. Pharmacy to dose. Goal trough approximately 15. Continue cefepime 2 grams IV Q12H. Continue flagyl 500mg IV TID. Start Daptomycin 6mg/kg IV daily due to the persistent bacteremia. Duration of treatment depends on the clinical picture, but likely at least 4 weeks. Monitor renal function for drug toxicity and does adjust antibiotics. assistant guest services manager to assist with discharge planning. Avoid insertion of long-term IV access until repeat blood cultures are negative 48 hours. Contact precautions per hospital policy.
[2018-11-20] MEDS: Vancomycin 1,500 MG in D5% in Water 250 ML IVPB SCH (10:14)
[2018-11-20 12:22] LABS: ABG Base Excess 0 mEq/L (-2 to 3); ABG HCO3 27 mEq/L (21-27); ABG Oxygen Saturation 91 % (95-98); ABG PCO2 56 mmHg (35-45); ABG PH 7.29 pH Units (7.32-7.45); ABG PO2 70 mmHg (85-104); ABG TCO2 29 mEq/L (20-26); Blood Gas Modality PC/PS; Blood Gas PEEP 6 cm H2O; Blood Gas Pressure Support 14 cm H2O
[2018-11-20] MEDS ORDERED: Furosemide 40 MG/4 ML VIAL IVP ONE (13:00)
--- NOTE | 2018-11-20 13:54 | Pulmonology Consult Note ---
Date of Encounter: 11/20/18 Time of Encounter: 13:00 Assessment and Plan (1) Acute respiratory failure Current Visit: Yes Status: Acute Patient with acute respiratory failure with hypoxia hypercapnia complicated by pneumonia loculated pleural effusion congestive heart failure. Qualifiers: Respiratory failure complication: hypoxia and hypercapnia Qualified Code(s): J96.01 - Acute respiratory failure with hypoxia; J96.02 - Acute respiratory failure with hypercapnia (2) Acute encephalopathy Current Visit: Yes Status: Acute Secondary to pneumonia, bacteremia and also metabolic disturbance hyernatremia. Please correct the free water deficit. (3) Pleural effusion Current Visit: Yes Status: Acute Patient is enlarging loculated right-sided pleural effusion we will recommend interventional radiology guided thoracentesis (4) Pneumonia Current Visit: Yes Status: Acute Patient is is right-sided lower lobe pneumonia most likely aspiration possible MRSA pneumonia patient will have a prolonged course high risk of intubation will repeat arterial blood gas analysis getting worse please transferred to the intensive care unit for further management. Assessment and plan was communicate d with the patient nurse. Patient is hemodynamically stable attempt diuresis as patient is also having pulmonary edema complicating the picture. Qualifiers: Pneumonia type: due to unspecified organism Laterality: right Lung loc ation: lower lobe of lung Qualified Code(s): J18.1 - Lobar pneumonia, unspecified organism History of Present Illness Consult date: 11/20/18 Requesting physician: Sepideh Morejon Reason for consult: pneumonia, abnormal CXR/CT Chief complaint: Came with chest pain History of present illness: 68-year-old male with past medical history significant for atrial fibrillation on Coumadin, coronary artery disease got admitted for further workup had a prolonged hospital stay patient developed this right-sided pneumonia with loculated pleural effusion successful thoracentesis was done by interventional radiologist pleural fluid cultures did not grow anything patient developed MRSA bacteremia developed right-sided pneumonia most likely MRSA pneumonia now worsening right-sided loculated pleural effusion patient now BiPAP dependent acute hypoxic hypercarbic respiratory failure slowly improving on BiPAP clinically he looks alert but is not following commands but but confused patient is getting adequate tidal volumes. Pulmonary was consulted that for management of acute hypoxic and hypercarbic respiratory failure. Past Med Surg Social Fam HX - Past Medical History Medical history: atrial fibrillation, coronary artery disease, hyperlipidemia, hypertension, kidney stones, myocardial infarction Additional medical history: mrsa, sleep apnea,. wound on right foot Psychiatric history: no psych history - Past Surgical History Surgical History: appendectomy, cholecystectomy, pacemaker/AICD, other Additional surgical history: eye sx, foot sx - Social History Smoking Status: Never smoker Smokeless Tobacco Status: No Alcohol use: none Drug use: none - Family History Mother Adopted: No Family Member Ethnicity: Non- Living Status: Hx Family Cardiac Disorders: No Hx Family Respiratory Disorders: No Hx Family Cancer: Yes Hx Family GI Disorders: No Hx Family Endocrine Disorder: Yes (Diabetes) Hx Family Neuromuscular Disorders: No Hx Family Neurologic Disorders: No Hx Family HEENT Disorders: No Hx Family Autoimmune Disorders: No Father Adopted: No Family Member Ethnicity: Non- Living Status: Hx Family Cardiac Disorders: No Hx Family Respiratory Disorders: No Hx Family Cancer: Yes Hx Family GI Disorders: No Hx Family Endocrine Disorder: No Hx Family Neuromuscular Disorders: No Hx Family Neurologic Disorders: No Hx Family HEENT Disorders: No Hx Family Autoimmune Disorders: No Medications and Allergies Allopurinol [Zyloprim 300 MG] 300 mg PO DAILY 11/11/18 [History] Atorvastatin [Lipitor] 40 mg PO DAILY 11/11/18 [History] Carvedilol 12.5 mg PO BID 11/11/18 [History] Enoxaparin [Lovenox] 30 mg SQ Q12HR 11/11/18 [History] Furosemide [Lasix] 40 mg PO BID 11/11/18 [History] Gabapentin [Neurontin] 300 mg PO TID 11/11/18 [History] Spironolactone 50 mg PO BID 11/11/18 [History] Tamsulosin HCl [Flomax] 0.4 mg PO DAILY 11/11/18 [History] Warfarin [Coumadin] 3 mg PO SUTUWETHSA 11/11/18 [History] Warfarin [Coumadin] 4.5 mg PO MOFR 11/11/18 [History] Allergy/AdvReac Type Severity Reaction Status Date / Time Sulfa (Sulfonamide AdvReac Unknown advised by Verified 06/05/15 10:20 Antibiotics) dr ruff doesn't work for him ROS unobtainable: due to mental status All Systems: The remainder of the systems were reviewed and are negative Physical Examination Vital Signs: Vital Signs, Last 4 Hours Temp Pulse Resp BP Pulse Ox 11/20/18 12:00 27 91 11/20/18 11:09 14 90 04/23/19 10:56 98.3 F 101 28 127/81 92 General appearance: lethargic Auscultation: right: diminished breath sounds, bilateral: wheezes (Minimal scattered) Cardiovascular: irregular rhythm Gastrointestinal: hypoactive bowel sounds unable to assess due to mental status other Results - Laboratory Findings CBC and BMP: 11/20/18 01:21 11/20/18 15:43 ABG ABG pH 7.29 pH Units (7.32-7.45) L 11/20/18 12:20 ABG pCO2 56 mmHg (35-45) H 11/20/18 12:20 ABG pO2 70 mmHg (85-104) L 11/20/18 12:20 ABG O2 Saturation 91 % (95-98) L 11/20/18 12:20 PT/INR, D-dimer PT 15.0 Seconds (9.4-12.1) H 11/17/18 07:42 Abnormal lab findings: Abnormal lab results WBC 13.0 K/mcL (4.3-11.1) H 11/20/18 01:21 RBC 2.64 M/mcL (4.19-5.50) L 11/20/18 01:21 Hgb 8.2 g/dL (12.9-16.9) L 11/20/18 01:21 Hct 28.1 % (37.5-50.1) L 11/20/18 01:21 MCV 106.4 fL (83.0-100.0) H 11/20/18 01:21 MCHC 29.2 g/dL (31.6-35.5) L 11/20/18 01:21 RDW 15.8 % (11.5-14.5) H 11/20/18 01:21 Plt Count 457 K/mcL (140-400) H 11/20/18 01:21 Metamyelocytes % 2.0 % (0) H 11/15/18 05:57 Myelocytes % 2.0 % (0) H 11/15/18 05:57 Neutrophils # 10.2 K/mcL (1.6-8.9) H 11/20/18 01:21 Nucleated RBCs/100 WBC 0.2 /100 WBC (0) H 11/16/18 06:32 Reactive Lymphocytes Present (Not Present) A 11/10/18 01:12 Platelet Estimate Increased (Normal) H 11/16/18 06:32 Polychromasia 1+ (Not Present) A 11/15/18 05:57 Anisocytosis 1+ (Not Present) A 11/15/18 05:57 ESR 125 mm/hr (0-10) H 11/12/18 15:40 PT 15.0 Seconds (9.4-12.1) H 11/17/18 07:42 ABG pH 7.29 pH Units (7.32-7.45) L 11/20/18 12:20 ABG pCO2 56 mmHg (35-45) H 11/20/18 12:20 ABG pO2 70 mmHg (85-104) L 11/20/18 12:20 ABG Total CO2 29 mEq/L (20-26) H 11/20/18 12:20 ABG O2 Saturation 91 % (95-98) L 11/20/18 12:20 Sodium 151 mEq/L (136-145) H 11/20/18 08:35 Chloride 125 mEq/L (98-107) H 11/20/18 01:21 BUN 26 mg/dL (8-23) H 11/20/18 01:21 Creatinine 1.44 mg/dL (0.70-1.30) H 11/20/18 01:21 Est GFR ( Amer) 59 (> 60) L 11/20/18 01:21 Est GFR (Non-Af Amer) 48 (> 60) L 11/20/18 01:21 Glucose 130 mg/dL (70-105) H 11/20/18 01:21 POC Glucose 113 mg/dL (70-99) H 11/20/18 00:11 Serum Osmolality 347 mOsm/kg (280-300) H 11/19/18 18:08 Calculated Osmolality 329 (280-300) H 11/20/18 01:21 Calcium 10.7 mg/dL (8.6-10.3) H 11/20/18 01:21 Iron 34 mcg/dL (65-175) L 11/12/18 16:22 % Saturation 16 % (20-55) L 11/12/18 16:22 Transferrin 148 mg/dL (203-362) L 11/12/18 16:22 Ferritin 565 ng/mL (20-250) H 11/12/18 16:22 Creatine Kinase 863 Units/L (30-223) H 11/10/18 01:12 C-Reactive Protein 201 mg/L (Less than 10) H 11/12/18 16:09 B-Natriuretic Peptide 123 pg/mL (Less than 100) H 11/09/18 11:14 Albumin 2.9 g/dL (3.5-5.7) L 11/18/18 22:30 Globulin 3.9 g/dL (2.4-3.5) H 11/18/18 22:30 Albumin/Globulin Ratio 0.7 (1.1-2.2) L 11/18/18 22:30 Folate > 22.3 ng/mL (3.0-16.0) H 11/12/18 16:22 Urine Protein 30 mg/dL (Neg-Trace) H 11/13/18 05:13 Urine Blood Large (Negative) H 11/13/18 05:13 Urine Microscopic RBC TNTC per hpf (0-3) H 11/13/18 05:13 Urine Microscopic WBC 3-5 per hpf (0-3) H 11/13/18 05:13 Ur Squamous Epith Cells Many per lpf (None-Few) H 11/13/18 05:13 Granular Casts Few per lpf (None Seen) H 11/09/18 17:18 Pleural Appearance Bloody (Clear) A 11/16/18 15:00 Pleural RBC 0.087 M/mcL (0.000-0.002) H 11/16/18 15:00 Nasal Screen MRSA (PCR) Positive (Negative) A 11/09/18 21:50 Stool Occult Bld Scrn Positive (Negative) A 11/09/18 13:05 Stool Calprotectin 162 ug/g (<=50) H 11/13/18 10:50 Vancomycin Trough 23 mcg/mL (5-10) H 11/18/18 20:21 Staph aureus (PCR) DETECTED (Not Detect) A 11/13/18 07:20 mecA-Methicil Res Gene DETECTED (Not Detect) A 11/13/18 07:20 - Microbiology Findings Microbiology Findings: Microbiology, Last 48 Hours 11/18/18 11:00 Blood Culture - Final Peripheral Venipuncture Gram Positive Cocci 11/16/18 15:00 Body Fluid Culture - Final Pleural Fluid 11/16/18 15:00 Anaerobic Culture - Preliminary Pleural Fluid At this time, no anaerobic growth is present. The culture will be finalized after 5 days of incubation. 11/15/18 07:50 Blood Culture - Final Peripheral Venipuncture Methicillin Resistant S.aureus 11/15/18 08:07 Blood Culture - Final Peripheral Venipuncture Methicillin Resistant S.aureus 11/18/18 10:58 Blood Culture - Preliminary Peripheral Venipuncture Culture is incubating and being continuously monitored for growth. Final report to follow. - Clinical Findings Intake & Output: Intake & Output 11/19/18 11/20/18 11/20/18 23:59 07:59 15:59 Intake Total 1220 / 1220 1350 / 1350 1125 / 1125 Output Total 300 / 300 700 / 700 650 / 650 Balance 920 / 920 650 / 650 475 / 475 Consult Discharge Plan - Plan Referrals: NONE,PCP [Primary Care Provider] -
[2018-11-20] MEDS ORDERED: Acetaminophen IV 1,000 MG/100 ML INFUS..BTL IVPB PRN (14:00)
--- NOTE | 2018-11-20 14:00 | Internal Med Progress Note ---
Hospitalist Progress Note - Encounter Date of Encounter: 11/20/18 Time of Encounter: 01:30 - Subjective Interval History: Patient was admitted originally for sepsis secondary to MRSA bacteremia and pneumonia, UTI, foot wound Patient was examined at bedside, was not alert oriented at the time due to being asleep. Was arousable to noxious stimuli but immediately fell back asleep. Family member in the room stated that yesterday he was awake, watching TV, and conversing with his family. She noted that today he has just been sleeping most of the day. She noted that he became hypoxic today and she saw his oxygen saturation decreased to 80%. Nurses note that his oxygen saturation was in the mid 80s he was started on BiPAP. He had initially been on oximask that had been turned up to 12 L by respiratory technology. He was satting 94-95% on BiPAP opposition was in room. He went into atrial fibrillation with RVR overnight and was started on Cardizem drip area and Nephrology started desmopressin to his regimen due to hypernatremia that was not sponging to free water. - Exam Vitals: Temp Pulse Resp BP Pulse Ox 98.3 F 101 27 127/81 91 11/20/18 10:56 11/20/18 10:56 11/20/18 12:00 11/20/18 10:56 11/20/18 12:00 Exam: General: Patient was arousable to noxious stimuli, but immediately started to fall back asleep. Head: normocephalic, atraumatic Eyes: SEAN, no icterus Cardio: RRR, no mumurs, rubs, or gallops Respiratory: Bilateral wheezes, no rhonchi or rales Abd: normal bowel sounds, no gaurding or rigidity Extremties: no pedal edema, pulses equal bilaterally, warm Skin: warm, dry, intact - Assessment and Plan (1) Acute renal failure Current Visit: Yes Status: Acute Assessment and Plan: Likely due to rhabdomyolysis Creatinine on admission 2.1 Creatinine today 1.[address] abdomen pelvis showed bilateral renal lesions and recommended dedicated renal MRI once acute issues have resolved November 09 urinalysis showed positive leukocyte esterase, WBC, granular casts November 10 urinalysis showed positive leukocyte esterase, protein, WBC, and too numerous to count RBC November 13 UA showed positive WBC, too numerous to count RBC, protein Acute renal failure has improved Avoid nephrotoxic substances and renally dose medications Continue to monitor creatinine Nephrology currently on board due to hyponatremia that is unresponsive to free water We appreciate their recommendations (2) Agitation Current Visit: Yes Status: Acute Assessment and Plan: Patient currently has set her Slightly agitated Once to remove BiPAP currently Continue to assess for need for center (3) Bacteremia Current Visit: Yes Status: Acute Assessment and Plan: Since likely due to his UTI or pneumonia, empyema, possibly due to chronic right foot ulcer Blood cultures on November 09 grew MRSA 2 Blood cultures on November 11 grew MRSA 2 TTE on November 10 was suboptimal but showed no significant valvular dysfunction Blood cultures on November 13 positive for gram-positive cocci Continue IV vancomycin, flgyl, daptomycin, cefipime Repeat blood cultures ID is following currently and we appreciate recommendations (4) Dehydration Current Visit: Yes Status: Resolved Assessment and Plan: Dehydrated on admission given IVF Resolved (5) Diarrhea Current Visit: Yes Status: Resolved Assessment and Plan: Diffuse diarrhea on admission This could be due to medication or infection November 10 C. difficile was negative November 10 stool culture negative for other viral or bacterial causes Continue to monitor (6) Rhabdomyolysis Current Visit: Yes Status: Resolved Assessment and Plan: Rhabdomyolysis possibly due to recent fall inpatient on floor for 4 hours At that time the patient reported general body pain and myalgia Patient denies this today CK On admission 1413 CK on November 10 improved to 863 Patient had received IV sodium bicarbonate Continue to monitor (7) Sepsis Current Visit: Yes Status: Acute Assessment and Plan: Sepsis criteria on admission temperature 101 and white blood cell count of 19.7. Infectious source possibly from UTI, pneumonia, septic emboli, aspiration pneu monia, chronic ulcer of foot November 09 blood culture grew MRSA 2 November 09 urine culture grew MRSA November [address] small right and left pleural effusions with findings concerning for pneumonia with scattered nodules throughout the lungs bilaterally that may be infectious or inflammatory or neoplastic November 11 blood culture MRSA 2 November 11 respiratory panel positive for MRSA gene November 12 CRP 201 November 12 strep pneumonia and legionella negative November 13 blood culture positive gram-positive cocci preliminary November 18 blood cutlure gram positive cocci on 1 of 250ml of dark brown fluid was drained by IR via thoracentesis of left lung concerning for empyema on 11/16- fluid negative for bacterial growth Patient is hemodynamically stable, Tmax 100.8 over 24 hours, white blood cell count continues to decrease Continue IV antibiotics Continue contact precautions Infectious disease is following and we appreciate recommendations (8) Supratherapeutic INR Current Visit: Yes Status: Resolved Assessment and Plan: Resolved after patient was given fresh frozen plasma and vitamin K (9) Atrial fibrillation Current Visit: Yes Status: Chronic Assessment and Plan: History of A. fib with Coumadin and carvedilol for rate control Patient was supratherapeutic INR on admission On November 12 was found to be in A. fib RVR and was found Cardizem drip cardizem drip d/c on November 16. Last night went back into afib rvr and cardizem drip restarted. Continue IV labetalol as needed (10) CAD (coronary artery disease) Current Visit: Yes Status: Chronic Assessment and Plan: History of CAD Takes atorvastatin at home Carvedilol and spironolactone Continue atorvastatin, carvedilol (11) HTN (hypertension) Current Visit: Yes Status: Chronic Assessment and Plan: Currently controlled on home carvedilol, Lasix, spironolactone Continue carvedilol Continue labetalol as needed (12) GI bleed Current Visit: Yes Status: Suspected Assessment and Plan: Patient positive for Hemoccult Supratherapeutic INR on admission which has now resolved Patient currently hemodynamically stable EGD showed 5mm sessile polyp no stigmata of recent bleeding, removed , graular mucosa in duodenum, single 20mm pedunculated polyp wtih large ulcer on tip in 3rd part of duodenum colonoscopy showed internal hemmerhoids, multiple small and large mouthed diverticuli no active bleed GI is following (13) UTI (urinary tract infection) Current Visit: Yes Status: Suspected Assessment and Plan: Patient urinary tract infection on urinalysis with positive WBC and leukocyte esterase Continue Rendon catheter Continue vancomycin (14) Pneumonia Current Visit: Yes Status: Acute Assessment and Plan: Likely community-acquired Patient denied shortness of breath and cough Possible concern for aspiration pneumonia or septic emboli November 09 CT showed small right and trace left partially loculated pleural effusions with findings concerning for pneumonia or atelectasis. Scattered nodules are of the lungs bilaterally but may be infectious or inflammatory or neoplastic November 11 respiratory panel positive for MRSA gene November 12 strep pneumonia and legionella negative 250 ml brown fluid removed by IR via thoracenesis due to left lung pleural effusion becoming larger, concerning for empyema on November 16- fluid negative for bacterial growth Continue IV antibiotics Continue bronchodilators as needed Pulmonary nodules on chest CT will need repeat CT follow-up as an outpatient ID is consulted we appreciate recommendations Worsening respiratory function with increased loculated pleural effusion on the right noted on chest xray, pulmonology has been consulted Continue Bipap for O2 saturation (15) Chronic ulcer of right foot with fat layer exposed Current Visit: No Status: Acute Assessment and Plan: Chronic ulcer of right foot on the inner surface managed by Dr. Darby Continue wound care ID is consulted CT foot showed no peristitis or bony destruction (16) DVT prophylaxis Current Visit: Yes Status: Acute Assessment and Plan: scds DVT Prophylaxis: scds - Time Spent with Patient Total time spent is greater than 50% in coordination of care (as documented) at patient's floor/unit and/or counseling patient: Internal Medicine: Result - Labs CBC & Chem 7: 11/20/18 01:21 11/20/18 08:35 Labs: Short CBC 11/20/18 Range/Units 01:21 WBC 13.0 H (4.3-11.1) K/mcL Hgb 8.2 L (12.9-16.9) g/dL Hct 28.1 L (37.5-50.1) % Plt Count 457 H (140-400) K/mcL Neutrophils # 10.2 H (1.6-8.9) K/mcL BMP 11/19/18 11/19/18 11/19/18 16:27 18:08 22:04 Sodium 162 H* 161 H* 156 H Potassium Chloride Carbon Dioxide BUN Creatinine Glucose Calcium 11/20/18 11/20/18 01:21 08:35 Sodium 156 H 151 H Potassium 4.1 Chloride 125 H Carbon Dioxide 26 BUN 26 H Creatinine 1.44 H Glucose 130 H Calcium 10.7 H - ABG Interpretation ABG results: ABG ABG pH 7.29 pH Units (7.32-7.45) L 11/20/18 12:20 ABG pCO2 56 mmHg (35-45) H 11/20/18 12:20 ABG pO2 70 mmHg (85-104) L 11/20/18 12:20 ABG O2 Saturation 91 % (95-98) L 11/20/18 12:20 PT/INR, D-dimer PT 15.0 Seconds (9.4-12.1) H 11/17/18 07:42 - Impressions Impressions Chest X-Ray 11/20/18 12:04 IMPRESSION: Worsening pulmonary edema and increasing size of a partially loculated right pleural effusion. Along with cardiomegaly findings suggest moderate CHF worsening since prior. Pneumonia is in the differential. D/ / 11/20/2018 12:59:57 Rigo Stapleton MD / Greta Winchester Interpreting Provider: Rigo Stapleton MD - VTE Documentation of Mechanical Device: Intermittent pneumatic compression device Consult Discharge Plan - Plan Referrals: NONE,PCP [Primary Care Provider] - (1) Acute renal failure Qualifiers: Qualified Code(s): N17.0 - Acute kidney failure with tubular necrosis (5) Diarrhea Qualifiers: Qualified Code(s): R19.7 - Diarrhea, unspecified (6) Rhabdomyolysis Qualifiers: Qualified Code(s): T79.6XXD - Traumatic ischemia of muscle, subsequent encounter (7) Sepsis Qualifiers: Qualified Code(s): A41.02 - Sepsis due to Methicillin resistant Staphylococcus aureus (9) Atrial fibrillation Qualifiers: Qualified Code(s): I48.2 - Chronic atrial fibrillation (10) CAD (coronary artery disease) Qualifiers: Qualified Code(s): I25.10 - Atherosclerotic heart disease of [place] coronary artery without angina pectoris (11) HTN (hypertension) Qualifiers: Qualified Code(s): I10 - Essential (primary) hypertension (12) GI bleed Qualifiers: Qualified Code(s): K92.1 - Melena (13) UTI (urinary tract infection) Qualifiers: Qualified Code(s): N30.01 - Acute cystitis with hematuria (14) Pneumonia Qualifiers: Qualified Code(s): J18.1 - Lobar pneumonia, unspecified organism
[2018-11-20] MEDS: DAPTOmycin 750 MG in 0.9 % Sodium Chloride 100 ML IVPB SCH (14:32)
--- NOTE | 2018-11-20 15:04 | Podiatry Consult Note ---
Date of Encounter: 11/20/18 Time of Encounter: 14:30 Assessment and Plan (1) Chronic ulcer of right foot with fat layer exposed Current visit: No Status: Acute ASSESSMENT: Miguel stage II ulceration to the right foot sub/lateral mt head #5 with fat layer exposure PLAN: sharp debridement performed at bedside, painted wound with betadine and performed sharp debridement using #15 blade, purulent drainage expressed and swabbed for culture. Debridement reveals healthy granulation tissue to entire base of wound without any surrounding cellulitis, erythema or edema. There is visualization of the joint capsule however there is a thin layer of skin overl gina. There is no undermining or tracking noted to wound Await cultures Continue antibiotic therapy Due to demise in condition and continued septic condition recommend MRI with contrast to with foot CT was obtained 1 week ago and was negative for osteo or abscess formation Flushed with saline, adpatic, 4x4 and bulk dressing applied for protection Will reassess tomorrow and then place orders for nursing care to change dressing (2) Hyperkeratosis Current visit: Yes Status: Acute ASSESSMENT: PLAN: Sharp debridement of hyperkeratotic lesion to lateral cuboid bone using #15 blade. No underlying ulceration or lesion (3) Bullous lesion Current visit: Yes Status: Acute ASSESSMENT: bullous lesion to the left great toe PLAN: Non infectious in appearance Painted with betadine Sharp debridement complete using #15 blade, pickups and tissue nippers 100% healthy granulation tissue revealed. Serous fluid expressed - swabbed for culture No undermining, tracking or purulent drainage No associated cellulitis Minimal suspicion of infection. adaptic 4x4 and kerlix bulk dressing applied to wound. History of Present Illness HPI: Mr. Morris is a 68 year old male with a PMH significant for atrial fibril lation, coronary artery disease, hyperlipidemia, hypertension, kidney stones, myocardial infarct and chronic ulceration of the right foot which is followed in wound care center by . Per last visit in Jul wound was stable. Wound was debrided in clinic and dry dressing placed. states they have been placing collagen to wound with a dry bulk dressing. Patient has been inpatient for quite some time and we have been consulted for evaluation of the right foot wound as well as a bullous lesion of the left great toe. Patient is noted to have worsening sepsis with a demise in condition. Admit abc 19.7 now 13.0 admit CRP [address] imagining was obtained of foot and was negative for abscess or osteomyelitis. A dressing is intact to RLE on arrival to room. at bedside. Nursing assistance at bedside to sit with patient. Patient confused and pulling CPAP and iv lines. Patient is lethargic and unresponsive to questions and does not follow commands. Patient is currently receiving IV vancomycin. Patient has positive MRSA blood cultures. Past Med Surg Social Fam HX - Past Medical History Medical history: atrial fibrillation, coronary artery disease, hyperlipidemia, hypertension, kidney stones, myocardial infarction Additional medical history: mrsa, sleep apnea,. wound on right foot Psychiatric history: no psych history - Past Surgical History Surgical History: appendectomy, cholecystectomy, pacemaker/AICD, other Additional surgical history: eye sx, foot sx - Social History Smoking Status: Never smoker Smokeless Tobacco Status: No Alcohol use: none Drug use: none - Family History Mother Adopted: No Family Member Ethnicity: Non- Living Status: Hx Family Cardiac Disorders: No Hx Family Respiratory Disorders: No Hx Family Cancer: Yes Hx Family GI Disorders: No Hx Family Endocrine Disorder: Yes (Diabetes) Hx Family Neuromuscular Disorders: No Hx Family Neurologic Disorders: No Hx Family HEENT Disorders: No Hx Family Autoimmune Disorders: No Father Adopted: No Family Member Ethnicity: Non- Living Status: Hx Family Cardiac Disorders: No Hx Family Respiratory Disorders: No Hx Family Cancer: Yes Hx Family GI Disorders: No Hx Family Endocrine Disorder: No Hx Family Neuromuscular Disorders: No Hx Family Neurologic Disorders: No Hx Family HEENT Disorders: No Hx Family Autoimmune Disorders: No Medications and Allergies Allopurinol [Zyloprim 300 MG] 300 mg PO DAILY 11/11/18 [History] Atorvastatin [Lipitor] 40 mg PO DAILY 11/11/18 [History] Carvedilol 12.5 mg PO BID 11/11/18 [History] Enoxaparin [Lovenox] 30 mg SQ Q12HR 11/11/18 [History] Furosemide [Lasix] 40 mg PO BID 11/11/18 [History] Gabapentin [Neurontin] 300 mg PO TID 11/11/18 [History] Spironolactone 50 mg PO BID 11/11/18 [History] Tamsulosin HCl [Flomax] 0.4 mg PO DAILY 11/11/18 [History] Warfarin [Coumadin] 3 mg PO SUTUWETHSA 11/11/18 [History] Warfarin [Coumadin] 4.5 mg PO MOFR 11/11/18 [History] Allergy/AdvReac Type Severity Reaction Status Date / Time Sulfa (Sulfonamide AdvReac Unknown advised by Verified 06/05/15 10:20 Antibiotics) dr ruff doesn't work for him All Systems Reviewed: as per HPI Physical Exam - Constitutional Vitals: Temp Pulse Resp BP Pulse Ox 99.0 F 102 17 105/77 97 11/20/18 14:30 11/20/18 14:30 11/20/18 14:30 11/20/18 14:30 11/20/18 14:30 Exam: General Examination: CONSTITUTIONAL: lethargic and unresponsive to questions. Restless. EXTREMITIES: CFT 3 seconds all toes. Edema +2 and pedal pulses palpable. SKIN: There is a noted chronic ulceration sub/lateral mt head #5 right. This is crusted with hyperkeratosis and scabbing. Wound was debrided at bedside using a #15 blade, wound was debrided into the sub Q tissue. There was a moderate amount of purulent drainage expressed from wound. This was obtained for culture. After removal of all devitalized tissue there is no areas of noted tracking or fluctuance. There is a sligt odor. Wound measures [id number],3cm and I am able to visualize the joint capsule without exposure of the joint, there is a thin layer of tissue overlying. There is minimal surrouning edema, erythema or warmth. Healthy bleeding and granulation tissue is noted to entire wound bed. No areas of skin necrosis or sloughing of skin. There is also a thick hyperkeratoic lesion to the lateral aspect of the cuboid bone, this was sharply debrided at bedside and there is no ulcerlying ulceration or lesion There is a bullous lesion to the left great toe, medial aspect, this was lanced using a #15 blade and serous fluid was released. This was also obtained for cul ture. The lesion was deroofed and 100% healthy granulation tissue was noted to entire wound bed. 0.6cmx0.6cmx0.2cm and limited to breakdown of the skin. NEUROLOGIC: Diminished sensation to light and moderate touch MUSCULOSKELETAL: Muscle strength and tone unable to be assessed- no edema or fluctuance surrounding joints of foot or ankle. Results - Labs Result Diagrams: 11/20/18 01:21 11/20/18 08:35 Labs: Abnormal lab results WBC 13.0 K/mcL (4.3-11.1) H 11/20/18 01:21 RBC 2.64 M/mcL (4.19-5.50) L 11/20/18 01:21 Hgb 8.2 g/dL (12.9-16.9) L 11/20/18 01:21 Hct 28.1 % (37.5-50.1) L 11/20/18 01:21 MCV 106.4 fL (83.0-100.0) H 11/20/18 01:21 MCHC 29.2 g/dL (31.6-35.5) L 11/20/18 01:21 RDW 15.8 % (11.5-14.5) H 11/20/18 01:21 Plt Count 457 K/mcL (140-400) H 11/20/18 01:21 Metamyelocytes % 2.0 % (0) H 11/15/18 05:57 Myelocytes % 2.0 % (0) H 11/15/18 05:57 Neutrophils # 10.2 K/mcL (1.6-8.9) H 11/20/18 01:21 Nucleated RBCs/100 WBC 0.2 /100 WBC (0) H 11/16/18 06:32 Reactive Lymphocytes Present (Not Present) A 11/10/18 01:12 Platelet Estimate Increased (Normal) H 11/16/18 06:32 Polychromasia 1+ (Not Present) A 11/15/18 05:57 Anisocytosis 1+ (Not Present) A 11/15/18 05:57 ESR 125 mm/hr (0-10) H 11/12/18 15:40 PT 15.0 Seconds (9.4-12.1) H 11/17/18 07:42 ABG pH 7.29 pH Units (7.32-7.45) L 11/20/18 12:20 ABG pCO2 56 mmHg (35-45) H 11/20/18 12:20 ABG pO2 70 mmHg (85-104) L 11/20/18 12:20 ABG Total CO2 29 mEq/L (20-26) H 11/20/18 12:20 ABG O2 Saturation 91 % (95-98) L 11/20/18 12:20 Sodium 151 mEq/L (136-145) H 11/20/18 08:35 Chloride 125 mEq/L (98-107) H 11/20/18 01:21 BUN 26 mg/dL (8-23) H 11/20/18 01:21 Creatinine 1.44 mg/dL (0.70-1.30) H 11/20/18 01:21 Est GFR ( Amer) 59 (> 60) L 11/20/18 01:21 Est GFR (Non-Af Amer) 48 (> 60) L 11/20/18 01:21 Glucose 130 mg/dL (70-105) H 11/20/18 01:21 POC Glucose 113 mg/dL (70-99) H 11/20/18 00:11 Serum Osmolality 347 mOsm/kg (280-300) H 11/19/18 18:08 Calculated Osmolality 329 (280-300) H 11/20/18 01:21 Calcium 10.7 mg/dL (8.6-10.3) H 11/20/18 01:21 Iron 34 mcg/dL (65-175) L 11/12/18 16:22 % Saturation 16 % (20-55) L 11/12/18 16:22 Transferrin 148 mg/dL (203-362) L 11/12/18 16:22 Ferritin 565 ng/mL (20-250) H 11/12/18 16:22 Creatine Kinase 863 Units/L (30-223) H 11/10/18 01:12 C-Reactive Protein 201 mg/L (Less than 10) H 11/12/18 16:09 B-Natriuretic Peptide 123 pg/mL (Less than 100) H 11/09/18 11:14 Albumin 2.9 g/dL (3.5-5.7) L 11/18/18 22:30 Globulin 3.9 g/dL (2.4-3.5) H 11/18/18 22:30 Albumin/Globulin Ratio 0.7 (1.1-2.2) L 11/18/18 22:30 Folate > 22.3 ng/mL (3.0-16.0) H 11/12/18 16:22 Urine Protein 30 mg/dL (Neg-Trace) H 11/13/18 05:13 Urine Blood Large (Negative) H 11/13/18 05:13 Urine Microscopic RBC TNTC per hpf (0-3) H 11/13/18 05:13 Urine Microscopic WBC 3-5 per hpf (0-3) H 11/13/18 05:13 Ur Squamous Epith Cells Many per lpf (None-Few) H 11/13/18 05:13 Granular Casts Few per lpf (None Seen) H 11/09/18 17:18 Pleural Appearance Bloody (Clear) A 11/16/18 15:00 Pleural RBC 0.087 M/mcL (0.000-0.002) H 11/16/18 15:00 Nasal Screen MRSA (PCR) Positive (Negative) A 11/09/18 21:50 Stool Occult Bld Scrn Positive (Negative) A 11/09/18 13:05 Stool Calprotectin 162 ug/g (<=50) H 11/13/18 10:50 Vancomycin Trough 23 mcg/mL (5-10) H 11/18/18 20:21 Staph aureus (PCR) DETECTED (Not Detect) A 11/13/18 07:20 mecA-Methicil Res Gene DETECTED (Not Detect) A 11/13/18 07:20 H & H 11/20/18 Range/Units 01:21 Hgb 8.2 L (12.9-16.9) g/dL Hct 28.1 L (37.5-50.1) % All other labs normal. Consult Discharge Plan - Plan Referrals: NONE,PCP [Primary Care Provider] -
--- NOTE | 2018-11-20 15:41 | Nephrology Progress Note ---
Date of Encounter: 11/20/18 Time of Encounter: 15:41 - Assessment and Plan (1) Hypernatremia Current Visit: Yes Status: Acute Patient has significant and progressive hypernatremia of unclear etiology. His last furosemide was 11/15/18. He continues to be volume negative since developing hypernatremia. By my calculations his free water deficit is 11 liters. I recommend aggressive administration of free water by NG or OG vs intravenous D5. I will increase his D5 MIV and give a bolus liter of D5 and reasses his serum sodium to assess for a response. If his UOP picks up with no change in his serum sodium he may have DI and may require a dose of Ddavp to assess for central DI especially given his recent reported head trauma. While he is not polyuric I would expect lower urine output which raises the possibliity of DI. At this time ok for rapid correction as the rise in his serum sodium is also rapid. Hold diuretics. Follow serum sodium and call if serum sodium rises any further. Patient with complicated clinical picture requiring high level decision making. Serum sodium responded to D5 and DDavp. Will give an additional dose and monitor. (2) Acute encephalopathy Current Visit: Yes Status: Acute Likely related to hypernatremia, but patient also has sepsis. Improved. (3) Pleural effusion Current Visit: Yes Status: Acute (4) CAD (coronary artery disease) Current Visit: Yes Status: Chronic Qualifiers: Coronary Disease-Associated Artery/Lesion type: [place] artery [place] vs. transplanted heart: [place] heart Associated angina: without angina Qualified Code(s): I25.10 - Atherosclerotic heart disease of [place] coronary artery without angina pectoris (5) HTN (hypertension) Current Visit: Yes Status: Chronic Qualifiers: Hypertension type: essential hypertension Qualified Code(s): I10 - Essential (primary) hypertension (6) Morbid obesity with BMI of 40.0-44.9, adult Current Visit: Yes Status: Chronic (7) Anemia Current Visit: Yes Status: Suspected Qualifiers: Anemia type: iron deficiency Iron deficiency anemia type: chronic blood loss Qualified Code(s): D50.0 - Iron deficiency anemia secondary to blood loss (chronic) (8) Acute kidney injury superimposed on chronic kidney disease Current Visit: Yes Status: Acute (9) Bacteremia Current Visit: Yes Status: Acute (10) Sepsis Current Visit: Yes Status: Acute Qualifiers: Sepsis type: methicillin resistant Staphylococcus aureus Qualified Code(s): A41.02 - Sepsis due to Methicillin resistant Staphylococcus aureus Subjective Principal diagnosis: HYpernatremia Interval history: Patient seen and evaluated. He is mentally better and without complaint. His family is at his bedside. Objective - Vital Signs Vital signs: Vital Signs Temp Pulse Resp BP Pulse Ox 11/20/18 14:30 99.0 F 102 17 105/77 97 11/20/18 12:00 27 91 11/20/18 11:09 14 90 11/20/18 10:56 98.3 F 101 28 127/81 92 11/20/18 07:30 16 94 11/20/18 06:21 97.6 F 100 29 121/86 96 11/20/18 04:03 99.0 F 118 20 127/77 11/20/18 03:56 14 95 11/20/18 01:47 90/56 11/20/18 01:33 92/70 11/20/18 01:15 90/66 11/20/18 01:09 108/66 11/20/18 01:02 91/59 11/20/18 00:46 108/70 11/20/18 00:33 99/71 11/20/18 00:04 25 98 11/19/18 23:31 99.8 F H 120 104/67 97 11/19/18 21:41 100.1 F H 11/19/18 20:40 96 11/19/18 19:48 16 95 11/19/18 19:19 100.0 F H 79 117/99 115 11/19/18 16:02 18 94 Intake and Output 11/19/18 11/20/18 11/20/18 23:59 07:59 15:59 Intake Total 1220 / 1220 1350 / 1350 1125 / 1125 Output Total 300 / 300 700 / 700 1900 / 1900 Balance 920 / 920 650 / 650 -775 / -775 Intake: IV Fluids 1220 / 1220 1350 / 1350 1125 / 1125 Dextrose 5% 1,000 ML @ 150 mls/ 1000 / 1000 1000 / 1000 1100 / 1100 hr IVC .Q6H40M [facility] Rx#: [id number] Cardizem 50 MG In 0.9 % Sodium 50 / 50 25 / 25 Chloride 40 ML @ 5 MG/HR 5 mls/ hr IVC .Q10H [facility] Rx#:[id number] Maxipime 2,000 MG In Water for 20 / 20 inj. (sterile) 20 ML @ 300 mls/ hr IVP Q12HR [facility] Rx#:[id number] Ofirmev 1,000 mg/100 ml 1,000 100 / 100 200 / 200 mg In 100 ml @ 400 mls/hr IVPB Q6HR [facility] Rx#:[id number] Flagyl Premix 500 MG/100 ML 500 100 / 100 100 / 100 mg In 100 ml @ 100 mls/hr IVPB Q8HR [facility] Rx#:[id number] Oral 0 / 0 0 / 0 Output: Urine 650 / 650 Catheter 300 / 300 700 / 700 1250 / 1250 Other: Meal NPO npo # Bowel Movements 0 Blood Glucose* 94 122 163 - General Appearance General appearance: Present: well-developed, well-nourished Cardiology: Present: regular rate - Lab 11/20/18 01:21 11/20/18 15:43 Most recent lab results ABG pH 7.29 pH Units (7.32-7.45) L 11/20/18 12:20 ABG pCO2 56 mmHg (35-45) H 11/20/18 12:20 ABG pO2 70 mmHg (85-104) L 11/20/18 12:20 ABG HCO3 27 mEq/L (21-27) 11/20/18 12:20 ABG O2 Saturation 91 % (95-98) L 11/20/18 12:20 Calcium 10.7 mg/dL (8.6-10.3) H 11/20/18 01:21 Magnesium 2.4 mg/dL (1.6-2.6) 11/20/18 04:40 Urine Sodium 92.2 mEq/L 11/19/18 17:30 - VTE Documentation of Mechanical Device: Intermittent pneumatic compression device Consult Discharge Plan - Plan Referrals: NONE,PCP [Primary Care Provider] -
[2018-11-20] MEDS ORDERED: Gadolinium Contrast Agent (WT Based) IV PRN (15:58)
[2018-11-20 18:01] LABS: ABG Base Excess 5 mEq/L (-2 to 3); ABG HCO3 28 mEq/L (21-27); ABG Oxygen Saturation 95 % (95-98); ABG PCO2 36 mmHg (35-45); ABG PO2 70 mmHg (85-104); ABG TCO2 29 mEq/L (20-26); Blood Gas PEEP 6 cm H2O; Blood Gas Pressure Support 14 cm H2O
[2018-11-20] MEDS: *HR* Heparin 5,000 UNIT/ML VIAL SQ SCH ×2 (19:20→21:19)
[2018-11-20] MEDS: Gabapentin 300 MG CAPSULE PO SCH (21:15)
[2018-11-20 21:55] LABS: INR 1.5; Prothrombin Time 17.1 Seconds (9.4-12.1)
[2018-11-21] MEDS ORDERED: Desmopressin Acetate SPRAY 5 ML BOTTLE NS ONE ×3 (00:15→17:42)
[2018-11-21] MEDS: MethylPREDNISolone 40 MG/ML VIAL IVP SCH ×4 (00:20→23:41)
[2018-11-21] MEDS: MetroNIDAZOLE 500 MG/100 ML 500 MG/100 ML BAG IVPB SCH ×4 (00:23→23:42)
[2018-11-21] MEDS: D5% in Water 1,000 ML IVC SCH ×4 (01:12→17:29)
[2018-11-21] MEDS: Levalbuterol Neb 1.25 MG/3 ML IH SCH ×5 (03:33→20:29)
[2018-11-21 03:59] LABS: ABG Base Excess 3 mEq/L (-2 to 3); ABG HCO3 25 mEq/L (21-27); ABG Oxygen Saturation 98 % (95-98); ABG PCO2 29 mmHg (35-45); ABG PH 7.55 pH Units (7.32-7.45); ABG PO2 94 mmHg (85-104); ABG TCO2 26 mEq/L (20-26); Blood Gas Modality NIV
[2018-11-21] MEDS: *HR* Heparin 5,000 UNIT/ML VIAL SQ SCH ×3 (05:59→21:19)
[2018-11-21] MEDS: Cefepime HCl 2,000 MG in Water for inj. (sterile) 20 ML 20 ML IVP SCH ×2 (06:01→17:19)
--- NOTE | 2018-11-21 06:37 | Pulmonology Progress Note ---
Date of Encounter: 11/21/18 Time of Encounter: 06:37 Assessment and Plan (1) Pneumonia Current Visit: Yes Status: Acute Overall patient presenting with acute respiratory failure which is a complication of hydrostatic pulmonary edema and pneumonia also has pleural effusion which is status post thoracentesis. He has acute metabolic encephalopathy secondary to electrolyte derangements I suspect that he is still grossly volume depleted even though total body water is increased to intravascularly I suspect he still very dry and this reflected in his metabolic alkalosis. Agree with continuation of antimicrobials - I suspect that this is MRSA pneumoni a although he is at increased risk for aspiration Avoid BiPAP as much as possible to prevent hyperventilation I spoke with the motor polarizer Dr Sher could consider some gentle crystalloid resuscitation (alternatively 5% albumin) such as half normal saline while monitoring his chloride and sodium level would likely need to continue the D5W and even consider placement of nasogastric tube for free water if tolerated Patient still has high risk of further deterioration from mental status if he has progressive alkalosis this may require intubation currently. Stay for continued care on the [address] [place] [address]. Consider repeating an ABG in 4-6 hours or sooner if mental status deteriorates Call with any questions Qualifiers: Pneumonia type: due to unspecified organism Laterality: right Lung location: lower lobe of lung Qualified Code(s): J18.1 - Lobar pneumonia, unspecified organism (2) Acute encephalopathy Current Visit: Yes Status: Acute (3) Pleural effusion Current Visit: Yes Status: Acute (4) Acute respiratory failure Current Visit: Yes Status: Acute Qualifiers: Respiratory failure complication: hypoxia and hypercapnia Qualified Code(s): J96.01 - Acute respiratory failure with hypoxia; J96.02 - Acute respir atory failure with hypercapnia (5) Metabolic alkalosis Current Visit: Yes Status: Acute Subjective Principal diagnosis: HYpernatremia Interval history: Remains encephalopathic unable to follow Commands consistently or participate in history gathering. Oxygen saturation 95% on 6 L oxygen mask Objective PUL Vital signs: Last Vital Signs Temp 100.9 F H 11/21/18 03:03 Pulse 113 11/21/18 03:03 Resp 33 11/21/18 03:33 BP 115/70 11/21/18 03:03 Pulse Ox 96 11/21/18 03:33 General appearance: appears uncomfortable ENT: oropharynx dry Neck: supple Auscultation: bilateral: diminished breath sounds Cardiovascular: regular rate and rhythm Gastrointestinal: soft, non-tender Extremities: edema Musculoskeletal: no deformities other (Patient is not related to person herself is unable to follow commands consistently eyes pupils are equal and reactive to light he has movement of all extremities without focal deficits) anxious Results - Laboratory Findings CBC and BMP: 11/21/18 08:54 11/21/18 08:54 ABG ABG pH 7.55 pH Units (7.32-7.45) H 11/21/18 03:54 ABG pCO2 29 mmHg (35-45) L 11/21/18 03:54 ABG pO2 94 mmHg (85-104) 11/21/18 03:54 ABG O2 Saturation 98 % (95-98) 11/21/18 03:54 PT/INR, D-dimer PT 17.1 Seconds (9.4-12.1) H 11/20/18 21:23 Abnormal lab findings: Abnormal lab results WBC 13.0 K/mcL (4.3-11.1) H 11/20/18 01:21 RBC 2.64 M/mcL (4.19-5.50) L 11/20/18 01:21 Hgb 8.2 g/dL (12.9-16.9) L 11/20/18 01:21 Hct 28.1 % (37.5-50.1) L 11/20/18 01:21 MCV 106.4 fL (83.0-100.0) H 11/20/18 01:21 MCHC 29.2 g/dL (31.6-35.5) L 11/20/18 01:21 RDW 15.8 % (11.5-14.5) H 11/20/18 01:21 Plt Count 457 K/mcL (140-400) H 11/20/18 01:21 Metamyelocytes % 2.0 % (0) H 11/15/18 05:57 Myelocytes % 2.0 % (0) H 11/15/18 05:57 Neutrophils # 10.2 K/mcL (1.6-8.9) H 11/20/18 01:21 Nucleated RBCs/100 WBC 0.2 /100 WBC (0) H 11/16/18 06:32 Reactive Lymphocytes Present (Not Present) A 11/10/18 01:12 Platelet Estimate Increased (Normal) H 11/16/18 06:32 Polychromasia 1+ (Not Present) A 11/15/18 05:57 Anisocytosis 1+ (Not Present) A 11/15/18 05:57 ESR 125 mm/hr (0-10) H 11/12/18 15:40 PT 17.1 Seconds (9.4-12.1) H 11/20/18 21:23 ABG pH 7.55 pH Units (7.32-7.45) H 11/21/18 03:54 ABG pCO2 29 mmHg (35-45) L 11/21/18 03:54 Sodium 153 mEq/L (136-145) H 11/21/18 00:00 Chloride 125 mEq/L (98-107) H 11/20/18 01:21 BUN 26 mg/dL (8-23) H 11/20/18 01:21 Creatinine 1.44 mg/dL (0.70-1.30) H 11/20/18 01:21 Est GFR ( Amer) 59 (> 60) L 11/20/18 01:21 Est GFR (Non-Af Amer) 48 (> 60) L 11/20/18 01:21 Glucose 130 mg/dL (70-105) H 11/20/18 01:21 Serum Osmolality 347 mOsm/kg (280-300) H 11/19/18 18:08 Calculated Osmolality 329 (280-300) H 11/20/18 01:21 Calcium 10.7 mg/dL (8.6-10.3) H 11/20/18 01:21 Iron 34 mcg/dL (65-175) L 11/12/18 16:22 % Saturation 16 % (20-55) L 11/12/18 16:22 Transferrin 148 mg/dL (203-362) L 11/12/18 16:22 Ferritin 565 ng/mL (20-250) H 11/12/18 16:22 Creatine Kinase 863 Units/L (30-223) H 11/10/18 01:12 C-Reactive Protein 201 mg/L (Less than 10) H 11/12/18 16:09 B-Natriuretic Peptide 123 pg/mL (Less than 100) H 11/09/18 11:14 Albumin 2.9 g/dL (3.5-5.7) L 11/18/18 22:30 Globulin 3.9 g/dL (2.4-3.5) H 11/18/18 22:30 Albumin/Globulin Ratio 0.7 (1.1-2.2) L 11/18/18 22:30 Folate > 22.3 ng/mL (3.0-16.0) H 11/12/18 16:22 Urine Protein 30 mg/dL (Neg-Trace) H 11/13/18 05:13 Urine Blood Large (Negative) H 11/13/18 05:13 Urine Microscopic RBC TNTC per hpf (0-3) H 11/13/18 05:13 Urine Microscopic WBC 3-5 per hpf (0-3) H 11/13/18 05:13 Ur Squamous Epith Cells Many per lpf (None-Few) H 11/13/18 05:13 Granular Casts Few per lpf (None Seen) H 11/09/18 17:18 Pleural Appearance Bloody (Clear) A 11/16/18 15:00 Pleural RBC 0.087 M/mcL (0.000-0.002) H 11/16/18 15:00 Nasal Screen MRSA (PCR) Positive (Negative) A 11/09/18 21:50 Stool Occult Bld Scrn Positive (Negative) A 11/09/18 13:05 Stool Calprotectin 162 ug/g (<=50) H 11/13/18 10:50 Vancomycin Trough 23 mcg/mL (5-10) H 11/18/18 20:21 Staph aureus (PCR) DETECTED (Not Detect) A 11/13/18 07:20 mecA-Methicil Res Gene DETECTED (Not Detect) A 11/13/18 07:20 - Microbiology Findings Microbiology Findings: Microbiology, Last 48 Hours 11/20/18 14:45 Gram Stain - Final Right Fifth Toe 11/20/18 14:45 Gram Stain - Final Left Great Toe 11/20/18 14:45 Anaerobic Culture - Preliminary Left Great Toe Culture is incubating. 11/20/18 14:45 Anaerobic Culture - Preliminary Right Fifth Toe Culture is incubating. 11/20/18 14:45 Wound Culture - Preliminary Left Great Toe Culture is incubating. 11/20/18 14:45 Wound Culture - Preliminary Right Fifth Toe Culture is incubating. 11/18/18 11:00 Blood Culture - Final Peripheral Venipuncture Gram Positive Cocci 04/19/19 15:00 Body Fluid Culture - Final Pleural Fluid 11/16/18 15:00 Anaerobic Culture - Preliminary Pleural Fluid At this time, no anaerobic growth is present. The culture will be finalized after 5 days of incubation. - Clinical Findings Intake & Output: Intake & Output 11/20/18 11/20/18 11/21/18 15:59 23:59 07:59 Intake Total 1250 / 1250 170 / 170 200 / 200 Output Total 1900 / 1900 1999 / 1999 350 / 350 Balance -650 / -650 -1830 / -1830 -150 / -150 Weight 130.7 kg - VTE Documentation of Mechanical Device: Intermittent pneumatic compression device Consult Discharge Plan - Plan Referrals: NONE,PCP [Primary Care Provider] -
[2018-11-21] MEDS: Aspirin Enteric Coated 81 MG Tablet PO SCH (07:45)
[2018-11-21] MEDS ORDERED: Isovue-370 500 ML BOTTLE IVP ONE (08:41)
[2018-11-21 09:18] LABS: Basophils % 0.2 %; Eosinophils % 0.1 %; Hematocrit 28.4 % (37.5-50.1); Hemoglobin 8.5 g/dL (12.9-16.9); Immature Granulocytes % 0.5 % (0-4); Lymphocytes # 0.7 K/mcL (0.6-4.6); Lymphocytes % 5.6 %; Mean Corpuscular HGB Conc 29.9 g/dL (31.6-35.5); Mean Corpuscular Hemoglobin 30.9 pg (28.0-33.3); Mean Corpuscular Volume 103.3 fL (83.0-100.0); Mean Platelet Volume 9.9 fL (9.4-12.4); Monocytes # 0.2 K/mcL (0.0-1.3); Monocytes % 1.7 %; Neutrophils # 11.1 K/mcL (1.6-8.9); Platelet Count 435 K/mcL (140-400); Red Blood Count 2.75 M/mcL (4.19-5.50); Red Cell Distribution Width 15.2 % (11.5-14.5); Segmented Neutrophils % 91.9 %
[2018-11-21 09:28] LABS: Sodium 150 mEq/L (136-145)
--- NOTE | 2018-11-21 09:29 | Nephrology Progress Note ---
Date of Encounter: 11/21/18 Time of Encounter: 10:00 - Assessment and Plan (1) Hypernatremia Current Visit: Yes Status: Acute Elevated sodium level since 11/16. During this hospital stay sodium has been low, progressed to normal, and is now elevated. 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 Patient therefore was given vasopressin last night. Repeat vasopressin dose today. We will increase rate of D5 from 75ml/hr to 150 mls/hr. We will repeat sodium today at 1500 and continue to repeat every 8 hours to help adjust sodium levels appropriately. Plan: - Vasopressin 1 spray this AM, s/p 1 spray last night - increased D5 from 75ml/hr to 150ml/hr - sodium level Q8H and will adjust D5 and Ddavp as needed - continue to hold diuretics (2) Acute renal failure Current Visit: Yes Status: Acute non-oliguric VAZQUEZ. Continue to improve with fluids. Will continue renal cons ervative measures. avoid nephrotoxins and adjust medication according to creatinine clearance. We will continue to trend. Qualifiers: Acute renal failure type: with acute tubular necrosis Qualified Code(s): N17.0 - Acute kidney failure with tubular necrosis (3) Anemia Current Visit: Yes Status: Suspected Qualifiers: Anemia type: iron deficiency Iron deficiency anemia type: chronic blood loss Qualified Code(s): D50.0 - Iron deficiency anemia secondary to blood loss (chronic) (4) Chronic ulcer of right foot with fat layer exposed Current Visit: No Status: Acute (5) GI bleed Current Visit: Yes Status: Suspected Qualifiers: GI bleed type/associated pathology: melena Qualified Code(s): K92.1 - Melena (6) Pneumonia Current Visit: Yes Status: Acute Qualifiers: Pneumonia type: due to unspecified organism Laterality: right Lung location: lower lobe of lung Qualified Code(s): J18.1 - Lobar pneumonia, unspe cified organism (7) Diarrhea Current Visit: Yes Status: Resolved Qualifiers: Diarrhea type: presumed infectious Qualified Code(s): R19.7 - Diarrhea, unspecified (8) Dehydration Current Visit: Yes Status: Resolved (9) Rhabdomyolysis Current Visit: Yes Status: Resolved Qualifiers: Rhabdomyolysis type: traumatic Encounter type: subsequent encounter Qualified Code(s): T79.6XXD - Traumatic ischemia of muscle, subsequent encounter (10) UTI (urinary tract infection) Current Visit: Yes Status: Suspected Qualifiers: Urinary tract infection type: acute cystitis Hematuria presence: with hematuria Qualified Code(s): N30.01 - Acute cystitis with hematuria (11) Atrial fibrillation Current Visit: Yes Status: Chronic Qualifiers: Atrial fibrillation type: chronic Qualified Code(s): I48.2 - Chronic atrial fibrillation (12) HTN (hypertension) Current Visit: Yes Status: Chronic Qualifiers: Hypertension type: essential hypertension Qualified Code(s): I10 - Essential (primary) hypertension (13) CAD (coronary artery disease) Current Visit: Yes Status: Chronic Qualifiers: Coronary Disease-Associated Artery/Lesion type: [place] artery [place] vs. transplanted heart: [place] heart Associated angina: without angina Qualified Code(s): I25.10 - Atherosclerotic heart disease of [place] coronary artery without angina pectoris (14) Morbid obesity with BMI of 40.0-44.9, adult Current Visit: Yes Status: Chronic (15) DVT prophylaxis Current Visit: Yes Status: Acute (16) Supratherapeutic INR Current Visit: Yes Status: Resolved (17) Sepsis Current Visit: Yes Status: Acute Qualifiers: Sepsis type: methicillin resistant Staphylococcus aureus Qualified Code(s): A41.02 - Sepsis due to Methicillin resistant Staphylococcus aureus (18) Acute encephalopathy Current Visit: Yes Status: Acute (19) Dysphagia Current Visit: Yes Status: Suspected Qualifiers: Dysphagia type: oropharyngeal phase Qualified Code(s): R13.12 - Dysphagia, oropharyngeal phase (20) Bacteremia Current Visit: Yes Status: Acute (21) Pleural effusion Current Visit: Yes Status: Acute Subjective Principal diagnosis: HYpernatremia Interval history: Mr. Abad is a 68 y/o male with a hx of afib on coumadin and CAD brought to ED due to weakness and pain. Nephrology was consulted for hypernatremia. Patient is currently not responding appropriately to questions and is confused. is at bedside. Objective - Vital Signs Vital signs: Vital Signs Temp Pulse Resp BP Pulse Ox 11/21/18 07:19 16 98 11/21/18 07:00 99.2 F 100 20 117/71 97 11/21/18 03:33 33 96 11/21/18 03:03 100.9 F H 113 17 115/70 95 11/21/18 00:39 114 18 107/72 92 11/20/18 23:43 34 95 11/20/18 23:28 119 24 117/66 97 11/20/18 19:42 33 97 11/20/18 16:20 20 95 11/20/18 14:30 99.0 F 102 17 105/77 97 11/20/18 12:00 27 91 11/20/18 11:09 14 90 11/20/18 10:56 98.3 F 101 28 127/81 92 Intake and Output 11/20/18 11/21/18 11/21/18 23:59 07:59 15:59 Intake Total 170 / 170 250 / 250 Output Total 1999 500 / 500 Balance -1830 / -1830 -250 / -250 Intake: IV Fluids 170 / 170 250 / 250 Cardizem 50 MG In 0.9 % Sodium 50 / 50 50 / 50 Chloride 40 ML @ 5 MG/HR 5 mls/ hr IVC .Q10H [facility] Rx#:[id number] Maxipime 2,000 MG In Water for 20 / 20 inj. (sterile) 20 ML @ 300 mls/ hr IVP Q12HR [facility] Rx#:[id number] Ofirmev 1,000 mg/100 ml 1,000 100 / 100 mg In 100 ml @ 400 mls/hr IVPB Q6HR PRN Rx#:[id number] Flagyl Premix 500 MG/100 ML 500 100 / 100 100 / 100 mg In 100 ml @ 100 mls/hr IVPB Q8HR [facility] Rx#:[id number] Oral 0 / 0 Output: Catheter 1999 500 / 500 Other: Meal Dinner npo Percent of Meal Consumed 0% Weight 130.7 kg Blood Glucose* 90 158 - General Appearance Exam: Constitutional: fitfully sleeping, moving extremities around, restless Head: Normocephalic, atraumatic Heart: Normal, regular rate and rhythm, no murmurs Lungs: wheezes present, on oxymask Abdomen: Soft, nondistended, nontender, no guarding or rigidity. Extremities: +1 pitting edema, No clubbing, radial pulse +2/4, capillary refill <2sec. Skin: Skin warm and dry, no lesions, no rashes, no jaundice Neurologic: not able to answer questions appropriately, not following commands - Lab 11/21/18 08:54 11/21/18 08:54 Most recent lab results ABG pH 7.55 pH Units (7.32-7.45) H 11/21/18 03:54 ABG pCO2 29 mmHg (35-45) L 11/21/18 03:54 ABG pO2 94 mmHg (85-104) 11/21/18 03:54 ABG HCO3 25 mEq/L (21-27) 11/21/18 03:54 ABG O2 Saturation 98 % (95-98) 11/21/18 03:54 Calcium 10.7 mg/dL (8.6-10.3) H 11/20/18 01:21 Magnesium 2.4 mg/dL (1.6-2.6) 11/20/18 04:40 Urine Sodium 92.2 mEq/L 11/19/18 17:30 - VTE Documentation of Mechanical Device: Intermittent pneumatic compression device Consult Discharge Plan - Plan Referrals: NONE,PCP [Primary Care Provider] -
[2018-11-21 09:36] LABS: Alanine Aminotransferase 27 Units/L (7-52); Albumin 2.8 g/dL (3.5-5.7); Albumin/Globulin Ratio 0.8 (1.1-2.2); Alkaline Phosphatase 38 Units/L (34-104); Aspartate Amino Transferase 20 Units/L (13-39); BUN/Creatinine Ratio 22 (6-26); Bilirubin,Total 0.5 mg/dL (0.3-1.0); Blood Urea Nitrogen 30 mg/dL (8-23); Calcium 10.9 mg/dL (8.6-10.3); Carbon Dioxide 22 mEq/L (23-29); Chloride 120 mEq/L (98-107); Creatine Kinase 62 Units/L (30-223); Globulin 3.7 g/dL (2.4-3.5); Glucose 183 mg/dL (70-105); Magnesium 2.2 mg/dL (1.6-2.6); Osmolality,Calculated 321 (280-300); Phosphorous 2.7 mg/dL (2.7-4.5); Potassium 4.2 mEq/L (3.5-5.1); Total Protein 6.5 g/dL (6.4-8.9); eGFR For Non-African Americans 51 (> 60)
--- NOTE | 2018-11-21 09:40 | Internal Med Progress Note ---
<Sepideh Morejon - Last Filed: 11/21/18 15:52> Hospitalist Progress Note - Encounter Date of Encounter: 11/21/18 Time of Encounter: 09:36 - Subjective Interval History: 68yo male admitted for sepsis, acute renal failure, rhabdomyolysis, MRSA bacteremia, pneumonia, super therapeutic INR, G.I. bleed. Today, patient resting comfortably in bed. He bowel movement in the bed and was being cleaned up. Family at the bedside. His mental status unchanged is still confused. He recognizes family and is able to communicate some. Patient underwent chest tubes placement by interventional radiology due to enlarged right pleural effusion. Due to patient eating due to confusion NG tube placed with nutrition to follow. Podiatry performed incision and drainage on 2 lesions on feet 1 hyperkeratotic that had purulent drainage and 1 bullous that had serus drainage. Patient to be transferred to [facility]. - Exam Vitals: Temp Pulse Resp BP Pulse Ox 99.2 F 100 16 117/71 98 11/21/18 07:00 11/21/18 07:00 11/21/18 07:19 11/21/18 07:00 11/21/18 07:19 Exam: Gen.: Vitals noted. No acute distress. Confused and lethargic HEENT: oropharynx clear, Normocephalic, atraumatic Cardiac: RRR, no murmur, +S1/S2 Pulmonary: decreased breath sounds bilaterally, no wheezes, rales or rhonchi, equal chest expansion Abdomen: soft, nontender, Bowel sounds noted, no guarding MSK: no joint swelling noted Extremities: no BLE edema, nontender calf, no cyanosis or clubbing Neuro: moves all extremities - Assessment and Plan (1) Sepsis Current Visit: Yes Status: Acute Assessment and Plan: Patient met sepsis criteria on admission with 2 SIRS: temperature 101, WBC 19.7. Patient an initial presentation was not hemodynamically unstable and did not require the 30ml/kg IVF. -source is UTI, MRSA bacteremia, pneumonia -organism is MRSA -temperature 100.9F -WBC 12.1 improving -hemodynamically stable -urinalysis growing MRSA -pleural fluid appears exudative, no malignant cells -11/09/2018- 11/15/2018 blood culture growing MRSA x2 -11/18/2018 blood culture growing GPC 1/2 -chest CT demonstrating small right interest left partially likely to pleural effusions with findings concerning for pneumonia. Scattered nodules throughout the lungs bilaterally but maybe infectious or inflammatory or neoplastic. -Chest CT show enlarged right pleural effusion and small left pleural effusion, worsened. Plan: -continue vancomycin, daptomycin, cefepime, Flagyl IV (double coverage for MRSA due to continued fevers) -infectious disease following, appreciate antibiotic recommendations -await blood culture results -another set pleural fluid studies pending due to thoracentesis today -continue contact precautions (2) Pleural effusion Current Visit: Yes Status: Acute Assessment and Plan: -Likely secondary to pneumonia. No history of malignancy. -Chest CT show enlarged right pleural effusion and small left pleural effusion, worsened. -11/16/2017 s/p thoracentesis -appears exudate is thus far. No empyema. No malignant cells -Chest x-ray 11/20/2018 should worsening pulmonary edema increasing size of a partially likely related right pleural effusion. Worsened can compare to prior study. Plan -interventional radiology performed thoracentesis -new Pleural fluid studies pending -antibiotics as above (3) Bacteremia Current Visit: Yes Status: Acute Assessment and Plan: MRSA Bacteremia -this may be secondary to UTI, pneumonia, foot infection -11/09/2018-11/15/2018 blood culture growing MRSA x2 -11/18/2018 blood culture growing GPC 1/2 -11/21/2018 blood culture no growth to date -TTE was technically suboptimal due to poor echocardiographic window in body habitus. No significant valvular dysfunction. -LOY negative for vegetations-There are no vascular, immunologic findings of endocarditis such as [place] lesions, Os[place] nodes Plan: -continue IV vancomycin and daptomycin (double coverage due to fever) -continue to monitor blood cultures -continue contact precautions (4) Dysphagia Current Visit: Yes Status: Suspected Assessment and Plan: Patient has been unable to eat due to confusion -NG tube placed -nutrition consulted for tube feed management (5) Hypernatremia Current Visit: Yes Status: Acute Assessment and Plan: Hypernatremia -likely related to dehydration and poor oral intake -sodium 150 improved -creatinine function improving -May be contributing to confusion Plan -continue with D5 IV fluids 150. Patient also given desmopressin -nephrology consulted for recommendations, appreciated -will continue to monitor sodium (6) Chronic ulcer of right foot with fat layer exposed Current Visit: No Status: Acute Assessment and Plan: Patient with a chronic wound ulcer of the foot for which he follows with Dr. Darby of podiatry -11/14/[address] negative for osteomyelitis -11/21/[address] negative for osteomyelitis or subcutaneous infection. -11/21/2018 podiatry performed a debridement of the hyperkeratosis lesion expressed purulent drainage. The bullous lesion expressed serious fluid. Cultures were taken Plan -podiatry following -wound cultures were taken from drainage of hyperkeratosis lesion and bullous lesion -continue with wound care (7) Pneumonia Current Visit: Yes Status: Acute Assessment and Plan: Pneumonia likely community acquired -chest CT demonstrating small right interest left partially likely to pleural effusions with findings concerning for pneumonia. Scattered nodules throughout the lungs bilaterally but maybe infectious or inflammatory or neoplastic. -Chest CT show enlarged right pleural effusion and small left pleural effusion, worsened. -Chest x-ray 11/20/2018 should worsening pulmonary edema increasing size of a partially likely related right pleural effusion. Worsened can compare to prior study. plan: -continue antibiotics as above -continue bronchodilators such as Xopenex as needed -pulmonary nodules on chest CT will need repeat CT follow-up outpatient (8) GI bleed Current Visit: Yes Status: Suspected Assessment and Plan: Concerned for G.I. bleed possibly due to positive stool occult. This is in the setting of supratherapeutic INR. -hemodynamically stable -hemoglobin A .5 (13.8 on admission) -stool occult positive -s/p 1 PRBC -colonoscopy-poor prep with stool and entire colon, internal hemorrhoids, diverticulosis in sigmoid colon -EGD- normal esophagus, single gastric polyp. Granular mucosa in the 2nd port ion of duodenum, single duodenal polyp. Biopsies showed hyperplastic gastric polyp, submucosal lipoma and small intestine. -No obvious active bleeding Plan: -will continue monitor H&H -Coumadin for his age of fibrillation is currently being managed by pharmacy. He is not receiving any doses due to bleeding -will continue to monitor for bleeding (9) Diarrhea Current Visit: Yes Status: Resolved Assessment and Plan: Resolved. Patient presented complaining of profuse continue diarrhea. Son was concerned he had C diff. -Possibly secondary to medication -Stool culture negative for C diff or any other virus (10) Dehydration Current Visit: Yes Status: Resolved Assessment and Plan: Dehydration on admission. Patient received IV fluids (11) Rhabdomyolysis Current Visit: Yes Status: Resolved Assessment and Plan: Resolved Rhabdomyolysis which subsequently caused acute renal failure, secondary to patient having a recent fall and laying for many hours on the ground. -Creatinine kinase 1413 on admission -creatinine kinase currently 863 -received IV sodium bicarb (12) Acute renal failure Current Visit: Yes Status: Acute Assessment and Plan: Acute renal failure. At admission creatinine 2.1 -likely secondary to rhabdomyolysis -creatinine 1.39 improved -urinalysis with leukocyte esterase and WBC, granular casts -abdomen/pelvis CT demonstrating bilateral renal lesions with recommendations of dedicated renal MRI Plan: -continue renal protective strategy including renal dose medication and avoid nephrotoxic agents -monitor serum creatinine -monitor I&O (13) UTI (urinary tract infection) Current Visit: Yes Status: Suspected Assessment and Plan: Urinary tract infection on urinalysis -Patient denied dysuria could admitted urinary frequency -urinalysis with leukocyte esterase and WBC, granular casts -urinalysis growing MRSA -patient denied recent catheterization Plan: -continue Rendon catheter -antibiotics as above (14) Atrial fibrillation Current Visit: Yes Status: Chronic Assessment and Plan: History of atrial fibrillation on anticoagulation with Coumadin and rate controlled with carvedilol -continue carvedilol -Coumadin being held due to supratherapeutic INR. Management perpharmacy (15) HTN (hypertension) Current Visit: Yes Status: Chronic Assessment and Plan: History of hypertension taking carvedilol, spironolactone, Lasix -blood pressure stable -continue home carvedilol -labetalol IV PRN (16) CAD (coronary artery disease) Current Visit: Yes Status: Chronic Assessment and Plan: History of CAD taking atorvastatin, carvedilol, spironolactone -continue aspirin, atorvastatin, carvedilol (17) Supratherapeutic INR Current Visit: Yes Status: Resolved Assessment and Plan: Supratherapeutic INR. INR 4.1 on admission. Patient takes Coumadin for atrial fibrillation. -INR 1.5 -no obvious active bleeding -Pharmacy to manage Coumadin dose. Continue to hold Coumadin due to concern for G.I. bleed and low hemoglobin. -monitor INR -Monitor for bleeding (18) Anemia Current Visit: Yes Status: Suspected Assessment and Plan: Anemia in setting of supratherapeutic INR on admission concerning for G.I. bleed as well. -Hemoglobin 8.5 (8.6 yesterday) slightly decreased -colonoscopy-poor prep with stool and entire colon, internal hemorrhoids, diverticulosis in sigmoid colon -EGD- normal esophagus, single gastric polyp. Granular mucosa in the 2nd portion of duodenum, single duodenal polyp. Biopsies taken. -no obvious active bleeding -Will continue to monitor hemoglobin and for bleeding (19) Morbid obesity with BMI of 40.0-44.9, adult Current Visit: Yes Status: Chronic Assessment and Plan: Lifestyle changes (20) Acute encephalopathy Current Visit: Yes Status: Acute Assessment and Plan: Acute encephalopathy -likely secondary to metabolic pathology from infection, consider also hypernatremia -multiple head CT is negative for acute cranial abnormality -patient today more alert and interactive -family reported patient recognize them -will continue to monitor (21) DVT prophylaxis Current Visit: Yes Status: Acute Assessment and Plan: SCD - Time Spent with Patient Total time spent is greater than 50% in coordination of care (as documented) at patient's floor/unit and/or counseling patient: Internal Medicine: Result - Labs CBC & Chem 7: 11/21/18 08:54 11/21/18 08:54 Labs: Short CBC 11/21/18 Range/Units 08:54 WBC 12.1 H (4.3-11.1) K/mcL Hgb 8.5 L (12.9-16.9) g/dL Hct 28.4 L (37.5-50.1) % Plt Count 435 H (140-400) K/mcL Neutrophils # 11.1 H (1.6-8.9) K/mcL BMP 11/20/18 11/21/18 11/21/18 15:43 00:00 08:54 Sodium 152 H 153 H 150 H Potassium 4.2 Chloride 120 H Carbon Dioxide 22 L BUN 30 H Creatinine 1.39 H Glucose 183 H Calcium 10.9 H Liver Function 11/21/18 Range/Units 08:54 Total Bilirubin 0.5 (0.3-1.0) mg/dL AST 20 (13-39) Units/L ALT 27 (7-52) Units/L Alkaline Phosphatase 38 (34-104) Units/L Albumin 2.8 L (3.5-5.7) g/dL - ABG Interpretation ABG results: ABG ABG pH 7.55 pH Units (7.32-7.45) H 11/21/18 03:54 ABG pCO2 29 mmHg (35-45) L 11/21/18 03:54 ABG pO2 94 mmHg (85-104) 11/21/18 03:54 ABG O2 Saturation 98 % (95-98) 11/21/18 03:54 PT/INR, D-dimer PT 17.1 Seconds (9.4-12.1) H 11/20/18 21:23 - Impressions Impressions Chest X-Ray 11/20/18 12:04 IMPRESSION: Worsening pulmonary edema and increasing size of a partially loculated right pleural effusion. Along with cardiomegaly findings suggest moderate CHF worsening since prior. Pneumonia is in the differential. D/ / 11/20/2018 12:59:57 Rigo Stapleton MD / Greta Winchester Interpreting Provider: Rigo Stapleton MD - VTE Documentation of Mechanical Device: Intermittent pneumatic compression device Consult Discharge Plan - Plan Referrals: NONE,PCP [Primary Care Provider] - <Bk Nur - Last Filed: 11/21/18 16:45> Hospitalist Progress Note - Encounter Date of Encounter: 11/21/18 - Exam Vitals: Temp Pulse Resp BP Pulse Ox 99.2 F 100 16 117/71 98 11/21/18 07:00 11/21/18 07:00 11/21/18 07:19 11/21/18 07:00 11/21/18 07:19 - Assessment and Plan (1) Chronic ulcer of right foot with fat layer exposed Current Visit: No Status: Acute (2) GI bleed Current Visit: Yes Status: Suspected (3) Pneumonia Current Visit: Yes Status: Acute (4) Diarrhea Current Visit: Yes Status: Resolved (5) Dehydration Current Visit: Yes Status: Resolved (6) Rhabdomyolysis Current Visit: Yes Status: Resolved (7) Acute renal failure Current Visit: Yes Status: Acute (8) UTI (urinary tract infection) Current Visit: Yes Status: Suspected (9) Atrial fibrillation Current Visit: Yes Status: Chronic (10) HTN (hypertension) Current Visit: Yes Status: Chronic (11) CAD (coronary artery disease) Current Visit: Yes Status: Chronic (12) Morbid obesity with BMI of 40.0-44.9, adult Current Visit: Yes Status: Chronic (13) DVT prophylaxis Current Visit: Yes Status: Acute (14) Supratherapeutic INR Current Visit: Yes Status: Resolved (15) Sepsis Current Visit: Yes Status: Acute (16) Anemia Current Visit: Yes Status: Suspected (17) Acute encephalopathy Current Visit: Yes Status: Acute (18) Dysphagia Current Visit: Yes Status: Suspected (19) Bacteremia Current Visit: Yes Status: Acute (20) Pleural effusion Current Visit: Yes Status: Acute (21) Hypernatremia Current Visit: Yes Status: Acute - Time Spent with Patient Total time spent is greater than 50% in coordination of care (as documented) at patient's floor/unit and/or counseling patient: Internal Medicine: Result - Labs CBC & Chem 7: 11/21/18 08:54 11/21/18 08:54 Labs: Short CBC 11/21/18 Range/Units 08:54 WBC 12.1 H (4.3-11.1) K/mcL Hgb 8.5 L (12.9-16.9) g/dL Hct 28.4 L (37.5-50.1) % Plt Count 435 H (140-400) K/mcL Neutrophils # 11.1 H (1.6-8.9) K/mcL BMP 11/20/18 11/21/18 11/21/18 15:43 00:00 08:54 Sodium 152 H 153 H 150 H Potassium 4.2 Chloride 120 H Carbon Dioxide 22 L BUN 30 H Creatinine 1.39 H Glucose 183 H Calcium 10.9 H Liver Function 11/21/18 Range/Units 08:54 Total Bilirubin 0.5 (0.3-1.0) mg/dL AST 20 (13-39) Units/L ALT 27 (7-52) Units/L Alkaline Phosphatase 38 (34-104) Units/L Albumin 2.8 L (3.5-5.7) g/dL - ABG Interpretation ABG results: ABG ABG pH 7.55 pH Units (7.32-7.45) H 11/21/18 03:54 ABG pCO2 29 mmHg (35-45) L 11/21/18 03:54 ABG pO2 94 mmHg (85-104) 11/21/18 03:54 ABG O2 Saturation 98 % (95-98) 11/21/18 03:54 PT/INR, D-dimer PT 17.1 Seconds (9.4-12.1) H 11/20/18 21:23 - Impressions Impressions Chest X-Ray 11/20/18 12:04 IMPRESSION: Worsening pulmonary edema and increasing size of a partially loculated right pleural effusion. Along with cardiomegaly findings suggest moderate CHF worsening since prior. Pneumonia is in the differential. D/ / 11/20/2018 12:59:57 Rigo Stapleton MD / Greta Winchester Interpreting Provider: Rigo Stapleton MD - Attending Attestation I examined this patient and my medical decision-making was reviewed with the Resident Physician. I agree with the documented findings, disposition and treatment plan as described except to the extent set forth below. Patient seen and examined at bedside. Patient is awake alert but continues to be confused. He is not able to give much history. Family at bedside does state that he at times will recognize them and interactive but at other times. On exam he appears uncomfortable, heart is regular rate and rhythm, no murmurs noted. Lungs diminished bilaterally. Patient being treated for MRSA pneumonia bacteremia, blood cultures reviewed. Improving. Appreciate infectious disease recommendations. Hypernatremia appears to be improving. Nephrology following, continue D5, further desmopressin dosing per nephrology recommendations <Sepideh Morejon - Last Filed: 11/21/18 15:52> (1) Sepsis Qualifiers: Sepsis type: methicillin resistant Staphylococcus aureus Qualified Code(s): A41.02 - Sepsis due to Methicillin resistant Staphylococcus aureus (4) Dysphagia Qualifiers: Dysphagia type: oropharyngeal phase Qualified Code(s): R13.12 - Dysphagia, oropharyngeal phase (7) Pneumonia Qualifiers: Pneumonia type: due to unspecified organism Laterality: right Lung location: lower lobe of lung Qualified Code(s): J18.1 - Lobar pneumonia, unspecified organism (8) GI bleed Qualifiers: GI bleed type/associated pathology: melena Qualified Code(s): K92.1 - Melena (9) Diarrhea Qualifiers: Diarrhea type: presumed infectious Qualified Code(s): R19.7 - Diarrhea, unspecified (11) Rhabdomyolysis Qualifiers: Rhabdomyolysis type: traumatic Encounter type: subsequent encounter Qualified Code(s): T79.6XXD - Traumatic ischemia of muscle, subsequent encounter (12) Acute renal failure Qualifiers: Acute renal failure type: with acute tubular necrosis Qualified Code(s): N17.0 - Acute kidney failure with tubular necrosis (13) UTI (urinary tract infection) Qualifiers: Urinary tract infection type: acute cystitis Hematuria presence: with hematuria Qualified Code(s): N30.01 - Acute cystitis with hematuria (14) Atrial fibrillation Qualifiers: Atrial fibrillation type: chronic Qualified Code(s): I48.2 - Chronic atrial fibrillation (15) HTN (hypertension) Qualifiers: Hypertension type: essential hypertension Qualified Code(s): I10 - Essential (primary) hypertension (16) CAD (coronary artery disease) Qualifiers: Coronary Disease-Associated Artery/Lesion type: [place] artery [place] vs. transplanted heart: [place] heart Associated angina: without angina Qualified Code(s): I25.10 - Atherosclerotic heart disease of [place] coronary artery without angina pectoris (18) Anemia Qualifiers: Anemia type: iron deficiency Iron deficiency anemia type: chronic blood loss Qualified Code(s): D50.0 - Iron deficiency anemia secondary to blood loss (chronic) <Bk Nur - Last Filed: 11/21/18 16:45> (2) GI bleed Qualifiers: GI bleed type/associated pathology: melena Qualified Code(s): K92.1 - Melena (3) Pneumonia Qualifiers: Pneumonia type: due to unspecified organism Laterality: right Lung location: lower lobe of lung Qualified Code(s): J18.1 - Lobar pneumonia, unspecified organism (4) Diarrhea Qualifiers: Diarrhea type: presumed infectious Qualified Code(s): R19.7 - Diarrhea, unspecified (6) Rhabdomyolysis Qualifiers: Rhabdomyolysis type: traumatic Encounter type: subsequent encounter Qualified Code(s): T79.6XXD - Traumatic ischemia of muscle, subsequent encounter (7) Acute renal failure Qualifiers: Acute renal failure type: with acute tubular necrosis Qualified Code(s): N17.0 - Acute kidney failure with tubular necrosis (8) UTI (urinary tract infection) Qualifiers: Urinary tract infection type: acute cystitis Hematuria presence: with hematuria Qualified Code(s): N30.01 - Acute cystitis with hematuria (9) Atrial fibrillation Qualifiers: Atrial fibrillation type: chronic Qualified Code(s): I48.2 - Chronic atrial fibrillation (10) HTN (hypertension) Qualifiers: Hypertension type: essential hypertension Qualified Code(s): I10 - Essential (primary) hypertension (11) CAD (coronary artery disease) Qualifiers: Coronary Disease-Associated Artery/Lesion type: [place] artery [place] vs. transplanted heart: [place] heart Associated angina: without angina Qualified Code(s): I25.10 - Atherosclerotic heart disease of [place] coronary artery without angina pectoris (15) Sepsis Qualifiers: Sepsis type: methicillin resistant Staphylococcus aureus Qualified Code(s): A41.02 - Sepsis due to Methicillin resistant Staphylococcus aureus (16) Anemia Qualifiers: Anemia type: iron deficiency Iron deficiency anemia type: chronic blood loss Qualified Code(s): D50.0 - Iron deficiency anemia secondary to blood loss (chronic) (18) Dysphagia Qualifiers: Dysphagia type: oropharyngeal phase Qualified Code(s): R13.12 - Dysphagia, oropharyngeal phase
--- NOTE | 2018-11-21 09:53 | Infectious Disease Progress No ---
ID Progress Note Date of Encounter: 11/21/18 Time of Encounter: 09:51 - Subjective Subjective: Patient seen and examined. No acute events noted overnight. Remains confused and unable to obtain ROS. Rendon catheter remains patent. Incontinent of loose stool at this time. - Objective CBC & Chem 7: 11/22/18 03:16 11/22/18 09:01 - Line Documentation Line Documentation: Rendon Catheter (Draining clear yellow urine) - Exam Vitals: Temp Pulse Resp BP Pulse Ox 99.2 F 100 16 117/71 98 11/21/18 07:00 11/21/18 07:00 11/21/18 07:19 11/21/18 07:00 11/21/18 07:19 Exam: Head: Atraumatic, normal inspection, normocephalic. Eye: EOMI, PERRLA, no scleral icterus noted. No subconjunctival hemorrhage noted. ENT: Mucous membranes dry. No odontogenic infection noted. Neck: Normal inspection, no meningismus. Respiratory: CTA throughout. No rales, respiratory distress, rhonchi noted. Cardiovascular: Tachycardic. Irregular rhythm, S1 and S2 audible. No murmurs, rubs, or gallops. GI: Soft, obese, hypoactive bowel sounds. Nontender. Rendon catheter noted to be draining clear dark yellow urine. Extremities: No joint swelling, pedal edema, or tenderness noted. Bilateral foot dressing C/D/I. Multiple scabbed lesions noted to the BLE. Neurological: Opens eyes to verbal stimuli, follows some commands. Speech diff icult to understand. Psychiatric: Calm, cooperative. Skin: Dry, intact, warm. Pale. No rashes. Additional exam findings: Pacer/AICD site noted to the left upper chest well healed, nontender without erythema - Assessment and Plan (1) Sepsis Current Visit: Yes Status: Acute The patient had 3 sepsis criteria with acute kidney injury and metabolic encephalopathy. Likely secondary to MRSA bacteremia. WBC improved. Acute kidney injury is stable. Tmax 100.9 overnight. Tachycardia recurred this morning. Blood cultures drawn 11/09/18 a +2 out of 2 sets for MRSA. Repeat blood cultures from 11/11/18 are positive for MRSA. Additional blood cultures drawn 11/13/18 are positive x 2 sets as well. Repeat blood cultures 11/15/18 positive 2/2 sets. Repeat blood cultures drawn 11/18/18 are positive 1/2 sets. Repeat blood cultures drawn 11/21/18 are pending x 2 sets. Qualifiers: Sepsis type: methicillin resistant Staphylococcus aureus Qualified Code(s): A41.02 - Sepsis due to Methicillin resistant Staphylococcus aureus SNOMED Code(s): 83176773 (2) Bacteremia Current Visit: Yes Status: Acute Causative organism: MRSA. Source: Unclear. The patient does have a chronic nonhealing ulceration to the right foot, however, does not appear clinically infected. Blood cultures drawn 11/09/18 are +2 out of 2 sets. Repeat blood cultures on 11/11/18 are +2 out of 2 sets. Repeat blood cultures drawn 11/13/18 are positive x 2 sets. Repeat blood cultures from 11/15/18 are positive 2/2 sets. Repeat blood cultures drawn 11/18/18 are positive 1/2 sets. Repeat blood cultures drawn 11/21/18 are pending x 2 sets. Etiology of persistent bacteremia unclear. Podiatry evaluated foot ulcers. Purulent drainage noted in the right foot ulcer. Repeat imaging ordered and pending completion. Complicated due to the presence of a pacer/AICD and left hip hardware as well as likely septic emboli to the lung and seeding of the kidneys. TTE suboptimal. No endocarditis stigmata noted on exam. Rheumatoid factor normal. LOY negative for valvular or device lead vegetations. The patient has one major and 2 minor modified [place] criteria. Currently on IV vancomycin (FABRICIO 1). SNOMED Code(s): 5059345 (3) Acute encephalopathy Current Visit: Yes Status: Acute Likely secondary to sepsis and hypernatremia and medication-related, but concern for septic emboli to the brain. CT head negative x2. Continue to monitor closely. SNOMED Code(s): 23138860, 512461338 (4) Pneumonia Current Visit: Yes Status: Acute CT chest showed small right and trace left partially loculated pleural effusions with increased consolidative opacities in the lung bases slightly asymmetric right worse than left, either atelectasis or pneumonia. Causative organism: Unclear. MRSA screen is positive. RIP negative. UATs negative. Given the patient's weakness, aspiration is on the differential. ACADEMIC HOSPITALIST consulted. Recommended MBS to further assess swallow status, but patient unable to participate. Repeat CT of the chest shows large right pleural effusion and small left pleural effusion, both worse since previous imaging. Worsened consolidations to the bilateral lower lobes, right more than left, concerning for worsening atelectasis, multifocal PNA or aspiration pneumonitis also seen. Repeat CXr showed worsening pulmonary edema and partially loculated right pleural effusion. Currently on vancomycin and cefepime and flagyl. Qualifiers: Pneumonia type: due to unspecified organism Laterality: right Lung location: lower lobe of lung Qualified Code(s): J18.1 - Lobar pneumonia, unspecified organism SNOMED Code(s): 528670430 (5) Acute renal failure Current Visit: Yes Status: Acute Likely secondary to sepsis, dehydration, and rhabdomyolysis. Improved. Continue to trend. Dosage of medications. Avoid nephrotoxins as able. Nephrology consulted. Qualifiers: Acute renal failure type: with acute tubular necrosis Qualified Code(s): N17.0 - Acute kidney failure with tubular necrosis SNOMED Code(s): 26022557 (6) Pulmonary nodules Current Visit: Yes Status: Acute CT chest showed scattered nodules throughout the lungs bilaterally which are indeterminate and may be infectious, inflammatory, or neoplastic in etiology. Given the patient's MRSA bacteremia, concern for septic emboli. SNOMED Code(s): 714004384 (7) Asymptomatic bacteriuria Current Visit: Yes Status: Acute Urine culture positive for MRSA. The patient was asymptomatic prior to admission. Likely secondary to seeding of the kidneys from the bacteremia. Currently on vancomycin and daptomycin. SNOMED Code(s): 837498633 (8) Supratherapeutic INR Current Visit: Yes Status: Resolved Etiology: Unclear. Resolved. Further workup and management per the primary team. SNOMED Code(s): 089571109 (9) Elevated liver function tests Current Visit: Yes Status: Resolved Total bili, AST, ALT, alkaline phosphatase elevated on admission. Etiology: Unclear. Sepsis versus other. Hepatitis profile negative. Resolved. SNOMED Code(s): 480165963, 153616088 (10) Chronic ulcer of right foot with fat layer exposed Current Visit: No Status: Acute Location: Lateral aspect of fifth metatarsal on the right foot. Likely secondary to callus her patient's history. Follows with the [facility]. Clinically does not appear infected, but as a potential source for the patient's bacteremia. CT of the right foot negative for osteomyelitis or abscess. Podiatry consulted. Repeat imaging ordered. SNOMED Code(s): 201988358 (11) GI bleed Current Visit: Yes Status: Suspected Hemoglobin down to7.2. Fecal occult blood test positive. GI consulted. EGD/C-scope negative for acute bleeding. Qualifiers: GI bleed type/associated pathology: melena Qualified Code(s): K92.1 - Melena SNOMED Code(s): 90497852 (12) Weakness Current Visit: Yes Status: Acute Likely secondary to sepsis. PT/OT to evaluate. SNOMED Code(s): 64119702 (13) Diarrhea Current Visit: Yes Status: Resolved Etiology: Unclear. C. difficile negative. GI panel negative. Improved. GI consulted. Qualifiers: Diarrhea type: presumed infectious Qualified Code(s): R19.7 - Diarrhea, unspecified SNOMED Code(s): 75286185 (14) Dehydration Current Visit: Yes Status: Resolved Likely secondary to poor by mouth intake and high GI output. Mucous membranes dry. Management per the primary team. SNOMED Code(s): 45085268 (15) Rhabdomyolysis Current Visit: Yes Status: Resolved Likely secondary to fall. CK noted to be 1400 on admission. Improved. Further workup and management per the primary team. Qualifiers: Rhabdomyolysis type: traumatic Encounter type: subsequent encounter Qualified Code(s): T79.6XXD - Traumatic ischemia of muscle, subsequent encounter SNOMED Code(s): 788499224 (16) Atrial fibrillation Current Visit: Yes Status: Chronic Qualifiers: Atrial fibrillation type: chronic Qualified Code(s): I48.2 - Chronic atrial fibrillation SNOMED Code(s): 86246800 (17) HTN (hypertension) Current Visit: Yes Status: Chronic Qualifiers: Hypertension type: essential hypertension Qualified Code(s): I10 - Essential (primary) hypertension SNOMED Code(s): 82086206 (18) CAD (coronary artery disease) Current Visit: Yes Status: Chronic Qualifiers: Coronary Disease-Associated Artery/Lesion type: [place] artery [place] vs. transplanted heart: [place] heart Associated angina: without angina Qualified Code(s): I25.10 - Atherosclerotic heart disease of [place] coronary artery without angina pectoris SNOMED Code(s): 82589590 (19) Morbid obesity with BMI of 40.0-44.9, adult Current Visit: Yes Status: Chronic SNOMED Code(s): 888722838, 68328098858038 (20) Pleural effusion Current Visit: Yes Status: Acute CT of the chest 11/15/18 shows large right and small left pleural effusion, worsened since prior exam. Concern for infectious etiology. IR consulted. Thoracentesis 11/16/18. Exudative per Light's criteria, but gram stain and culture negative. Repeat CXR 11/20/18 showed partially loculated right pleural effusion. IR re- consulted. SNOMED Code(s): 58248604 (21) Hypernatremia Current Visit: Yes Status: Acute Improved. Nephrology consulted. Appreciate recommendations. SNOMED Code(s): 348842224 - Recommendations Recommendations: Await repeat blood cultures. Hold atorvastatin while on Daptomycin. Send sputum for culture if the patient is able to provide an adequate specimen. VAZQUEZ/hypernatremia management per the nephrology team. IR consult for pleural effusion. Send specimen for cell count with differential, protein, glucose, LDH, and culture (aerobic, anaerobic, AFB, and fungal). Continue vancomycin IV. Pharmacy to dose. Goal trough approximately 15. Continue Daptomycin 6mg/kg IV daily. (day 2) Continue cefepime 2 grams IV Q12H. Continue flagyl 500mg IV TID. Duration of treatment depends on the clinical picture, but likely at least 4 weeks. Monitor renal function for drug toxicity and does adjust antibiotics. manager financial services to assist with discharge planning. Avoid insertion of long-term IV access until repeat blood cultures are negative 48 hours. Contact precautions per hospital policy. - VTE Documentation of Mechanical Device: Intermittent pneumatic compression device Consult Discharge Plan - Plan Referrals: NONE,PCP [Primary Care Provider] - - Attending Attestation I have personally performed a face to face evaluation on this patient. I have reviewed and agree with the care plan. History and Exam by me shows: Assessment and plan: 1.Sepsis 2.Bacteremia causative organism MRSA. Source likely chronic nonhealing ulceration of the right footcomplicated because the patient has an AICD and has a 3.right hip for plastic 4.Pneumonia questionable at best. There are nodules, likely due to septic emboli. 5.Acute kidney injury 6.Asymptomatic bacteriuria 7.Supratherapeutic INR Recommendation: continue vanc and dapto for now duration of dapto at least for 1 week until bacteremia resolves
[2018-11-21] MEDS: Vancomycin 1,500 MG in D5% in Water 250 ML IVPB SCH (09:57)
--- NOTE | 2018-11-21 13:37 | Procedure Note ---
Date of procedure: 11/20/18 Pre-op diagnosis: mccracken stage II ulceration with fat layer exposure- choronic Post-op diagnosis: same Procedure: Painted area of sub mt head #5 right with betadine, sharp debridement of hyperkeratosis surrounding wound and all devitalized tissue was removed into the sub Q layer using a sterile #15 blade. Patient tolerated well. Purulent drainage was expressed and sent for culture. Wound measures approximately [id number]. 3cm after debridement. Wound bed 100% healthy granulation tissue. See assessment within note for further assessment findings. Cleansed with saline, adaptic, 4x4 and kerlix applied. no further bleeding noted. Attention was then directed to the lateral aspect of the cuboid bone of the right foot. A hyperkeratotic lesion is noted. Sharp debridement was complete using a sterile 15 blade. No open lesion is noted underlying hyperkeratosis. Patient tolerated well. No complications. Attention was then directed to the left foot medial aspect of the first toe. A bullous lesion is noted. Area was prepped and cleansed with Betadine. A sterile 15 blade was used to daren lesion. Serous fluid was expressed and obtained for culture. The lesion was deroofed and all devitalized tissue removed using sterile tissue nippers and pickup. A very shallow lesion was noted underneath of bullous lesion 0.6cmx0.6cmx0.2cm. Appears related to pressure. No appearance of infection. Patient tolerated well and no bleeding is noted. cleansed with saline, adaptic 4x4 and bulk dressing applied. Debridement was limited to skin. No sub Q was involved Anesthesia: none Surgeon: Alie Love Was there an optometric assistant present: No Estimated blood loss (cc): 1 Specimen: wound culture obtained Pathology: none sent Condition: stable Disposition: floor
--- NOTE | 2018-11-21 15:28 | IR Procedure Note ---
Date of procedure: 11/21/18 Consent Obtained: Written consent Timeout: Correct patient and procedure verified, Correct site verified, Time out performed, Skin prep completed Local anesthetic: Lidocaine 1% Indications: right pleural effusion Procedure Performed: 10 F chest tube Was there an senior it assistant present: No Site/Technique: right chest Results/Findings: sanguinous fluid returned Estimated blood loss (cc): 0 Complications: None; Tolerated procedure well Post Procedure Treatment Plan: chest xray Specimen: 50 Cc sanguinous pleural fluid
[2018-11-21] MEDS: DAPTOmycin 750 MG in 0.9 % Sodium Chloride 100 ML IVPB SCH (16:20)
[2018-11-21 17:08] LABS: Albumin 2.8 g/dL (3.5-5.7); Albumin/Globulin Ratio 0.7 (1.1-2.2); Globulin 3.9 g/dL (2.4-3.5); Total Protein 6.7 g/dL (6.4-8.9)
[2018-11-21] MEDS ORDERED: Naloxone 0.4 MG/ML INJ IVP PRN (17:54)
[2018-11-21] MEDS ORDERED: Ondansetron 4 MG/2 ML VIAL IVP PRN (17:54)
[2018-11-21] MEDS ORDERED: Acetaminophen IV 1,000 MG/100 ML INFUS..BTL IVPB PRN (17:54)
[2018-11-21] MEDS ORDERED: traMADol 50 MG TABLET PO PRN (17:54)
[2018-11-21] MEDS ORDERED: *HR* Labetalol 20 MG/4 ML SYRINGE IVP PRN (17:54)
[2018-11-21] MEDS ORDERED: Gadolinium Contrast Agent (WT Based) IV PRN (17:54)
[2018-11-21] MEDS ORDERED: D5% in Water 1,000 ML IVC PRN (17:54)
[2018-11-21 18:05] LABS: Total Protein,Pleural Fluid 3.4 g/dL (No Ref Range)
[2018-11-21 19:16] LABS: Appearance of Pleural Fl Bloody (Clear)
[2018-11-21] MEDS: Gabapentin 300 MG CAPSULE PO SCH (20:52)
[2018-11-22] MEDS: Levalbuterol Neb 1.25 MG/3 ML IH SCH ×7 (00:08→23:35)
[2018-11-22] MEDS: D5% in Water 1,000 ML IVC SCH ×3 (00:10→16:12)
[2018-11-22] MEDS: *HR* LORazepam 2 MG/ML VIAL IVP PRN ×3 (01:31→16:08)
[2018-11-22 03:39] LABS: Basophils % 0.1 %; Hematocrit 25.7 % (37.5-50.1); Hemoglobin 7.8 g/dL (12.9-16.9); Immature Granulocytes % 0.5 % (0-4); Lymphocytes # 0.6 K/mcL (0.6-4.6); Lymphocytes % 4.4 %; Mean Corpuscular HGB Conc 30.4 g/dL (31.6-35.5); Mean Corpuscular Hemoglobin 31.1 pg (28.0-33.3); Mean Corpuscular Volume 102.4 fL (83.0-100.0); Mean Platelet Volume 9.8 fL (9.4-12.4); Monocytes # 0.4 K/mcL (0.0-1.3); Monocytes % 2.6 %; Neutrophils # 13.1 K/mcL (1.6-8.9); Platelet Count 418 K/mcL (140-400); Red Blood Count 2.51 M/mcL (4.19-5.50); Segmented Neutrophils % 92.4 %
[2018-11-22 03:58] LABS: BUN/Creatinine Ratio 28 (6-26); Blood Urea Nitrogen 33 mg/dL (8-23); Calcium 10.8 mg/dL (8.6-10.3); Carbon Dioxide 24 mEq/L (23-29); Chloride 117 mEq/L (98-107); Glucose 195 mg/dL (70-105); Osmolality,Calculated 319 (280-300); Potassium 3.8 mEq/L (3.5-5.1); Sodium 148 mEq/L (136-145); eGFR For Non-African Americans 60 (> 60)
[2018-11-22] MEDS: Cefepime HCl 2,000 MG in Water for inj. (sterile) 20 ML 20 ML IVP SCH ×2 (06:14→18:28)
[2018-11-22] MEDS: *HR* Heparin 5,000 UNIT/ML VIAL SQ SCH ×3 (06:15→21:22)
[2018-11-22] MEDS: MetroNIDAZOLE 500 MG/100 ML 500 MG/100 ML BAG IVPB SCH ×2 (07:54→16:09)
[2018-11-22] MEDS: MethylPREDNISolone 40 MG/ML VIAL IVP SCH ×2 (07:55→16:08)
[2018-11-22] MEDS ORDERED: Aspirin Enteric Coated 81 MG Tablet PO SCH (09:00)
--- NOTE | 2018-11-22 09:01 | Pulmonology Progress Note ---
Date of Encounter: 11/22/18 Time of Encounter: 09:01 Assessment and Plan (1) Acute encephalopathy Current Visit: Yes Status: Acute This is multifactorial but likely related to metabolic alkalosis and hypernatremia and appears to be improving Sodium today is 148 ABG was not checked think this salicylate necessary given improvement mental status (2) Pneumonia Current Visit: Yes Status: Acute Suspected MRSA pneumonia given MRSA bacteremia however patient is not at increased risk of aspiration he is on broad-spectrum antibiotics and selective by infectious disease although white count has increased somewhat overnight he remains afebrile and clinically it is appearing to improve would continue to stay the course at this time Qualifiers: Qualified Code(s): J18.1 - Lobar pneumonia, unspecified organism (3) Pleural effusion Current Visit: Yes Status: Acute This is a neutrophil predominant exudate possibly parapneumonic effusion being drained by chest tube recommend repeat chest x-ray in the morning likely be removed subsequently. (4) Acute respiratory failure Current Visit: Yes Status: Acute Currently he has except will oxygenation on 4 L simple face mask. He is in no respiratory distress Consider using positive airway pressure at night as I suspect patient does have obstructive sleep apnea he will need outpatient follow-up for this Qualifiers: Qualified Code(s): J96.01 - Acute respiratory failure with hypoxia; J96.02 - Acute respiratory failure with hypercapnia (5) Metabolic alkalosis Current Visit: Yes Status: Acute This appears to be improving clinically Complicated picture of the intravascular volume depletion coupled with the increased total body water Nephrology following Subjective Principal diagnosis: HYpernatremia Interval history: Mr Morris has made some improvement in the last 24 hours he remains confuse d to some degree but able to participate in conversation now and answer questions appropriately. A chest tube was placed yesterday for right pleural effusion and he has had a bottle liter output which is been serosanguineous. Remains afebrile. at bedside Objective PUL Vital signs: Last Vital Signs Temp 98.9 F 11/22/18 08:00 Pulse 80 11/22/18 08:00 Resp 17 11/22/18 08:00 BP 125/75 11/22/18 08:00 Pulse Ox 93 11/22/18 07:42 General appearance: no acute distress Eyes: nonicteric Mallampati (class): 4 Neck: supple Effort: normal Auscultation: bilateral: rales Gastrointestinal: normoactive bowel sounds Extremities: anasarca Musculoskeletal: no deformities non-focal exam, pupils equal and round mood appropriate Results - Laboratory Findings CBC and BMP: 11/22/18 03:16 11/22/18 09:01 ABG ABG pH 7.55 pH Units (7.32-7.45) H 11/21/18 03:54 ABG pCO2 29 mmHg (35-45) L 11/21/18 03:54 ABG pO2 94 mmHg (85-104) 11/21/18 03:54 ABG O2 Saturation 98 % (95-98) 11/21/18 03:54 PT/INR, D-dimer PT 17.1 Seconds (9.4-12.1) H 11/20/18 21:23 Abnormal lab findings: Abnormal lab results WBC 14.1 K/mcL (4.3-11.1) H 11/22/18 03:16 RBC 2.51 M/mcL (4.19-5.50) L 11/22/18 03:16 Hgb 7.8 g/dL (12.9-16.9) L 11/22/18 03:16 Hct 25.7 % (37.5-50.1) L 11/22/18 03:16 MCV 102.4 fL (83.0-100.0) H 11/22/18 03:16 MCHC 30.4 g/dL (31.6-35.5) L 11/22/18 03:16 RDW 15.0 % (11.5-14.5) H 11/22/18 03:16 Plt Count 418 K/mcL (140-400) H 11/22/18 03:16 Metamyelocytes % 2.0 % (0) H 11/15/18 05:57 Myelocytes % 2.0 % (0) H 11/15/18 05:57 Neutrophils # 13.1 K/mcL (1.6-8.9) H 11/22/18 03:16 Nucleated RBCs/100 WBC 0.2 /100 WBC (0) H 11/16/18 06:32 Reactive Lymphocytes Present (Not Present) A 11/10/18 01:12 Platelet Estimate Increased (Normal) H 11/16/18 06:32 Polychromasia 1+ (Not Present) A 11/15/18 05:57 Anisocytosis 1+ (Not Present) A 11/15/18 05:57 ESR 125 mm/hr (0-10) H 11/12/18 15:40 PT 17.1 Seconds (9.4-12.1) H 11/20/18 21:23 ABG pH 7.55 pH Units (7.32-7.45) H 11/21/18 03:54 ABG pCO2 29 mmHg (35-45) L 11/21/18 03:54 Sodium 148 mEq/L (136-145) H 11/22/18 03:16 Chloride 117 mEq/L (98-107) H 11/22/18 03:16 BUN 33 mg/dL (8-23) H 11/22/18 03:16 BUN/Creatinine Ratio 28 (6-26) H 11/22/18 03:16 Glucose 195 mg/dL (70-105) H 11/22/18 03:16 POC Glucose 187 mg/dL (70-99) H 11/22/18 06:03 Serum Osmolality 347 mOsm/kg (280-300) H 11/19/18 18:08 Calculated Osmolality 319 (280-300) H 11/22/18 03:16 Calcium 10.8 mg/dL (8.6-10.3) H 11/22/18 03:16 Iron 34 mcg/dL (65-175) L 11/12/18 16:22 % Saturation 16 % (20-55) L 11/12/18 16:22 Transferrin 148 mg/dL (203-362) L 11/12/18 16:22 Ferritin 565 ng/mL (20-250) H 11/12/18 16:22 C-Reactive Protein 201 mg/L (Less than 10) H 11/12/18 16:09 B-Natriuretic Peptide 123 pg/mL (Less than 100) H 11/09/18 11:14 Albumin 2.8 g/dL (3.5-5.7) L 11/21/18 16:26 Globulin 3.9 g/dL (2.4-3.5) H 11/21/18 16:26 Albumin/Globulin Ratio 0.7 (1.1-2.2) L 11/21/18 16:26 Folate > 22.3 ng/mL (3.0-16.0) H 11/12/18 16:22 Urine Protein 30 mg/dL (Neg-Trace) H 11/13/18 05:13 Urine Blood Large (Negative) H 11/13/18 05:13 Urine Microscopic RBC TNTC per hpf (0-3) H 11/13/18 05:13 Urine Microscopic WBC 3-5 per hpf (0-3) H 11/13/18 05:13 Ur Squamous Epith Cells Many per lpf (None-Few) H 11/13/18 05:13 Granular Casts Few per lpf (None Seen) H 11/09/18 17:18 Pleural Appearance Bloody (Clear) A 11/21/18 13:10 Pleural RBC 0.090 M/mcL (0.000-0.002) H 11/21/18 13:10 Pleural Tot Nuc Cell 1754 TNC/mcL (0-1000) H 11/21/18 13:10 Nasal Screen MRSA (PCR) Positive (Negative) A 11/09/18 21:50 Stool Occult Bld Scrn Positive (Negative) A 11/09/18 13:05 Stool Calprotectin 162 ug/g (<=50) H 11/13/18 10:50 Vancomycin Trough 16 mcg/mL (5-10) H 11/21/18 08:54 Staph aureus (PCR) DETECTED (Not Detect) A 11/13/18 07:20 mecA-Methicil Res Gene DETECTED (Not Detect) A 11/13/18 07:20 - Microbiology Findings Microbiology Findings: Microbiology, Last 48 Hours 11/16/18 15:00 Anaerobic Culture - Final Pleural Fluid No anaerobes were recovered. 11/20/18 14:45 Wound Culture - Preliminary Left Great Toe No growth. 11/20/18 14:45 Wound Culture - Preliminary Right Fifth Toe No growth. 11/21/18 08:54 Blood Culture - Preliminary Peripheral Venipuncture Culture is incubating and being continuously mon itored for growth. Final report to follow. 11/21/18 08:52 Blood Culture - Preliminary Peripheral Venipuncture Culture is incubating and being continuously monitored for growth. Final report to follow. 11/20/18 14:45 Gram Stain - Final Right Fifth Toe 11/20/18 14:45 Gram Stain - Final Left Great Toe 11/20/18 14:45 Anaerobic Culture - Preliminary Left Great Toe Culture is incubating. 11/20/18 14:45 Anaerobic Culture - Preliminary Right Fifth Toe Culture is incubating. 11/18/18 11:00 Blood Culture - Final Peripheral Venipuncture Gram Positive Cocci 11/16/18 15:00 Body Fluid Culture - Final Pleural Fluid - Clinical Findings Intake & Output: Intake & Output 11/21/18 11/22/18 11/22/18 23:59 07:59 15:59 Intake Total 1120 / 1120 2200 / 2200 Output Total 1350 / 1350 700 / 700 Balance -230 / -230 1500 / 1500 - VTE Documentation of Mechanical Device: Intermittent pneumatic compression device Consult Discharge Plan - Plan Referrals: NONE,PCP [Primary Care Provider] -
[2018-11-22] MEDS: *HR* OxyCODONE Immed Rel 5 MG TABLET PO PRN ×2 (09:34→14:56)
--- NOTE | 2018-11-22 09:59 | Infectious Disease Progress No ---
ID Progress Note Date of Encounter: 11/22/18 Time of Encounter: 09:55 - Subjective Subjective: Patient seen and examined. No acute events noted overnight. More alert this morning. Denies pain, shortness of breath, or cough. Denies being hungry, but states he is thirsty. Denies nausea. No diarrhea per nursing. Rendon catheter remains patent. Status post chest tube placement 11/21/18. - Objective CBC & Chem 7: 11/22/18 03:16 11/22/18 15:53 - Line Documentation Line Documentation: Rendon Catheter (Draining clear yellow urine) - Exam Vitals: Temp Pulse Resp BP Pulse Ox 98.9 F 80 17 125/75 93 11/22/18 08:00 11/22/18 08:00 11/22/18 08:00 11/22/18 08:00 11/22/18 07:42 Exam: Head: Atraumatic, normal inspection, normocephalic. Eye: EOMI, PERRLA, no scleral icterus noted. No subconjunctival hemorrhage no aaron. ENT: Mucous membranes dry. No odontogenic infection noted. Neck: Normal inspection, no meningismus. Respiratory: CTA throughout. No rales, respiratory distress, rhonchi noted. Small bore chest tube noted to the right chest draining serous-sanguinous drainage. Cardiovascular: Tachycardic. Irregular rhythm, S1 and S2 audible. No murmurs, rubs, or gallops. GI: Soft, obese, normal bowel sounds. Nontender. Rendon catheter noted to be draining clear dark yellow urine. Extremities: No joint swelling, pedal edema, or tenderness noted. Bilateral foot dressing C/D/I. Multiple scabbed lesions noted to the BLE. Neurological: Opens eyes to verbal stimuli, follows commands. Answers some ROS questions. Oriented to person only. Psychiatric: Calm, cooperative. Skin: Dry, intact, warm. Pale. No rashes. Additional exam findings: Pacer/AICD site noted to the left upper chest well healed, nontender without erythema - Assessment and Plan (1) Sepsis Current Visit: Yes Status: Acute The patient had 3 sepsis criteria with acute kidney injury and metabolic encephalopathy. Likely secondary to MRSA bacteremia. WBC back up today, likely reactive from recent chest tube placement. Acute kidney injury is stable. Afebrile overnight. Tachycardia persists, but improved. Blood cultures drawn 11/09/18 a +2 out of 2 sets for MRSA. Repeat blood cultures from 11/11/18 are positive for MRSA. Additional blood cultures drawn 11/13/18 are positive x 2 sets as well. Repeat blood cultures 11/15/18 positive 2/2 sets. Repeat blood cultures drawn 11/18/18 are positive 1/2 sets. Repeat blood cultures drawn 11/21/18 are pending x 2 sets. Qualifiers: Sepsis type: methicillin resistant Staphylococcus aureus Qualified Code(s): A41.02 - Sepsis due to Methicillin resistant Staphylococcus aureus SNOMED Code(s): 91316292 (2) Bacteremia Current Visit: Yes Status: Acute Causative organism: MRSA. Source: Unclear. The patient does have a chronic nonhealing ulceration to the right foot, however, does not appear clinically infected. Blood cultures drawn 11/09/18 are +2 out of 2 sets. Repeat blood cultures on 11/11/18 are +2 out of 2 sets. Repeat blood cultures drawn 11/13/18 are positive x 2 sets. Repeat blood cultures from 11/15/18 are positive 2/2 sets. Repeat blood cultures drawn 11/18/18 are positive 1/2 sets. Repeat blood cultures drawn 11/21/18 are pending x 2 sets. Etiology of persistent bacteremia unclear. Podiatry evaluated foot ulcers. Purulent drainage noted in the right foot ulcer. Repeat imaging ordered, but negative for abscess or osteomyelitis. Complicated due to the presence of a pacer/AICD and left hip hardware as well as likely septic emboli to the lung and seeding of the kidneys. TTE suboptimal. No endocarditis stigmata noted on exam. Rheumatoid factor normal. LOY negative for valvular or device lead vegetations. The patient has one major and 2 minor modified [place] criteria. Currently on IV vancomycin (FABRICIO 1) and daptomycin. SNOMED Code(s): 8697833 (3) Acute encephalopathy Current Visit: Yes Status: Acute Likely secondary to sepsis and hypernatremia and medication-related, but concern for septic emboli to the brain. CT head negative x2. Improved. Continue to monitor closely. SNOMED Code(s): 89612850, 676287092 (4) Pneumonia Current Visit: Yes Status: Acute CT chest showed small right and trace left partially loculated pleural effusions with increased consolidative opacities in the lung bases slightly asymmetric right worse than left, either atelectasis or pneumonia. Causative organism: Unclear. MRSA screen is positive. RIP negative. UATs negative. Given the patient's weakness, aspiration is on the differential. FOUNDATION DIGGER consulted. Recommended MBS to further assess swallow status, but patient unable to participate. Pending NG tube placement. Repeat CT of the chest shows large right pleural effusion and small left pleural effusion, both worse since previous imaging. Worsened consolidations to the bilateral lower lobes, right more than left, concerning for worsening atelectasis, multifocal PNA or aspiration pneumonitis also seen. Repeat CXR showed worsening pulmonary edema and partially loculated right pleural effusion. Currently on vancomycin and cefepime and flagyl. Qualifiers: Pneumonia type: due to unspecified organism Laterality: right Lung location: lower lobe of lung Qualified Code(s): J18.1 - Lobar pneumonia, unspecified organism SNOMED Code(s): 605165980 (5) Acute renal failure Current Visit: Yes Status: Resolved Likely secondary to sepsis, dehydration, and rhabdomyolysis. Resolved. Continue to trend. Dosage of medications. Avoid nephrotoxins as able. Nephrology consulted. Qualifiers: Acute renal failure type: with acute tubular necrosis Qualified Code(s): N17.0 - Acute kidney failure with tubular necrosis SNOMED Code(s): 54626977 (6) Pulmonary nodules Current Visit: Yes Status: Acute CT chest showed scattered nodules throughout the lungs bilaterally which are indeterminate and may be infectious, inflammatory, or neoplastic in etiology. Given the patient's MRSA bacteremia, concern for septic emboli. SNOMED Code(s): 225093544 (7) Asymptomatic bacteriuria Current Visit: Yes Status: Acute Urine culture positive for MRSA. The patient was asymptomatic prior to admission. Likely secondary to seeding of the kidneys from the bacteremia. Currently on vancomycin and daptomycin. SNOMED Code(s): 466559748 (8) Supratherapeutic INR Current Visit: Yes Status: Resolved Etiology: Unclear. Resolved. Further workup and management per the primary team. SNOMED Code(s): 865189487 (9) Elevated liver function tests Current Visit: Yes Status: Resolved Total bili, AST, ALT, alkaline phosphatase elevated on admission. Etiology: Unclear. Sepsis versus other. Hepatitis profile negative. Resolved. SNOMED Code(s): 385944865, 461453577 (10) Chronic ulcer of right foot with fat layer exposed Current Visit: No Status: Acute Location: Lateral aspect of fifth metatarsal on the right foot. Likely secondary to callus her patient's history. Follows with the [facility]. Clinically does not appear infected, but as a potential source for the patient's bacteremia. CT of the right foot negative for osteomyelitis or abscess x 2. Wound culture no growth. Podiatry consulted. SNOMED Code(s): 668214269 (11) GI bleed Current Visit: Yes Status: Suspected . Fecal occult blood test positive. GI consulted. EGD/C-scope negative for acute bleeding. Qualifiers: GI bleed type/associated pathology: melena Qualified Code(s): K92.1 - Melena SNOMED Code(s): 59350834 (12) Weakness Current Visit: Yes Status: Acute Likely secondary to sepsis. PT/OT to evaluate. SNOMED Code(s): 25026098 (13) Diarrhea Current Visit: Yes Status: Resolved Etiology: Unclear. C. difficile negative. GI panel negative. Improved. GI consulted. Qualifiers: Diarrhea type: presumed infectious Qualified Code(s): R19.7 - Diarrhea, unspecified SNOMED Code(s): 34477161 (14) Dehydration Current Visit: Yes Status: Resolved Likely secondary to poor by mouth intake and high GI output. Mucous membranes dry. Management per the primary team. SNOMED Code(s): 38441193 (15) Rhabdomyolysis Current Visit: Yes Status: Resolved Likely secondary to fall. CK noted to be 1400 on admission. Improved. Further workup and management per the primary team. Qualifiers: Rhabdomyolysis type: traumatic Encounter type: subsequent encounter Q ualified Code(s): T79.6XXD - Traumatic ischemia of muscle, subsequent encounter SNOMED Code(s): 550010241 (16) Atrial fibrillation Current Visit: Yes Status: Chronic Qualifiers: Atrial fibrillation type: chronic Qualified Code(s): I48.2 - Chronic atrial fibrillation SNOMED Code(s): 27221894 (17) HTN (hypertension) Current Visit: Yes Status: Chronic Qualifiers: Hypertension type: essential hypertension Qualified Code(s): I10 - Essential (primary) hypertension SNOMED Code(s): 46534621 (18) CAD (coronary artery disease) Current Visit: Yes Status: Chronic Qualifiers: Coronary Disease-Associated Artery/Lesion type: [place] artery [place] vs. transplanted heart: [place] heart Associated angina: without angina Qualified Code(s): I25.10 - Atherosclerotic heart disease of [place] coronary artery without angina pectoris SNOMED Code(s): 33636990 (19) Morbid obesity with BMI of 40.0-44.9, adult Current Visit: Yes Status: Chronic SNOMED Code(s): 052240106, 10073550921361 (20) Pleural effusion Current Visit: Yes Status: Acute CT of the chest 11/15/18 shows large right and small left pleural effusion, worsened since prior exam. Concern for infectious etiology. IR consulted. Thoracentesis 11/16/18. Exudative per Light's criteria, but gram stain and culture negative. Repeat CXR 11/20/18 showed partially loculated right pleural effusion. IR re- consulted. Status post right chest tube placement with 1050ml out since insertion. Appears exudative per Light's criteria. Culture pending. SNOMED Code(s): 17259818 (21) Hypernatremia Current Visit: Yes Status: Acute Improved. Nephrology consulted. Appreciate recommendations. SNOMED Code(s): 938862807 - Recommendations Recommendations: Await repeat blood cultures. Hold atorvastatin while on Daptomycin. Send sputum for culture if the patient is able to provide an adequate specimen. VAZQUEZ/hypernatremia management per the nephrology team. Await thoracentesis cultures. Continue vancomycin IV. Pharmacy to dose. Goal trough approximately 15. Continue Daptomycin, but increase to 8mg/kg (1000mg) IV daily. (day 3) Continue cefepime 2 grams IV Q12H. Continue flagyl 500mg IV TID. Duration of treatment depends on the clinical picture, but likely at least 4 weeks. Monitor renal function for drug toxicity and does adjust antibiotics. director of tax services to assist with discharge planning. Avoid insertion of long-term IV access until repeat blood cultures are negative 48 hours. Contact precautions per hospital policy. - VTE Documentation of Mechanical Device: Intermittent pneumatic compression device Consult Discharge Plan - Plan Referrals: NONE,PCP [Primary Care Provider] - - Attending Attestation I have personally performed a face to face evaluation on this patient. I have reviewed and agree with the care plan. History and Exam by me shows: Assessment and plan: 1.Sepsis 2.Bacteremia causative organism MRSA. Source likely chronic nonhealing ulceration of the right footcomplicated because the patient has an AICD and has a 3.right hip for plastic 4.Pneumonia questionable at best. There are nodules, likely due to septic emboli. 5.Acute kidney injury 6.Asymptomatic bacteriuria 7.Altered mental status with significant confusion Recommendation: continue vanc and dapto for now duration of dapto at least for 1 week until bacteremia resolves
[2018-11-22] MEDS: Vancomycin 1,500 MG in D5% in Water 250 ML IVPB SCH (10:38)
--- NOTE | 2018-11-22 10:41 | Nephrology Progress Note ---
Date of Encounter: 11/22/18 Time of Encounter: 10:00 - Assessment and Plan (1) Hypernatremia Current Visit: Yes Status: Acute Elevated sodium level since 11/16. During this hospital stay sodium has been low, progressed to normal, and is now elevated. 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 Patient's urinary output has decreased alittle. Patient did respond to vassopressin though. Improvement of sodium over the last 24 hrs from 153 to 148. Patient's confusion has also improved during this time. We will continue to monitor sodium levels Q8Hs. We will decrease D5 to 75ml/hr. Patient now has an NG tube therefore can start free water at 350ml Q6Hs. Plan: - Free water through NG tube 350ml Q6H - decrease D5 rate to 75ml/hr - Vasopressin s/p 2 sprays, no need for further dosing at this time - sodium level Q8H and will adjust D5 as needed - continue to hold diuretics (2) Acute renal failure Current Visit: Yes Status: Resolved non-oliguric VAZQUEZ. Resolved with fluids. Will continue renal conservative measures. Avoid nephrotoxins and adjust medication according to creatinine clearance. We will continue to trend. Qualifiers: Acute renal failure type: with acute tubular necrosis Qualified Code(s): N17.0 - Acute kidney failure with tubular necrosis (3) Chronic ulcer of right foot with fat layer exposed Current Visit: No Status: Acute (4) GI bleed Current Visit: Yes Status: Suspected Qualifiers: GI bleed type/associated pathology: melena Qualified Code(s): K92.1 - Tash radha (5) Pneumonia Current Visit: Yes Status: Acute Qualifiers: Pneumonia type: due to unspecified organism Laterality: right Lung location: lower lobe of lung Qualified Code(s): J18.1 - Lobar pneumonia, unspecified organism (6) Diarrhea Current Visit: Yes Status: Resolved Qualifiers: Diarrhea type: presumed infectious Qualified Code(s): R19.7 - Diarrhea, unspecified (7) Dehydration Current Visit: Yes Status: Resolved (8) Rhabdomyolysis Current Visit: Yes Status: Resolved CK = 62, resolved. Qualifiers: Rhabdomyolysis type: traumatic Encounter type: subsequent encounter Qu alified Code(s): T79.6XXD - Traumatic ischemia of muscle, subsequent encounter (9) UTI (urinary tract infection) Current Visit: Yes Status: Suspected Qualifiers: Urinary tract infection type: acute cystitis Hematuria presence: with hematuria Qualified Code(s): N30.01 - Acute cystitis with hematuria (10) Atrial fibrillation Current Visit: Yes Status: Chronic Qualifiers: Atrial fibrillation type: chronic Qualified Code(s): I48.2 - Chronic atrial fibrillation (11) HTN (hypertension) Current Visit: Yes Status: Chronic Qualifiers: Hypertension type: essential hypertension Qualified Code(s): I10 - Essential (primary) hypertension (12) CAD (coronary artery disease) Current Visit: Yes Status: Chronic Qualifiers: Coronary Disease-Associated Artery/Lesion type: [place] artery [place] vs. transplanted heart: [place] heart Associated angina: without angina Qualified Code(s): I25.10 - Atherosclerotic heart disease of [place] coronary artery without angina pectoris (13) Morbid obesity with BMI of 40.0-44.9, adult Current Visit: Yes Status: Chronic (14) DVT prophylaxis Current Visit: Yes Status: Acute (15) Supratherapeutic INR Current Visit: Yes Status: Resolved (16) Sepsis Current Visit: Yes Status: Acute Qualifiers: Sepsis type: methicillin resistant Staphylococcus aureus Qualified Code(s): A41.02 - Sepsis due to Methicillin resistant Staphylococcus aureus (17) Anemia Current Visit: Yes Status: Suspected Qualifiers: Anemia type: iron deficiency Iron deficiency anemia type: chronic blood loss Qualified Code(s): D50.0 - Iron deficiency anemia secondary to blood loss (chronic) (18) Acute encephalopathy Current Visit: Yes Status: Acute (19) Dysphagia Current Visit: Yes Status: Suspected Qualifiers: Dysphagia type: oropharyngeal phase Qualified Code(s): R13.12 - Dysphagia, oropharyngeal phase (20) Bacteremia Current Visit: Yes Status: Acute (21) Pleural effusion Current Visit: Yes Status: Acute Subjective Principal diagnosis: HYpernatremia Interval history: Mr. Abad is a 68 y/o male with a hx of afib on coumadin and CAD brought to ED due to weakness and pain. Nephrology was consulted for hypernatremia. Yesterday, thoracentesis was performed and NG tube placed. Patient is currently sleeping after NG tube was replaced. states that this morning he was responding appropriately to questions and was oriented to himself and place. He was talking to the textile screen printer. He is not agitated today. Objective - Vital Signs Vital signs: Vital Signs Temp Pulse Resp BP Pulse Ox 11/22/18 10:17 98.7 F 93 20 117/71 93 11/22/18 08:00 98.9 F 80 17 125/75 11/22/18 07:42 18 93 11/22/18 06:09 98.1 F 91 18 114/73 11/22/18 04:03 14 93 11/22/18 03:29 79 22 114/73 92 11/22/18 00:10 22 94 11/21/18 23:26 97.6 F 97 18 126/84 92 11/21/18 20:32 18 94 11/21/18 19:27 98.4 F 89 20 122/72 95 11/21/18 16:07 98.7 F 88 19 128/62 95 11/21/18 11:15 16 95 11/21/18 11:00 99.1 F 100 22 128/84 95 Intake and Output 11/21/18 11/22/18 11/22/18 23:59 07:59 15:59 Intake Total 1120 / 1120 2200 / 2200 100 / 100 Output Total 1350 / 1350 700 / 700 Balance -230 / -230 1500 / 1500 100 / 100 Intake: IV Fluids 1120 / 1120 2200 / 2200 100 / 100 Dextrose 5% 1,000 ML @ 150 mls/ 1000 / 1000 2000 / 2000 hr IVC .Q6H40M [facility] Rx#: [id number] Cardizem 50 MG In 0.9 % Sodium 100 / 100 Chloride 40 ML @ 5 MG/HR 5 mls/ hr IVC .Q10H [facility] Rx#:[id number] Maxipime 2,000 MG In Water for 20 / 20 inj. (sterile) 20 ML @ 300 mls/ hr IVP Q12HR [facility] Rx#:[id number] Cubicin 750 MG In 0.9 % Sodium 100 / 100 Chloride 100 ML @ 200 mls/hr IVPB Q24H [facility] Rx#:[id number] Flagyl Premix 500 MG/100 ML 500 100 / 100 100 / 100 mg In 100 ml @ 100 mls/hr IVPB Q8HR [facility] Rx#:[id number] Oral 0 / 0 0 / 0 0 / 0 Output: Catheter 300 / 300 700 / 700 Chest Tube Drainage 1050 / 1050 Right Upper Side 1050 / 1050 Other: Meal NPO Percent of Meal Consumed 0% Stool Size Large Stool Consistency liquid soft Stool Color Brown # Bowel Movements 1 Blood Glucose* 183 187 - General Appearance Exam: Constitutional: restfully sleeping Head: Normocephalic, atraumatic Heart: Normal, regular rate and rhythm, no murmurs Lungs: clear to auscultation, on oxymask 4L Abdomen: Soft, nondistended, bowel sounds present, nontender, no guarding or rigidity. Extremities: no edema, No clubbing, radial pulse +2/4, capillary refill <2sec. Skin: Skin warm and dry, no lesions, no rashes, no jaundice - Lab 11/22/18 03:16 11/22/18 09:01 Most recent lab results ABG pH 7.55 pH Units (7.32-7.45) H 11/21/18 03:54 ABG pCO2 29 mmHg (35-45) L 11/21/18 03:54 ABG pO2 94 mmHg (85-104) 11/21/18 03:54 ABG HCO3 25 mEq/L (21-27) 11/21/18 03:54 ABG O2 Saturation 98 % (95-98) 11/21/18 03:54 Calcium 10.8 mg/dL (8.6-10.3) H 11/22/18 03:16 Phosphorus 2.7 mg/dL (2.7-4.5) 11/21/18 08:54 Magnesium 2.2 mg/dL (1.6-2.6) 11/21/18 08:54 Urine Sodium 92.2 mEq/L 11/19/18 17:30 - VTE Documentation of Mechanical Device: Intermittent pneumatic compression device Consult Discharge Plan - Plan Referrals: NONE,PCP [Primary Care Provider] -
[2018-11-22] MEDS ORDERED: Acetaminophen 325 MG TABLET PO PRN (11:13)
--- NOTE | 2018-11-22 11:17 | Internal Med Progress Note ---
Hospitalist Progress Note - Encounter Date of Encounter: 11/22/18 Time of Encounter: 11:15 - Subjective Interval History: Patient seen and examined at bedside. Patient is much more awake and alert today. He is able to answer some questions appropriately. He still only alert and oriented 2. He denies any pain, fever, chills, shortness of breath, chest pain. - Exam Vitals: Temp Pulse Resp BP Pulse Ox 98.7 F 93 20 117/71 93 11/22/18 10:17 11/22/18 10:17 11/22/18 10:17 11/22/18 10:17 11/22/18 10:17 Exam: Gen.: Vitals noted. No acute distress. alert and oriented 1 Cardiac: RRR, no murmur, +S1/S2 Pulmonary: decreased breath sounds bilaterally, no wheezes, rales or rhonchi, equal chest expansion Abdomen: soft, nontender, normoactive Bowel sounds noted, no guarding MSK: no joint swelling noted, dressing applied to feet bilaterally, clean dry and intact Extremities: no BLE edema, nontender calf, no cyanosis or clubbing Neuro: moves all extremities spontaneously - Assessment and Plan (1) Hypernatremia Current Visit: Yes Status: Acute Assessment and Plan: Patient remains hypernatremic however this is improved, sodium down to 148 today . Asymptomatic. Likely due to dehydration as the patient is been unable to take by mouth intake. Start free water flushes once NG tube place. (2) Chronic ulcer of right foot with fat layer exposed Current Visit: No Status: Acute Assessment and Plan: Patient had I&D of this chronic wound yesterday by podiatry. Cultures pending. Continue wound dressing podiatry recommendations. Unclear if this is the source of his MRSA bacteremia. (3) GI bleed Current Visit: Yes Status: Suspected (4) Pneumonia Current Visit: Yes Status: Acute Assessment and Plan: Etiology unclear however may be related to septic emboli in the setting of MRSA bacteremia. Given patient's aspiration concerns aspiration pneumonia is also a possibility. Continue vancomycin, cefepime, Flagyl. Appreciate infectious disease recommendations. Given pleural effusions patient had chest tube placed yesterday for drainage. Has drained about 1400 mL. We will continue monitor drainage and possibly clamp later today. (5) Rhabdomyolysis Current Visit: Yes Status: Resolved Assessment and Plan: Resolved (6) Acute renal failure Current Visit: Yes Status: Resolved Assessment and Plan: Likely secondary to rhabdomyolysis. Resolved at this time. GFR 60 today. Continue monitor renal function. Good urine output. (7) UTI (urinary tract infection) Current Visit: Yes Status: Suspected Assessment and Plan: Urinary tract infection on urinalysis, culture positive for MRSA, continue antibiotics as above (8) Atrial fibrillation Current Visit: Yes Status: Chronic Assessment and Plan: History of atrial fibrillation on anticoagulation with Coumadin and rate controlled with carvedilol. Continue to hold Coumadin this patient is high risk for bleeding given multiple procedures recently. (9) HTN (hypertension) Current Visit: Yes Status: Chronic Assessment and Plan: Blood pressure under good control. Continue home medications. (10) CAD (coronary artery disease) Current Visit: Yes Status: Chronic Assessment and Plan: Chest pain-free at this time. No evidence of ACS (11) Morbid obesity with BMI of 40.0-44.9, adult Current Visit: Yes Status: Chronic (12) Supratherapeutic INR Current Visit: Yes Status: Resolved Assessment and Plan: Continue to hold Coumadin, possibly restart next couple days. (13) Sepsis Current Visit: Yes Status: Acute Assessment and Plan: Secondary to MRSA bacteremia. White blood cell count is improved but mildly increased today compared to yesterday. Possibly due to procedure yesterday. Recheck tomorrow. Otherwise antibiotics seem to be helping, blood cultures cleared. Appreciate infectious disease recommendations (14) Anemia Current Visit: Yes Status: Suspected (15) Acute encephalopathy Current Visit: Yes Status: Acute Assessment and Plan: Likely due to underlying sepsis. Improving today as he is much more alert than he was yesterday. Continue treatment for underlying causes and I suspect this will continue to improve. (16) Dysphagia Current Visit: Yes Status: Suspected Assessment and Plan: Patient remains risk for aspiration. As his mental status improves anticipate that he will be able to take by mouth intake however he is not to that point yet and needs nutrition so we will place NG tube and start nutrition through the NG tube. (17) Bacteremia Current Visit: Yes Status: Acute Assessment and Plan: Source remains unclear at this time. Repeat blood cultures drawn on 11/21 are no growth to date. continue IV vancomycin and daptomycin per infectious disease recommendations (18) Pleural effusion Current Visit: Yes Status: Acute Assessment and Plan: Patient is postoperative day 1 status post chest tube placement. Patient has had over a liter of drainage out. The fluid was sent to the lab, awaiting culture results. Continue to monitor her fluid output. Once fluid output decreases consider clamping tube and continuing to monitor. (19) Diarrhea Current Visit: Yes Status: Resolved Assessment and Plan: Resolved. Stool PCR negative for C diff or any other virus (20) DVT prophylaxis Current Visit: Yes Status: Acute Assessment and Plan: SCD - Time Spent with Patient Total time spent is greater than 50% in coordination of care (as documented) at patient's floor/unit and/or counseling patient: Internal Medicine: Result - Labs CBC & Chem 7: 11/22/18 03:16 11/22/18 09:01 Labs: Short CBC 11/22/18 Range/Units 03:16 WBC 14.1 H (4.3-11.1) K/mcL Hgb 7.8 L (12.9-16.9) g/dL Hct 25.7 L (37.5-50.1) % Plt Count 418 H (140-400) K/mcL Neutrophils # 13.1 H (1.6-8.9) K/mcL BMP 11/21/18 11/22/18 11/22/18 16:26 03:16 09:01 Sodium 150 H 148 H 145 Potassium 3.8 Chloride 117 H Carbon Dioxide 24 BUN 33 H Creatinine 1.20 Glucose 195 H Calcium 10.8 H Liver Function 11/21/18 Range/Units 16:26 Albumin 2.8 L (3.5-5.7) g/dL - ABG Interpretation ABG results: ABG ABG pH 7.55 pH Units (7.32-7.45) H 11/21/18 03:54 ABG pCO2 29 mmHg (35-45) L 11/21/18 03:54 ABG pO2 94 mmHg (85-104) 11/21/18 03:54 ABG O2 Saturation 98 % (95-98) 11/21/18 03:54 PT/INR, D-dimer PT 17.1 Seconds (9.4-12.1) H 11/20/18 21:23 - Impressions Impressions Chest X-Ray 11/20/18 12:04 IMPRESSION: Worsening pulmonary edema and increasing size of a partially loculated right pleural effusion. Along with cardiomegaly findings suggest moderate CHF worsening since prior. Pneumonia is in the differential. D/ / 11/20/2018 12:59:57 Rigo Stapleton MD / Greta Winchester Interpreting Provider: Rigo Stapleton MD Thoracentesis 11/21/18 13:45 FINDINGS/IMPRESSION: Successful ultrasound-guided placement of a 10 [place] right-sided chest tube draining serosanguineous fluid. Attached to Pleur-evac device on suction. D/ / Hakan Shelley / Hakan Shelley Interpreting Provider: Hakan Shelley Foot CT 11/21/18 14:00 IMPRESSION: 1. No CT evidence for osteomyelitis. 2. Subcutaneous edema with no evidence for subcutaneous gas or well-defined organized fluid collection. D/ / Jacob Noel MD / Jacob Noel MD Interpreting Provider: Jacob Noel MD Chest X-Ray 11/21/18 15:20 IMPRESSION: No pneumothorax following placement of a right pigtail chest tube. A right pleural effusion is decreased in size. Unchanged cardiomegaly and moderate pulmonary edema. D/ / Jorden Phillips MD / Jorden Phillips MD Interpreting Provider: Jorden Phillips MD X-Ray 11/22/18 07:14 IMPRESSION: 1. No nasogastric tube is visualized. 2. Pulmonary vascular congestion. D/ / 11/22/2018 08:51:43 Ziggy Cartagena MD / Greta Winchester Interpreting Provider: Ziggy Cartagena MD X-Ray 11/22/18 09:59 IMPRESSION: 1. Enteric catheter overlies the body of the stomach. Side hole is distal to the GE junction. D/ / Aaron Weiss MD / Aaron Weiss MD Interpreting Provider: Aaron Weiss MD - VTE Documentation of Mechanical Device: Intermittent pneumatic compression device Consult Discharge Plan - Plan Referrals: NONE,PCP [Primary Care Provider] - (3) GI bleed Qualifiers: GI bleed type/associated pathology: melena Qualified Code(s): K92.1 - Melena (4) Pneumonia Qualifiers: Pneumonia type: due to unspecified organism Laterality: right Lung location: lower lobe of lung Qualified Code(s): J18.1 - Lobar pneumonia, unspecified organism (5) Rhabdomyolysis Qualifiers: Rhabdomyolysis type: traumatic Encounter type: subsequent encounter Qualified Code(s): T79.6XXD - Traumatic ischemia of muscle, subsequent encounter (6) Acute renal failure Qualifiers: Acute renal failure type: with acute tubular necrosis Qualified Code(s): N17.0 - Acute kidney failure with tubular necrosis (7) UTI (urinary tract infection) Qualifiers: Urinary tract infection type: acute cystitis Hematuria presence: with hematuria Qualified Code(s): N30.01 - Acute cystitis with hematuria (8) Atrial fibrillation Qualifiers: Atrial fibrillation type: chronic Qualified Code(s): I48.2 - Chronic atrial fibrillation (9) HTN (hypertension) Qualifiers: Hypertension type: essential hypertension Qualified Code(s): I10 - Essential (primary) hypertension (10) CAD (coronary artery disease) Qualifiers: Coronary Disease-Associated Artery/Lesion type: [place] artery [place] vs. transplanted heart: [place] heart Associated angina: without angina Qualified Code(s): I25.10 - Atherosclerotic heart disease of [place] coronary artery without angina pectoris (13) Sepsis Qualifiers: Sepsis type: methicillin resistant Staphylococcus aureus Qualified Code(s): A41.02 - Sepsis due to Methicillin resistant Staphylococcus aureus (14) Anemia Qualifiers: Anemia type: iron deficiency Iron deficiency anemia type: chronic blood loss Qualified Code(s): D50.0 - Iron deficiency anemia secondary to blood loss (chronic) (16) Dysphagia Qualifiers: Dysphagia type: oropharyngeal phase Qualified Code(s): R13.12 - Dysphagia, oropharyngeal phase (19) Diarrhea Qualifiers: Diarrhea type: presumed infectious Qualified Code(s): R19.7 - Diarrhea, unspecified
[2018-11-22] MEDS ORDERED: DAPTOmycin 750 MG in 0.9 % Sodium Chloride 100 ML IVPB SCH (14:00)
--- NOTE | 2018-11-22 16:31 | Podiatry Progress Note ---
Date of Encounter: 11/22/18 Time of Encounter: 15:00 - Assessment and Plan (1) Chronic ulcer of right foot with fat layer exposed Current Visit: No Status: Acute ASSESSMENT: Miguel stage II ulceration to the right foot sub/lateral mt head #5 with fat layer exposure PLAN: Healing ulcerations noted Improvement in appearance- no appearance of active infection to foot. Cultures were obtained 2 days ago and are pending Cleansed with saline Maxsorb AG, 4x4 and kerlix applied Patient agitated at times and restrained. Sitter at bedside Will need to follow up with in wound care center once discharged Dressing changes daily while inpatient- may move to weekly or PRN changes once discharged. (2) Hyperkeratosis Current Visit: Yes Status: Acute ASSESSMENT: PLAN: healing well and without ulceration or complication (3) Bullous lesion Current Visit: Yes Status: Acute ASSESSMENT: bullous lesion to the left great toe PLAN: Non infectious in appearance Healing well Cleansed with saline Wound cultures obtained and pending Iodoform, 4x4 and kerlix applied Daily dressing changes while inpatient. May go to weekly once discharged Subjective Principal diagnosis: HYpernatremia Interval history: following patient in regards to chronic ulceration of right foot and bullous lesion to left great toe. Debridement was complete 2 days ago imagining obtained. No MRI was ordered but patient has a pacer and this was not possible. CT shows no osteo or abscess formation. Patient cultures pending from wounds. Patient had CT placed overnight and was moved to . Patient is agitated and restrained at this time. Has sitter at bedside. Denies known fevers, chills, n/v or fls. Objective - Vital Signs Vital Signs: Vital Signs Temp Pulse Resp BP Pulse Ox 11/22/18 15:45 18 95 11/22/18 15:00 98.6 F 83 18 109/67 94 11/22/18 13:19 98.7 F 98 16 117/71 94 11/22/18 12:14 18 94 11/22/18 12:00 79 95 11/22/18 10:17 98.7 F 93 20 117/71 93 11/22/18 08:00 98.9 F 80 17 125/75 11/22/18 07:42 18 93 11/22/18 06:09 98.1 F 91 18 114/73 11/22/18 04:03 14 93 11/22/18 03:29 79 22 114/73 92 11/22/18 00:10 22 94 11/21/18 23:26 97.6 F 97 18 126/84 92 11/21/18 20:32 18 94 11/21/18 19:27 98.4 F 89 20 122/72 95 Intake and Output 11/22/18 11/22/18 11/22/18 07:59 15:59 23:59 Intake Total 2200 / 2200 150 / 150 200 / 200 Output Total 700 / 700 Balance 1500 / 1500 150 / 150 200 / 200 Intake: IV Fluids 2200 / 2200 150 / 150 50 / 50 Dextrose 5% 1,000 ML @ 150 mls/ 2000 / 2000 hr IVC .[id number] [facility] Rx#: [id number] Cardizem 50 MG In 0.9 % Sodium 100 / 100 50 / 50 50 / 50 Chloride 40 ML @ 5 MG/HR 5 mls/ hr IVC .Q10H [facility] Rx#:[id number] Flagyl Premix 500 MG/100 ML 500 100 / 100 100 / 100 mg In 100 ml @ 100 mls/hr IVPB Q8HR [facility] Rx#:[id number] Oral 0 / 0 0 / 0 Free Water Intake Amount 150 / 150 Output: Catheter 700 / 700 Other: Meal NPO Percent of Meal Consumed 0% Blood Glucose* 187 217 - Exam Exam: General Examination: CONSTITUTIONAL: lethargic , agitated and restless. Pulling at tubes EXTREMITIES: CFT 3 seconds all toes. Edema +2 and pedal pulses palpable. SKIN: There is a noted chronic ulceration sub/lateral mt head #5 right.This extended into sub Q. This is healing well at this time. Improvement in size and appearance. No drainage. no surrouning edema, erythema or warmth. Healthy bleeding and granulation tissue is noted to entire wound bed. No areas of skin necrosis or sloughing of skin. There is a healinh bullous lesion to the left great toe, medial aspect, this was lanced using a #15 blade and serous fluid was released. 100% healthy granulation tissue noted to wound and limited to breakdown of skin NEUROLOGIC: Diminished sensation to light and moderate touch MUSCULOSKELETAL: Muscle strength and tone unable to be assessed- no edema or fluctuance surrounding joints of foot or ankle. - Lab Result Diagrams: 11/23/18 06:49 11/23/18 06:49 Labs: Abnormal lab results WBC 14.1 K/mcL (4.3-11.1) H 11/22/18 03:16 RBC 2.51 M/mcL (4.19-5.50) L 11/22/18 03:16 Hgb 7.8 g/dL (12.9-16.9) L 11/22/18 03:16 Hct 25.7 % (37.5-50.1) L 11/22/18 03:16 MCV 102.4 fL (83.0-100.0) H 11/22/18 03:16 MCHC 30.4 g/dL (31.6-35.5) L 11/22/18 03:16 RDW 15.0 % (11.5-14.5) H 11/22/18 03:16 Plt Count 418 K/mcL (140-400) H 11/22/18 03:16 Metamyelocytes % 2.0 % (0) H 11/15/18 05:57 Myelocytes % 2.0 % (0) H 11/15/18 05:57 Neutrophils # 13.1 K/mcL (1.6-8.9) H 11/22/18 03:16 Nucleated RBCs/100 WBC 0.2 /100 WBC (0) H 11/16/18 06:32 Reactive Lymphocytes Present (Not Present) A 11/10/18 01:12 Platelet Estimate Increased (Normal) H 11/16/18 06:32 Polychromasia 1+ (Not Present) A 11/15/18 05:57 Anisocytosis 1+ (Not Present) A 11/15/18 05:57 ESR 125 mm/hr (0-10) H 11/12/18 15:40 PT 17.1 Seconds (9.4-12.1) H 11/20/18 21:23 ABG pH 7.55 pH Units (7.32-7.45) H 11/21/18 03:54 ABG pCO2 29 mmHg (35-45) L 11/21/18 03:54 Chloride 117 mEq/L (98-107) H 11/22/18 03:16 BUN 33 mg/dL (8-23) H 11/22/18 03:16 BUN/Creatinine Ratio 28 (6-26) H 11/22/18 03:16 Glucose 195 mg/dL (70-105) H 11/22/18 03:16 POC Glucose 187 mg/dL (70-99) H 11/22/18 06:03 Serum Osmolality 347 mOsm/kg (280-300) H 11/19/18 18:08 Calculated Osmolality 319 (280-300) H 11/22/18 03:16 Calcium 10.8 mg/dL (8.6-10.3) H 11/22/18 03:16 Iron 34 mcg/dL (65-175) L 11/12/18 16:22 % Saturation 16 % (20-55) L 11/12/18 16:22 Transferrin 148 mg/dL (203-362) L 11/12/18 16:22 Ferritin 565 ng/mL (20-250) H 11/12/18 16:22 C-Reactive Protein 201 mg/L (Less than 10) H 11/12/18 16:09 B-Natriuretic Peptide 123 pg/mL (Less than 100) H 11/09/18 11:14 Albumin 2.8 g/dL (3.5-5.7) L 11/21/18 16:26 Globulin 3.9 g/dL (2.4-3.5) H 11/21/18 16:26 Albumin/Globulin Ratio 0.7 (1.1-2.2) L 11/21/18 16:26 Folate > 22.3 ng/mL (3.0-16.0) H 11/12/18 16:22 Urine Protein 30 mg/dL (Neg-Trace) H 11/13/18 05:13 Urine Blood Large (Negative) H 11/13/18 05:13 Urine Microscopic RBC TNTC per hpf (0-3) H 11/13/18 05:13 Urine Microscopic WBC 3-5 per hpf (0-3) H 11/13/18 05:13 Ur Squamous Epith Cells Many per lpf (None-Few) H 11/13/18 05:13 Granular Casts Few per lpf (None Seen) H 11/09/18 17:18 Pleural Appearance Bloody (Clear) A 11/21/18 13:10 Pleural RBC 0.090 M/mcL (0.000-0.002) H 11/21/18 13:10 Pleural Tot Nuc Cell 1754 TNC/mcL (0-1000) H 11/21/18 13:10 Nasal Screen MRSA (PCR) Positive (Negative) A 11/09/18 21:50 Stool Occult Bld Scrn Positive (Negative) A 11/09/18 13:05 Stool Calprotectin 162 ug/g (<=50) H 11/13/18 10:50 Vancomycin Trough 16 mcg/mL (5-10) H 11/21/18 08:54 Staph aureus (PCR) DETECTED (Not Detect) A 11/13/18 07:20 mecA-Methicil Res Gene DETECTED (Not Detect) A 11/13/18 07:20 Microbiology, Last 48 Hours 11/18/18 17:10 Sputum Culture - Final Sputum 11/20/18 14:45 Wound Culture - Preliminary Right Fifth Toe No growth. 11/18/18 11:00 Blood Culture - Final Peripheral Venipuncture Methicillin Resistant S.aureus 11/21/18 13:10 Body Fluid Culture - Preliminary Pleural Fluid 11/16/18 15:00 Anaerobic Culture - Final Pleural Fluid No anaerobes were recovered. 11/20/18 14:45 Wound Culture - Preliminary Left Great Toe No growth. 11/21/18 08:54 Blood Culture - Preliminary Peripheral Venipuncture Culture is incubating and being continuously monitored for growth. Final report to follow. 11/21/18 08:52 Blood Culture - Preliminary Peripheral Venipuncture Culture is incubating and being continuously monitored for growth. Final report to follow. 11/20/18 14:45 Gram Stain - Final Right Fifth Toe 11/20/18 14:45 Gram Stain - Final Left Great Toe 11/20/18 14:45 Anaerobic Culture - Preliminary Left Great Toe Culture is incubating. 11/20/18 14:45 Anaerobic Culture - Preliminary Right Fifth Toe Culture is incubating. - VTE Documentation of Mechanical Device: Intermittent pneumatic compression device Consult Discharge Plan - Plan Referrals: NONE,PCP [Primary Care Provider] -
[2018-11-22] MEDS: Gabapentin 300 MG CAPSULE PO SCH (20:22)
[2018-11-23] MEDS: MetroNIDAZOLE 500 MG/100 ML 500 MG/100 ML BAG IVPB SCH ×3 (01:00→16:40)
[2018-11-23] MEDS: MethylPREDNISolone 40 MG/ML VIAL IVP SCH ×3 (01:00→16:40)
[2018-11-23] MEDS: Levalbuterol Neb 1.25 MG/3 ML IH SCH ×5 (04:12→19:36)
[2018-11-23] MEDS: D5% in Water 1,000 ML IVC SCH ×4 (05:27→20:10)
[2018-11-23] MEDS: Cefepime HCl 2,000 MG in Water for inj. (sterile) 20 ML 20 ML IVP SCH ×2 (05:30→18:14)
[2018-11-23] MEDS: *HR* Heparin 5,000 UNIT/ML VIAL SQ SCH ×3 (05:33→20:11)
--- NOTE | 2018-11-23 06:22 | Event Note ---
Date of Encounter: 11/23/18 Time of Encounter: 06:22 - Nephrology Event Note Nephro Chart Update/Review Pt's VAZQUEZ and HyperNa have both improve. Will sign-off. Please feel free to call or page if any questions. Thank you.
--- NOTE | 2018-11-23 06:40 | Pulmonology Progress Note ---
Date of Encounter: 11/23/18 Time of Encounter: 06:40 Assessment and Plan (1) Acute encephalopathy Current Visit: Yes Status: Acute This is multifactorial but likely related to metabolic alkalosis and hypernatremia and appears to be improving Sodium today is 148 ABG was not checked think this salicylate necessary given improvement mental status (2) Pneumonia Current Visit: Yes Status: Acute Suspected MRSA pneumonia given MRSA bacteremia however patient is not at increased risk of aspiration he is on broad-spectrum antibiotics and selective by infectious disease although white count has increased somewhat overnight he remains afebrile and clinically it is appearing to improve would continue to stay the course at this time Qualifiers: Pneumonia type: due to unspecified organism Laterality: right Lung loc ation: lower lobe of lung Qualified Code(s): J18.1 - Lobar pneumonia, unspecified organism (3) Pleural effusion Current Visit: Yes Status: Acute This is a neutrophil predominant exudate possibly parapneumonic effusion being drained by chest tube recommend repeat chest x-ray in the morning likely be removed subsequently. (4) Acute respiratory failure Current Visit: Yes Status: Acute Currently he has except will oxygenation on 4 L simple face mask. He is in no respiratory distress Consider using positive airway pressure at night as I suspect patient does have obstructive sleep apnea he will need outpatient follow-up for this Qualifiers: Respiratory failure complication: hypoxia and hypercapnia Qualified Code(s): J96.01 - Acute respiratory failure with hypoxia; J96.02 - Acute respiratory failure with hypercapnia (5) Metabolic alkalosis Current Visit: Yes Status: Acute This appears to be improving clinically Complicated picture of the intravascular volume depletion coupled with the increased total body water Nephrology following Subjective Principal diagnosis: HYpernatremia Interval history: Mr Morris has made some improvement in the last 24 hours he remains confused to some degree but able to participate in conversation now and answer questions appropriately. A chest tube was placed yesterday for right pleural effusion and he has had a bottle liter output which is been serosanguineous. Remains afebrile. at bedside Objective PUL Vital signs: Last Vital Signs Temp 98.3 F 11/23/18 05:21 Pulse 77 11/23/18 05:21 Resp 18 11/23/18 05:21 BP 116/77 11/23/18 05:21 Pulse Ox 93 11/23/18 05:21 Results - Laboratory Findings CBC and BMP: 11/22/18 03:16 11/22/18 15:53 ABG ABG pH 7.55 pH Units (7.32-7.45) H 11/21/18 03:54 ABG pCO2 29 mmHg (35-45) L 11/21/18 03:54 ABG pO2 94 mmHg (85-104) 11/21/18 03:54 ABG O2 Saturation 98 % (95-98) 11/21/18 03:54 PT/INR, D-dimer PT 17.1 Seconds (9.4-12.1) H 11/20/18 21:23 Abnormal lab findings: Abnormal lab results WBC 14.1 K/mcL (4.3-11.1) H 11/22/18 03:16 RBC 2.51 M/mcL (4.19-5.50) L 11/22/18 03:16 Hgb 7.8 g/dL (12.9-16.9) L 11/22/18 03:16 Hct 25.7 % (37.5-50.1) L 11/22/18 03:16 MCV 102.4 fL (83.0-100.0) H 11/22/18 03:16 MCHC 30.4 g/dL (31.6-35.5) L 11/22/18 03:16 RDW 15.0 % (11.5-14.5) H 11/22/18 03:16 Plt Count 418 K/mcL (140-400) H 11/22/18 03:16 Metamyelocytes % 2.0 % (0) H 11/15/18 05:57 Myelocytes % 2.0 % (0) H 11/15/18 05:57 Neutrophils # 13.1 K/mcL (1.6-8.9) H 11/22/18 03:16 Nucleated RBCs/100 WBC 0.2 /100 WBC (0) H 11/16/18 06:32 Reactive Lymphocytes Present (Not Present) A 11/10/18 01:12 Platelet Estimate Increased (Normal) H 11/16/18 06:32 Polychromasia 1+ (Not Present) A 11/15/18 05:57 Anisocytosis 1+ (Not Present) A 11/15/18 05:57 ESR 125 mm/hr (0-10) H 11/12/18 15:40 PT 17.1 Seconds (9.4-12.1) H 11/20/18 21:23 ABG pH 7.55 pH Units (7.32-7.45) H 11/21/18 03:54 ABG pCO2 29 mmHg (35-45) L 11/21/18 03:54 Chloride 117 mEq/L (98-107) H 11/22/18 03:16 BUN 33 mg/dL (8-23) H 11/22/18 03:16 BUN/Creatinine Ratio 28 (6-26) H 11/22/18 03:16 Glucose 195 mg/dL (70-105) H 11/22/18 03:16 POC Glucose 153 mg/dL (70-99) H 11/23/18 05:32 Serum Osmolality 347 mOsm/kg (280-300) H 11/19/18 18:08 Calculated Osmolality 319 (280-300) H 11/22/18 03:16 Calcium 10.8 mg/dL (8.6-10.3) H 11/22/18 03:16 Iron 34 mcg/dL (65-175) L 11/12/18 16:22 % Saturation 16 % (20-55) L 11/12/18 16:22 Transferrin 148 mg/dL (203-362) L 11/12/18 16:22 Ferritin 565 ng/mL (20-250) H 11/12/18 16:22 C-Reactive Protein 201 mg/L (Less than 10) H 11/12/18 16:09 B-Natriuretic Peptide 123 pg/mL (Less than 100) H 11/09/18 11:14 Albumin 2.8 g/dL (3.5-5.7) L 11/21/18 16:26 Globulin 3.9 g/dL (2.4-3.5) H 11/21/18 16:26 Albumin/Globulin Ratio 0.7 (1.1-2.2) L 11/21/18 16:26 Folate > 22.3 ng/mL (3.0-16.0) H 11/12/18 16:22 Urine Protein 30 mg/dL (Neg-Trace) H 11/13/18 05:13 Urine Blood Large (Negative) H 11/13/18 05:13 Urine Microscopic RBC TNTC per hpf (0-3) H 11/13/18 05:13 Urine Microscopic WBC 3-5 per hpf (0-3) H 11/13/18 05:13 Ur Squamous Epith Cells Many per lpf (None-Few) H 11/13/18 05:13 Granular Casts Few per lpf (None Seen) H 11/09/18 17:18 Pleural Appearance Bloody (Clear) A 11/21/18 13:10 Pleural RBC 0.090 M/mcL (0.000-0.002) H 11/21/18 13:10 Pleural Tot Nuc Cell 1754 TNC/mcL (0-1000) H 11/21/18 13:10 Nasal Screen MRSA (PCR) Positive (Negative) A 11/09/18 21:50 Stool Occult Bld Scrn Positive (Negative) A 11/09/18 13:05 Stool Calprotectin 162 ug/g (<=50) H 11/13/18 10:50 Vancomycin Trough 16 mcg/mL (5-10) H 11/21/18 08:54 Staph aureus (PCR) DETECTED (Not Detect) A 11/13/18 07:20 mecA-Methicil Res Gene DETECTED (Not Detect) A 11/13/18 07:20 - Microbiology Findings Microbiology Findings: Microbiology, Last 48 Hours 11/18/18 17:10 Sputum Culture - Final Sputum 11/20/18 14:45 Wound Culture - Preliminary Right Fifth Toe No growth. 11/18/18 11:00 Blood Culture - Final Peripheral Venipuncture Methicillin Resistant S.aureus 11/21/18 13:10 Body Fluid Culture - Preliminary Pleural Fluid 11/16/18 15:00 Anaerobic Culture - Final Pleural Fluid No anaerobes were recovered. 11/20/18 14:45 Wound Culture - Preliminary Left Great Toe No growth. 11/21/18 08:54 Blood Culture - Preliminary Peripheral Venipuncture Culture is incubating and being continuously monitored for growth. Final report to follow. 11/21/18 08:52 Blood Culture - Preliminary Peripheral Venipuncture Culture is incubating and being continuously monitored for growth. Final report to follow. - Clinical Findings Intake & Output: Intake & Output 11/22/18 11/22/18 11/23/18 15:59 23:59 07:59 Intake Total 150 / 150 519 / 519 1362 / 1362 Output Total 685 / 685 665 / 665 Balance 150 / 150 -166 / -166 697 / 697 Weight 130.4 kg - VTE Documentation of Mechanical Device: Intermittent pneumatic compression device Consult Discharge Plan - Plan Referrals: NONE,PCP [Primary Care Provider] -
[2018-11-23 07:20] LABS: Hematocrit 25.7 % (37.5-50.1); Immature Granulocytes % 0.6 % (0-4); Lymphocytes # 0.5 K/mcL (0.6-4.6); Mean Corpuscular HGB Conc 31.1 g/dL (31.6-35.5); Mean Corpuscular Volume 99.6 fL (83.0-100.0); Monocytes # 0.3 K/mcL (0.0-1.3); Monocytes % 2.6 %; Neutrophils # 11.7 K/mcL (1.6-8.9); Platelet Count 421 K/mcL (140-400); Red Blood Count 2.58 M/mcL (4.19-5.50); Red Cell Distribution Width 14.7 % (11.5-14.5); Segmented Neutrophils % 92.8 %
[2018-11-23 07:26] LABS: BUN/Creatinine Ratio 35 (6-26); Blood Urea Nitrogen 43 mg/dL (8-23); Calcium 10.9 mg/dL (8.6-10.3); Carbon Dioxide 22 mEq/L (23-29); Chloride 114 mEq/L (98-107); Glucose 178 mg/dL (70-105); Magnesium 2.3 mg/dL (1.6-2.6); Osmolality,Calculated 313 (280-300); Potassium 3.9 mEq/L (3.5-5.1); Sodium 144 mEq/L (136-145); eGFR For Non-African Americans 59 (> 60)
[2018-11-23] MEDS ORDERED: traMADol 50 MG TABLET GTUBE PRN (08:00)
[2018-11-23] MEDS: *HR* OxyCODONE Immed Rel 5 MG TABLET GTUBE PRN (09:26)
[2018-11-23] MEDS: Aspirin 81 MG TAB.CHEW GTUBE SCH (09:27)
--- NOTE | 2018-11-23 09:54 | Internal Med Progress Note ---
Hospitalist Progress Note - Encounter Date of Encounter: 11/23/18 Time of Encounter: 09:52 - Subjective Interval History: Patient seen and examined at bedside. Patient continues to improve his mental status. He is awake and alert and able to say where he is. Daughter is at bedside who states he has made drastic improvement in the last 2 days. Denies any pain, shortness of breath. He states that the NG tube is irritating. - Exam Vitals: Temp Pulse Resp BP Pulse Ox 98.6 F 81 18 121/63 95 11/23/18 09:13 11/23/18 09:13 11/23/18 09:13 11/23/18 09:13 11/23/18 09:13 Exam: Gen.: Vitals noted. No acute distress. alert and oriented 3 Cardiac: RRR, no murmur, +S1/S2 Pulmonary: decreased breath sounds bilaterally, no wheezes, rales or rhonchi, equal chest expansion Abdomen: soft, nontender, normoactive Bowel sounds noted, no guarding MSK: no joint swelling noted, dressing applied to feet bilaterally, clean dry and intact - Assessment and Plan (1) Dysphagia Current Visit: Yes Status: Suspected Assessment and Plan: Patient had NG tube placed yesterday. Is not receiving tube feeds to this NG tube. Mental status is improving so in the next couple days will have patient reevaluated by speech therapy to see if he can start oral nutrition. Continue tube feeds per dietary. (2) Sepsis Current Visit: Yes Status: Acute Assessment and Plan: Secondary to MRSA bacteremia. White blood cell count is improved but mildly increased today compared to yesterday. Possibly due to procedure yesterday. Recheck tomorrow. Otherwise antibiotics seem to be helping, blood cultures cleared. Appreciate infectious disease recommendations (3) Chronic ulcer of right foot with fat layer exposed Current Visit: No Status: Acute Assessment and Plan: Patient had I&D of this chronic wound yesterday by podiatry. Cultures pending preliminary microbiology results are showing gram-positive cocci from the supplements that this may be a source of his MRSA bacteremia. Continue wound dressing podiatry recommendations. (4) GI bleed Current Visit: Yes Status: Suspected Assessment and Plan: Hemoglobin stable. No evidence of active bleeding. (5) Pneumonia Current Visit: Yes Status: Acute Assessment and Plan: Etiology unclear however may be related to septic emboli in the setting of MRSA bacteremia. Given patient's aspiration concerns aspiration pneumonia is also a possibility. Continue vancomycin, cefepime, Flagyl. Appreciate infectious disease recommendations. Given pleural effusions patient had chest tube placed 2 days ago for drainage. Has drained about 1400 mL but very minimal drainage in the last 12 hours. We will remove chest tube today. (6) Diarrhea Current Visit: Yes Status: Resolved Assessment and Plan: Resolved. Stool PCR negative for C diff or any other virus (7) Dehydration Current Visit: Yes Status: Resolved Assessment and Plan: Much improved today. Patient knows NG tube and is able to to take in free water. (8) Rhabdomyolysis Current Visit: Yes Status: Resolved Assessment and Plan: Resolved (9) Acute renal failure Current Visit: Yes Status: Resolved Assessment and Plan: Likely secondary to rhabdomyolysis. Resolved at this time. GFR 59 today. Continue monitor renal function. Good urine output. (10) UTI (urinary tract infection) Current Visit: Yes Status: Suspected Assessment and Plan: Urinary tract infection on urinalysis, culture positive for MRSA, continue antibiotics as above (11) Atrial fibrillation Current Visit: Yes Status: Chronic Assessment and Plan: History of atrial fibrillation on anticoagulation with Coumadin and rate controlled with carvedilol. Continue to hold Coumadin this patient is high risk for bleeding given multiple procedures recently. (12) HTN (hypertension) Current Visit: Yes Status: Chronic Assessment and Plan: Blood pressure under good control. Continue home medications. (13) CAD (coronary artery disease) Current Visit: Yes Status: Chronic Assessment and Plan: Chest pain-free at this time. No evidence of ACSs a (14) Morbid obesity with BMI of 40.0-44.9, adult Current Visit: Yes Status: Chronic (15) DVT prophylaxis Current Visit: Yes Status: Acute (16) Supratherapeutic INR Current Visit: Yes Status: Resolved (17) Anemia Current Visit: Yes Status: Suspected (18) Acute encephalopathy Current Visit: Yes Status: Acute (19) Bacteremia Current Visit: Yes Status: Acute Assessment and Plan: Source remains unclear at this time, may be infected foot wound. Repeat blood cultures drawn on 11/21 are no growth to date. continue IV vancomycin and daptomycin per infectious disease recommendations (20) Pleural effusion Current Visit: Yes Status: Acute Assessment and Plan: Patient is postoperative day 2 status post chest tube placement. Patient has had over a liter of drainage out. The fluid was sent to the lab, awaiting culture results. Continue to monitor her fluid output. Chest x-ray reviewed and showed pleural effusion is improved, drainage is minimal. Remove chest tube today.. (21) Hypernatremia Current Visit: Yes Status: Resolved Assessment and Plan: Resolved at this time. Sodium is 144, continue free water flushes. - Time Spent with Patient Total time spent is greater than 50% in coordination of care (as documented) at patient's floor/unit and/or counseling patient: Internal Medicine: Result - Labs CBC & Chem 7: 11/23/18 06:49 11/23/18 06:49 Labs: Short CBC 11/23/18 Range/Units 06:49 WBC 12.6 H (4.3-11.1) K/mcL Hgb 8.0 L (12.9-16.9) g/dL Hct 25.7 L (37.5-50.1) % Plt Count 421 H (140-400) K/mcL Neutrophils # 11.7 H (1.6-8.9) K/mcL BMP 11/22/18 11/23/18 15:53 06:49 Sodium 144 144 Potassium 3.9 Chloride 114 H Carbon Dioxide 22 L BUN 43 H Creatinine 1.22 Glucose 178 H Calcium 10.9 H - ABG Interpretation ABG results: ABG ABG pH 7.55 pH Units (7.32-7.45) H 11/21/18 03:54 ABG pCO2 29 mmHg (35-45) L 11/21/18 03:54 ABG pO2 94 mmHg (85-104) 11/21/18 03:54 ABG O2 Saturation 98 % (95-98) 11/21/18 03:54 PT/INR, D-dimer PT 17.1 Seconds (9.4-12.1) H 11/20/18 21:23 - Impressions Impressions KUB X-Ray 11/22/18 09:59 IMPRESSION: 1. Enteric catheter overlies the body of the stomach. Side hole is distal to the GE junction. D/ / Aaron Weiss MD / Aaron Weiss MD Interpreting Provider: Aaron Weiss MD X-Ray 11/22/18 13:10 IMPRESSION: Enteric catheter in appropriate position with tip in the gastric body. D/ / Ming De La Torre MD / Ming De La Torre MD Interpreting Provider: Ming De La Torre MD X-Ray 11/23/18 01:01 IMPRESSION: Nasogastric tube with the tip in the fundus of the stomach. The proximal side port is near the GE junction. Suggest advancement by 8 cm. D/ / 11/23/2018 08:01:33 Cedric Zepeda MD / earnold Interpreting Provider: Cedric Zepeda MD X-Ray 11/23/18 08:25 IMPRESSION: Nasogastric tube tip overlies region of the proximal duodenum D/ / Jacob Grady MD / Jacob Grady MD Interpreting Provider: Jacob Grady MD Chest X-Ray 11/23/18 09:00 IMPRESSION: Slight improvement of bilateral pulmonary opacities and pleural fluid in the lung bases. There is an NG tube with its tip in the antral/pyloric region of the stomach in the proximal port in the distal body of the stomach. Pacemaker. D/ / 11/23/2018 09:33:11 Edith Davila MD / bcarter Interpreting Provider: Edith Davila MD - VTE Documentation of Mechanical Device: Intermittent pneumatic compression device Consult Discharge Plan - Plan Referrals: NONE,PCP [Primary Care Provider] - (1) Dysphagia Qualifiers: Dysphagia type: oropharyngeal phase Qualified Code(s): R13.12 - Dysphagia, oropharyngeal phase (2) Sepsis Qualifiers: Sepsis type: methicillin resistant Staphylococcus aureus Qualified Code(s): A41.02 - Sepsis due to Methicillin resistant Staphylococcus aureus (4) GI bleed Qualifiers: GI bleed type/associated pathology: melena Qualified Code(s): K92.1 - Melena (5) Pneumonia Qualifiers: Pneumonia type: due to unspecified organism Laterality: right Lung location: lower lobe of lung Qualified Code(s): J18.1 - Lobar pneumonia, unspecified organism (6) Diarrhea Qualifiers: Diarrhea type: presumed infectious Qualified Code(s): R19.7 - Diarrhea, unspecified (8) Rhabdomyolysis Qualifiers: Rhabdomyolysis type: traumatic Encounter type: subsequent encounter Qualified Code(s): T79.6XXD - Traumatic ischemia of muscle, subsequent encounter (9) Acute renal failure Qualifiers: Acute renal failure type: with acute tubular necrosis Qualified Code(s): N17.0 - Acute kidney failure with tubular necrosis (10) UTI (urinary tract infection) Qualifiers: Urinary tract infection type: acute cystitis Hematuria presence: with [place] Qualified Code(s): N30.01 - Acute cystitis with hematuria (11) Atrial fibrillation Qualifiers: Atrial fibrillation type: chronic Qualified Code(s): I48.2 - Chronic atrial fibrillation (12) HTN (hypertension) Qualifiers: Hypertension type: essential hypertension Qualified Code(s): I10 - Essential (primary) hypertension (13) CAD (coronary artery disease) Qualifiers: Coronary Disease-Associated Artery/Lesion type: [place] artery [place] vs. transplanted heart: [place] heart Associated angina: without angina Qualified Code(s): I25.10 - Atherosclerotic heart disease of [place] coronary artery without angina pectoris (17) Anemia Qualifiers: Anemia type: iron deficiency Iron deficiency anemia type: chronic blood loss Qualified Code(s): D50.0 - Iron deficiency anemia secondary to blood loss (chronic)
[2018-11-23] MEDS: Vancomycin 1,500 MG in D5% in Water 250 ML IVPB SCH (10:23)
[2018-11-23] MEDS: *HR* LORazepam 2 MG/ML VIAL IVP PRN ×2 (10:32→20:11)
[2018-11-23] MEDS: DAPTOmycin 1,000 MG in 0.9 % Sodium Chloride 100 ML IVPB SCH (14:25)
[2018-11-23] MEDS: Gabapentin 300 MG CAPSULE GTUBE SCH (20:13)
[2018-11-24] MEDS: Levalbuterol Neb 1.25 MG/3 ML IH SCH ×4 (00:05→11:00)
[2018-11-24] MEDS: MetroNIDAZOLE 500 MG/100 ML 500 MG/100 ML BAG IVPB SCH ×4 (00:17→23:53)
[2018-11-24] MEDS: MethylPREDNISolone 40 MG/ML VIAL IVP SCH ×4 (00:17→23:53)
[2018-11-24 07:16] LABS: Basophils % 0.1 %; Hematocrit 26.7 % (37.5-50.1); Hemoglobin 8.4 g/dL (12.9-16.9); Immature Granulocytes % 0.7 % (0-4); Lymphocytes # 0.3 K/mcL (0.6-4.6); Lymphocytes % 2.6 %; Mean Corpuscular HGB Conc 31.5 g/dL (31.6-35.5); Mean Corpuscular Hemoglobin 31.1 pg (28.0-33.3); Mean Corpuscular Volume 98.9 fL (83.0-100.0); Mean Platelet Volume 10.2 fL (9.4-12.4); Monocytes # 0.4 K/mcL (0.0-1.3); Monocytes % 3.2 %; Platelet Count 411 K/mcL (140-400); Red Cell Distribution Width 14.8 % (11.5-14.5); Segmented Neutrophils % 93.4 %
[2018-11-24] MEDS: Cefepime HCl 2,000 MG in Water for inj. (sterile) 20 ML 20 ML IVP SCH ×2 (07:53→18:28)
[2018-11-24] MEDS: *HR* Heparin 5,000 UNIT/ML VIAL SQ SCH ×3 (07:53→21:38)
[2018-11-24] MEDS: Aspirin 81 MG TAB.CHEW GTUBE SCH (08:06)
[2018-11-24 08:23] LABS: BUN/Creatinine Ratio 39 (6-26); Blood Urea Nitrogen 47 mg/dL (8-23); Calcium 10.6 mg/dL (8.6-10.3); Carbon Dioxide 21 mEq/L (23-29); Chloride 112 mEq/L (98-107); Glucose 274 mg/dL (70-105); Magnesium 2.4 mg/dL (1.6-2.6); Osmolality,Calculated 316 (280-300); Sodium 142 mEq/L (136-145); eGFR For Non-African Americans 59 (> 60)
--- NOTE | 2018-11-24 09:30 | Internal Med Progress Note ---
Hospitalist Progress Note - Encounter Date of Encounter: 11/24/18 Time of Encounter: 09:28 - Subjective Interval History: Patient seen and examined at bedside. Patient states that he feels better today. His mental status appears much improved and he is able to carry on conversation and answer most questions appropriately. He still occasionally is confused at times but this is much improved from previously. He reports sore throat related to NG tube. Denies fever, chills, shortness of breath. - Exam Vitals: Temp Pulse Resp BP Pulse Ox 98.7 F 93 18 118/74 95 11/24/18 09:18 11/24/18 09:18 11/24/18 09:18 11/24/18 09:18 11/24/18 09:18 Exam: Gen.: Vitals noted. No acute distress. alert and oriented 3 Cardiac: RRR, no murmur, +S1/S2 Pulmonary: decreased breath sounds bilaterally, no wheezes, rales or rhonchi, equal chest expansion Abdomen: soft, nontender, normoactive Bowel sounds noted, no guarding MSK: no joint swelling noted, dressing applied to feet bilaterally, clean dry and intact - Assessment and Plan (1) Dysphagia Current Visit: Yes Status: Suspected Assessment and Plan: Patient had NG tube placed 2 days ago. Is now receiving tube feeds to this NG tube. Mental status is improving so we will have patient reevaluated by speech therapy on Monday to assess his ability to tolerate an oral diet. Continue tube feeds per dietary. (2) Sepsis Current Visit: Yes Status: Acute Assessment and Plan: Secondary to MRSA bacteremia. White blood cell count stable today. Possibly due to procedure yesterday. blood cultures remain no growth to date. Appreciate infectious disease recommendations (3) Chronic ulcer of right foot with fat layer exposed Current Visit: No Status: Acute Assessment and Plan: Patient had I&D of this chronic wound yesterday by podiatry. Cultures pending preliminary microbiology results are showing gram-positive cocci, presumptive staph aureus, from the supplements that this may be a source of his MRSA kevan teremia. Continue wound dressing podiatry recommendations. (4) GI bleed Current Visit: Yes Status: Suspected Assessment and Plan: Hemoglobin stable. No evidence of active bleeding. (5) Pneumonia Current Visit: Yes Status: Acute Assessment and Plan: Etiology unclear however may be related to septic emboli in the setting of MRSA bacteremia. Given patient's aspiration concerns aspiration pneumonia is also a possibility. Continue vancomycin, cefepime, Flagyl. Appreciate infectious disease recommendations. Given pleural effusions patient had chest tube placed 3 days ago for drainage. Chest tube removed yesterday and patient continues to improve. (6) Diarrhea Current Visit: Yes Status: Resolved Assessment and Plan: Patient having multiple loose stools, likely due to tube feeds. Otherwise stable, white count stable. No indication for testing for infectious diarrhea. (7) Dehydration Current Visit: Yes Status: Resolved Assessment and Plan: Much improved today. Patient sas NG tube and is able to to take in free water. (8) Rhabdomyolysis Current Visit: Yes Status: Resolved Assessment and Plan: Resolved (9) Acute renal failure Current Visit: Yes Status: Resolved Assessment and Plan: Likely secondary to rhabdomyolysis. Resolved at this time. GFR 59 again today. Continue monitor renal function. Good urine output. (10) UTI (urinary tract infection) Current Visit: Yes Status: Suspected Assessment and Plan: Urinary tract infection on urinalysis, culture positive for MRSA, continue antibiotics as above (11) Atrial fibrillation Current Visit: Yes Status: Chronic Assessment and Plan: History of atrial fibrillation on anticoagulation with Coumadin and rate controlled with carvedilol. Continue to hold Coumadin this patient is high risk for bleeding given multiple procedures recently, however like to restart in the next couple days. (12) HTN (hypertension) Current Visit: Yes Status: Chronic Assessment and Plan: Blood pressure under good control. Continue home medications. (13) CAD (coronary artery disease) Current Visit: Yes Status: Chronic Assessment and Plan: Chest pain-free at this time. No evidence of ACS (14) Morbid obesity with BMI of 40.0-44.9, adult Current Visit: Yes Status: Chronic Assessment and Plan: Encourage Lifestyle changes (15) DVT prophylaxis Current Visit: Yes Status: Acute (16) Supratherapeutic INR Current Visit: Yes Status: Resolved (17) Anemia Current Visit: Yes Status: Suspected (18) Acute encephalopathy Current Visit: Yes Status: Acute (19) Bacteremia Current Visit: Yes Status: Acute (20) Pleural effusion Current Visit: Yes Status: Acute (21) Hypernatremia Current Visit: Yes Status: Resolved - Time Spent with Patient Total time spent is greater than 50% in coordination of care (as documented) at patient's floor/unit and/or counseling patient: Internal Medicine: Result - Labs CBC & Chem 7: 11/24/18 05:34 11/24/18 05:34 Labs: Short CBC 11/24/18 Range/Units 05:34 WBC 12.8 H (4.3-11.1) K/mcL Hgb 8.4 L (12.9-16.9) g/dL Hct 26.7 L (37.5-50.1) % Plt Count 411 H (140-400) K/mcL Neutrophils # 12.0 H (1.6-8.9) K/mcL BMP 11/24/18 05:34 Sodium 142 Potassium 4.0 Chloride 112 H Carbon Dioxide 21 L BUN 47 H Creatinine 1.21 Glucose 274 H Calcium 10.6 H - ABG Interpretation ABG results: ABG ABG pH 7.55 pH Units (7.32-7.45) H 11/21/18 03:54 ABG pCO2 29 mmHg (35-45) L 11/21/18 03:54 ABG pO2 94 mmHg (85-104) 11/21/18 03:54 ABG O2 Saturation 98 % (95-98) 11/21/18 03:54 PT/INR, D-dimer PT 17.1 Seconds (9.4-12.1) H 11/20/18 21:23 - Impressions Impressions KUB X-Ray 11/23/18 01:01 IMPRESSION: Nasogastric tube with the tip in the fundus of the stomach. The proximal side port is near the GE junction. Suggest advancement by 8 cm. D/ / 11/23/2018 08:01:33 Cedric Zepeda MD / earnold Interpreting Provider: Cedric Zepeda MD Chest X-Ray 11/23/18 09:00 IMPRESSION: Slight improvement of bilateral pulmonary opacities and pleural fluid in the lung bases. There is an NG tube with its tip in the antral/pyloric region of the stomach in the proximal port in the distal body of the stomach. Pacemaker. D/ / 11/23/2018 09:33:11 Edith Davila MD / lluvia Interpreting Provider: Edith Davila MD - VTE Documentation of Mechanical Device: Intermittent pneumatic compression device Consult Discharge Plan - Plan Referrals: Andie Chaudhry CNP [Advanced Practice Nurse] - 12/04/18 10:30 am (1) Dysphagia Qualifiers: Dysphagia type: oropharyngeal phase Qualified Code(s): R13.12 - Dysphagia, oropharyngeal phase (2) Sepsis Qualifiers: Sepsis type: methicillin resistant Staphylococcus aureus Qualified Code(s): A41.02 - Sepsis due to Methicillin resistant Staphylococcus aureus (4) GI bleed Qualifiers: GI bleed type/associated pathology: melena Qualified Code(s): K92.1 - Melena (5) Pneumonia Qualifiers: Pneumonia type: due to unspecified organism Laterality: right Lung location: lower lobe of lung Qualified Code(s): J18.1 - Lobar pneumonia, unspecified organism (6) Diarrhea Qualifiers: Diarrhea type: presumed infectious Qualified Code(s): R19.7 - Diarrhea, unspecified (8) Rhabdomyolysis Qualifiers: Rhabdomyolysis type: traumatic Encounter type: subsequent encounter Qualified Code(s): T79.6XXD - Traumatic ischemia of muscle, subsequent encounter (9) Acute renal failure Qualifiers: Acute renal failure type: with acute tubular necrosis Qualified Code(s): N 17.0 - Acute kidney failure with tubular necrosis (10) UTI (urinary tract infection) Qualifiers: Urinary tract infection type: acute cystitis Hematuria presence: with hematuria Qualified Code(s): N30.01 - Acute cystitis with hematuria (11) Atrial fibrillation Qualifiers: Atrial fibrillation type: chronic Qualified Code(s): I48.2 - Chronic atrial fibrillation (12) HTN (hypertension) Qualifiers: Hypertension type: essential hypertension Qualified Code(s): I10 - Essential (primary) hypertension (13) CAD (coronary artery disease) Qualifiers: Coronary Disease-Associated Artery/Lesion type: [place] artery [place] vs. transplanted heart: [place] heart Associated angina: without angina Qualified Code(s): I25.10 - Atherosclerotic heart disease of [place] coronary artery without angina pectoris (17) Anemia Qualifiers: Anemia type: iron deficiency Iron deficiency anemia type: chronic blood loss Qualified Code(s): D50.0 - Iron deficiency anemia secondary to blood loss (chronic)
[2018-11-24] MEDS: D5% in Water 1,000 ML IVC SCH ×3 (10:20→23:55)
[2018-11-24] MEDS: Vancomycin 1,500 MG in D5% in Water 250 ML IVPB SCH (10:20)
[2018-11-24] MEDS: Chloraseptic Spray 177 ML BOTTLE MM PRN ×2 (10:22→16:24)
[2018-11-24] MEDS: *HR* LORazepam 2 MG/ML VIAL IVP PRN ×2 (12:35→18:39)
[2018-11-24] MEDS ORDERED: Levalbuterol Neb 1.25 MG/3 ML IH PRN (14:07)
[2018-11-24] MEDS: DAPTOmycin 1,000 MG in 0.9 % Sodium Chloride 100 ML IVPB SCH (14:34)
[2018-11-24] MEDS: Gabapentin 300 MG CAPSULE GTUBE SCH (21:37)
[2018-11-24] MEDS: *HR* OxyCODONE Immed Rel 5 MG TABLET GTUBE PRN (21:37)
[2018-11-25] MEDS: *HR* LORazepam 2 MG/ML VIAL IVP PRN (04:09)
[2018-11-25] MEDS ORDERED: D5% in Water 1,000 ML IVC PRN (05:09)
[2018-11-25] MEDS ORDERED: *HR* Dextrose 50 % in Water (Syg) 50 ML SYRINGE IVP PRN (05:09)
[2018-11-25] MEDS ORDERED: Dextrose Gel 15 GM/37.5 ML TUBE PO PRN ×2 (05:09)
[2018-11-25] MEDS: Cefepime HCl 2,000 MG in Water for inj. (sterile) 20 ML 20 ML IVP SCH ×2 (06:11→18:19)
[2018-11-25] MEDS: *HR* Heparin 5,000 UNIT/ML VIAL SQ SCH ×3 (06:12→20:32)
[2018-11-25] MEDS: Insulin LISPRO 300 UNITS/3 ML VIAL SQ SCH ×4 (06:23→20:43)
[2018-11-25] MEDS: D5% in Water 1,000 ML IVC SCH ×2 (07:25→15:18)
[2018-11-25 08:17] LABS: Basophils % 0.1 %; Hematocrit 28.9 % (37.5-50.1); Immature Granulocytes % 0.9 % (0-4); Lymphocytes # 0.3 K/mcL (0.6-4.6); Lymphocytes % 2.2 %; Mean Corpuscular HGB Conc 31.1 g/dL (31.6-35.5); Mean Corpuscular Hemoglobin 31.1 pg (28.0-33.3); Mean Platelet Volume 9.9 fL (9.4-12.4); Monocytes # 0.5 K/mcL (0.0-1.3); Monocytes % 3.4 %; Neutrophils # 14.5 K/mcL (1.6-8.9); Platelet Count 384 K/mcL (140-400); Red Blood Count 2.89 M/mcL (4.19-5.50); Red Cell Distribution Width 15.3 % (11.5-14.5); Segmented Neutrophils % 93.4 %
[2018-11-25] MEDS: MetroNIDAZOLE 500 MG/100 ML 500 MG/100 ML BAG IVPB SCH ×2 (08:35→15:28)
[2018-11-25] MEDS: MethylPREDNISolone 40 MG/ML VIAL IVP SCH ×2 (08:37→15:31)
[2018-11-25] MEDS: Vancomycin 1,500 MG in D5% in Water 250 ML IVPB SCH (08:39)
[2018-11-25 08:40] LABS: BUN/Creatinine Ratio 41 (6-26); Blood Urea Nitrogen 47 mg/dL (8-23); Calcium 10.1 mg/dL (8.6-10.3); Carbon Dioxide 24 mEq/L (23-29); Chloride 111 mEq/L (98-107); Glucose 252 mg/dL (70-105); Magnesium 2.5 mg/dL (1.6-2.6); Osmolality,Calculated 313 (280-300); Potassium 4.3 mEq/L (3.5-5.1); Sodium 141 mEq/L (136-145); eGFR For Non-African Americans > 60 (> 60)
[2018-11-25] MEDS: Aspirin 81 MG TAB.CHEW GTUBE SCH (08:42)
--- NOTE | 2018-11-25 09:31 | Internal Med Progress Note ---
Hospitalist Progress Note - Encounter Date of Encounter: 11/25/18 Time of Encounter: 09:29 - Subjective Interval History: Patient seen and examined at bedside. Patient states that he feels okay today. He was somewhat sleepy during my exam but would wake up easily to verbal stimuli answer some questions appropriately. He was in no acute distress. He has no complaints at this time. Nursing staff did report some mild agitation overnight - Exam Vitals: Temp Pulse Resp BP Pulse Ox 97.6 F 98 20 134/80 95 11/25/18 06:32 11/25/18 06:32 11/25/18 06:32 11/25/18 06:32 11/25/18 06:32 Exam: Gen.: Vitals noted. No acute distress. alert and oriented 3 Cardiac: RRR, no murmur, +S1/S2 Pulmonary: decreased breath sounds bilaterally, no wheezes, rales or rhonchi, equal chest expansion Abdomen: soft, nontender, normoactive Bowel sounds noted, no guarding MSK: no joint swelling noted, dressing applied to feet bilaterally, clean dry and intact - Assessment and Plan (1) Acute encephalopathy Current Visit: Yes Status: Acute Assessment and Plan: Overall appears improving. Patient still mildly confused and agitated at this time but generally appears improved. Possibly due to hospital-induced delirium. We will start low-dose Seroquel twice a day. (2) Dysphagia Current Visit: Yes Status: Suspected Assessment and Plan: Patient had NG tube placed 3 days ago. Continue tube feeds via NG tube. Mental status is improving so we will have patient reevaluated by speech therapy on tomorrow to assess his ability to tolerate an oral diet. Continue tube feeds per dietary. (3) Sepsis Current Visit: Yes Status: Acute Assessment and Plan: Secondary to MRSA bacteremia. White blood cell count stable slightly increased today but otherwise afebrile and clinically improving. blood cultures remain no growth to date. Appreciate infectious disease recommendations (4) Chronic ulcer of right foot with fat layer exposed Current Visit: No Status: Acute Assessment and Plan: Patient had I&D of this chronic wound yesterday by podiatry. Cultures pending preliminary microbiology results are showing gram-positive cocci, presumptive staph aureus, final identification pending. Continue wound dressing podiatry recommendations. (5) GI bleed Current Visit: Yes Status: Suspected Assessment and Plan: Hemoglobin stable. No evidence of active bleeding. (6) Pneumonia Current Visit: Yes Status: Acute Assessment and Plan: Etiology unclear however may be related to septic emboli in the setting of MRSA bacteremia. Given patient's aspiration concerns aspiration pneumonia is also a possibility. Continue vancomycin, cefepime, Flagyl. Appreciate infectious disease recommendations. Patient continues to clinically improve (7) Diarrhea Current Visit: Yes Status: Resolved Assessment and Plan: Patient had multiple loose stools yesterday, likely due to tube feeds. Improved today (8) Dehydration Current Visit: Yes Status: Resolved Assessment and Plan: Much improved today. Patient sas NG tube and is able to to take in free water. Sodium remains normal (9) Rhabdomyolysis Current Visit: Yes Status: Resolved Assessment and Plan: Resolved (10) Acute renal failure Current Visit: Yes Status: Resolved Assessment and Plan: Resolved. GFR is greater than 60. Continue enteral hydration through NG tube (11) UTI (urinary tract infection) Current Visit: Yes Status: Suspected Assessment and Plan: Urinary tract infection on urinalysis, culture positive for MRSA, continue antibiotics as above (12) Atrial fibrillation Current Visit: Yes Status: Chronic Assessment and Plan: History of atrial fibrillation on anticoagulation with Coumadin and rate controlled with carvedilol. Restart Coumadin with pharmacy to dose. We will [place] because patient is at high risk for bleeding and lower risk for thr omboembolic disease as he is only on this for atrial fibrillation. (13) HTN (hypertension) Current Visit: Yes Status: Chronic Assessment and Plan: Blood pressure under good control. Continue home medications. (14) CAD (coronary artery disease) Current Visit: Yes Status: Chronic Assessment and Plan: Chest pain-free at this time. No evidence of ACS (15) Morbid obesity with BMI of 40.0-44.9, adult Current Visit: Yes Status: Chronic Assessment and Plan: Encourage Lifestyle changes (16) Supratherapeutic INR Current Visit: Yes Status: Resolved Assessment and Plan: Check INR stat, last check was 5 days ago was 1.5, patient is been off Coumadin. Recheck now and restart Coumadin as above. (17) Anemia Current Visit: Yes Status: Suspected Assessment and Plan: Hemoglobin stable. No evidence of active bleeding. Restart Coumadin as above. Continue to closely monitor for signs of active bleeding. (18) Bacteremia Current Visit: Yes Status: Acute Assessment and Plan: Source remains unclear at this time, may be infected foot wound. Repeat blood cultures drawn on 11/21 are no growth to date. continue IV vancomycin and daptomycin per infectious disease recommendations (19) Pleural effusion Current Visit: Yes Status: Acute Assessment and Plan: Continue to improve. Chest tube has been removed. (20) Hypernatremia Current Visit: Yes Status: Resolved Assessment and Plan: Resolved. Continue free water flushes. (21) DVT prophylaxis Current Visit: Yes Status: Acute Assessment and Plan: Heparin 5000 units subcutaneous every 8 hours, restart Coumadin as above - Time Spent with Patient Total time spent is greater than 50% in coordination of care (as documented) at patient's floor/unit and/or counseling patient: Internal Medicine: Result - Labs CBC & Chem 7: 11/25/18 08:03 11/25/18 08:03 Labs: Short CBC 11/25/18 Range/Units 08:03 WBC 15.5 H (4.3-11.1) K/mcL Hgb 9.0 L (12.9-16.9) g/dL Hct 28.9 L (37.5-50.1) % Plt Count 384 (140-400) K/mcL Neutrophils # 14.5 H (1.6-8.9) K/mcL BMP 11/25/18 08:03 Sodium 141 Potassium 4.3 Chloride 111 H Carbon Dioxide 24 BUN 47 H Creatinine 1.15 Glucose 252 H Calcium 10.1 - ABG Interpretation ABG results: ABG ABG pH 7.55 pH Units (7.32-7.45) H 11/21/18 03:54 ABG pCO2 29 mmHg (35-45) L 11/21/18 03:54 ABG pO2 94 mmHg (85-104) 11/21/18 03:54 ABG O2 Saturation 98 % (95-98) 11/21/18 03:54 PT/INR, D-dimer PT 17.1 Seconds (9.4-12.1) H 11/20/18 21:23 - VTE Documentation of Mechanical Device: Intermittent pneumatic compression device Consult Discharge Plan - Plan Referrals: Andie Chaudhry, [employer] [Advanced Practice Nurse] - 12/04/18 10:30 am (2) Dysphagia Qualifiers: Dysphagia type: oropharyngeal phase Qualified Code(s): R13.12 - Dysphagia, oropharyngeal phase (3) Sepsis Qualifiers: Sepsis type: methicillin resistant Staphylococcus aureus Qualified Code(s): A41.02 - Sepsis due to Methicillin resistant Staphylococcus aureus (5) GI bleed Qualifiers: GI bleed type/associated pathology: melena Qualified Code(s): K92.1 - Melena (6) Pneumonia Qualifiers: Pneumonia type: due to unspecified organism Laterality: right Lung location: lower lobe of lung Qualified Code(s): J18.1 - Lobar pneumonia, unspecified organism (7) Diarrhea Qualifiers: Diarrhea type: presumed infectious Qualified Code(s): R19.7 - Diarrhea, unspecified (9) Rhabdomyolysis Qualifiers: Rhabdomyolysis type: traumatic Encounter type: subsequent encounter Qualified Code(s): T79.6XXD - Traumatic ischemia of muscle, subsequent encounter (10) Acute renal failure Qualifiers: Acute renal failure type: with acute tubular necrosis Qualified Code(s): N17.0 - Acute kidney failure with tubular necrosis (11) UTI (urinary tract infection) Qualifiers: Urinary tract infection type: acute cystitis Hematuria presence: with hematuria Qualified Code(s): N30.01 - Acute cystitis with hematuria (12) Atrial fibrillation Qualifiers: Atrial fibrillation type: chronic Qualified Code(s): I48.2 - Chronic atrial fibrillation (13) HTN (hypertension) Qualifiers: Hypertension type: essential hypertension Qualified Code(s): I10 - Essential (primary) hypertension (14) CAD (coronary artery disease) Qualifiers: Coronary Disease-Associated Artery/Lesion type: [place] artery [place] vs. transplanted heart: [place] heart Associated angina: without angina Qualified Code(s): I25.10 - Atherosclerotic heart disease of [place] coronary artery without angina pectoris (17) Anemia Qualifiers: Anemia type: iron deficiency Iron deficiency anemia type: chronic blood loss Qualified Code(s): D50.0 - Iron deficiency anemia secondary to blood loss (chronic)
[2018-11-25 11:07] LABS: INR 1.2
[2018-11-25] MEDS: DAPTOmycin 1,000 MG in 0.9 % Sodium Chloride 100 ML IVPB SCH (12:59)
[2018-11-25] MEDS ORDERED: *HR* Warfarin 3 MG TABLET PO ONE (18:00)
[2018-11-25] MEDS ORDERED: Warfarin perPT PO PRN (18:00)
[2018-11-25] MEDS: Gabapentin 300 MG CAPSULE GTUBE SCH (20:32)
[2018-11-25] MEDS: *HR* OxyCODONE Immed Rel 5 MG TABLET GTUBE PRN (20:32)
[2018-11-26] MEDS: MetroNIDAZOLE 500 MG/100 ML 500 MG/100 ML BAG IVPB SCH ×4 (01:31→23:31)
[2018-11-26] MEDS: MethylPREDNISolone 40 MG/ML VIAL IVP SCH ×2 (01:31→10:01)
[2018-11-26 06:27] LABS: Hematocrit 29.6 % (37.5-50.1); Hemoglobin 9.2 g/dL (12.9-16.9); Immature Granulocytes % 0.9 % (0-4); Lymphocytes # 0.2 K/mcL (0.6-4.6); Lymphocytes % 1.6 %; Mean Corpuscular HGB Conc 31.1 g/dL (31.6-35.5); Mean Corpuscular Hemoglobin 31.7 pg (28.0-33.3); Mean Corpuscular Volume 102.1 fL (83.0-100.0); Mean Platelet Volume 10.8 fL (9.4-12.4); Monocytes # 0.4 K/mcL (0.0-1.3); Monocytes % 2.7 %; Neutrophils # 14.1 K/mcL (1.6-8.9); Platelet Count 263 K/mcL (140-400); Red Cell Distribution Width 15.9 % (11.5-14.5); Segmented Neutrophils % 94.8 %
[2018-11-26 06:37] LABS: INR 1.2
[2018-11-26] MEDS: *HR* Heparin 5,000 UNIT/ML VIAL SQ SCH ×3 (06:44→19:58)
[2018-11-26] MEDS: Cefepime HCl 2,000 MG in Water for inj. (sterile) 20 ML 20 ML IVP SCH ×2 (06:45→17:37)
[2018-11-26 06:46] LABS: BUN/Creatinine Ratio 44 (6-26); Blood Urea Nitrogen 49 mg/dL (8-23); Calcium 9.9 mg/dL (8.6-10.3); Carbon Dioxide 23 mEq/L (23-29); Chloride 112 mEq/L (98-107); Glucose 253 mg/dL (70-105); Magnesium 2.7 mg/dL (1.6-2.6); Osmolality,Calculated 316 (280-300); Sodium 142 mEq/L (136-145); eGFR For Non-African Americans > 60 (> 60)
--- NOTE | 2018-11-26 08:20 | Internal Med Progress Note ---
<ChemaisabelSejal pelayo E - Last Filed: 11/26/18 14:19> Hospitalist Progress Note - Encounter Date of Encounter: 11/26/18 Time of Encounter: 09:15 - Subjective Interval History: Patient was seen and examined at bedside today. He is feeling better today. He was oriented to person but not place He was more awake than previous days. He denies any chest pain, shortness of breath, nausea, vomiting. - Exam Vitals: Temp Pulse Resp BP Pulse Ox 97.6 F 112 24 141/81 95 11/26/18 07:36 11/26/18 07:36 11/26/18 07:36 11/26/18 07:36 11/26/18 07:36 Exam: General: Awake and alert, no acute distress Head: normocephalic, atraumatic Eyes: SEAN, no icterus Cardio: RRR, no mumurs, rubs, or gallops Respiratory: CTAB, no wheezing, rhonchi, rales Abd: normal bowel sounds, no gaurding or rigidity Extremties: no pedal edema, pulses equal bilaterally, warm Skin: warm, dry, intact - Assessment and Plan (1) Acute renal failure Current Visit: Yes Status: Resolved Assessment and Plan: Enough pain has decreased to 1.11 this is resolving Likely secondary to sepsis Continue to monitor creatinine (2) Agitation Current Visit: Yes Status: Acute Assessment and Plan: She is resting comfortably on exam Sitter is in room Sitter states that patient had tried to pull Rendon couple times but once was reassured this behavior stopped. Continue sitter at bedside as needed (3) Bacteremia Current Visit: Yes Status: Acute Assessment and Plan: Likely secondary to wound on foot Blood cultures: 11/09 MRSA x2 04/13 MRSA x2 11/13 MRSA x2 11/15 MRSA x2 11/18 MRSA 1 of 2 11/21 no growth x2 Wound culture 11/20 positive for MRSA Continue antibiotics as recommended by ID including vancomycin, daptomycin, flagyl, cefepime (4) Dehydration Current Visit: Yes Status: Resolved Assessment and Plan: due to sepsis/UTI Resolved with IV fluids (5) Diarrhea Current Visit: Yes Status: Resolved Assessment and Plan: Likely due to tube feeds No indication for testing for infectious diarrhea (6) Rhabdomyolysis Current Visit: Yes Status: Resolved Assessment and Plan: As has resolved (7) Sepsis Current Visit: Yes Status: Acute Assessment and Plan: Likely due to MRSA bacteremia possible sources pneumonia and foot ulcer Most likely from foot ulcer due to clinical stability of pneumonia CBC stable Infectious disease recommended attenuation of IV antibiotics including cefepime, daptomycin, Flagyl, vancomycin (8) Supratherapeutic INR Current Visit: Yes Status: Resolved Assessment and Plan: This has resolved (9) Atrial fibrillation Current Visit: Yes Status: Chronic Assessment and Plan: History of A. fib on Coumadin Rate controlled with carvedilol Coumadin been held due to multiple procedures Consider restarting (10) CAD (coronary artery disease) Current Visit: Yes Status: Chronic Assessment and Plan: Known CAD No chest pain at this time Continue home medication regimen (11) HTN (hypertension) Current Visit: Yes Status: Chronic Assessment and Plan: Controlled Continue home medications (12) GI bleed Current Visit: Yes Status: Suspected Assessment and Plan: Hemoglobin has stabilized There is no evidence for an active bleed Continue to monitor (13) UTI (urinary tract infection) Current Visit: Yes Status: Suspected Assessment and Plan: Urinalysis showed urinary tract infection Cultures positive for MRSA Continue antibiotics as above (14) Pneumonia Current Visit: Yes Status: Acute Assessment and Plan: Possibly due ot MRSA bacteremia causing septic emboli Possibility of aspiration pneumonia Continue vancomycin, cefepime and flagyl Patient had chest tube removed 2 dayas ago that was placed for pleural effusion drainage (15) Chronic ulcer of right foot with fat layer exposed Current Visit: No Status: Acute Assessment and Plan: Followed by podiatry I/D Monday Cultures pending preliminary results presumptive staph possibly source of mrsa Continue wound dressing according to podiatry recommendations (16) DVT prophylaxis Current Visit: Yes Status: Acute Assessment and Plan: heparin subq (17) Dysphagia Current Visit: Yes Status: Suspected Assessment and Plan: Likely due to altered mental status NG tube was discontinued today Speech therapy started him on pureed diet with nectar thickened liquids continue to monitor for signs of aspiration DVT Prophylaxis: heparin subq - Time Spent with Patient Total time spent is greater than 50% in coordination of care (as documented) at patient's floor/unit and/or counseling patient: Internal Medicine: Result - Labs CBC & Chem 7: 11/26/18 06:15 11/26/18 06:15 Labs: Short CBC 11/26/18 Range/Units 06:15 WBC 14.8 H (4.3-11.1) K/mcL Hgb 9.2 L (12.9-16.9) g/dL Hct 29.6 L (37.5-50.1) % Plt Count 263 (140-400) K/mcL Neutrophils # 14.1 H (1.6-8.9) K/mcL BMP 11/25/18 11/26/18 08:03 06:15 Sodium 141 142 Potassium 4.3 5.0 Chloride 111 H 112 H Carbon Dioxide 24 23 BUN 47 H 49 H Creatinine 1.15 1.11 Glucose 252 H 253 H Calcium 10.1 9.9 - ABG Interpretation ABG results: ABG ABG pH 7.55 pH Units (7.32-7.45) H 11/21/18 03:54 ABG pCO2 29 mmHg (35-45) L 11/21/18 03:54 ABG pO2 94 mmHg (85-104) 11/21/18 03:54 ABG O2 Saturation 98 % (95-98) 11/21/18 03:54 PT/INR, D-dimer PT 13.0 Seconds (9.4-12.1) H 11/26/18 06:15 - VTE Documentation of Mechanical Device: Intermittent pneumatic compression device Consult Discharge Plan - Plan Referrals: Andie Chaudhry, CLIENT SERVICES ADMINISTRATOR [Advanced Practice Nurse] - 12/04/18 10:30 am <Bk Nur - Last Filed: 11/26/18 15:09> Hospitalist Progress Note - Encounter Date of Encounter: 11/26/18 - Exam Vitals: Temp Pulse Resp BP Pulse Ox 97.6 F 112 24 141/81 95 11/26/18 07:36 11/26/18 07:36 11/26/18 07:36 11/26/18 07:36 11/26/18 07:36 - Assessment and Plan (1) Acute encephalopathy Current Visit: Yes Status: Acute (2) Dysphagia Current Visit: Yes Status: Suspected (3) Sepsis Current Visit: Yes Status: Acute (4) Chronic ulcer of right foot with fat layer exposed Current Visit: No Status: Acute (5) GI bleed Current Visit: Yes Status: Suspected (6) Pneumonia Current Visit: Yes Status: Acute (7) Diarrhea Current Visit: Yes Status: Resolved (8) Dehydration Current Visit: Yes Status: Resolved (9) Rhabdomyolysis Current Visit: Yes Status: Resolved (10) Acute renal failure Current Visit: Yes Status: Resolved (11) UTI (urinary tract infection) Current Visit: Yes Status: Suspected (12) Atrial fibrillation Current Visit: Yes Status: Chronic (13) HTN (hypertension) Current Visit: Yes Status: Chronic (14) CAD (coronary artery disease) Current Visit: Yes Status: Chronic (15) Morbid obesity with BMI of 40.0-44.9, adult Current Visit: Yes Status: Chronic (16) Supratherapeutic INR Current Visit: Yes Status: Resolved (17) Anemia Current Visit: Yes Status: Suspected (18) Bacteremia Current Visit: Yes Status: Acute (19) Pleural effusion Current Visit: Yes Status: Acute (20) Hypernatremia Current Visit: Yes Status: Resolved (21) DVT prophylaxis Current Visit: Yes Status: Acute - Time Spent with Patient Total time spent is greater than 50% in coordination of care (as documented) at patient's floor/unit and/or counseling patient: Internal Medicine: Result - Labs CBC & Chem 7: 11/26/18 06:15 11/26/18 06:15 Labs: Short CBC 11/26/18 Range/Units 06:15 WBC 14.8 H (4.3-11.1) K/mcL Hgb 9.2 L (12.9-16.9) g/dL Hct 29.6 L (37.5-50.1) % Plt Count 263 (140-400) K/mcL Neutrophils # 14.1 H (1.6-8.9) K/mcL BMP 11/26/18 06:15 Sodium 142 Potassium 5.0 Chloride 112 H Carbon Dioxide 23 BUN 49 H Creatinine 1.11 Glucose 253 H Calcium 9.9 - ABG Interpretation ABG results: ABG ABG pH 7.55 pH Units (7.32-7.45) H 11/21/18 03:54 ABG pCO2 29 mmHg (35-45) L 11/21/18 03:54 ABG pO2 94 mmHg (85-104) 11/21/18 03:54 ABG O2 Saturation 98 % (95-98) 11/21/18 03:54 PT/INR, D-dimer PT 13.0 Seconds (9.4-12.1) H 11/26/18 06:15 - Attending Attestation I examined this patient and my medical decision-making was reviewed with the Resident Physician. I agree with the documented findings, disposition and treatment plan as described except to the extent set forth below. Patient seen and examined at bedside. Patient states that he feels pretty good today. He feels like he is improving. His mental status appears to be improving. was at bedside and she states that he seems much better. On exam he is alert and oriented 3, heart is regular rate and rhythm, lungs are diminished bibasilar. Sepsis with MRSA bacteremia secondary to right foot ulcer: Clinically the patient continues to improve. Appreciate podiatry and infectious disease recommendations. Patient is currently on dual coverage with vancomycin and daptomycin due to septic emboli as well as pacer/AICD hardware. ID recommends repeat LOY tomorrow, will order. Continue current antibiotic regimen per ID recommendations. Patient's encephalopathy earlier in his stay made him unsafe to taking by mouth nutrition per speech therapy. As his mental status has improved, will have speech therapy reevaluate him. Currently on tube feeds through NG tube. Discontinue NG tube to assess ability to take oral nutrition. If he is unable to take oral nutrition then we will plan for PEG tube placement. <Sejal Rachel E - Last Filed: 11/26/18 14:19> (1) Acute renal failure Qualifiers: Acute renal failure type: with acute tubular necrosis Qualified Code(s): N17.0 - Acute kidney failure with tubular necrosis (5) Diarrhea Qualifiers: Diarrhea type: presumed infectious Qualified Code(s): R19.7 - Diarrhea, un specified (6) Rhabdomyolysis Qualifiers: Rhabdomyolysis type: traumatic Encounter type: subsequent encounter Qualified Code(s): T79.6XXD - Traumatic ischemia of muscle, subsequent encounter (7) Sepsis Qualifiers: Sepsis type: methicillin resistant Staphylococcus aureus Qualified Code(s): A41.02 - Sepsis due to Methicillin resistant Staphylococcus aureus (9) Atrial fibrillation Qualifiers: Atrial fibrillation type: chronic Qualified Code(s): I48.2 - Chronic atrial fibrillation (10) CAD (coronary artery disease) Qualifiers: Coronary Disease-Associated Artery/Lesion type: [place] artery [place] vs. transplanted heart: benton heart Associated angina: without angina Qualified Code(s): I25.10 - Atherosclerotic heart disease of [place] coronary artery without angina pectoris (11) HTN (hypertension) Qualifiers: Hypertension type: essential hypertension Qualified Code(s): I10 - Essential (primary) hypertension (12) GI bleed Qualifiers: GI bleed type/associated pathology: melena Qualified Code(s): K92.1 - Melena (13) UTI (urinary tract infection) Qualifiers: Urinary tract infection type: acute cystitis Hematuria presence: with hematuria Qualified Code(s): N30.01 - Acute cystitis with hematuria (14) Pneumonia Qualifiers: Pneumonia type: due to unspecified organism Laterality: right Lung location: lower lobe of lung Qualified Code(s): J18.1 - Lobar pneumonia, unspecified organism (17) Dysphagia Qualifiers: Dysphagia type: oropharyngeal phase Qualified Code(s): R13.12 - Dysphagia, oropharyngeal phase <Bk Nur - Last Filed: 11/26/18 15:09> (2) Dysphagia Qualifiers: Dysphagia type: oropharyngeal phase Qualified Code(s): R13.12 - Dysphagia, oropharyngeal phase (3) Sepsis Qualifiers: Sepsis type: methicillin resistant Staphylococcus aureus Qualified Code(s): A41.02 - Sepsis due to Methicillin resistant Staphylococcus aureus (5) GI bleed Qualifiers: GI bleed type/associated pathology: melena Qualified Code(s): K92.1 - Melena (6) Pneumonia Qualifiers: Pneumonia type: due to unspecified organism Laterality: right Lung location: lower lobe of lung Qualified Code(s): J18.1 - Lobar pneumonia, unspecified organism (7) Diarrhea Qualifiers: Diarrhea type: presumed infectious Qualified Code(s): R19.7 - Diarrhea, unspecified (9) Rhabdomyolysis Qualifiers: Rhabdomyolysis type: traumatic Encounter type: subsequent encounter Qualified Code(s): T79.6XXD - Traumatic ischemia of muscle, subsequent encounter (10) Acute renal failure Qualifiers: Acute renal failure type: with acute tubular necrosis Qualified Code(s): N17. 0 - Acute kidney failure with tubular necrosis (11) UTI (urinary tract infection) Qualifiers: Urinary tract infection type: acute cystitis Hematuria presence: with hematuria Qualified Code(s): N30.01 - Acute cystitis with hematuria (12) Atrial fibrillation Qualifiers: Atrial fibrillation type: chronic Qualified Code(s): I48.2 - Chronic atrial fibrillation (13) HTN (hypertension) Qualifiers: Hypertension type: essential hypertension Qualified Code(s): I10 - Essential (primary) hypertension (14) CAD (coronary artery disease) Qualifiers: Coronary Disease-Associated Artery/Lesion type: [place] artery [place] vs. transplanted heart: benton heart Associated angina: without angina Qualified Code(s): I25.10 - Atherosclerotic heart disease of [place] coronary artery without angina pectoris (17) Anemia Qualifiers: Anemia type: iron deficiency Iron deficiency anemia type: chronic blood loss Qualified Code(s): D50.0 - Iron deficiency anemia secondary to blood loss (chronic)
--- NOTE | 2018-11-26 09:45 | Podiatry Progress Note ---
Date of Encounter: 11/26/18 Time of Encounter: 09:00 - Assessment and Plan (1) Chronic ulcer of right foot with fat layer exposed Current Visit: No Status: Acute ASSESSMENT: -Miguel stage II ulceration to the right foot sub/lateral mt head #5 with fat l ramírez exposure -No erythema, warmth, or lymphangitis -08/03 PT/DP pulse noted -Cultures final for MRSA PLAN: -Healing ulcerations noted -Cleansed with saline -Covered with Maxsorb AG, 4x4 and kerlix applied -ID onboard -Will need to follow up with in wound care center once discharged -Continue daily dressing change while inpatient- may move to weekly or PRN changes once discharged Subjective Principal diagnosis: HYpernatremia Interval history: Patient is alert, oriented to name, confused about place and time. Sitter at bedside with patient due to him pulling at his NG tube and ackerman. He does not appear agitated at this time and very pleasant. Side rails padded x 2. Patient denies any chest pain, shortness of breath, or calf pain. He denies fever, chills, nausea, vomiting, or diarrhea. Monitoring patient for chronic ulcer right lateral aspect sub met #5. . Objective - Vital Signs Vital Signs: Vital Signs Temp Pulse Resp BP Pulse Ox 11/26/18 07:36 97.6 F 112 24 141/81 95 11/26/18 06:35 96 11/26/18 04:46 97.2 F L 97 22 142/83 95 11/25/18 23:08 97.5 F L 107 22 135/79 93 11/25/18 18:46 97.5 F L 110 24 138/84 92 11/25/18 16:41 98.3 F 105 22 129/77 95 Intake and Output 11/25/18 11/26/18 11/26/18 23:59 07:59 15:59 Intake Total 620 / 2940 Output Total 1100 / 2450 350 / 350 Balance -480 / 490 -350 / -350 Intake: IV Fluids 620 / 2190 Dextrose 5% 1,000 ML @ 75 mls/ 500 / 1500 hr IVC .[id number] [facility] Rx#: [id number] Maxipime 2,000 MG In Water for 20 / 40 inj. (sterile) 20 ML @ 300 mls/ hr IVP Q12HR [facility] Rx#:[id number] Flagyl Premix 500 MG/100 ML 500 100 / 300 mg In 100 ml @ 100 mls/hr IVPB Q8HR [facility] Rx#:[id number] Output: Urine 300 / 300 Catheter 800 / 2150 350 / 350 Other: Stool Size Large Moderate Stool Consistency liquid liquid Stool Characteristics Normal for Patient Stool Color Brown Brown # Bowel Movements 1 # Bowel Movement Diapers 1 Blood Glucose* 242 253 - Exam Exam: Constitutional: Patient is alert, pleasant, confused to place and time Vascular: 08/03 PT/DP pulse bilaterally, cap refill less than 3 seconds, edema noted 08/03 Neurological: Diminished protective sensation Dermatological: Chronic ulcer noted lateral aspect of sub met #5 right foot. Sserosanguineous drainage noted to dressing. No surrounding erythema, warmth, or lymphangitis. No fluctuance noted. Wound bed with granulation tissue noted. Left great toe with healing blister. No erythema, no lymphangitis, no fluctuance. Musculoskeletal: Unable to assess, patient does not follow commands. normal tone - Lab Result Diagrams: 11/26/18 06:15 11/26/18 06:15 Labs: Abnormal lab results WBC 14.8 K/mcL (4.3-11.1) H 11/26/18 06:15 RBC 2.90 M/mcL (4.19-5.50) L 11/26/18 06:15 Hgb 9.2 g/dL (12.9-16.9) L 11/26/18 06:15 Hct 29.6 % (37.5-50.1) L 11/26/18 06:15 MCV 102.1 fL (83.0-100.0) H 11/26/18 06:15 MCHC 31.1 g/dL (31.6-35.5) L 11/26/18 06:15 RDW 15.9 % (11.5-14.5) H 11/26/18 06:15 Plt Count 411 K/mcL (140-400) H 11/24/18 05:34 MPV 9.3 fL (9.4-12.4) L 11/19/18 06:33 Immature Gran % 5.5 % (0-4) H 11/14/18 05:51 5.0 % (0-4) H 11/15/18 05:57 2.0 % (0) H 11/15/18 05:57 2.0 % (0) H 11/15/18 05:57 14.1 K/mcL (1.6-8.9) H 11/26/18 06:15 0.2 K/mcL (0.6-4.6) L 11/26/18 06:15 1.7 K/mcL (0.0-1.3) H 11/16/18 06:32 Nucleated RBCs/100 WBC 0.2 /100 WBC (0) H 11/16/18 06:32 Present (Not Present) A 11/10/18 01:12 Increased (Normal) H 11/16/18 06:32 1+ (Not Present) A 11/15/18 05:57 1+ (Not Present) A 11/15/18 05:57 ESR 125 mm/hr (0-10) H 11/12/18 15:40 PT 13.0 Seconds (9.4-12.1) H 11/26/18 06:15 INR 4.9 H* 11/13/18 07:23 ABG pH 7.55 pH Units (7.32-7.45) H 11/21/18 03:54 ABG pCO2 29 mmHg (35-45) L 11/21/18 03:54 ABG pO2 70 mmHg (85-104) L 11/20/18 17:56 ABG HCO3 28 mEq/L (21-27) H 11/20/18 17:56 ABG Total CO2 29 mEq/L (20-26) H 11/20/18 17:56 ABG O2 Saturation 91 % (95-98) L 11/20/18 12:20 ABG Base Excess 5 mEq/L (-2 to 3) H 11/20/18 17:56 Sodium 148 mEq/L (136-145) H 11/22/18 03:16 Potassium 5.3 mEq/L (3.5-5.1) H 11/18/18 22:30 Chloride 112 mEq/L (98-107) H 11/26/18 06:15 Carbon Dioxide 21 mEq/L (23-29) L 11/24/18 05:34 BUN 49 mg/dL (8-23) H 11/26/18 06:15 1.39 mg/dL (0.70-1.30) H 11/21/18 08:54 Est GFR ( Amer) 59 (> 60) L 11/20/18 01:21 Est GFR (Non-Af Amer) 59 (> 60) L 11/24/18 05:34 44 (6-26) H 11/26/18 06:15 Glucose 253 mg/dL (70-105) H 11/26/18 06:15 POC Glucose 242 mg/dL (70-99) H 11/25/18 19:34 347 mOsm/kg (280-300) H 11/19/18 18:08 316 (280-300) H 11/26/18 06:15 Calcium 10.6 mg/dL (8.6-10.3) H 11/24/18 05:34 Magnesium 2.7 mg/dL (1.6-2.6) H 11/26/18 06:15 Iron 34 mcg/dL (65-175) L 11/12/18 16:22 % Saturation 16 % (20-55) L 11/12/18 16:22 148 mg/dL (203-362) L 11/12/18 16:22 565 ng/mL (20-250) H 11/12/18 16:22 1.2 mg/dL (0.3-1.0) H 11/09/18 11:14 AST 44 Units/L (13-39) H 11/16/18 06:32 ALT 64 Units/L (7-52) H 11/16/18 06:32 863 Units/L (30-223) H 11/10/18 01:12 201 mg/L (Less than 10) H 11/12/18 16:09 B-Natriuretic Peptide 123 pg/mL (Less than 100) H 11/09/18 11:14 6.2 g/dL (6.4-8.9) L 11/18/18 00:37 2.8 g/dL (3.5-5.7) L 11/21/18 16:26 3.9 g/dL (2.4-3.5) H 11/21/18 16:26 0.7 (1.1-2.2) L 11/21/18 16:26 > 22.3 ng/mL (3.0-16.0) H 11/12/18 16:22 Red (Yellow) A 11/10/18 04:30 Cloudy (Clear) A 11/10/18 04:30 30 mg/dL (Neg-Trace) H 11/13/18 05:13 Trace mg/dL (Negative) H 11/10/18 04:30 Large (Negative) H 11/13/18 05:13 Ur Leukocyte Esterase Moderate (Negative) H 11/10/18 04:30 TNTC per hpf (0-3) H 11/13/18 05:13 3-5 per hpf (0-3) H 11/13/18 05:13 Ur Squamous Epith Cells Many per lpf (None-Few) H 11/13/18 05:13 Moderate per hpf (None-Few) H 11/09/18 17:18 Granular Casts Few per lpf (None Seen) H 11/09/18 17:18 Ur Culture Indicated? NO. (NO) A 11/10/18 04:30 Pleural Appearance Bloody (Clear) A 11/21/18 13:10 Pleural RBC 0.090 M/mcL (0.000-0.002) H 11/21/18 13:10 Pleural Tot Nuc Cell 1754 TNC/mcL (0-1000) H 11/21/18 13:10 Positive (Negative) A 11/09/18 21:50 Stool Occult Bld Scrn Positive (Negative) A 11/09/18 13:05 162 ug/g (<=50) H 11/13/18 10:50 Vancomycin Trough 14 mcg/mL (5-10) H 11/26/18 08:46 Staphylococcus sp PCR DETECTED (Not Detect) A 11/11/18 01:05 Staph aureus (PCR) DETECTED (Not Detect) A 11/13/18 07:20 mecA-Methicil Res Gene DETECTED (Not Detect) A 11/13/18 07:20 Crossmatch See Detail 11/14/18 14:50 Microbiology, Last 48 Hours 11/21/18 08:52 Blood Culture - Final Peripheral Venipuncture No growth. Final report. 11/21/18 08:54 Blood Culture - Final Peripheral Venipuncture No growth. Final report. 11/21/18 13:10 Anaerobic Culture - Final Pleural Fluid No anaerobes were recovered. 11/20/18 14:45 Wound Culture - Final Right Fifth Toe Methicillin Resistant S.aureus 11/20/18 14:45 Anaerobic Culture - Final Left Great Toe No anaerobes were recovered. 11/20/18 14:45 Anaerobic Culture - Final Right Fifth Toe No anaerobes were recovered. 11/21/18 13:10 Body Fluid Culture - Final Pleural Fluid - VTE Documentation of Mechanical Device: Intermittent pneumatic compression device Consult Discharge Plan - Plan Referrals: Andie Chaudhry CNP [Advanced Practice Nurse] - 12/04/18 10:30 am
[2018-11-26] MEDS: Insulin LISPRO 300 UNITS/3 ML VIAL SQ SCH ×4 (09:58→20:03)
[2018-11-26] MEDS: Aspirin 81 MG TAB.CHEW GTUBE SCH (10:01)
--- NOTE | 2018-11-26 10:11 | Infectious Disease Progress No ---
ID Progress Note Date of Encounter: 11/26/18 Time of Encounter: 09:15 - Subjective Subjective: Patient seen and examined. No acute events noted overnight. More alert this morning. Denies pain, shortness of breath, or cough. Denies vomiting or diarrhea. Per nursing, having loose stools. Denies nausea. Rendon catheter remains patent. Status post chest tube placement 11/21/18 with removal 11/22/18. JAVA TECH LEAD evaluation pending. NGT with tube feeds infusing and tolerating well. - Objective CBC & Chem 7: 11/27/18 03:59 11/27/18 03:59 - Line Documentation Line Documentation: Rendon Catheter (Draining clear yellow urine) - Exam Vitals: Temp Pulse Resp BP Pulse Ox 97.6 F 112 24 141/81 95 11/26/18 07:36 11/26/18 07:36 11/26/18 07:36 11/26/18 07:36 11/26/18 07:36 Exam: Head: Atraumatic, normal inspection, normocephalic. Eye: EOMI, PERRLA, no scleral icterus noted. No subconjunctival hemorrhage noted. ENT: Mucous membranes dry. No odontogenic infection noted. Neck: Normal inspection, no meningismus. Respiratory: CTA throughout. No rales, respiratory distress, rhonchi noted. Small bore chest tube noted to the right chest draining serous-sanguinous drainage. Cardiovascular: Tachycardic. Irregular rhythm, S1 and S2 audible. No murmurs, rubs, or gallops. GI: Soft, obese, normal bowel sounds. Nontender. Rendon catheter noted to be draining clear dark yellow urine. NGT with tube feeds infusing. Extremities: No joint swelling, pedal edema, or tenderness noted. Right foot dressing C/D/I. Multiple scabbed lesions noted to the BLE. Scabbed lesion noted to the medial aspect of the left great toe without surrounding erythema, warmth, or fluctuance noted. Neurological: Opens eyes to verbal stimuli, follows commands. Answers some ROS questions. Oriented to person and time. Psychiatric: Calm, cooperative. Skin: Dry, intact, warm. Pale. No rashes. Additional exam findings: Pacer/AICD site noted to the left upper chest well healed, nontender without erythema - Assessment and Plan (1) Sepsis Current Visit: Yes Status: Acute The patient had 3 sepsis criteria with acute kidney injury and metabolic encephalopathy. Likely secondary to MRSA bacteremia. WBC back up today, likely reactive from recent chest tube placement. Acute kidney injury is stable. Afebrile overnight. Tachycardia persists, but improved. Blood cultures drawn 11/09/18 a +2 out of 2 sets for MRSA. Repeat blood cultures from 11/11/18 are positive for MRSA. Additional blood cultures drawn 11/13/18 are positive x 2 sets as well. Repeat blood cultures 11/15/18 positive 2/2 sets. Repeat blood cultures drawn 11/18/18 are positive 1/2 sets. Repeat blood cultures drawn 11/21/18 are NGTD x 2 sets. Qualifiers: Sepsis type: methicillin resistant Staphylococcus aureus Qualified Code(s): A41.02 - Sepsis due to Methicillin resistant Staphylococcus aureus SNOMED Code(s): 85178494 (2) Bacteremia Current Visit: Yes Status: Acute Causative organism: MRSA. Source: Likely the right foot ulcer given the wound culture results. Blood cultures drawn 11/09/18 are +2 out of 2 sets. Repeat blood cultures on 11/11/18 are +2 out of 2 sets. Repeat blood cultures drawn 11/13/18 are positive x 2 sets. Repeat blood cultures from 11/15/18 are positive 2/2 sets. Repeat blood cultures drawn 11/18/18 are positive 1/2 sets. Repeat blood cultures drawn 11/21/18 are NGTD x 2 sets. Etiology of persistent bacteremia unclear. Podiatry evaluated foot ulcers. Purulent drainage noted in the right foot ulcer. Repeat imaging ordered, but negative for abscess or osteomyelitis. Complicated due to the presence of a pacer/AICD and left hip hardware as well as likely septic emboli to the lung and seeding of the kidneys. TTE suboptimal. No endocarditis stigmata noted on exam. Rheumatoid factor normal. LOY negative for valvular or device lead vegetations, but may need to consider repeating prior to discharge given the persistent bacteremia. The patient has one major and 2 minor modified [place] criteria. Currently on IV vancomycin (FABRICIO 1) and daptomycin. SNOMED Code(s): 3962859 (3) Acute encephalopathy Current Visit: Yes Status: Acute Likely secondary to sepsis and hypernatremia and medication-related, but concern for septic emboli to the brain. Unable to have MRI due to Pacer/AICD. CT head negative x2. Improved. Continue to monitor closely. SNOMED Code(s): 11030026, 255233668 (4) Pneumonia Current Visit: Yes Status: Acute CT chest showed small right and trace left partially loculated pleural effusions with increased consolidative opacities in the lung bases slightly asymmetric right worse than left, either atelectasis or pneumonia. Causative organism: Unclear. MRSA screen is positive. RIP negative. UATs negative. Given the patient's weakness, aspiration is on the differential. JAVA TECH LEAD consulted. Recommended MBS to further assess swallow status, but patient unable to participate. Pending NG tube placement. Repeat CT of the chest shows large right pleural effusion and small left pleural effusion, both worse since previous imaging. Worsened consolidations to the bilateral lower lobes, right more than left, concerning for worsening atelectasis, multifocal PNA or aspiration pneumonitis also seen. Repeat CXR showed worsening pulmonary edema and partially loculated right pleural effusion. Repeat CXR 11/23/18 showed improvement. Currently on vancomycin and cefepime and flagyl. Qualifiers: Pneumonia type: due to unspecified organism Laterality: right Lung location: lower lobe of lung Qualified Code(s): J18.1 - Lobar pneumonia, unspecified organism SNOMED Code(s): 977888272 (5) Acute renal failure Current Visit: Yes Status: Resolved Likely secondary to sepsis, dehydration, and rhabdomyolysis. Resolved. Continue to trend. Dosage of medications. Avoid nephrotoxins as able. Nephrology consulted. Qualifiers: Acute renal failure type: with acute tubular necrosis Qualified Code(s): N17.0 - Acute kidney failure with tubular necrosis SNOMED Code(s): 17708726 (6) Pulmonary nodules Current Visit: Yes Status: Acute CT chest showed scattered nodules throughout the lungs bilaterally which are indeterminate and may be infectious, inflammatory, or neoplastic in etiology. Given the patient's MRSA bacteremia, concern for septic emboli. SNOMED Code(s): 809462296 (7) Asymptomatic bacteriuria Current Visit: Yes Status: Acute Urine culture positive for MRSA. The patient was asymptomatic prior to admission. Likely secondary to seeding of the kidneys from the bacteremia. Currently on vancomycin and daptomycin. SNOMED Code(s): 695861807 (8) Supratherapeutic INR Current Visit: Yes Status: Resolved Etiology: Unclear. Resolved. Further workup and management per the primary team. SNOMED Code(s): 123127550 (9) Elevated liver function tests Current Visit: Yes Status: Resolved Total bili, AST, ALT, alkaline phosphatase elevated on admission. Etiology: Unclear. Sepsis versus other. Hepatitis profile negative. Resolved. SNOMED Code(s): 105478798, 702261553 (10) Chronic ulcer of right foot with fat layer exposed Current Visit: No Status: Acute Location: Lateral aspect of fifth metatarsal on the right foot. Likely secondary to callus her patient's history. Follows with the [place] [facility]. Clinically does not appear infected, but as a potential source for the patient's bacteremia. CT of the right foot negative for osteomyelitis or abscess x 2. Wound culture positive for MRSA. Podiatry consulted. Will discuss the needs for possible debridement with the podiatry team. SNOMED Code(s): 086933768 (11) GI bleed Current Visit: Yes Status: Suspected . Fecal occult blood test positive. GI consulted. EGD/C-scope negative for acute bleeding. Qualifiers: GI bleed type/associated pathology: melena Qualified Code(s): K92.1 - Melena SNOMED Code(s): 42989761 (12) Weakness Current Visit: Yes Status: Acute Likely secondary to sepsis. PT/OT to evaluate. SNOMED Code(s): 16658891 (13) Diarrhea Current Visit: Yes Status: Resolved Etiology: Unclear. C. difficile negative. GI panel negative. Improved. Likely secondary to tube feeds at this point. Qualifiers: Diarrhea type: presumed infectious Qualified Code(s): R19.7 - Diarrhea, unspecified SNOMED Code(s): 88665195 (14) Dehydration Current Visit: Yes Status: Resolved Likely secondary to poor by mouth intake and high GI output. Improved. Management per the primary team. SNOMED Code(s): 48185256 (15) Rhabdomyolysis Current Visit: Yes Status: Resolved Likely secondary to fall. CK noted to be 1400 on admission. Improved. Further workup and management per the primary team. Qualifiers: Rhabdomyolysis type: traumatic Encounter type: subsequent encounter Qualified Code(s): T79.6XXD - Traumatic ischemia of muscle, subsequent encounter SNOMED Code(s): 018210132 (16) Atrial fibrillation Current Visit: Yes Status: Chronic Qualifiers: Atrial fibrillation type: chronic Qualified Code(s): I48.2 - Chronic atrial fibrillation SNOMED Code(s): 02854550 (17) HTN (hypertension) Current Visit: Yes Status: Chronic Qualifiers: Hypertension type: essential hypertension Qualified Code(s): I10 - Essential (primary) hypertension SNOMED Code(s): 93767083 (18) CAD (coronary artery disease) Current Visit: Yes Status: Chronic Qualifiers: Coronary Disease-Associated Artery/Lesion type: [place] artery [place] vs. transplanted heart: [place] heart Associated angina: without angina Qualified Code(s): I25.10 - Atherosclerotic heart disease of [place] coronary artery without angina pectoris SNOMED Code(s): 06994351 (19) Morbid obesity with BMI of 40.0-44.9, adult Current Visit: Yes Status: Chronic SNOMED Code(s): 971353744, 70359783204422 (20) Pleural effusion Current Visit: Yes Status: Acute CT of the chest 11/15/18 shows large right and small left pleural effusion, worsened since prior exam. Concern for infectious etiology. IR consulted. Thoracentesis 11/16/18. Exudative per Light's criteria, but gram stain and culture negative. Repeat CXR 11/20/18 showed partially loculated right pleural effusion. IR re- consulted. Status post right chest tube placement. Appears exudative per Light's criteria. Culture negative. CT discontinued 11/23/18. SNOMED Code(s): 26297573 (21) Hypernatremia Current Visit: Yes Status: Resolved Improved. Nephrology consulted. Appreciate recommendations. SNOMED Code(s): 060195169 - Recommendations Recommendations: Await repeat blood cultures. Hold atorvastatin while on Daptomycin. VAZQUEZ/hypernatremia management per the nephrology team. Await thoracentesis cultures. Continue vancomycin IV. Pharmacy to dose. Goal trough approximately 15. Continue Daptomycin, but increase to 8mg/kg (1000mg) IV daily. (day 7) Continue cefepime 2 grams IV Q12H. (day 8) Continue flagyl 500mg IV TID.(day 8) Received 6 days of Zosyn prior to Cefepime/flagyl being started. Can likely stop cefepime and flagyl tomorrow if patient continues to improve clinically. Duration of treatment depends on the clinical picture, but likely at least 4 weeks. Monitor renal function for drug toxicity and does adjust antibiotics. supervisor customer services to assist with discharge planning. Contact precautions per hospital policy. - VTE Documentation of Mechanical Device: Intermittent pneumatic compression device Consult Discharge Plan - Plan Referrals: Andie Chaudhry CNP [Advanced Practice Nurse] - 12/04/18 10:30 am (Patient is going to [facility]) - Attending Attestation I have personally performed a face to face evaluation on this patient. I have reviewed and agree with the care plan. History and Exam by me shows: Assessment and plan: 1.Sepsis 2.Bacteremia causative organism MRSA. Source likely chronic nonhealing ulceration of the right footcomplicated because the patient has an AICD and has a 3.right hip for plastic 4.Pneumonia questionable at best. There are nodules, likely due to septic emboli. 5.Acute kidney injury 6.Asymptomatic bacteriuria 7.Altered mental status with significant confusion Recommendations Continue vancomycin Continue daptomycin Monitor labs and for drug toxicity
[2018-11-26] MEDS: Vancomycin 1,500 MG in D5% in Water 250 ML IVPB SCH (11:18)
[2018-11-26] MEDS: DAPTOmycin 1,000 MG in 0.9 % Sodium Chloride 100 ML IVPB SCH (15:03)
[2018-11-26] MEDS ORDERED: *HR* Warfarin 3 MG TABLET PO ONE (18:00)
[2018-11-26] MEDS: Gabapentin 300 MG CAPSULE GTUBE SCH (19:58)
[2018-11-27 05:41] LABS: Basophils % 0.1 %; Hematocrit 31.4 % (37.5-50.1); Hemoglobin 9.9 g/dL (12.9-16.9); Lymphocytes # 0.5 K/mcL (0.6-4.6); Lymphocytes % 2.7 %; Mean Corpuscular HGB Conc 31.5 g/dL (31.6-35.5); Mean Corpuscular Hemoglobin 31.7 pg (28.0-33.3); Mean Corpuscular Volume 100.6 fL (83.0-100.0); Mean Platelet Volume 10.8 fL (9.4-12.4); Monocytes # 1.3 K/mcL (0.0-1.3); Monocytes % 6.7 %; Neutrophils # 17.2 K/mcL (1.6-8.9); Nucleated Red Blood Cells 0.1 /100 WBC (0); Platelet Count 370 K/mcL (140-400); Red Blood Count 3.12 M/mcL (4.19-5.50); Red Cell Distribution Width 16.4 % (11.5-14.5); Segmented Neutrophils % 89.5 %
[2018-11-27 05:51] LABS: INR 1.2; Prothrombin Time 13.7 Seconds (9.4-12.1)
[2018-11-27] MEDS: *HR* Heparin 5,000 UNIT/ML VIAL SQ SCH ×3 (05:57→20:17)
[2018-11-27] MEDS: Cefepime HCl 2,000 MG in Water for inj. (sterile) 20 ML 20 ML IVP SCH ×2 (05:58→17:07)
[2018-11-27 06:00] LABS: BUN/Creatinine Ratio 49 (6-26); Blood Urea Nitrogen 50 mg/dL (8-23); Calcium 10.3 mg/dL (8.6-10.3); Carbon Dioxide 24 mEq/L (23-29); Chloride 112 mEq/L (98-107); Creatine Kinase 25 Units/L (30-223); Glucose 145 mg/dL (70-105); Magnesium 2.5 mg/dL (1.6-2.6); Osmolality,Calculated 320 (280-300); Potassium 4.8 mEq/L (3.5-5.1); Sodium 147 mEq/L (136-145); eGFR For Non-African Americans > 60 (> 60)
--- NOTE | 2018-11-27 07:24 | Discharge Summary ---
<Bk Nur - Last Filed: 11/27/18 10:48> Orders not resulted at time of discharge: Pending orders 11/15/18 17:40 Fungal Culture [MYC] Routine 11/27/18 07:00 EV LOY transesophageal echo Routine 11/28/18 04:00 PT/INR [Prothrombin Time INR] [COAG] AM 0400 11/29/18 04:00 PT/INR [Prothrombin Time INR] [COAG] AM 0400 11/30/18 04:00 PT/INR [Prothrombin Time INR] [COAG] AM 0400 12/01/18 04:00 PT/INR [Prothrombin Time INR] [COAG] AM 0400 Date of Encounter: 11/27/18 - Discharge Diagnosis (1) Acute encephalopathy Status: Acute (2) Dysphagia Status: Suspected Qualifiers: Dysphagia type: oropharyngeal phase Qualified Code(s): R13.12 - Dysphagia, oropharyngeal phase (3) Sepsis Status: Acute Qualifiers: Sepsis type: methicillin resistant Staphylococcus aureus Qualified Code(s): A41.02 - Sepsis due to Methicillin resistant Staphylococcus aureus (4) Chronic ulcer of right foot with fat layer exposed Status: Acute (5) GI bleed Status: Suspected Qualifiers: GI bleed type/associated pathology: melena Qualified Code(s): K92.1 - Melena (6) Pneumonia Status: Acute Qualifiers: Pneumonia type: due to unspecified organism Laterality: right Lung location: lower lobe of lung Qualified Code(s): J18.1 - Lobar pneumonia, unspecified organism (7) Diarrhea Status: Resolved Qualifiers: Diarrhea type: presumed infectious Qualified Code(s): R19.7 - Diarrhea, unspecified (8) Dehydration Status: Resolved (9) Rhabdomyolysis Status: Resolved Qualifiers: Rhabdomyolysis type: traumatic Encounter type: subsequent encounter Qualified Code(s): T79.6XXD - Traumatic ischemia of muscle, subsequent encounter (10) Acute renal failure Status: Resolved Qualifiers: Acute renal failure type: with acute tubular necrosis Qualified Code(s): N17.0 - Acute kidney failure with tubular necrosis (11) UTI (urinary tract infection) Status: Suspected Qualifiers: Urinary tract infection type: acute cystitis Hematuria presence: with hematuria Qualified Code(s): N30.01 - Acute cystitis with hematuria (12) Atrial fibrillation Status: Chronic Qualifiers: Atrial fibrillation type: chronic Qualified Code(s): I48.2 - Chronic atrial fibrillation (13) HTN (hypertension) Status: Chronic Qualifiers: Hypertension type: essential hypertension Qualified Code(s): I10 - Essential (primary) hypertension (14) CAD (coronary artery disease) Status: Chronic Qualifiers: Coronary Disease-Associated Artery/Lesion type: [place] artery [place] vs. transplanted heart: [place] heart Associated angina: without angina Qualified Code(s): I25.10 - Atherosclerotic heart disease of [place] coronary artery without angina pectoris (15) Morbid obesity with BMI of 40.0-44.9, adult Status: Chronic (16) Supratherapeutic INR Status: Resolved (17) Anemia Status: Suspected Qualifiers: Anemia type: iron deficiency Iron deficiency anemia type: chronic blood loss Qualified Code(s): D50.0 - Iron deficiency anemia secondary to blood loss (chronic) (18) Bacteremia Status: Acute (19) Pleural effusion Status: Acute (20) Hypernatremia Status: Resolved (21) DVT prophylaxis Status: Acute Hospital course: Mr. Morris is a 68 year old male - Time Spent with Patient Total time spent providing and/or coordinating discharge services: - Discharge Medications Prescriptions: No Action Allopurinol [Zyloprim 300 MG] 300 mg PO DAILY Atorvastatin [Lipitor] 40 mg PO DAILY Carvedilol 12.5 mg PO BID Furosemide [Lasix] 40 mg PO BID Gabapentin [Neurontin] 300 mg PO TID Spironolactone 50 mg PO BID Tamsulosin HCl [Flomax] 0.4 mg PO DAILY Warfarin [Coumadin] 3 mg PO SUTUWETHSA Enoxaparin [Lovenox] 30 mg SQ Q12HR Warfarin [Coumadin] 4.5 mg PO MOFR Home Medications: Allopurinol [Zyloprim 300 MG] 300 mg PO DAILY 11/11/18 [History] Atorvastatin [Lipitor] 40 mg PO DAILY 11/11/18 [History] Carvedilol 12.5 mg PO BID 11/11/18 [History] Enoxaparin [Lovenox] 30 mg SQ Q12HR 11/11/18 [History] Furosemide [Lasix] 40 mg PO BID 11/11/18 [History] Gabapentin [Neurontin] 300 mg PO TID 11/11/18 [History] Spironolactone 50 mg PO BID 11/11/18 [History] Tamsulosin HCl [Flomax] 0.4 mg PO DAILY 11/11/18 [History] Warfarin [Coumadin] 3 mg PO SUTUWETHSA 11/11/18 [History] Warfarin [Coumadin] 4.5 mg PO MOFR 11/11/18 [History] Allergies/Adverse Reactions: Allergy/AdvReac Type Severity Reaction Status Date / Time Sulfa (Sulfonamide AdvReac Unknown advised by Verified 06/05/15 10:20 Antibiotics) dr ruff doesn't work for him Date of admission: 11/10/18 16:16 Primary care physician: PCP NONE Consults: 11/10/18 12:10 Consult to Wound Care [CONS] Routine Reason for Consult: chronic wound that podiatry has managed Call Completed: No 11/12/18 08:34 Consult to Infectious Diseases [CONS] Routine Consulting Provider: [facility] [place] Reason for Consult: MRSA bacteremia and UTI on vanc, abx recs Call Completed: Yes 11/12/18 09:27 Consult to Gastroenterology [CONS] Routine Consulting Provider: Gastroenter[facility] Reason for Consult: concern GI bleed in setting of supratherapeutic INR, Hgb steadily decreasing Call Completed: Yes 11/13/18 10:47 Consult to Maintenance Apprentice [CONS] Routine Reason for SW Consult: discharge planning, may need placed 11/14/18 20:55 Consult to Speech Therapy [CONS] Routine Comment: Evaluate, develop and implement POC Reason for Consult: risk of aspiration Call Completed: No 11/15/18 17:44 Consult to Interventional Radiology [CONS] Routine Consulting Provider: Radiology Interventional [facility] Reason for Consult: diagnositic/therapeutic thoracentesis Call Completed: No 11/19/18 11:27 Consult to Nephrology [CONS] Routine Consulting Provider: [facility] [place]/JOHN/AP/EDGAR Reason for Consult: hypernatremia Call Completed: Yes 11/19/18 12:37 Consult to Pastoral Services [CONS] Routine Comment: family request 11/20/18 09:35 Consult to Podiatry [CONS] Routine Consulting Provider: [facility] Reason for Consult: chronic wound on right foot that follows with Dr. Darby. evaluate to see if source of sepsis. Call Completed: No Consult to Pulmonology [CONS] Routine Consulting Provider: [facility] [place] Reason for Consult: sepsis with MRSA bacteremia. pleural effusion that is s/p drained. evaluate if source sepsis Call Completed: Yes 11/21/18 09:16 Consult to Nutrition [CONS] Routine Comment: Consulting Provider: NUTRITION Reason for Dietary Consult: PO Supplementation Other:: recs on feeding 11/21/18 11:14 Consult to Interventional Radiology [CONS] Routine Consulting Provider: Radiology Inter[facility] Reason for Consult: thoracentesis, large right loculated pleural effusion. Call Completed: No 11/21/18 14:30 Consult to Nutrition [CONS] Routine Comment: Consulting Provider: NUTRITION Reason for Dietary Consult: Tube Feed Start & Manage 11/26/18 08:17 Consult to Nurse Navigator [CONS] Routine Comment: pn - Constitutional Vitals: Temp Pulse Resp BP Pulse Ox 98.8 F 114 19 159/88 94 11/27/18 07:37 11/27/18 07:37 11/27/18 07:37 11/27/18 07:37 11/27/18 07:37 - Patient Status Condition: Fair - Discharge Instructions Follow Up With: Andie Chaudhry FUR WEIGHER [Advanced Practice Nurse] - 12/04/18 10:30 am (Patient is going to ECF) - Attending Attestation I examined this patient and my medical decision-making was reviewed with the Resident Physician. I agree with the documented findings, disposition and treatment plan as described except to the extent set forth below. Patient seen and examined at bedside. Patient still slightly confused but improved today. He denies any complaints at this time. Denies fevers or chills. Denies pain. On exam he is in no acute distress, heart is regular rate and rhythm, lungs are clear to auscultation, right foot has wound dressing in place. Sepsis secondary to MRSA bacteremia with septic emboli in the setting of right foot wound: Sepsis is improved, white blood cell count is noted to be elevated today the patient remains on steroids, otherwise afebrile and clinically improving. Repeat LOY today given the patient's AICD in place and persistent bacteremia per ID recommendations. If negative plan to discharge to ECF to complete antibiotics and participate in rehabilitation. Dysphagia: Patient evaluated by speech who feels he can tolerate diet so discontinued NG tube yesterday and diet started which he is tolerating. Time spent on discharge: 40 minutes <Sejal Rachel Filed: 11/27/18 11:23> Orders not resulted at time of discharge: Pending orders 11/15/18 17:40 Fungal Culture [MYC] Routine 11/27/18 07:00 EV LOY transesophageal echo Routine 11/28/18 04:00 PT/INR [Prothrombin Time INR] [COAG] AM 0400 11/29/18 04:00 PT/INR [Prothrombin Time INR] [COAG] AM 0400 11/30/18 04:00 PT/INR [Prothrombin Time INR] [COAG] AM 0400 12/01/18 04:00 PT/INR [Prothrombin Time INR] [COAG] AM 0400 Date of Encounter: 11/27/18 - Discharge Diagnosis (1) Acute renal failure Status: Resolved Qualifiers: Acute renal failure type: with acute tubular necrosis Qualified Code(s): N17.0 - Acute kidney failure with tubular necrosis (2) Agitation Status: Acute (3) Bacteremia Status: Acute (4) Dehydration Status: Resolved (5) Diarrhea Status: Resolved Qualifiers: Diarrhea type: presumed infectious Qualified Code(s): R19.7 - Diarrhea, unspecified (6) Rhabdomyolysis Status: Resolved Qualifiers: Rhabdomyolysis type: traumatic Encounter type: subsequent encounter Qualified Code(s): T79.6XXD - Traumatic ischemia of muscle, subsequent encounter (7) Sepsis Status: Acute Qualifiers: Sepsis type: methicillin resistant Staphylococcus aureus Qualified Code(s): A41.02 - Sepsis due to Methicillin resistant Staphylococcus aureus (8) Supratherapeutic INR Status: Resolved (9) Atrial fibrillation Status: Chronic Qualifiers: Atrial fibrillation type: chronic Qualified Code(s): I48.2 - Chronic atrial fibrillation (10) CAD (coronary artery disease) Status: Chronic Qualifiers: Coronary Disease-Associated Artery/Lesion type: [place] artery [place] vs. transplanted heart: [place] heart Associated angina: without angina Qualified Code(s): I25.10 - Atherosclerotic heart disease of [place] coronary artery without angina pectoris (11) HTN (hypertension) Status: Chronic Qualifiers: Hypertension type: essential hypertension Qualified Code(s): I10 - Essential (primary) hypertension (12) GI bleed Status: Suspected Qualifiers: GI bleed type/associated pathology: melena Qualified Code(s): K92.1 - Melena (13) UTI (urinary tract infection) Status: Suspected Qualifiers: Urinary tract infection type: acute cystitis Hematuria presence: with hematuria Qualified Code(s): N30.01 - Acute cystitis with hematuria (14) Pneumonia Status: Acute Qualifiers: Pneumonia type: due to unspecified organism Laterality: right Lung location: lower lobe of lung Qualified Code(s): J18.1 - Lobar pneumonia, unspecified organism (15) Chronic ulcer of right foot with fat layer exposed Status: Acute (16) DVT prophylaxis Status: Acute (17) Dysphagia Status: Suspected Qualifiers: Dysphagia type: oropharyngeal phase Qualified Code(s): R13.12 - Dysphagia, oropharyngeal phase Hospital course: Mr. Morris is a 68 year old male - Time Spent with Patient Total time spent providing and/or coordinating discharge services: Date of admission: 11/10/18 16:16 Primary care physician: PCP NONE Consults: 11/10/18 12:10 Consult to Wound Care [CONS] Routine Reason for Consult: chronic wound that podiatry has managed Call Completed: No 11/12/18 08:34 Consult to Infectious Diseases [CONS] Routine Consulting Provider: [facility] [place] Reason for Consult: MRSA bacteremia and UTI on vanc, abx recs Call Completed: Yes 11/12/18 09:27 Consult to Gastroenterology [CONS] Routine Consulting Provider: [facility] [place] Reason for Consult: concern GI bleed in setting of supratherapeutic INR, Hgb steadily decreasing Call Completed: Yes 11/13/18 10:47 Consult to Maintenance Apprentice [CONS] Routine Reason for SW Consult: discharge planning, may need placed 11/14/18 20:55 Consult to Speech Therapy [CONS] Routine Comment: Evaluate, develop and implement POC Reason for Consult: risk of aspiration Call Completed: No 11/15/18 17:44 Consult to Interventional Radiology [CONS] Routine Consulting Provider: Radiology Interventional [facility] Reason for Consult: diagnositic/therapeutic thoracentesis Call Completed: No 11/19/18 11:27 Consult to Nephrology [CONS] Routine Consulting Provider: [facility]/AP/[facility] Reason for Consult: hypernatremia Call Completed: Yes 11/19/18 12:37 Consult to Pastoral Services [CONS] Routine Comment: family request 11/20/18 09:35 Consult to Podiatry [CONS] Routine Consulting Provider: [facility] Reason for Consult: chronic wound on right foot that follows with Dr. Darby. evaluate to see if source of sepsis. Call Completed: No Consult to Pulmonology [CONS] Routine Consulting Provider: [facility]m [facility] Reason for Consult: sepsis with MRSA bacteremia. pleural effusion that is s/p drained. evaluate if source sepsis Call Completed: Yes 11/21/18 09:16 Consult to Nutrition [CONS] Routine Comment: Consulting Provider: NUTRITION Reason for Dietary Consult: PO Supplementation Other:: recs on feeding 11/21/18 11:14 Consult to Interventional Radiology [CONS] Routine Consulting Provider: Radiology Interventional [facility] Reason for Consult: thoracentesis, large right loculated pleural effusion. Call Completed: No 11/21/18 14:30 Consult to Nutrition [CONS] Routine Comment: Consulting Provider: NUTRITION Reason for Dietary Consult: Tube Feed Start & Manage 11/26/18 08:17 Consult to Nurse Navigator [CONS] Routine Comment: pn - Constitutional Vitals: Temp Pulse Resp BP Pulse Ox 98.2 F 93 18 144/94 91 11/27/18 03:35 11/27/18 03:35 11/27/18 03:35 11/27/18 03:35 11/27/18 03:35 General appearance: Present: A&O X 3, obese - VTE Documentation of Mechanical Device: Intermittent pneumatic compression device
[2018-11-27] MEDS: Insulin LISPRO 300 UNITS/3 ML VIAL SQ SCH ×4 (08:20→20:18)
[2018-11-27] MEDS ORDERED: predniSONE 20 MG TABLET PO SCH (09:00)
[2018-11-27] MEDS: MetroNIDAZOLE 500 MG/100 ML 500 MG/100 ML BAG IVPB SCH ×3 (09:54→22:58)
[2018-11-27] MEDS: Vancomycin 1,500 MG in D5% in Water 250 ML IVPB SCH (09:59)
--- NOTE | 2018-11-27 10:25 | Physician Discharge Referral ---
<ChemaisabelSejal pelayo E - Last Filed: 11/27/18 13:26> [facility] Referral Info Transfer To: ECF Provider in Charge after Transfer: PCP Institutional Level of Care: Skilled - Diagnosis (1) Acute renal failure Priority: Primary Status: Resolved (2) Agitation Priority: Primary Status: Acute (3) Bacteremia Priority: Primary Status: Acute (4) Dehydration Priority: Secondary Status: Resolved (5) Diarrhea Priority: Secondary Status: Resolved (6) Rhabdomyolysis Priority: Primary Status: Resolved (7) Sepsis Priority: Primary Status: Acute (8) Supratherapeutic INR Priority: Secondary Status: Resolved (9) Atrial fibrillation Priority: Secondary Status: Chronic (10) CAD (coronary artery disease) Priority: Secondary Status: Chronic (11) HTN (hypertension) Priority: Secondary Status: Chronic (12) GI bleed Priority: Primary Status: Suspected (13) UTI (urinary tract infection) Priority: Primary Status: Suspected (14) Pneumonia Priority: Primary Status: Acute (15) Chronic ulcer of right foot with fat layer exposed Priority: Primary Status: Acute (16) DVT prophylaxis Priority: Secondary Status: Acute (17) Dysphagia Priority: Primary Status: Suspected - Transfer Medications Home Medications: Allopurinol [Zyloprim 300 MG] 300 mg PO DAILY 11/11/18 [History] Atorvastatin [Lipitor] 40 mg PO DAILY 11/11/18 [History] Carvedilol 12.5 mg PO BID 11/11/18 [History] Enoxaparin [Lovenox] 30 mg SQ Q12HR 11/11/18 [History] Furosemide [Lasix] 40 mg PO BID 11/11/18 [History] Gabapentin [Neurontin] 300 mg PO TID 11/11/18 [History] Spironolactone 50 mg PO BID 11/11/18 [History] Tamsulosin HCl [Flomax] 0.4 mg PO DAILY 11/11/18 [History] Warfarin [Coumadin] 3 mg PO SUTUWETHSA 11/11/18 [History] Warfarin [Coumadin] 4.5 mg PO MOFR 11/11/18 [History] Allergies/Adverse Reactions: Allergy/AdvReac Type Severity Reaction Status Date / Time Sulfa (Sulfonamide AdvReac Unknown advised by Verified 06/05/15 10:20 Antibiotics) dr ruff doesn't work for him - Respiratory Orders Oxygen / L per min (3L titrate to oxygen saturation greater than 88%) Smoking Cessation: Smoking cessation has been advised. For more information, call the [place] Tobacco Quit Line at 4-065-IQEZNOW. - Advance Directives Code Status: Full Code - Rehabiliation Orders Rehab Potential: Good Rehab Orders: Evaluation for Physical Therapy, Evaluation for Occupational Therapy, Evaluation for Speech Therapy - Diet Orders Pureed (nectar thickened liquids) CERTIFICATION: I certify that the transfer of the above named patient to an Extended Care Facility is necessary for the continuing treatment of the diagnosis listed. The above information is true and accurate reflection of patient's current condition. Confidential - Redisclosure prohibited without a patient's written consent. <Bk Nur - Last Filed: 11/27/18 15:35> - Diagnosis (1) Acute encephalopathy Status: Acute (2) Dysphagia Status: Suspected (3) Sepsis Status: Acute (4) Chronic ulcer of right foot with fat layer exposed Status: Acute (5) GI bleed Status: Suspected (6) Pneumonia Status: Acute (7) Diarrhea Status: Resolved (8) Dehydration Status: Resolved (9) Rhabdomyolysis Status: Resolved (10) Acute renal failure Status: Resolved (11) UTI (urinary tract infection) Status: Suspected (12) Atrial fibrillation Status: Chronic (13) HTN (hypertension) Status: Chronic (14) CAD (coronary artery disease) Status: Chronic (15) Morbid obesity with BMI of 40.0-44.9, adult Status: Chronic (16) Supratherapeutic INR Status: Resolved (17) Anemia Status: Suspected (18) Bacteremia Status: Acute (19) Pleural effusion Status: Acute (20) Hypernatremia Status: Resolved (21) DVT prophylaxis Status: Acute - Respiratory Orders Smoking Cessation: Smoking cessation has been advised. For more information, call the [employer] Tobacco Quit Line at 7-943-BYIE-PRU. CERTIFICATION: I certify that the transfer of the above named patient to an Extended Care Facility is necessary for the continuing treatment of the diagnosis listed. The above information is true and accurate reflection of patient's current condition. Confidential - Redisclosure prohibited without a patient's written consent.
[2018-11-27] MEDS ORDERED: Lidocaine Viscous Oral Soln 15 ML SOLUTION MM PRN (13:18)
[2018-11-27] MEDS ORDERED: *HR* FentaNYL (PF) 100 MCG/2 ML VIAL IVP PRN (13:18)
[2018-11-27] MEDS ORDERED: 0.9 % Sodium Chloride 500 ML IVC ONE (13:19)
--- NOTE | 2018-11-27 13:51 | Podiatry Progress Note ---
Date of Encounter: 11/27/18 Time of Encounter: 14:30 - Assessment and Plan (1) Chronic ulcer of right foot with fat layer exposed Current Visit: No Status: Acute ASSESSMENT: -Miguel stage II ulceration to the right foot sub/lateral met head #5 with fat layer exposure -Cultures final for MRSA -CT negative for ostemyelitis -Blood cultures cleared of MRSA PLAN: -Discussed with Dr. Darby the results of patient's wound culture and the MRSA being the cause of his recent bactremia, he recommends clean up of the right foot wound, preparation of wound graft, and application of graft tomorrow -NPO after midnight -Will meet with (POA) in am to sign surgical consent Subjective Principal diagnosis: HYpernatremia Interval history: Patient not in room, off floor for LOY Objective - Vital Signs Vital Signs: Vital Signs Temp Pulse Resp BP Pulse Ox 11/27/18 11:23 98.3 F 100 18 132/82 94 11/27/18 07:37 98.8 F 114 19 159/88 94 11/27/18 03:35 98.2 F 93 18 144/94 91 11/26/18 23:40 97.6 F 101 17 152/88 95 11/26/18 18:51 98.6 F 98 16 123/78 94 11/26/18 16:16 98.9 F 94 18 150/79 97 11/26/18 15:08 98.5 F 110 20 133/76 93 Intake and Output 11/26/18 11/27/18 11/27/18 23:59 07:59 15:59 Intake Total 180 / 890 100 / 100 Balance 180 / -60 100 / 100 Intake: IV Fluids 120 / 590 100 / 100 Maxipime 2,000 MG In Water for 20 inj. (sterile) 20 ML @ 300 mls/ hr IVP Q12HR [facility] Rx#:[id number] Flagyl Premix 500 MG/100 ML 500 100 / 300 100 / 100 mg In 100 ml @ 100 mls/hr IVPB Q8HR [facility] Rx#:[id number] Oral 60 / 300 Other: Meal Dinner Percent of Meal Consumed 50% Stool Size Small Stool Consistency loose Stool Color Brown # Voids 1 # Urine Diapers 3 1 1 # Bowel Movement Diapers 1 1 Blood Glucose* 195 136 153 - Lab Result Diagrams: 11/27/18 03:59 11/27/18 03:59 Labs: Abnormal lab results WBC 19.3 K/mcL (4.3-11.1) H 11/27/18 03:59 RBC 3.12 M/mcL (4.19-5.50) L 11/27/18 03:59 Hgb 9.9 g/dL (12.9-16.9) L 11/27/18 03:59 Hct 31.4 % (37.5-50.1) L 11/27/18 03:59 MCV 100.6 fL (83.0-100.0) H 11/27/18 03:59 MCHC 31.5 g/dL (31.6-35.5) L 11/27/18 03:59 RDW 16.4 % (11.5-14.5) H 11/27/18 03:59 Plt Count 411 K/mcL (140-400) H 11/24/18 05:34 MPV 9.3 fL (9.4-12.4) L 11/19/18 06:33 Immature Gran % 5.5 % (0-4) H 11/14/18 05:51 5.0 % (0-4) H 11/15/18 05:57 2.0 % (0) H 11/15/18 05:57 2.0 % (0) H 11/15/18 05:57 17.2 K/mcL (1.6-8.9) H 11/27/18 03:59 0.5 K/mcL (0.6-4.6) L 11/27/18 03:59 1.7 K/mcL (0.0-1.3) H 11/16/18 06:32 Nucleated RBCs/100 WBC 0.1 /100 WBC (0) H 11/27/18 03:59 Present (Not Present) A 11/10/18 01:12 Increased (Normal) H 11/16/18 06:32 1+ (Not Present) A 11/15/18 05:57 1+ (Not Present) A 11/15/18 05:57 ESR 125 mm/hr (0-10) H 11/12/18 15:40 PT 13.7 Seconds (9.4-12.1) H 11/27/18 03:59 INR 4.9 H* 11/13/18 07:23 ABG pH 7.55 pH Units (7.32-7.45) H 11/21/18 03:54 ABG pCO2 29 mmHg (35-45) L 11/21/18 03:54 ABG pO2 70 mmHg (85-104) L 11/20/18 17:56 ABG HCO3 28 mEq/L (21-27) H 11/20/18 17:56 ABG Total CO2 29 mEq/L (20-26) H 11/20/18 17:56 ABG O2 Saturation 91 % (95-98) L 11/20/18 12:20 ABG Base Excess 5 mEq/L (-2 to 3) H 11/20/18 17:56 Sodium 147 mEq/L (136-145) H 11/27/18 03:59 Potassium 5.3 mEq/L (3.5-5.1) H 11/18/18 22:30 Chloride 112 mEq/L (98-107) H 11/27/18 03:59 Carbon Dioxide 21 mEq/L (23-29) L 11/24/18 05:34 BUN 50 mg/dL (8-23) H 11/27/18 03:59 1.39 mg/dL (0.70-1.30) H 11/21/18 08:54 Est GFR ( Amer) 59 (> 60) L 11/20/18 01:21 Est GFR (Non-Af Amer) 59 (> 60) L 11/24/18 05:34 49 (6-26) H 11/27/18 03:59 Glucose 145 mg/dL (70-105) H 11/27/18 03:59 POC Glucose 153 mg/dL (70-99) H 11/27/18 11:09 347 mOsm/kg (280-300) H 11/19/18 18:08 320 (280-300) H 11/27/18 03:59 Calcium 10.6 mg/dL (8.6-10.3) H 11/24/18 05:34 Magnesium 2.7 mg/dL (1.6-2.6) H 11/26/18 06:15 Iron 34 mcg/dL (65-175) L 11/12/18 16:22 % Saturation 16 % (20-55) L 11/12/18 16:22 148 mg/dL (203-362) L 11/12/18 16:22 565 ng/mL (20-250) H 11/12/18 16:22 1.2 mg/dL (0.3-1.0) H 11/09/18 11:14 AST 44 Units/L (13-39) H 11/16/18 06:32 ALT 64 Units/L (7-52) H 11/16/18 06:32 25 Units/L (30-223) L 11/27/18 03:59 201 mg/L (Less than 10) H 11/12/18 16:09 B-Natriuretic Peptide 123 pg/mL (Less than 100) H 11/09/18 11:14 6.2 g/dL (6.4-8.9) L 11/18/18 00:37 2.8 g/dL (3.5-5.7) L 11/21/18 16:26 3.9 g/dL (2.4-3.5) H 11/21/18 16:26 0.7 (1.1-2.2) L 11/21/18 16:26 > 22.3 ng/mL (3.0-16.0) H 11/12/18 16:22 Red (Yellow) A 11/10/18 04:30 Cloudy (Clear) A 11/10/18 04:30 30 mg/dL (Neg-Trace) H 11/13/18 05:13 Trace mg/dL (Negative) H 11/10/18 04:30 Large (Negative) H 11/13/18 05:13 Ur Leukocyte Esterase Moderate (Negative) H 11/10/18 04:30 TNTC per hpf (0-3) H 11/13/18 05:13 3-5 per hpf (0-3) H 11/13/18 05:13 Ur Squamous Epith Cells Many per lpf (None-Few) H 11/13/18 05:13 Moderate per hpf (None-Few) H 11/09/18 17:18 Granular Casts Few per lpf (None Seen) H 11/09/18 17:18 Ur Culture Indicated? NO. (NO) A 11/10/18 04:30 Pleural Appearance Bloody (Clear) A 11/21/18 13:10 Pleural RBC 0.090 M/mcL (0.000-0.002) H 11/21/18 13:10 Pleural Tot Nuc Cell 1754 TNC/mcL (0-1000) H 11/21/18 13:10 Positive (Negative) A 11/09/18 21:50 Stool Occult Bld Scrn Positive (Negative) A 11/09/18 13:05 162 ug/g (<=50) H 11/13/18 10:50 Vancomycin Trough 14 mcg/mL (5-10) H 11/26/18 08:46 Staphylococcus sp PCR DETECTED (Not Detect) A 11/11/18 01:05 Staph aureus (PCR) DETECTED (Not Detect) A 11/13/18 07:20 mecA-Methicil Res Gene DETECTED (Not Detect) A 11/13/18 07:20 Crossmatch See Detail 11/14/18 14:50 Microbiology, Last 48 Hours 11/21/18 08:52 Blood Culture - Final Peripheral Venipuncture No growth. Final report. 11/21/18 08:54 Blood Culture - Final Peripheral Venipuncture No growth. Final report. 11/21/18 13:10 Anaerobic Culture - Final Pleural Fluid No anaerobes were recovered. 11/20/18 14:45 Wound Culture - Final Right Fifth Toe Methicillin Resistant S.aureus - VTE Documentation of Mechanical Device: Intermittent pneumatic compression device Consult Discharge Plan - Plan Referrals: Andie Chaudhry INTERNET SALES DIRECTOR [Advanced Practice Nurse] - 12/04/18 10:30 am (Patient is going to [facility])
--- NOTE | 2018-11-27 14:12 | Internal Med Progress Note ---
<Sejal Rachel E - Last Filed: 11/27/18 14:09> Hospitalist Progress Note - Encounter Date of Encounter: 11/27/18 Time of Encounter: 08:10 - Subjective Interval History: Patient was admitted for sepsis secondary to foot wound. HE was found to have pneumonia which is likely due to septic emboli from MRSA bacteremia. Patient is to have surgical debridement of food ulcer tomorrow. Patient was seen and examined at bedside today. He states that he was feeling pretty well today. He was oriented to person but not to place as he believed he was in [place]. Patient was more awake than previous days and it did not have a sitter at his bedside today. He was resting comfortably and denied any chest pain, shortness of breath or nausea. - Exam Vitals: Temp Pulse Resp BP Pulse Ox 98.3 F 100 18 132/82 94 11/27/18 11:23 11/27/18 11:23 11/27/18 11:23 11/27/18 11:23 11/27/18 11:23 Exam: General: Awake and alert, no acute distress Head: normocephalic, atraumatic Eyes: SEAN, no icterus Cardio: RRR, no mumurs, rubs, or gallops Respiratory: CTAB, no wheezing, rhonchi, rales Abd: normal bowel sounds, no gaurding or rigidity Extremties: no pedal edema, pulses equal bilaterally, warm Skin: warm, dry, intact - Assessment and Plan (1) Acute renal failure Current Visit: Yes Status: Resolved Assessment and Plan: This was likely due to sepsis and dehydration but also possible from rhabdomyolysis Urinalysis had shown a leukocyte esterase, granular casts, and was positive for white blood cells CT abdomen and pelvis showed bilateral renal lesions Continue to monitor serum creatinine Renally dose medications and avoid nephrotoxic agents (2) Agitation Current Visit: Yes Status: Acute Assessment and Plan: Resting comfortably on exam Sitter has been discontinued (3) Bacteremia Current Visit: Yes Status: Acute Assessment and Plan: Likely secondary to wound on foot Initial blood cultures grew MRSA 2 sets on November 09 Blood cultures show no growth on November 21 LOY was negative for vegetations Plan is second LOY to rule out vegetations after 10 days of MRSA positive bacteremia Continue antibiotics including vancomycin, daptomycin, cefepime, Flagyl Chronic ulcer of right foot with fat layer exposed Podiatry is consulted and area was divided Culture grew MRSA On November 14 CT was negative for osteomyelitis, November 21 CT negative for osteomyelitis White blood cell count increased today to 19.3 from 14.8 yesterday. The patient remains afebrile. Continue care as per podiatry they are to take patient to surgery for debridement tomorrow (4) Dehydration Current Visit: Yes Status: Resolved Assessment and Plan: Likely due to sepsis and UTI This resolved with IV fluids (5) Diarrhea Current Visit: Yes Status: Resolved Assessment and Plan: Patient is reported to have some loose bowel movements This is likely due to patients tube feedings Currently no indication for testing for infectious diarrhea We will continue (6) Rhabdomyolysis Current Visit: Yes Status: Resolved Assessment and Plan: This has resolved Caused by VAZQUEZ secondary to patient having fallen and been down for multiple hours CK on admission was 1413 CK decreased throughout stay Patient received sodium bicarbonate on admission (7) Sepsis Current Visit: Yes Status: Acute Assessment and Plan: Sepsis criteria on admission with temperature of 101 and white blood cell count of 19.7 and was hemodynamically stable. Possible source includes UTI, MRSA bacteremia, pneumonia, wound Chest CT on admission showed scattered nodules throughout the lungs bilaterally change the infectious, increased consolidative opacities in lung bases right worse than left Initial blood cultures on November 09 grew MRSA 2 Cultures November 21 negative for growth Patient has been afebrile, continues to be tachycardic White blood cell count has has increased to 19.3 from 14.8 Continue vancomycin, daptomycin, cefepime, Flagyl ID is following patient (8) Supratherapeutic INR Current Visit: Yes Status: Resolved Assessment and Plan: INR was 4.1 on admission this is due to him taking Coumadin for his A. eileen No obvious active bleeding at this time Continue to monitor INR Continue to monitor for bleeding Today his INR is 1.2 Atrial fibrillation Known history of A. fib currently on anticoagulation and rate controlled with carvedilol Continue carvedilol Coumadin being dosed by pharmacy (9) Atrial fibrillation Current Visit: Yes Status: Chronic Assessment and Plan: None history of A. eileen was on Coumadin at home Came in with supratherapeutic INR We will consider Coumadin if INR falls below her therapeutic levels (10) CAD (coronary artery disease) Current Visit: Yes Status: Chronic Assessment and Plan: Known history of CAD Continue aspirin, atorvastatin, carvedilol (11) HTN (hypertension) Current Visit: Yes Status: Chronic Assessment and Plan: Known history of hypertension Continue carvedilol (12) GI bleed Current Visit: Yes Status: Suspected Assessment and Plan: Concern for GI bleed with supratherapeutic INR Positive for stool occult Hemoglobin had dropped from 13.8 on admission to Patient had 1 unit of packed red blood cells Colonoscopy showed internal hemorrhoids, diverticulosis no active bleed EGD showed normal esophagus with a gastric polyp in granular mucosa in the secon d portion of the duodenum with a duodenal polyp with no active bleeding Biopsy showed hyperplastic gastric polyp and submucosal lipoma We will continue to monitor for active bleeding (13) UTI (urinary tract infection) Current Visit: Yes Status: Suspected Assessment and Plan: Urine culture grew MRSA on November 09 Patient is currently receiving antibiotics for MRSA bacteremia Continue these antibiotics as stated above (14) Pneumonia Current Visit: Yes Status: Acute Assessment and Plan: Likely secondary to MRSA septic emboli CT chest showed enlarged right pleural effusion and a small left pleural effusion On November 16 he had a thoracocentesis Chest x-ray on November 23 showed a slight improvement of bilateral pulmonary opacities and pleural fluid in the lung bases Continue antibiotics as stated above (15) Chronic ulcer of right foot with fat layer exposed Current Visit: No Status: Acute Assessment and Plan: She is following with podiatry Mrs. possible source of MRSA bacteremia Culture showed MRSA in the wound Podiatry is planning on taking him for debridement tomorrow. We will continue antibiotics as per MRSA bacteremia above (16) DVT prophylaxis Current Visit: Yes Status: Acute Assessment and Plan: Subcutaneous heparin (17) Dysphagia Current Visit: Yes Status: Suspected Assessment and Plan: This was likely due to altered mental status NG tube was discontinued 2 days ago Speech therapy started him on pureed diet with nectar thickened liquids Continue to monitor for signs of aspiration DVT Prophylaxis: heparin subq - Time Spent with Patient Total time spent is greater than 50% in coordination of care (as documented) at patient's floor/unit and/or counseling patient: Internal Medicine: Result - Labs CBC & Chem 7: 11/27/18 03:59 11/27/18 03:59 Labs: Short CBC 11/27/18 Range/Units 03:59 WBC 19.3 H (4.3-11.1) K/mcL Hgb 9.9 L (12.9-16.9) g/dL Hct 31.4 L (37.5-50.1) % Plt Count 370 (140-400) K/mcL Neutrophils # 17.2 H (1.6-8.9) K/mcL BMP 11/27/18 03:59 Sodium 147 H Potassium 4.8 Chloride 112 H Carbon Dioxide 24 BUN 50 H Creatinine 1.03 Glucose 145 H Calcium 10.3 - ABG Interpretation ABG results: ABG ABG pH 7.55 pH Units (7.32-7.45) H 11/21/18 03:54 ABG pCO2 29 mmHg (35-45) L 11/21/18 03:54 ABG pO2 94 mmHg (85-104) 11/21/18 03:54 ABG O2 Saturation 98 % (95-98) 11/21/18 03:54 PT/INR, D-dimer PT 13.7 Seconds (9.4-12.1) H 11/27/18 03:59 - VTE Documentation of Mechanical Device: Intermittent pneumatic compression device Consult Discharge Plan - Plan Referrals: Anide Chaudhry PATTERN KEEPER [Advanced Practice Nurse] - 12/04/18 10:30 am (Patient is going to [facility]) <Bk Nur - Last Filed: 11/27/18 15:39> Hospitalist Progress Note - Encounter Date of Encounter: 11/27/18 - Exam Vitals: Temp Pulse Resp BP Pulse Ox 97.6 F 96 16 127/78 97 11/27/18 14:03 11/27/18 14:03 11/27/18 14:03 11/27/18 14:03 11/27/18 14:03 - Assessment and Plan (1) Acute encephalopathy Current Visit: Yes Status: Acute (2) Dysphagia Current Visit: Yes Status: Suspected (3) Sepsis Current Visit: Yes Status: Acute (4) Chronic ulcer of right foot with fat layer exposed Current Visit: No Status: Acute (5) GI bleed Current Visit: Yes Status: Suspected (6) Pneumonia Current Visit: Yes Status: Acute (7) Diarrhea Current Visit: Yes Status: Resolved (8) Dehydration Current Visit: Yes Status: Resolved (9) Rhabdomyolysis Current Visit: Yes Status: Resolved (10) Acute renal failure Current Visit: Yes Status: Resolved (11) UTI (urinary tract infection) Current Visit: Yes Status: Suspected (12) Atrial fibrillation Current Visit: Yes Status: Chronic (13) HTN (hypertension) Current Visit: Yes Status: Chronic (14) CAD (coronary artery disease) Current Visit: Yes Status: Chronic (15) Morbid obesity with BMI of 40.0-44.9, adult Current Visit: Yes Status: Chronic (16) Supratherapeutic INR Current Visit: Yes Status: Resolved (17) Anemia Current Visit: Yes Status: Suspected (18) Bacteremia Current Visit: Yes Status: Acute (19) Pleural effusion Current Visit: Yes Status: Acute (20) Hypernatremia Current Visit: Yes Status: Resolved (21) DVT prophylaxis Current Visit: Yes Status: Acute - Time Spent with Patient Total time spent is greater than 50% in coordination of care (as documented) at patient's floor/unit and/or counseling patient: Internal Medicine: Result - Labs CBC & Chem 7: 11/27/18 03:59 11/27/18 03:59 Labs: Short CBC 11/27/18 Range/Units 03:59 WBC 19.3 H (4.3-11.1) K/mcL Hgb 9.9 L (12.9-16.9) g/dL Hct 31.4 L (37.5-50.1) % Plt Count 370 (140-400) K/mcL Neutrophils # 17.2 H (1.6-8.9) K/mcL BMP 11/27/18 03:59 Sodium 147 H Potassium 4.8 Chloride 112 H Carbon Dioxide 24 BUN 50 H Creatinine 1.03 Glucose 145 H Calcium 10.3 - ABG Interpretation ABG results: ABG ABG pH 7.55 pH Units (7.32-7.45) H 11/21/18 03:54 ABG pCO2 29 mmHg (35-45) L 11/21/18 03:54 ABG pO2 94 mmHg (85-104) 11/21/18 03:54 ABG O2 Saturation 98 % (95-98) 11/21/18 03:54 PT/INR, D-dimer PT 13.7 Seconds (9.4-12.1) H 11/27/18 03:59 - Attending Attestation I examined this patient and my medical decision-making was reviewed with the Resident Physician. I agree with the documented findings, disposition and treatment plan as described except to the extent set forth below. Patient seen and examined at bedside. Patient was having occasional confusion but otherwise appears calm. He denies any pain or shortness of breath. On exam he is alert and oriented 2. Heart is regular rate and rhythm, lungs are diminished bibasilar, 1+ lower extremity edema Sepsis and bacteremia secondary to foot ulcer: LOY today per ID recommendations to rule out any further endocarditis. Podiatry are planning to take patient back to the OR tomorrow. Antibiotic recommendations per ID. <Sejal Rachel - Last Filed: 11/27/18 14:09> (1) Acute renal failure Qualifiers: Acute renal failure type: with acute tubular necrosis Qualified Code(s): N17.0 - Acute kidney failure with tubular necrosis (5) Diarrhea Qualifiers: Diarrhea type: presumed infectious Qualified Code(s): R19.7 - Diarrhea, unspecified (6) Rhabdomyolysis Qualifiers: Rhabdomyolysis type: traumatic Encounter type: subsequent encounter Qualified Code(s): T79.6XXD - Traumatic ischemia of muscle, subsequent encounter (7) Sepsis Qualifiers: Sepsis type: methicillin resistant Staphylococcus aureus Qualified Code(s): A41.02 - Sepsis due to Methicillin resistant Staphylococcus aureus (9) Atrial fibrillation Qualifiers: Atrial fibrillation type: chronic Qualified Code(s): I48.2 - Chronic atrial fibrillation (10) CAD (coronary artery disease) Qualifiers: Coronary Disease-Associated Artery/Lesion type: [place] artery [place] vs. transplanted heart: osage heart Associated angina: without angina Qualified Code(s): I25.10 - Atherosclerotic heart disease of [place] coronary artery without angina pectoris (11) HTN (hypertension) Qualifiers: Hypertension type: essential hypertension Qualified Code(s): I10 - Essential (primary) hypertension (12) GI bleed Qualifiers: GI bleed type/associated pathology: melena Qualified Code(s): K92.1 - Melena (13) UTI (urinary tract infection) Qualifiers: Urinary tract infection type: acute cystitis Hematuria presence: with hematuria Qualified Code(s): N30.01 - Acute cystitis with hematuria (14) Pneumonia Qualifiers: Pneumonia type: due to unspecified organism Laterality: right Lung location: lower lobe of lung Qualified Code(s): J18.1 - Lobar pneumonia, unspecified organism (17) Dysphagia Qualifiers: Dysphagia type: oropharyngeal phase Qualified Code(s): R13.12 - Dysphagia, oropharyngeal phase <Bk Nur - Last Filed: 11/27/18 15:39> (2) Dysphagia Qualifiers: Dysphagia type: oropharyngeal phase Qualified Code(s): R13.12 - Dysphagia, oropharyngeal phase (3) Sepsis Qualifiers: Sepsis type: methicillin resistant Staphylococcus aureus Qualified Code(s): A41.02 - Sepsis due to Methicillin resistant Staphylococcus aureus (5) GI bleed Qualifiers: GI bleed type/associated pathology: melena Qualified Code(s): K92.1 - Melena (6) Pneumonia Qualifiers: Pneumonia type: due to unspecified organism Laterality: right Lung location: lower lobe of lung Qualified Code(s): J18.1 - Lobar pneumonia, unspecified organism (7) Diarrhea Qualifiers: Diarrhea type: presumed infectious Qualified Code(s): R19.7 - Diarrhea, unspecified (9) Rhabdomyolysis Qualifiers: Rhabdomyolysis type: traumatic Encounter type: subsequent encounter Qualified Code(s): T79.6XXD - Traumatic ischemia of muscle, subsequent encounter (10) Acute renal failure Qualifiers: Acute renal failure type: with acute tubular necrosis Qualified Code(s): N17.0 - Acute kidney failure with tubular necrosis (11) UTI (urinary tract infection) Qualifiers: Urinary tract infection type: acute cystitis Hematuria presence: with hematuria Qualified Code(s): N30.01 - Acute cystitis with hematuria (12) Atrial fibrillation Qualifiers: Atrial fibrillation type: chronic Qualified Code(s): I48.2 - Chronic atrial fibrillation (13) HTN (hypertension) Qualifiers: Hypertension type: essential hypertension Qualified Code(s): I10 - Essential (primary) hypertension (14) CAD (coronary artery disease) Qualifiers: Coronary Disease-Associated Artery/Lesion type: [place] artery [place] vs. transplanted heart: [place] heart Associated angina: without angina Qualified Code(s): I25.10 - Atherosclerotic heart disease of [place] coronary artery without angina pectoris (17) Anemia Qualifiers: Anemia type: iron deficiency Iron deficiency anemia type: chronic blood loss Qualified Code(s): D50.0 - Iron deficiency anemia secondary to blood loss (chronic)
[2018-11-27] MEDS: *HR* Midazolam HCl 5 MG/5 ML VIAL IVP PRN ×2 (14:30→14:40)
[2018-11-27] MEDS: Aspirin 81 MG TAB.CHEW GTUBE SCH (15:34)
[2018-11-27] MEDS: DAPTOmycin 1,000 MG in 0.9 % Sodium Chloride 100 ML IVPB SCH (15:40)
--- NOTE | 2018-11-27 16:22 | Infectious Disease Progress No ---
ID Progress Note Date of Encounter: 11/27/18 Time of Encounter: 16:00 - Subjective Subjective: Patient seen and examined. No acute events noted overnight. Drowsy today secondary to just returning from repeat LOY. Denies pain, shortness of breath, or cough. Denies vomiting or diarrhea. Denies nausea. Rendon catheter remains patent. Status post chest tube placement 11/21/18 with removal 11/22/18. NGT removed yesterday. - Objective CBC & Chem 7: 11/28/18 03:48 11/28/18 03:48 - Line Documentation Line Documentation: Rendon Catheter (Draining clear yellow urine) - Exam Vitals: Temp Pulse Resp BP Pulse Ox 97.6 F 96 16 127/78 97 11/27/18 14:03 11/27/18 14:03 11/27/18 14:03 11/27/18 14:03 11/27/18 14:03 Exam: Head: Atraumatic, normal inspection, normocephalic. Eye: EOMI, PERRLA, no scleral icterus noted. No subconjunctival hemorrhage noted. ENT: Mucous membranes dry. No odontogenic infection noted. Neck: Normal inspection, no meningismus. Respiratory: CTA throughout. No rales, respiratory distress, rhonchi noted. Cardiovascular: Tachycardic. Irregular rhythm, S1 and S2 audible. No murmurs, rubs, or gallops. GI: Soft, obese, normal bowel sounds. Nontender. Rendon catheter noted to be draining clear dark yellow urine. Extremities: No joint swelling, pedal edema, or tenderness noted. Right foot dressing C/D/I. Multiple scabbed lesions noted to the BLE. Scabbed lesion noted to the medial aspect of the left great toe without surrounding erythema, warmth, or fluctuance noted. Neurological: Opens eyes to verbal stimuli, follows commands. Answers some ROS questions. Oriented to person and time. Psychiatric: Calm, cooperative. Skin: Dry, intact, warm. Pale. No rashes. Additional exam findings: Pacer/AICD site noted to the left upper chest well healed, nontender without erythema - Assessment and Plan (1) Sepsis Current Visit: Yes Status: Acute The patient had 3 sepsis criteria with acute kidney injury and metabolic encephalopathy. Likely secondary to MRSA bacteremia. WBC back up today, likely secondary to steroids. Acute kidney injury improved. Afebrile overnight. Tachycardia persists, but improved. Blood cultures drawn 11/09/18 a +2 out of 2 sets for MRSA. Repeat blood cultures from 11/11/18 are positive for MRSA. Additional blood cultures drawn 11/13/18 are positive x 2 sets as well. Repeat blood cultures 11/15/18 positive 2/2 sets. Repeat blood cultures drawn 11/18/18 are positive 1/2 sets. Repeat blood cultures drawn 11/21/18 are negative x 2 sets. Qualifiers: Sepsis type: methicillin resistant Staphylococcus aureus Qualified Code(s): A41.02 - Sepsis due to Methicillin resistant Staphylococcus aureus SNOMED Code(s): 84843811 (2) Bacteremia Current Visit: Yes Status: Acute Causative organism: MRSA. Source: Likely the right foot ulcer given the wound culture results. Blood cultures drawn 11/09/18 are +2 out of 2 sets. Repeat blood cultures on 11/11/18 are +2 out of 2 sets. Repeat blood cultures drawn 11/13/18 are positive x 2 sets. Repeat blood cultures from 11/15/18 are positive 2/2 sets. Repeat blood cultures drawn 11/18/18 are positive 1/2 sets. Repeat blood cultures drawn 11/21/18 are negative x 2 sets. Etiology of persistent bacteremia unclear. Podiatry evaluated foot ulcers. Purulent drainage noted in the right foot ulcer. Repeat imaging ordered, but negative for abscess or osteomyelitis. Complicated due to the presence of a pacer/AICD and left hip hardware as well as likely septic emboli to the lung and seeding of the kidneys. TTE suboptimal. No endocarditis stigmata noted on exam. Rheumatoid factor normal. Initial LOY negative for valvular or device lead vegetation, but repeat LOY shows vegetation on the mitral valve. The patient has two major and 2 minor modified [place] criteria. Currently on IV vancomycin (FABRICIO 1) and daptomycin. SNOMED Code(s): 0890869 (3) Endocarditis Current Visit: Yes Status: Acute Location: Mitral valve. Causative organism: MRSA. Initial LOY negative. Repeat LOY completed due to persistent bacteremia shows vegetation on the mitral valve. Currently on Vanc and Daptomycin. Qualifiers: Endocarditis type: infective Infective endocarditis organism: bacterial Chronicity: acute Qualified Code(s): I33.0 - Acute and subacute infective endocarditis SNOMED Code(s): 01532818 (4) Acute encephalopathy Current Visit: Yes Status: Acute Likely secondary to sepsis and hypernatremia and medication-related, but concern for septic emboli to the brain. Unable to have MRI due to Pacer/AICD. CT head negative x2. Improved. Continue to monitor closely. SNOMED Code(s): 60441492, 145206209 (5) Pneumonia Current Visit: Yes Status: Acute CT chest showed small right and trace left partially loculated pleural effusions with increased consolidative opacities in the lung bases slightly asymmetric right worse than left, either atelectasis or pneumonia. Causative organism: Unclear. MRSA screen is positive. RIP negative. UATs negative. Given the patient's weakness, aspiration is on the differential. BANK NOTE DESIGNER consulted. Recommended MBS to further assess swallow status, but patient unable to parti cipate. Pending NG tube placement. Repeat CT of the chest shows large right pleural effusion and small left pleural effusion, both worse since previous imaging. Worsened consolidations to the bilateral lower lobes, right more than left, concerning for worsening atelectasis, multifocal PNA or aspiration pneumonitis also seen. Repeat CXR showed worsening pulmonary edema and partially loculated right pleural effusion. Repeat CXR 11/23/18 showed improvement. Currently on vancomycin and cefepime and flagyl. Qualifiers: Pneumonia type: due to unspecified organism Laterality: right Lung location: lower lobe of lung Qualified Code(s): J18.1 - Lobar pneumonia, unspecified organism SNOMED Code(s): 357972851 (6) Acute renal failure Current Visit: Yes Status: Resolved Likely secondary to sepsis, dehydration, and rhabdomyolysis. Resolved. Continue to trend. Dosage of medications. Avoid nephrotoxins as able. Nephrology consulted. Qualifiers: Acute renal failure type: with acute tubular necrosis Qualified Code(s): N17.0 - Acute kidney failure with tubular necrosis SNOMED Code(s): 75456371 (7) Pulmonary nodules Current Visit: Yes Status: Acute CT chest showed scattered nodules throughout the lungs bilaterally which are indeterminate and may be infectious, inflammatory, or neoplastic in etiology. Given the patient's MRSA bacteremia, concern for septic emboli. SNOMED Code(s): 694742611 (8) Asymptomatic bacteriuria Current Visit: Yes Status: Acute Urine culture positive for MRSA. The patient was asymptomatic prior to admission. Likely secondary to seeding of the kidneys from the bacteremia. Currently on vancomycin and daptomycin. SNOMED Code(s): 540217582 (9) Supratherapeutic INR Current Visit: Yes Status: Resolved Etiology: Unclear. Resolved. Further workup and management per the primary team. SNOMED Code(s): 194837996 (10) Elevated liver function tests Current Visit: Yes Status: Resolved Total bili, AST, ALT, alkaline phosphatase elevated on admission. Etiology: Unclear. Sepsis versus other. Hepatitis profile negative. Resolved. SNOMED Code(s): 298096366, 725006630 (11) Chronic ulcer of right foot with fat layer exposed Current Visit: No Status: Acute Location: Lateral aspect of fifth metatarsal on the right foot. Likely secondary to callus her patient's history. Follows with the [place] [facility]. Clinically does not appear infected, but as a potential source for the patient's bacteremia. CT of the right foot negative for osteomyelitis or abscess x 2. Wound culture positive for MRSA. Podiatry consulted. Planning operative debridement tomorrow. SNOMED Code(s): 541484422 (12) GI bleed Current Visit: Yes Status: Suspected . Fecal occult blood test positive. GI consulted. EGD/C-scope negative for acute bleeding. Qualifiers: GI bleed type/associated pathology: melena Qualified Code(s): K92.1 - Melena SNOMED Code(s): 99373725 (13) Weakness Current Visit: Yes Status: Acute Likely secondary to sepsis. PT/OT to evaluate. SNOMED Code(s): 83378733 (14) Diarrhea Current Visit: Yes Status: Resolved Etiology: Unclear. C. difficile negative. GI panel negative. Improved. Qualifiers: Diarrhea type: presumed infectious Qualified Code(s): R19.7 - Diarrhea, unspecified SNOMED Code(s): 11019699 (15) Dehydration Current Visit: Yes Status: Resolved Likely secondary to poor by mouth intake and high GI output. Improved. Management per the primary team. SNOMED Code(s): 61604603 (16) Rhabdomyolysis Current Visit: Yes Status: Resolved Likely secondary to fall. CK noted to be 1400 on admission. Improved. Further workup and management per the primary team. Qualifiers: Rhabdomyolysis type: traumatic Encounter type: subsequent encounter Qualified Code(s): T79.6XXD - Traumatic ischemia of muscle, subsequent encounter SNOMED Code(s): 478071661 (17) Atrial fibrillation Current Visit: Yes Status: Chronic Qualifiers: Atrial fibrillation type: chronic Qualified Code(s): I48.2 - Chronic atrial fibrillation SNOMED Code(s): 80266344 (18) HTN (hypertension) Current Visit: Yes Status: Chronic Qualifiers: Hypertension type: essential hypertension Qualified Code(s): I10 - Essential (primary) hypertension SNOMED Code(s): 17461188 (19) CAD (coronary artery disease) Current Visit: Yes Status: Chronic Qualifiers: Coronary Disease-Associated Artery/Lesion type: [place] artery [place] vs. transplanted heart: [place] heart Associated angina: without angina Qualified Code(s): I25.10 - Atherosclerotic heart disease of [place] coronary artery without angina pectoris SNOMED Code(s): 21627116 (20) Morbid obesity with BMI of 40.0-44.9, adult Current Visit: Yes Status: Chronic SNOMED Code(s): 594431061, 91146656919403 (21) Pleural effusion Current Visit: Yes Status: Acute CT of the chest 11/15/18 shows large right and small left pleural effusion, worsened since prior exam. Concern for infectious etiology. IR consulted. Thoracentesis 11/16/18. Exudative per Light's criteria, but gram stain and culture negative. Repeat CXR 11/20/18 showed partially loculated right pleural effusion. IR re- consulted. Status post right chest tube placement. Appears exudative per Light's criteria. Culture negative. CT discontinued 11/23/18. SNOMED Code(s): 83385050 (22) Hypernatremia Current Visit: Yes Status: Resolved Improved. Nephrology consulted. Appreciate recommendations. SNOMED Code(s): 997530930 (23) Infection associated with cardiac device Current Visit: Yes Status: Acute Qualifiers: Encounter type: initial encounter Qualified Code(s): T82.7XXA - Infection and inflammatory reaction due to other cardiac and vascular devices, implants and grafts, initial encounter SNOMED Code(s): 166311282, 126759542 - Recommendations Recommendations: Hold atorvastatin while on Daptomycin. VAZQUEZ/hypernatremia management per the nephrology team. Wound care per the Podiatry team. Continue vancomycin IV. Pharmacy to dose. Goal trough approximately 15. Continue Daptomycin, but increase to 8mg/kg (1000mg) IV daily. (day 8) Continue cefepime 2 grams IV Q12H. (day 9) Continue flagyl 500mg IV TID.(day 9) Received 6 days of Zosyn prior to Cefepime/flagyl being started. Can likely stop cefepime and flagyl tomorrow if patient continues to improve clinically. Duration of treatment depends on the clinical picture, but likely at least 4 weeks. Monitor renal function for drug toxicity and does adjust antibiotics. media services specialist to assist with discharge planning. Contact precautions per hospital policy. Recommend transfer to tertiary care center for evaluation of CIED infection. Discussed with the primary team. - VTE Documentation of Mechanical Device: Intermittent pneumatic compression device Consult Discharge Plan - Plan Referrals: Andie Chaudhry, SENIOR MOBILE DEVELOPER [Advanced Practice Nurse] - 12/04/18 10:30 am (Patient is going to [facility]) - Attending Attestation I have personally performed a face to face evaluation on this patient. I have reviewed and agree with the care plan. History and Exam by me shows: Assessment and plan: 1.Sepsis 2.Bacteremia causative organism MRSA. Source likely chronic nonhealing ulceration of the right footcomplicated because the patient has an AICD and repeat LOY shows endocarditis 4. Endocarditis 3.right hip for plastic 4.Pneumonia questionable at best. There are nodules, likely due to septic emboli. 5.Acute kidney injury 6.Asymptomatic bacteriuria 7.Altered mental status with significant confusion Recommendations Continue vancomycin Continue daptomycin d/c cefepime/flagyl in am Monitor labs and for drug toxicity
[2018-11-27] MEDS ORDERED: *HR* Warfarin 3 MG TABLET PO ONE (18:00)
--- NOTE | 2018-11-27 18:55 | Anesthesia Evaluation PreOp ---
Date of Encounter: 11/27/18 Time of Encounter: 18:53 - Past History Planned Operation: R foot prep for graft, Poss bone bx, application graft Cardiac History: HTN, Arrhythmia (afib), Cardiac Surgery (CABD x 3), Cardiac Stent (x 3), Pacemaker/ICD, Other (Endocarditis: per LOY report: Impressions: Technically challenging study due to body habitus, clinical status and elevated heart rates. Windows are off-axis. Mobile linear echodensity attached to the mitral valve measuring 0.8x0.2cm. Probably mild mitral regurgitation - Doppler interrogation not optimal. In the clinical context, findings are suspicious for endocarditis. Findings communicated to ordering provider.) Pulmonary History: COPD, MARY ANN Dx, Other (pleural effusion) EQUITY STRUCTURER History: Other (encephalopathy) Other Medical History: Other (bacteremia, sepsis, anemia) Anesthesia History: No Prior Anesthetic Complications, Past Anesthesia (Appy, [place], AICD/Pacer, Eye surgery, Foot surgery) Alcohol Use: none Drug use: none Medications and Allergies Allopurinol [Zyloprim 300 MG] 300 mg PO DAILY 11/11/18 [History] Atorvastatin [Lipitor] 40 mg PO DAILY 11/11/18 [History] Carvedilol 12.5 mg PO BID 11/11/18 [History] Enoxaparin [Lovenox] 30 mg SQ Q12HR 11/11/18 [History] Furosemide [Lasix] 40 mg PO BID 11/11/18 [History] Gabapentin [Neurontin] 300 mg PO TID 11/11/18 [History] Spironolactone 50 mg PO BID 11/11/18 [History] Tamsulosin HCl [Flomax] 0.4 mg PO DAILY 11/11/18 [History] Warfarin [Coumadin] 3 mg PO SUTUWETHSA 11/11/18 [History] Warfarin [Coumadin] 4.5 mg PO MOFR 11/11/18 [History] Allergy/AdvReac Type Severity Reaction Status Date / Time Sulfa (Sulfonamide AdvReac Unknown advised by Verified 06/05/15 10:20 Antibiotics) dr ruff doesn't work for him - Meds/Allergy Pre-op Review Medications Reviewed: Yes Allergies Reviewed: Yes Beta Blockers on Current Med List: Yes Anesthesia Results - Labs 11/27/18 03:59 11/27/18 03:59 - Imaging EKG: report reviewed (SINUS RHYTHM RIGHT BUNDLE BRANCH BLOCK Electronically Signed On 11-19-2018 16:14:19 EDT by Karie Langston) Additional studies: Impressions: Technically sub-optimal due to poor echocardiographic windows, clinical condition and body habitus. LVEF grossly normal. Indeterminate diastolic function. Probably normal right ventricular function. No significant valvular dysfunction. No evidence of pulmonary hypertension. Recommend repeat Echo after rate contro Anesthesia Exam Vital Signs/O2 Sat, Most Current Temp Pulse Resp BP Pulse Ox 98.9 F 75 20 113/75 92 11/27/18 16:51 11/27/18 16:51 11/27/18 16:51 11/27/18 16:51 11/27/18 16:51 - HEENT Pupil (Motor): Pupils equal, EOMI Oral Opening: Greater than 3 (unable to assess airway as pt is encephalopathic) - EQUITY STRUCTURER LOC: Unable to assess (encephalopathic) - Cardiac Rhythm: Irregular - Pulmonary Breath Sounds: bilateral Rales Respiratory Effort: Labored Anesthesia Assess/Plan ASA Score: 4 Level of consciousness: Restless Anesthetic Plan: General, MAC (pt is bacteremic, septic and has device associated endocarditis, his nurse mentioned some discussion of tranfer to [facility] tomorrow for further management. If procedure is urgent and need to be done here at [place], consent will have to be obtained from family/POA given patient's mental state) Monitoring Plan: Standard Monitors Recovery Plan: PACU
[2018-11-27] MEDS: Gabapentin 300 MG CAPSULE GTUBE SCH (20:17)
[2018-11-28 04:19] LABS: Basophils % 0.1 %; Hematocrit 31.4 % (37.5-50.1); Hemoglobin 9.6 g/dL (12.9-16.9); Immature Granulocytes % 0.9 % (0-4); Lymphocytes # 0.6 K/mcL (0.6-4.6); Lymphocytes % 3.5 %; Mean Corpuscular HGB Conc 30.6 g/dL (31.6-35.5); Mean Corpuscular Hemoglobin 31.1 pg (28.0-33.3); Mean Corpuscular Volume 101.6 fL (83.0-100.0); Mean Platelet Volume 10.6 fL (9.4-12.4); Monocytes # 1.3 K/mcL (0.0-1.3); Neutrophils # 13.9 K/mcL (1.6-8.9); Platelet Count 275 K/mcL (140-400); Red Blood Count 3.09 M/mcL (4.19-5.50); Red Cell Distribution Width 16.4 % (11.5-14.5); Segmented Neutrophils % 87.5 %
[2018-11-28 04:23] LABS: INR 1.5; Prothrombin Time 16.8 Seconds (9.4-12.1)
[2018-11-28 04:34] LABS: BUN/Creatinine Ratio 38 (6-26); Blood Urea Nitrogen 40 mg/dL (8-23); Calcium 10.3 mg/dL (8.6-10.3); Carbon Dioxide 27 mEq/L (23-29); Chloride 113 mEq/L (98-107); Glucose 125 mg/dL (70-105); Osmolality,Calculated 311 (280-300); Sodium 145 mEq/L (136-145); eGFR For Non-African Americans > 60 (> 60)
[2018-11-28] MEDS: Cefepime HCl 2,000 MG in Water for inj. (sterile) 20 ML 20 ML IVP SCH (05:37)
[2018-11-28] MEDS: *HR* Heparin 5,000 UNIT/ML VIAL SQ SCH (05:37)
[2018-11-28] MEDS ORDERED: Ondansetron 4 MG/2 ML VIAL ONE (07:19)
[2018-11-28] MEDS ORDERED: Lidocaine -MPF 2% 2 ML VIAL ONE (07:19)
[2018-11-28] MEDS ORDERED: Propofol 500 MG/50 ML INFUS..BTL ONE (07:21)
[2018-11-28] MEDS: Insulin LISPRO 300 UNITS/3 ML VIAL SQ SCH ×3 (07:30→16:42)
[2018-11-28] MEDS: MetroNIDAZOLE 500 MG/100 ML 500 MG/100 ML BAG IVPB SCH (07:42)
[2018-11-28] MEDS ORDERED: Bupivacaine/EPI 1:200k 0.25%PF 30 ML VIAL ONE (08:49)
[2018-11-28] MEDS ORDERED: Bupivacaine-MPF 0.25% 10 ML VIAL ONE (08:49)
[2018-11-28] MEDS ORDERED: Lidocaine 1% 20 ML MDV ONE (08:49)
--- NOTE | 2018-11-28 09:17 | Operative Note ---
Date of procedure: 11/28/18 Pre-op diagnosis: right foot ulceration 2.2cmx2.5cmx0.3cm Post-op diagnosis: same Procedure: clean up and preparation of wound bed for graft, application of graft Implants: PuraPly graft Complications: none Anesthesia: MAC Local Anesthetics: 1% Lidocaine HCL SubQ (cc) Surgeon: Damon Darby Was there an assistant manager present: No Estimated blood loss (cc): 3 Specimen: none Condition: stable Disposition: PACU Procedure in Detail: Indications: 68 year old male with sepsis and diabetic foot ulceration plantar aspect of right foot with a fibrogranular base which did not probe to bone and had no surrounding erythema, no fluctuance and no purulent drainage being brought to the operating room for the above procedure and bioburden management after discussing the nature of the procedure, risks vs benefits potential complications and consequences of surgery and condition with the patients (POA). Discussed case with Dr. Hall from infectious disease last night as well as internal medicine today. Patient is pending transfer. All questions answered for family whom I spoke with the evening prior. No guarantees made as to the outcome. Patient brought to the operating room placed on operating room table in supine position. The right foot was scrubbed prepped and draped in the usual sterile fashion. No tourniquet was applied. 1% lidocaine plain injected into the patient's right foot. Preparation of wound bed for graft and application of graft right foot. Attention was directed to the plantar lateral aspect of the patient's right foot where a #15 blade, misonex and and curet were used to prepare the wound sharply for placement of thePuraply graft. After the wound base was adequately prepared and the bioburden surface layer removed, the PuraPly graft [id number] was applied to the wound bed and anchored with sterile strips. The graft was in excellent approximation with the wound bed. Sterile bandage bandage was applied consisting of 4 x 4 gauze, ABD, Kerlix and an Saúl wrap. Patient tolerated the anesthesia and the procedure well escorted to recovery room vital signs stable and vascular status intact to the right foot adequate hemostasis was present. Patient had no complications during the surgery and is stable in regards to his foot for transfer once arranged for management of his medical issues. Bandage should be left clean dry and intact for approximately 5 days and then covered with silver alginate. They can consult the wound care nurse at the hospital where he is being transferred.
--- NOTE | 2018-11-28 09:38 | Podiatry Progress Note ---
Date of Encounter: 11/28/18 Time of Encounter: 08:10 - Assessment and Plan (1) Chronic ulcer of right foot with fat layer exposed Current Visit: No Status: Acute ASSESSMENT: -Miguel stage II ulceration to the right foot sub/lateral met head #5 with fat layer exposure -Cultures final for MRSA -CT negative for ostemyelitis -Blood cultures cleared of MRSA PLAN: -OR today with Dr. Darby -Nature of the procedure, risks versus benefits, potential complications, consequences of surgery, and condition discussed. All questions and concerns addressed. Consent signed by and placed in chart. Subjective Principal diagnosis: HYpernatremia Interval history: Patient lethargic aroused easily with verbal stimuli. Oriented to name only, reoriented to time and place. and daughter at bedside. Discussed surgical procedure, risk versus benefits, and all questions and concerns addressed. Consent signed by and placed in chart. Objective - Vital Signs Vital Signs: Vital Signs Temp Pulse Resp BP Pulse Ox 11/28/18 07:14 97.9 F 83 16 122/90 94 11/28/18 04:02 98 F 108 17 148/89 91 11/27/18 23:35 98 F 111 17 135/92 96 11/27/18 19:37 97.7 F 119 17 124/82 95 11/27/18 16:51 98.9 F 75 20 113/75 92 11/27/18 14:03 97.6 F 96 16 127/78 97 11/27/18 11:23 98.3 F 100 18 132/82 94 Intake and Output 11/27/18 11/28/18 11/28/18 23:59 07:59 15:59 Intake Total 440 / 810 Balance 440 / 810 Intake: IV Fluids 220 / 590 Maxipime 2,000 MG In Water for 20 inj. (sterile) 20 ML @ 300 mls/ hr IVP Q12HR [facility] Rx#:[id number] Flagyl Premix 500 MG/100 ML 500 200 / 400 mg In 100 ml @ 100 mls/hr IVPB Q8HR [facility] Rx#:[id number] Oral 220 / 220 Other: Meal Dinner Percent of Meal Consumed 10% # Voids 1 # Urine Diapers 1 1 1 # Bowel Movement Diapers 1 Blood Glucose* 151 112 - Lab Result Diagrams: 11/28/18 03:48 11/28/18 03:48 Labs: Abnormal lab results WBC 15.9 K/mcL (4.3-11.1) H 11/28/18 03:48 RBC 3.09 M/mcL (4.19-5.50) L 11/28/18 03:48 Hgb 9.6 g/dL (12.9-16.9) L 11/28/18 03:48 Hct 31.4 % (37.5-50.1) L 11/28/18 03:48 MCV 101.6 fL (83.0-100.0) H 11/28/18 03:48 MCHC 30.6 g/dL (31.6-35.5) L 11/28/18 03:48 RDW 16.4 % (11.5-14.5) H 11/28/18 03:48 Plt Count 411 K/mcL (140-400) H 11/24/18 05:34 MPV 9.3 fL (9.4-12.4) L 11/19/18 06:33 Immature Gran % 5.5 % (0-4) H 11/14/18 05:51 5.0 % (0-4) H 11/15/18 05:57 2.0 % (0) H 11/15/18 05:57 2.0 % (0) H 11/15/18 05:57 13.9 K/mcL (1.6-8.9) H 11/28/18 03:48 0.5 K/mcL (0.6-4.6) L 11/27/18 03:59 1.7 K/mcL (0.0-1.3) H 11/16/18 06:32 Nucleated RBCs/100 WBC 0.1 /100 WBC (0) H 11/27/18 03:59 Present (Not Present) A 11/10/18 01:12 Increased (Normal) H 11/16/18 06:32 1+ (Not Present) A 11/15/18 05:57 1+ (Not Present) A 11/15/18 05:57 ESR 125 mm/hr (0-10) H 11/12/18 15:40 PT 16.8 Seconds (9.4-12.1) H 11/28/18 03:48 INR 4.9 H* 11/13/18 07:23 ABG pH 7.55 pH Units (7.32-7.45) H 11/21/18 03:54 ABG pCO2 29 mmHg (35-45) L 11/21/18 03:54 ABG pO2 70 mmHg (85-104) L 11/20/18 17:56 ABG HCO3 28 mEq/L (21-27) H 11/20/18 17:56 ABG Total CO2 29 mEq/L (20-26) H 11/20/18 17:56 ABG O2 Saturation 91 % (95-98) L 11/20/18 12:20 ABG Base Excess 5 mEq/L (-2 to 3) H 11/20/18 17:56 Sodium 147 mEq/L (136-145) H 11/27/18 03:59 Potassium 5.3 mEq/L (3.5-5.1) H 11/18/18 22:30 Chloride 113 mEq/L (98-107) H 11/28/18 03:48 Carbon Dioxide 21 mEq/L (23-29) L 11/24/18 05:34 BUN 40 mg/dL (8-23) H 11/28/18 03:48 1.39 mg/dL (0.70-1.30) H 11/21/18 08:54 Est GFR ( Amer) 59 (> 60) L 11/20/18 01:21 Est GFR (Non-Af Amer) 59 (> 60) L 11/24/18 05:34 38 (6-26) H 11/28/18 03:48 Glucose 125 mg/dL (70-105) H 11/28/18 03:48 POC Glucose 112 mg/dL (70-99) H 11/28/18 07:02 347 mOsm/kg (280-300) H 11/19/18 18:08 311 (280-300) H 11/28/18 03:48 Calcium 10.6 mg/dL (8.6-10.3) H 11/24/18 05:34 Magnesium 2.7 mg/dL (1.6-2.6) H 11/26/18 06:15 Iron 34 mcg/dL (65-175) L 11/12/18 16:22 % Saturation 16 % (20-55) L 11/12/18 16:22 148 mg/dL (203-362) L 11/12/18 16:22 565 ng/mL (20-250) H 11/12/18 16:22 1.2 mg/dL (0.3-1.0) H 11/09/18 11:14 AST 44 Units/L (13-39) H 11/16/18 06:32 ALT 64 Units/L (7-52) H 11/16/18 06:32 25 Units/L (30-223) L 11/27/18 03:59 201 mg/L (Less than 10) H 11/12/18 16:09 B-Natriuretic Peptide 123 pg/mL (Less than 100) H 11/09/18 11:14 6.2 g/dL (6.4-8.9) L 11/18/18 00:37 2.8 g/dL (3.5-5.7) L 11/21/18 16:26 3.9 g/dL (2.4-3.5) H 11/21/18 16:26 0.7 (1.1-2.2) L 11/21/18 16:26 > 22.3 ng/mL (3.0-16.0) H 11/12/18 16:22 Red (Yellow) A 11/10/18 04:30 Cloudy (Clear) A 11/10/18 04:30 30 mg/dL (Neg-Trace) H 11/13/18 05:13 Trace mg/dL (Negative) H 11/10/18 04:30 Large (Negative) H 11/13/18 05:13 Ur Leukocyte Esterase Moderate (Negative) H 11/10/18 04:30 TNTC per hpf (0-3) H 11/13/18 05:13 3-5 per hpf (0-3) H 11/13/18 05:13 Ur Squamous Epith Cells Many per lpf (None-Few) H 11/13/18 05:13 Moderate per hpf (None-Few) H 11/09/18 17:18 Granular Casts Few per lpf (None Seen) H 11/09/18 17:18 Ur Culture Indicated? NO. (NO) A 11/10/18 04:30 Pleural Appearance Bloody (Clear) A 11/21/18 13:10 Pleural RBC 0.090 M/mcL (0.000-0.002) H 11/21/18 13:10 Pleural Tot Nuc Cell 1754 TNC/mcL (0-1000) H 11/21/18 13:10 Positive (Negative) A 11/09/18 21:50 Stool Occult Bld Scrn Positive (Negative) A 11/09/18 13:05 162 ug/g (<=50) H 11/13/18 10:50 Vancomycin Trough 14 mcg/mL (5-10) H 11/26/18 08:46 Staphylococcus sp PCR DETECTED (Not Detect) A 11/11/18 01:05 Staph aureus (PCR) DETECTED (Not Detect) A 11/13/18 07:20 mecA-Methicil Res Gene DETECTED (Not Detect) A 11/13/18 07:20 Crossmatch See Detail 11/14/18 14:50 Microbiology, Last 48 Hours 11/21/18 08:52 Blood Culture - Final Peripheral Venipuncture No growth. Final report. 11/21/18 08:54 Blood Culture - Final Peripheral Venipuncture No growth. Final report. 11/21/18 13:10 Anaerobic Culture - Final Pleural Fluid No anaerobes were recovered. - VTE Documentation of Mechanical Device: Intermittent pneumatic compression device Consult Discharge Plan - Plan Referrals: Andie Chaudhry, [employer]TRASOUND SONOGRAPHER [Advanced Practice Nurse] - 12/04/18 10:30 am (Patient is going to [facility])
[2018-11-28] MEDS ORDERED: Dextrose Gel 15 GM/37.5 ML TUBE PO PRN ×2 (10:15)
[2018-11-28] MEDS ORDERED: Ondansetron 4 MG/2 ML VIAL IVP PRN (10:15)
[2018-11-28] MEDS ORDERED: *HR* OxyCODONE Immed Rel 5 MG TABLET GTUBE PRN (10:15)
[2018-11-28] MEDS ORDERED: Naloxone 0.4 MG/ML INJ IVP PRN (10:15)
[2018-11-28] MEDS ORDERED: Levalbuterol Neb 1.25 MG/3 ML IH PRN (10:15)
[2018-11-28] MEDS ORDERED: *HR* Labetalol 20 MG/4 ML SYRINGE IVP PRN (10:15)
[2018-11-28] MEDS ORDERED: D5% in Water 1,000 ML IVC PRN (10:15)
[2018-11-28] MEDS ORDERED: Chloraseptic Spray 177 ML BOTTLE MM PRN (10:15)
[2018-11-28] MEDS ORDERED: traMADol 50 MG TABLET GTUBE PRN (10:15)
[2018-11-28] MEDS ORDERED: *HR* Dextrose 50 % in Water (Syg) 50 ML SYRINGE IVP PRN (10:15)
[2018-11-28] MEDS ORDERED: *HR* LORazepam 2 MG/ML VIAL IVP PRN (10:15)
[2018-11-28] MEDS ORDERED: Warfarin perPT PO PRN (10:15)
[2018-11-28] MEDS ORDERED: Vancomycin 1,000 MG, 0.9 % Sodium Chloride 1,000 ML IR ONE ×2 (10:30)
[2018-11-28] MEDS ORDERED: predniSONE 10 MG TABLET PO SCH (11:00)
[2018-11-28] MEDS ORDERED: Vancomycin 1,500 MG in D5% in Water 250 ML IVPB SCH (11:00)
[2018-11-28] MEDS ORDERED: Aspirin 81 MG TAB.CHEW GTUBE SCH (11:00)
--- NOTE | 2018-11-28 11:00 | Discharge Summary ---
<Sepideh Morejon - Last Filed: 11/28/18 15:35> - NOTES TO OUTPATIENT PROVIDER Notes to Outpatient Provider: Admitted with sepsis secondary to pneumonia with pleural effusion, for ulcer, MRSA bacteremia. Complicated by super therapeutic INR, VAZQUEZ, rhabdomyolysis, hypernatremia, UTI. Hospital course complicated with persistent MRSA bacteremia. Infectious disease followed. Initial LOY did not show endocarditis, however repeat LOY should mitral valve vegetation in the setting of AICD/ pacemaker. Patient transferred to [facility] for further management of endocarditis. Patient was on vancomycin and daptomycin. Orders not resulted at time of discharge: Pending orders 11/15/18 17:40 Fungal Culture [MYC] Routine 11/29/18 04:00 PT/INR [Prothrombin Time INR] [COAG] AM 0400 11/30/18 04:00 PT/INR [Prothrombin Time INR] [COAG] AM 0400 12/01/18 04:00 PT/INR [Prothrombin Time INR] [COAG] AM 0400 Date of Encounter: 11/28/18 Time of Encounter: 10:59 - Discharge Diagnosis (1) Sepsis Priority: Primary Status: Acute Qualifiers: Sepsis type: methicillin resistant Staphylococcus aureus Qualified Code(s): A41.02 - Sepsis due to Methicillin resistant Staphylococcus aureus (2) Bacteremia Priority: Secondary Status: Acute (3) Chronic ulcer of right foot with fat layer exposed Priority: Secondary Status: Acute (4) GI bleed Priority: Secondary Status: Suspected Qualifiers: GI bleed type/associated pathology: melena Qualified Code(s): K92.1 - Melena (5) Pneumonia Priority: Secondary Status: Acute Qualifiers: Pneumonia type: due to unspecified organism Laterality: right Lung location: lower lobe of lung Qualified Code(s): J18.1 - Lobar pneumonia, unspecified organism (6) Diarrhea Priority: Secondary Status: Resolved Qualifiers: Diarrhea type: presumed infectious Qualified Code(s): R19.7 - Diarrhea, unspecified (7) Dehydration Priority: Secondary Status: Resolved (8) Rhabdomyolysis Priority: Secondary Status: Resolved Qualifiers: Rhabdomyolysis type: traumatic Encounter type: subsequent encounter Qualified Code(s): T79.6XXD - Traumatic ischemia of muscle, subsequent encounter (9) Acute renal failure Priority: Secondary Status: Resolved Qualifiers: Acute renal failure type: with acute tubular necrosis Qualified Code(s): N17.0 - Acute kidney failure with tubular necrosis (10) UTI (urinary tract infection) Priority: Secondary Status: Suspected Qualifiers: Urinary tract infection type: acute cystitis Hematuria presence: with hematuria Qualified Code(s): N30.01 - Acute cystitis with hematuria (11) Atrial fibrillation Priority: Secondary Status: Chronic Qualifiers: Atrial fibrillation type: chronic Qualified Code(s): I48.2 - Chronic atrial fibrillation (12) HTN (hypertension) Priority: Secondary Status: Chronic Qualifiers: Hypertension type: essential hypertension Qualified Code(s): I10 - Essential (primary) hypertension (13) CAD (coronary artery disease) Priority: Secondary Status: Chronic Qualifiers: Coronary Disease-Associated Artery/Lesion type: [place] artery [place] vs. transplanted heart: [place] heart Associated angina: without angina Qualified Code(s): I25.10 - Atherosclerotic heart disease of [place] coronary artery without angina pectoris (14) Morbid obesity with BMI of 40.0-44.9, adult Priority: Secondary Status: Chronic (15) DVT prophylaxis Priority: Secondary Status: Acute (16) Supratherapeutic INR Priority: Secondary Status: Resolved (17) Anemia Priority: Secondary Status: Suspected Qualifiers: Anemia type: iron deficiency Iron deficiency anemia type: chronic blood loss Qualified Code(s): D50.0 - Iron deficiency anemia secondary to blood loss (chronic) (18) Acute encephalopathy Priority: Secondary Status: Acute (19) Dysphagia Priority: Secondary Status: Suspected Qualifiers: Dysphagia type: oropharyngeal phase Qualified Code(s): R13.12 - Dysphagia, oropharyngeal phase (20) Pleural effusion Priority: Secondary Status: Acute (21) Hypernatremia Priority: Secondary Status: Resolved Hospital course: Mr. Morris is a 68 year old male with past medical history of atrial fibrillation on Coumadin, CAD, MD, hypertension, pacemaker/AICD who presented to the [facility] complaining of weakness and pain. The patient had reported that a couple days prior he had fallen and was on the ground for some time. Hospital course has been complicated by initial sepsis secondary to bacteremia, right foot ulcer, pneumonia. Additionally he presented with acute renal failure, rhabdomyolysis, supra therapeutic INR 5.9 in the setting of taking Coumadin for atrial fibrillation, metabolic encephalopathy, concern for G.I. bleed, urinary tract infection, hypernatremia. Initially the patient was started on antibiotics for suspected pneumonia and MRSA bacteremia with vancomycin, unaysn, azithromycin. The patient had rhabdomyolysis with creatinine kinase 1413 and acute kidney injury. There were concerns for G.I. bleed due to positive stool occult however this is within the setting of superb therapeutic INR while taking Coumadin. The patient required one unit packed red blood cell, 2 units plasma sudden improve INR. Patient was unable to undergo EGD and colonoscopy that showed: -colonoscopy-poor prep with stool and entire colon, internal hemorrhoids, diverticulosis in sigmoid colon -EGD- normal esophagus, single gastric polyp. Granular mucosa in the 2nd portion of duodenum, single duodenal polyp. Biopsies showed hyperplastic gastric polyp, submucosal lipoma and small intestine. -Initial chest CT demonstrating small right interest left partially likely to pleural effusions with findings concerning for pneumonia. Scattered nodules throughout the lungs bilaterally but maybe infectious or inflammatory or neoplastic. -Repeat Chest CT show enlarged right pleural effusion and small left pleural effusion, worsened. -Patient required chest tube drainage of right-sided pleural effusion that was exudate fluid. -infectious disease managed antibiotics and added daptomycin along with the current vancomycin due to persistent bacteremia growing MRSA and fevers. Additionally he was on cefepime and Flagyl. -11/10/2018 TTE and 11/14/2018 LOY were negative for vegetations or evidence of endocarditis -He develop hypernatremia for which nephrology was consulted and is now resolved. -Patient continued have encephalopathy for which multiple head CT is were negative for stroke or any other acute intracranial abnormality -11/14/[address] negative for osteomyelitis -11/21/[address] negative for osteomyelitis or subcutaneous infection. -11/21/2018 podiatry performed on right foot a debridement of the hyperkeratosis lesion expressed purulent drainage. The bullous lesion expressed serious fluid. Cultures were taken. -Wound cultures from ulcer grew MRSA -11/27/2018 LOY should mitral valve vegetation measuring 0.8 x 0.2 cm suspicious for endocarditis. 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 This is in the setting of the patient having a pacemaker/AICD. Patient currently on vancomycin and daptomycin. Coumadin resumed for anticoagulation for atrial fibrillation. Still has encephalopathy but is slowly improving. He will need evaluation by cardiology and infectious disease due to the endocarditis with pacemaker/AICD. Discharge discussed with: patient, family, nurse, social work, case management - Time Spent with Patient Total time spent providing and/or coordinating discharge services: Time spent: Greater than 30 minutes - Discharge Medications Prescriptions: No Action Allopurinol [Zyloprim 300 MG] 300 mg PO DAILY Atorvastatin [Lipitor] 40 mg PO DAILY Carvedilol 12.5 mg PO BID Furosemide [Lasix] 40 mg PO BID Gabapentin [Neurontin] 300 mg PO TID Spironolactone 50 mg PO BID Tamsulosin HCl [Flomax] 0.4 mg PO DAILY Warfarin [Coumadin] 3 mg PO SUTUWETHSA Enoxaparin [Lovenox] 30 mg SQ Q12HR Warfarin [Coumadin] 4.5 mg PO MOFR Home Medications: Allopurinol [Zyloprim 300 MG] 300 mg PO DAILY 11/11/18 [History] Atorvastatin [Lipitor] 40 mg PO DAILY 11/11/18 [History] Carvedilol 12.5 mg PO BID 11/11/18 [History] Enoxaparin [Lovenox] 30 mg SQ Q12HR 11/11/18 [History] Furosemide [Lasix] 40 mg PO BID 11/11/18 [History] Gabapentin [Neurontin] 300 mg PO TID 11/11/18 [History] Spironolactone 50 mg PO BID 11/11/18 [History] Tamsulosin HCl [Flomax] 0.4 mg PO DAILY 11/11/18 [History] Warfarin [Coumadin] 3 mg PO SUTUWETHSA 11/11/18 [History] Warfarin [Coumadin] 4.5 mg PO MOFR 11/11/18 [History] Allergies/Adverse Reactions: Allergy/AdvReac Type Severity Reaction Status Date / Time Sulfa (Sulfonamide AdvReac Unknown advised by Verified 06/05/15 10:20 Antibiotics) dr ruff doesn't work for him Date of admission: 11/10/18 16:16 Primary care physician: PCP NONE Consults: 11/10/18 12:10 Consult to Wound Care [CONS] Routine Reason for Consult: chronic wound that podiatry has managed Call Completed: No 11/12/18 08:34 Consult to Infectious Diseases [CONS] Routine Consulting Provider: Infectious Disease [place] Reason for Consult: MRSA bacteremia and UTI on vanc, abx recs Call Completed: Yes 11/12/18 09:27 Consult to Gastroenterology [CONS] Routine Consulting Provider: Gastroenterology Anuradha Reason for Consult: concern GI bleed in setting of supratherapeutic INR, Hgb steadily decreasing Call Completed: Yes 11/13/18 10:47 Consult to Printed Circuit Boards Inspector [CONS] Routine Reason for SW Consult: discharge planning, may need placed 11/14/18 20:55 Consult to Speech Therapy [CONS] Routine Comment: Evaluate, develop and implement POC Reason for Consult: risk of aspiration Call Completed: No 11/15/18 17:44 Consult to Interventional Radiology [CONS] Routine Consulting Provider: Radiology Interventional Cols Reason for Consult: diagnositic/therapeutic thoracentesis Call Completed: No 11/19/18 11:27 Consult to Nephrology [CONS] Routine Consulting Provider: Kidney [place]/JOHN/AP/EDGAR Reason for Consult: hypernatremia Call Completed: Yes 11/19/18 12:37 Consult to Pastoral Services [CONS] Routine Comment: family request 11/20/18 09:35 Consult to Podiatry [CONS] Routine Consulting Provider: [facility]ry [facility] Reason for Consult: chronic wound on right foot that follows with Dr. Darby. evaluate to see if source of sepsis. Call Completed: No Consult to Pulmonology [CONS] Routine Consulting Provider: Pulm Crit Care & Sleep [place] Reason for Consult: sepsis with MRSA bacteremia. pleural effusion that is s/p drained. evaluate if source sepsis Call Completed: Yes 11/21/18 09:16 Consult to Nutrition [CONS] Routine Comment: Consulting Provider: NUTRITION Reason for Dietary Consult: PO Supplementation Other:: recs on feeding 11/21/18 11:14 Consult to Interventional Radiology [CONS] Routine Consulting Provider: Radiology Interventional Cols Reason for Consult: thoracentesis, large right loculated pleural effusion. Call Completed: No 11/21/18 14:30 Consult to Nutrition [CONS] Routine Comment: Consulting Provider: NUTRITION Reason for Dietary Consult: Tube Feed Start & Manage 11/26/18 08:17 Consult to Nurse Navigator [CONS] Routine Comment: pn Discharging clinician: Bruce Mitchell Anticipated date of discharge: 11/28/18 - Constitutional Vitals: Temp Pulse Resp BP Pulse Ox 97.9 F 83 16 122/90 94 11/28/18 07:14 11/28/18 07:14 11/28/18 07:14 11/28/18 07:14 11/28/18 07:14 General appearance: Present: A&O X 3, obese Exam: Gen.: Vitals noted. No acute distress. AAOx2 HEENT: oropharynx clear, Normocephalic, atraumatic Cardiac: RRR, no murmur, +S1/S2 Pulmonary: bilaterally wheezes, no rales or rhonchi, equal chest expansion Abdomen: soft, nontender, Bowel sounds noted, no guarding MSK: right foot ulcer that is bandaged Extremities: no BLE edema, nontender calf, no cyanosis or clubbing Neuro: A&Ox2, moves all extremities, no focal deficits - Patient Status Disposition: Transfer Critical Access Hosp Condition: Critical Functional capacity at discharge: independent ambulation Overall status at discharge: patient is not back to baseline - Discharge Instructions Follow Up With: Andie Chaudhry SWEATER OPERATOR [Advanced Practice Nurse] - 12/04/18 10:30 am (Patient is going to [facility]) - Diet and Activity Diet: other (Honey thickened liquid diet) - VTE Documentation of Mechanical Device: Intermittent pneumatic compression device <Bruce Mitchell - Last Filed: 11/28/18 17:02> Orders not resulted at time of discharge: Pending orders 11/15/18 17:40 Fungal Culture [MYC] Routine 11/29/18 04:00 PT/INR [Prothrombin Time INR] [COAG] AM 0400 11/30/18 04:00 PT/INR [Prothrombin Time INR] [COAG] AM 0400 12/01/18 04:00 PT/INR [Prothrombin Time INR] [COAG] AM 0400 Date of Encounter: 11/28/18 Time of Encounter: 10:30 - Discharge Diagnosis (1) Chronic ulcer of right foot with fat layer exposed Status: Acute (2) GI bleed Status: Suspected Qualifiers: GI bleed type/associated pathology: melena Qualified Code(s): K92.1 - Melena (3) Pneumonia Status: Acute Qualifiers: Pneumonia type: due to unspecified organism Laterality: right Lung location: lower lobe of lung Qualified Code(s): J18.1 - Lobar pneumonia, unspecified organism (4) Diarrhea Status: Resolved Qualifiers: Diarrhea type: presumed infectious Qualified Code(s): R19.7 - Diarrhea, unspecified (5) Dehydration Status: Resolved (6) Rhabdomyolysis Status: Resolved Qualifiers: Rhabdomyolysis type: traumatic Encounter type: subsequent encounter Qualified Code(s): T79.6XXD - Traumatic ischemia of muscle, subsequent encounter (7) Acute renal failure Status: Resolved Qualifiers: Acute renal failure type: with acute tubular necrosis Qualified Code(s): N17.0 - Acute kidney failure with tubular necrosis (8) UTI (urinary tract infection) Status: Suspected Qualifiers: Urinary tract infection type: acute cystitis Hematuria presence: with hematuria Qualified Code(s): N30.01 - Acute cystitis with hematuria (9) Atrial fibrillation Status: Chronic Qualifiers: Atrial fibrillation type: chronic Qualified Code(s): I48.2 - Chronic atrial fibrillation (10) HTN (hypertension) Status: Chronic Qualifiers: Hypertension type: essential hypertension Qualified Code(s): I10 - Essential (primary) hypertension (11) CAD (coronary artery disease) Status: Chronic Qualifiers: Coronary Disease-Associated Artery/Lesion type: [place] artery [place] vs. transplanted heart: [place] heart Associated angina: without angina Qualified Code(s): I25.10 - Atherosclerotic heart disease of [place] coronary artery without angina pectoris (12) Morbid obesity with BMI of 40.0-44.9, adult Status: Chronic (13) DVT prophylaxis Status: Acute (14) Supratherapeutic INR Status: Resolved (15) Sepsis Status: Acute Qualifiers: Sepsis type: methicillin resistant Staphylococcus aureus Qualified Code(s): A41.02 - Sepsis due to Methicillin resistant Staphylococcus aureus (16) Anemia Status: Suspected Qualifiers: Anemia type: iron deficiency Iron deficiency anemia type: chronic blood loss Qualified Code(s): D50.0 - Iron deficiency anemia secondary to blood loss (chronic) (17) Acute encephalopathy Status: Acute (18) Dysphagia Status: Suspected Qualifiers: Dysphagia type: oropharyngeal phase Qualified Code(s): R13.12 - Dysphagia, oropharyngeal phase (19) Bacteremia Status: Acute (20) Pleural effusion Status: Acute (21) Hypernatremia Status: Resolved Hospital course: Mr. Morris is a 68 year old male - Time Spent with Patient Total time spent providing and/or coordinating discharge services: Time spent: Less than 30 minutes (10 min) Date of admission: 11/10/18 16:16 Primary care physician: PCP NONE Consults: 11/10/18 12:10 Consult to Wound Care [CONS] Routine Reason for Consult: chronic wound that podiatry has managed Call Completed: No 11/12/18 08:34 Consult to Infectious Diseases [CONS] Routine Consulting Provider: Infectious Disease [place] Reason for Consult: MRSA bacteremia and UTI on vanc, abx recs Call Completed: Yes 11/12/18 09:27 Consult to Gastroenterology [CONS] Routine Consulting Provider: Gastroenterology Anuradha Reason for Consult: concern GI bleed in setting of supratherapeutic INR, Hgb steadily decreasing Call Completed: Yes 11/13/18 10:47 Consult to Printed Circuit Boards Inspector [CONS] Routine Reason for SW Consult: discharge planning, may need placed 11/14/18 20:55 Consult to Speech Therapy [CONS] Routine Comment: Evaluate, develop and implement POC Reason for Consult: risk of aspiration Call Completed: No 11/15/18 17:44 Consult to Interventional Radiology [CONS] Routine Consulting Provider: Radiology Interventional Cols Reason for Consult: diagnositic/therapeutic thoracentesis Call Completed: No 11/19/18 11:27 Consult to Nephrology [CONS] Routine Consulting Provider: Kidney An[facility]/JOHN/AP/EDGAR Reason for Consult: hypernatremia Call Completed: Yes 11/19/18 12:37 Consult to Pastoral Services [CONS] Routine Comment: family request 11/20/18 09:35 Consult to Podiatry [CONS] Routine Consulting Provider: [facility]ry [facility] Reason for Consult: chronic wound on right foot that follows with Dr. Darby. evaluate to see if source of sepsis. Call Completed: No Consult to Pulmonology [CONS] Routine Consulting Provider: Pulm Crit Care & Sleep [place] Reason for Consult: sepsis with MRSA bacteremia. pleural effusion that is s/p drained. evaluate if source sepsis Call Completed: Yes 11/21/18 09:16 Consult to Nutrition [CONS] Routine Comment: Consulting Provider: NUTRITION Reason for Dietary Consult: PO Supplementation Other:: recs on feeding 11/21/18 11:14 Consult to Interventional Radiology [CONS] Routine Consulting Provider: Radiology Interventional Cols Reason for Consult: thoracentesis, large right loculated pleural effusion. Call Completed: No 11/21/18 14:30 Consult to Nutrition [CONS] Routine Comment: Consulting Provider: NUTRITION Reason for Dietary Consult: Tube Feed Start & Manage 11/26/18 08:17 Consult to Nurse Navigator [CONS] Routine Comment: pn - Constitutional Vitals: Temp Pulse Resp BP Pulse Ox 97.1 F L 122 17 126/82 97 11/28/18 11:22 11/28/18 11:22 11/28/18 11:22 11/28/18 11:22 11/28/18 11:22 - Attending Attestation I saw evaluated and examined this patient and my medical decision-making was reviewed with the Resident Physician, Sepideh Morejon. I agree with the documented findings, disposition and treatment plan as described except to any changes set forth below. We independently had [id number] contact with the patient. Patient with history of essential hypertension, atrial fibrillation, coronary artery disease was initially hospitalized with acute rhabdomyolysis most likely related to her recent fall along with acute kidney injury, dehydration and d iarrhea patient. Patient had a prolonged stay in the hospital during which he was diagnosed with pneumonia along with infected ulcer of the right foot and bacteremia. As his cultures came back positive for positive multiple times, infective endocarditis was suspected. Patient has been on antibiotics all through his stay here. Patient underwent transesophageal echocardiogram yesterday which showed mobile linear echodensity attached to the mitral valve with associated mild mitral regurgitation. Given these findings, infectious diseases has recommended that the patient be transferred to a tertiary care center as he has an AICD in place which will most likely need to be removed and may also need repair of his mitral valve. We are hoping to transfer patient to [facility] for this. He did undergo surgery on his right foot today with cleanup in preparation of wound [place] graft with application of [place] graft.. On examination today, patient is somnolent. Awakes to voice commands but falls asleep easily. S1 and S2 are normal. He does have decreased breath sounds at both bases. Right foot is currently bandaged.
--- NOTE | 2018-11-28 13:02 | Infectious Disease Progress No ---
ID Progress Note Date of Encounter: 11/28/18 Time of Encounter: 09:30 - Subjective Subjective: Patient seen and examined. No acute events noted overnight. Awake but confused. Denies pain, shortness of breath, or cough. Denies vomiting or diarrhea. Denies nausea. Per nursing, voided twice since having ackerman removed.. Status post chest tube placement 11/21/18 with removal 11/22/18. NGT removed and patient tolerating diet well, but currently NPO for OR later today. - Objective CBC & Chem 7: 11/28/18 03:48 11/28/18 03:48 - Exam Vitals: Temp Pulse Resp BP Pulse Ox 97.1 F L 122 17 126/82 97 11/28/18 11:22 11/28/18 11:22 11/28/18 11:22 11/28/18 11:22 11/28/18 11:22 Exam: Head: Atraumatic, normal inspection, normocephalic. Eye: EOMI, PERRLA, no scleral icterus noted. No subconjunctival hemorrhage noted. ENT: Mucous membranes dry. No odontogenic infection noted. Neck: Normal inspection, no meningismus. Respiratory: CTA throughout. No rales, respiratory distress, rhonchi noted. Cardiovascular: Tachycardic. Irregular rhythm, S1 and S2 audible. No murmurs, rubs, or gallops. GI: Soft, obese, normal bowel sounds. Nontender. Extremities: No joint swelling, pedal edema, or tenderness noted. Right foot dressing C/D/I. Multiple scabbed lesions noted to the BLE. Scabbed lesion noted to the medial aspect of the left great toe without surrounding erythema, warmth, or fluctuance noted. Neurological: Opens eyes to verbal stimuli, follows commands. Answers some ROS questions. Oriented to person only. Psychiatric: Calm, cooperative. Skin: Dry, intact, warm. Pale. No rashes. Additional exam findings: Pacer/AICD site noted to the left upper chest well healed, nontender without erythema - Assessment and Plan (1) Sepsis Status: Acute The patient had 3 sepsis criteria with acute kidney injury and metabolic encephalopathy. Likely secondary to MRSA bacteremia. WBC improved. Acute kidney injury resolved. Afebrile overnight. Tachycardia persists, but improved. Blood cultures drawn 11/09/18 a +2 out of 2 sets for MRSA. Repeat blood cultures from 11/11/18 are positive for MRSA. Additional blood cultures drawn 11/13/18 are positive x 2 sets as well. Repeat blood cultures 11/15/18 positive 2/2 sets. Repeat blood cultures drawn 11/18/18 are positive 1/2 sets. Repeat blood cultures drawn 11/21/18 are negative x 2 sets. Qualifiers: Sepsis type: methicillin resistant Staphylococcus aureus Qualified Code(s): A41.02 - Sepsis due to Methicillin resistant Staphylococcus aureus SNOMED Code(s): 39618186 (2) Bacteremia Status: Acute Causative organism: MRSA. Source: Likely the right foot ulcer given the wound culture results. Blood cultures drawn 11/09/18 are +2 out of 2 sets. Repeat blood cultures on 11/11/18 are +2 out of 2 sets. Repeat blood cultures drawn 11/13/18 are positive x 2 sets. Repeat blood cultures from 11/15/18 are positive 2/2 sets. Repeat blood cultures drawn 11/18/18 are positive 1/2 sets. Repeat blood cultures drawn 11/21/18 are negative x 2 sets. Etiology of persistent bacteremia unclear. Podiatry evaluated foot ulcers. Purulent drainage noted in the right foot ulcer. Repeat imaging ordered, but negative for abscess or osteomyelitis. Complicated due to the presence of a pacer/AICD and left hip hardware as well as likely septic emboli to the lung and seeding of the kidneys. TTE suboptimal. No endocarditis stigmata noted on exam. Rheumatoid factor normal. Initial LOY negative for valvular or device lead vegetation, but repeat LOY shows vegetation on the mitral valve. The patient has two major and 2 minor modified Cook criteria. Currently on IV vancomycin (FABRICIO 1) and daptomycin. 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 Causative organism: MRSA. Initial LOY negative. Repeat LOY completed due to persistent bacteremia shows vegetation on the mitral valve. Currently on Vanc and Daptomycin. Pending transfer to tertiary care center after surgery today. Qualifiers: Endocarditis type: infective Infective endocarditis organism: bacterial Chronicity: acute Qualified Code(s): I33.0 - Acute and subacute infective endocarditis SNOMED Code(s): 53602372 (4) Acute encephalopathy Status: Acute Likely secondary to sepsis and hypernatremia and medication-related, but concern for septic emboli to the brain. Unable to have MRI due to Pacer/AICD. CT head negative x2. Improved. Continue to monitor closely. SNOMED Code(s): 38600523, 104419546 (5) Pneumonia Status: Acute CT chest showed small right and trace left partially loculated pleural effusions with increased consolidative opacities in the lung bases slightly asymmetric right worse than left, either atelectasis or pneumonia. Causative organism: Unclear. MRSA screen is positive. RIP negative. UATs negative. Given the patient's weakness, aspiration is on the differential. NETWORK ANNOUNCER consulted. Recommended MBS to further assess swallow status, but patient unable to participate. Pending NG tube placement. Repeat CT of the chest shows large right pleural effusion and small left pleural effusion, both worse since previous imaging. Worsened consolidations to the bilateral lower lobes, right more than left, concerning for worsening atelectasis, multifocal PNA or aspiration pneumonitis also seen. Repeat CXR showed worsening pulmonary edema and partially loculated right pleural effusion. Repeat CXR 11/23/18 showed improvement. Currently on vancomycin and cefepime and flagyl. Qualifiers: Pneumonia type: due to unspecified organism Laterality: right Lung location: lower lobe of lung Qualified Code(s): J18.1 - Lobar pneumonia, unspecified organism SNOMED Code(s): 898537619 (6) Acute renal failure Status: Resolved Likely secondary to sepsis, dehydration, and rhabdomyolysis. Resolved. Continue to trend. Dosage of medications. Avoid nephrotoxins as able. Nephrology consulted. Qualifiers: Acute renal failure type: with acute tubular necrosis Qualified Code(s): N17.0 - Acute kidney failure with tubular necrosis SNOMED Code(s): 82632342 (7) Pulmonary nodules Status: Acute CT chest showed scattered nodules throughout the lungs bilaterally which are indeterminate and may be infectious, inflammatory, or neoplastic in etiology. Given the patient's MRSA bacteremia, concern for septic emboli. SNOMED Code(s): 270612059 (8) Asymptomatic bacteriuria Status: Acute Urine culture positive for MRSA. The patient was asymptomatic prior to admission. Likely secondary to seeding of the kidneys from the bacteremia. Currently on vancomycin and daptomycin. SNOMED Code(s): 186705758 (9) Supratherapeutic INR Status: Resolved Etiology: Unclear. Resolved. Further workup and management per the primary team. SNOMED Code(s): 984766417 (10) Elevated liver function tests Status: Resolved Total bili, AST, ALT, alkaline phosphatase elevated on admission. Etiology: Unclear. Sepsis versus other. Hepatitis profile negative. Resolved. SNOMED Code(s): 830512443, 438469415 (11) Chronic ulcer of right foot with fat layer exposed Status: Acute Location: Lateral aspect of fifth metatarsal on the right foot. Likely secondary to callus her patient's history. Follows with the [place] [facility]. Clinically does not appear infected, but as a potential source for the patient's bacteremia. CT of the right foot negative for osteomyelitis or abscess x 2. Wound culture positive for MRSA. Podiatry consulted. Pending OR today. SNOMED Code(s): 341714532 (12) GI bleed Status: Suspected . Fecal occult blood test positive. GI consulted. EGD/C-scope negative for acute bleeding. Qualifiers: GI bleed type/associated pathology: melena Qualified Code(s): K92.1 - Melena SNOMED Code(s): 85704419 (13) Weakness Status: Acute Likely secondary to sepsis. PT/OT to evaluate. SNOMED Code(s): 18931877 (14) Diarrhea Status: Resolved Etiology: Unclear. C. difficile negative. GI panel negative. Improved. Qualifiers: Diarrhea type: presumed infectious Qualified Code(s): R19.7 - Diarrhea, unspecified SNOMED Code(s): 38649454 (15) Dehydration Status: Resolved Likely secondary to poor by mouth intake and high GI output. Improved. Management per the primary team. SNOMED Code(s): 44752762 (16) Rhabdomyolysis Status: Resolved Likely secondary to fall. CK noted to be 1400 on admission. Improved. Further workup and management per the primary team. Qualifiers: Rhabdomyolysis type: traumatic Encounter type: subsequent encounter Qualified Code(s): T79.6XXD - Traumatic ischemia of muscle, subsequent encounter SNOMED Code(s): 267981016 (17) Atrial fibrillation Status: Chronic Qualifiers: Atrial fibrillation type: chronic Qualified Code(s): I48.2 - Chronic atrial fibrillation SNOMED Code(s): 54960434 (18) HTN (hypertension) Status: Chronic Qualifiers: Hypertension type: essential hypertension Qualified Code(s): I10 - [place] tial (primary) hypertension SNOMED Code(s): 00335416 (19) CAD (coronary artery disease) Status: Chronic Qualifiers: Coronary Disease-Associated Artery/Lesion type: [place] artery [place] vs. transplanted heart: [place] heart Associated angina: without angina Qualified Code(s): I25.10 - Atherosclerotic heart disease of [place] coronary artery without angina pectoris SNOMED Code(s): 83376735 (20) Morbid obesity with BMI of 40.0-44.9, adult Status: Chronic SNOMED Code(s): 986815956, 54108058346835 (21) Pleural effusion Status: Acute CT of the chest 11/15/18 shows large right and small left pleural effusion, worsened since prior exam. Concern for infectious etiology. IR consulted. Thoracentesis 11/16/18. Exudative per Light's criteria, but gram stain and culture negative. Repeat CXR 11/20/18 showed partially loculated right pleural effusion. IR re- consulted. Status post right chest tube placement. Appears exudative per Light's criteria. Culture negative. CT discontinued 11/23/18. SNOMED Code(s): 81041639 (22) Hypernatremia Status: Resolved Improved. Nephrology consulted. Appreciate recommendations. SNOMED Code(s): 746065670 (23) Infection associated with cardiac device Status: Acute Pending transfer to tertiary [facility]. Qualifiers: Encounter type: initial encounter Qualified Code(s): T82.7XXA - Infection and inflammatory reaction due to other cardiac and vascular devices, implants and grafts, initial encounter SNOMED Code(s): 317057689, 986148459 - Recommendations Recommendations: Hold atorvastatin while on Daptomycin. VAZQUEZ/hypernatremia management per the nephrology team. Wound care per the Podiatry team. Continue vancomycin IV. Pharmacy to dose. Goal trough approximately 15. Continue Daptomycin 1000mg IV daily. (day 9) Discontinue cefepime and flagyl. (total 16 days of treatment) Duration of treatment depends on the clinical picture, but likely at least 4 weeks. Monitor renal function for drug toxicity and does adjust antibiotics. director of business services to assist with discharge planning. Contact precautions per hospital policy. Recommend transfer to tertiary care center for evaluation of CIED infection. Discussed with the primary team. - VTE Documentation of Mechanical Device: Intermittent pneumatic compression device Consult Discharge Plan - Plan Referrals: Chaudhry,Andie L, PEANUT BLANCHER [Advanced Practice Nurse] - 12/04/18 10:30 am (Patient is going to [facility]) - Attending Attestation I have personally performed a face to face evaluation on this patient. I have reviewed and agree with the care plan. History and Exam by me shows: Assessment and plan: 1.Sepsis 2.Bacteremia causative organism MRSA. Source likely chronic nonhealing ulceration of the right footcomplicated because the patient has an AICD and repeat LOY shows endocarditis 4. Endocarditis 3.right hip for plastic 4.Pneumonia questionable at best. There are nodules, likely due to septic emboli. 5.Acute kidney injury 6.Asymptomatic bacteriuria 7.Altered mental status with significant confusion Recommendations Continue vancomycin Continue daptomycin d/c cefepime/flagyl in am Monitor labs and for drug toxicity
[2018-11-28] MEDS ORDERED: DAPTOmycin 1,000 MG in 0.9 % Sodium Chloride 100 ML IVPB SCH (14:00)
[2018-11-28] MEDS ORDERED: MetroNIDAZOLE 500 MG/100 ML 500 MG/100 ML BAG IVPB SCH (16:00)
[2018-11-28] MEDS ORDERED: Cefepime HCl 2,000 MG in Water for inj. (sterile) 20 ML 20 ML IVP SCH (18:00)
[2018-11-28] MEDS ORDERED: *HR* Warfarin 3 MG TABLET PO ONE (18:00)
[2018-11-28 19:08] VITALS: BP 117/76
[2018-11-28] MEDS ORDERED: Aminoglycoside Consult 1 EACH MC ONE (19:53)
[2018-11-28] MEDS ORDERED: Insulin LISPRO 300 UNITS/3 ML VIAL SQ SCH (21:00)
[2018-11-28] MEDS ORDERED: Gabapentin 300 MG CAPSULE GTUBE SCH (21:00)
[2018-11-29] MEDS ORDERED: predniSONE 20 MG TABLET PO SCH (09:00)
[2018-11-29] MEDS ORDERED: Aspirin 81 MG TAB.CHEW GTUBE SCH (09:00)
[2018-11-29] MEDS ORDERED: Vancomycin 1,500 MG in D5% in Water 250 ML IVPB SCH (10:00)
== END 2018-11-28 19:54 | disposition other institution (70) | DRG 853 ==
LOC: 3ANU 10:32 → EMEROOARM 10:32 → SUATTDRO 14:51 → 3ANU 16:14 → SUATTDRO 11-10 16:16 → 2NENU 11-14 19:34 → 2NNU 11-21 18:42 → 2ANU 11-23 16:11
PROVIDERS: ADMIT Internal Medicine; ATTEND Internal Medicine
PROC: ENDOEBX (2018-11-16 08:00)

== ENCOUNTER 2019-05-06 12:12 | Inpatient (IN) ==
[2019-05-06 15:15] LABS: Basophils # 0.1 K/mcL (0.0-0.2); Basophils % 0.7 %; Eosinophils # 0.5 K/mcL (0.0-0.6); Eosinophils % 5.8 %; Hematocrit 33.3 % (37.5-50.1); Hemoglobin 10.3 g/dL (12.9-16.9); Lymphocytes # 2.1 K/mcL (0.6-4.6); Lymphocytes % 22.1 %; Mean Corpuscular HGB Conc 30.9 g/dL (31.6-35.5); Mean Corpuscular Hemoglobin 26.1 pg (28.0-33.3); Mean Corpuscular Volume 84.5 fL (83.0-100.0); Mean Platelet Volume 9.3 fL (9.4-12.4); Monocytes # 1.3 K/mcL (0.0-1.3); Monocytes % 13.5 %; Neutrophils # 5.3 K/mcL (1.6-8.9); Platelet Count 338 K/mcL (140-400); Red Blood Count 3.94 M/mcL (4.19-5.50); Red Cell Distribution Width 18.9 % (11.5-14.5); Segmented Neutrophils % 56.9 %; White Blood Count 9.3 K/mcL (4.3-11.1)
[2019-05-06] MEDS ORDERED: Ondansetron 4 MG/2 ML VIAL IVP PRN (15:30)
[2019-05-06] MEDS ORDERED: Naloxone 0.4 MG/ML INJ IVP PRN (15:30)
[2019-05-06 15:31] LABS: Calcium 10.2 mg/dL (8.6-10.3); Potassium 4.1 mEq/L (3.5-5.1)
[2019-05-06] MEDS ORDERED: traMADol 50 MG TABLET PO PRN (15:31)
[2019-05-06 15:47] LABS: Estimated Average Glucose 140 mg/dl
[2019-05-06] MEDS: Gabapentin 300 MG CAPSULE PO SCH (20:40)
[2019-05-07 04:30] LABS: INR 3.4; Prothrombin Time 38.9 Seconds (9.4-12.1)
[2019-05-07] MEDS: Diltiazem CD (24hr) 180 MG CAPSULE PO SCH (07:22)
[2019-05-07] MEDS: Aspirin Enteric Coated 81 MG Tablet PO SCH (07:22)
[2019-05-07] MEDS: Furosemide 40 MG TABLET PO SCH (07:22)
[2019-05-07] MEDS ORDERED: *HR* Phytonadione 5 MG TABLET PO ONE (11:07)
[2019-05-07] MEDS: Gabapentin 300 MG CAPSULE PO SCH ×2 (11:30→20:34)
[2019-05-08 05:19] LABS: INR 1.8; Prothrombin Time 20.5 Seconds (9.4-12.1)
[2019-05-08] MEDS: Diltiazem CD (24hr) 180 MG CAPSULE PO SCH (10:26)
[2019-05-08] MEDS: Furosemide 40 MG TABLET PO SCH (10:26)
[2019-05-08] MEDS: Aspirin Enteric Coated 81 MG Tablet PO SCH (10:26)
[2019-05-08] MEDS: Gabapentin 300 MG CAPSULE PO SCH ×2 (12:51→21:20)
[2019-05-08] MEDS ORDERED: Vancomycin 1,000 MG, Sodium Chloride IRRigation 1,000 ML IR ONE ×2 (14:05→16:17)
[2019-05-08] MEDS ORDERED: Lidocaine 1% 20 ML MDV ONE (14:17)
[2019-05-08] MEDS ORDERED: Vancomycin 1,000 MG VIAL ONE (14:18)
[2019-05-08] MEDS ORDERED: *HR* Propofol 200 MG/20 ML VIAL IVP ONE (14:29)
[2019-05-08] MEDS ORDERED: *HR* FentaNYL (PF) 100 MCG/2 ML VIAL ONE (14:29)
[2019-05-08] MEDS ORDERED: Calcium Gluconate 1,000 MG/10 ML VIAL ONE (14:55)
[2019-05-08] MEDS ORDERED: ceFAZolin 3,000 MG in Water for inj. (sterile) 30 ML IVP ONE (15:35)
[2019-05-08] MEDS ORDERED: traMADol 50 MG TABLET PO PRN (16:17)
[2019-05-08] MEDS ORDERED: Naloxone 0.4 MG/ML INJ IVP PRN (16:17)
[2019-05-08] MEDS ORDERED: Ondansetron 4 MG/2 ML VIAL IVP PRN (16:17)
[2019-05-08] MEDS ORDERED: Warfarin perPT PO PRN (18:00)
[2019-05-08] MEDS ORDERED: *HR* Warfarin 3 MG TABLET PO ONE ×2 (18:48→21:08)
[2019-05-09 06:42] LABS: Basophils # 0.1 K/mcL (0.0-0.2); Basophils % 0.6 %; Eosinophils # 0.6 K/mcL (0.0-0.6); Eosinophils % 4.9 %; Hematocrit 33.9 % (37.5-50.1); Hemoglobin 10.5 g/dL (12.9-16.9); Immature Granulocytes % 0.6 % (0-4); Lymphocytes # 2.2 K/mcL (0.6-4.6); Lymphocytes % 19.6 %; Mean Corpuscular Hemoglobin 26.2 pg (28.0-33.3); Mean Corpuscular Volume 84.5 fL (83.0-100.0); Mean Platelet Volume 9.3 fL (9.4-12.4); Monocytes # 1.5 K/mcL (0.0-1.3); Monocytes % 13.2 %; Neutrophils # 6.8 K/mcL (1.6-8.9); Platelet Count 336 K/mcL (140-400); Red Blood Count 4.01 M/mcL (4.19-5.50); Red Cell Distribution Width 18.6 % (11.5-14.5); Segmented Neutrophils % 61.1 %; White Blood Count 11.1 K/mcL (4.3-11.1)
[2019-05-09 06:52] LABS: INR 1.3
[2019-05-09 07:03] LABS: Calcium 10.3 mg/dL (8.6-10.3); Magnesium 1.7 mg/dL (1.6-2.6); Phosphorous 2.9 mg/dL (2.7-4.5); Potassium 4.1 mEq/L (3.5-5.1)
[2019-05-09] MEDS ORDERED: *HR* Heparin 5,000 UNIT/ML VIAL IVP ONE (08:39)
[2019-05-09] MEDS ORDERED: *HR* Heparin 5,000 UNIT/ML VIAL IVP PRN ×2 (08:39)
[2019-05-09] MEDS ORDERED: Heparin 25,000 UNIT/250 ML D5W 25,000 UNIT/250 ML IV.SOLN IVC SCH (08:45)
[2019-05-09] MEDS ORDERED: *HR* Enoxaparin 120 MG/0.8 ML SYRINGE SQ ONE (08:45)
[2019-05-09] MEDS: Aspirin Enteric Coated 81 MG Tablet PO SCH (09:26)
[2019-05-09] MEDS: Furosemide 40 MG TABLET PO SCH (09:26)
[2019-05-09] MEDS: Diltiazem CD (24hr) 180 MG CAPSULE PO SCH (09:27)
[2019-05-09 10:24] LABS: Hematocrit 32.7 % (37.5-50.1); Hemoglobin 10.1 g/dL (12.9-16.9); Mean Corpuscular HGB Conc 30.9 g/dL (31.6-35.5); Mean Corpuscular Hemoglobin 25.9 pg (28.0-33.3); Mean Corpuscular Volume 83.8 fL (83.0-100.0); Mean Platelet Volume 9.2 fL (9.4-12.4); Platelet Count 331 K/mcL (140-400); Red Cell Distribution Width 18.9 % (11.5-14.5); White Blood Count 10.8 K/mcL (4.3-11.1)
[2019-05-09 10:32] LABS: Heparin anti-factor XA UFH 0.1 IU/mL (0.30-0.70); INR 1.3; Prothrombin Time 14.9 Seconds (9.4-12.1)
[2019-05-09] MEDS: Gabapentin 300 MG CAPSULE PO SCH ×2 (12:17→20:00)
[2019-05-09] MEDS ORDERED: *HR* Warfarin 3 MG TABLET PO ONE (18:00)
[2019-05-09] MEDS: cefTRIAXone 2,000 MG in Water for inj. (sterile) 20 ML IVP SCH (19:15)
[2019-05-10 05:05] LABS: Basophils # 0.1 K/mcL (0.0-0.2); Basophils % 0.5 %; Eosinophils # 0.5 K/mcL (0.0-0.6); Hematocrit 32.1 % (37.5-50.1); Hemoglobin 9.9 g/dL (12.9-16.9); Immature Granulocytes % 0.7 % (0-4); Lymphocytes # 2.1 K/mcL (0.6-4.6); Mean Corpuscular HGB Conc 30.8 g/dL (31.6-35.5); Mean Corpuscular Hemoglobin 26.1 pg (28.0-33.3); Mean Corpuscular Volume 84.5 fL (83.0-100.0); Mean Platelet Volume 9.1 fL (9.4-12.4); Monocytes # 1.4 K/mcL (0.0-1.3); Monocytes % 14.9 %; Neutrophils # 5.1 K/mcL (1.6-8.9); Platelet Count 314 K/mcL (140-400); Red Cell Distribution Width 18.6 % (11.5-14.5); Segmented Neutrophils % 55.9 %; White Blood Count 9.2 K/mcL (4.3-11.1)
[2019-05-10 05:11] LABS: INR 1.3; Prothrombin Time 14.3 Seconds (9.4-12.1)
[2019-05-10 05:24] LABS: Calcium 10.1 mg/dL (8.6-10.3); Magnesium 1.8 mg/dL (1.6-2.6); Phosphorous 3.4 mg/dL (2.7-4.5); Potassium 4.1 mEq/L (3.5-5.1)
[2019-05-10 08:10] VITALS: BP 131/75
[2019-05-10] MEDS: Furosemide 40 MG TABLET PO SCH (08:44)
[2019-05-10] MEDS: Aspirin Enteric Coated 81 MG Tablet PO SCH (08:44)
[2019-05-10] MEDS: Diltiazem CD (24hr) 180 MG CAPSULE PO SCH (08:44)
[2019-05-10] MEDS: Gabapentin 300 MG CAPSULE PO SCH (14:36)
[2019-05-10] MEDS: cefTRIAXone 2,000 MG in Water for inj. (sterile) 20 ML IVP SCH (15:55)
[2019-05-10] MEDS ORDERED: *HR* Warfarin 3 MG TABLET PO ONE (18:00)
== END 2019-05-10 16:04 | disposition home or self-care (01) | DRG 629 ==
LOC: 3ANU 13:25 → SUATTDRO 13:25 → INTOOBSV 13:25
PROVIDERS: ADMIT Internal Medicine; ATTEND Internal Medicine

== ENCOUNTER 2021-02-02 08:58 | Inpatient (IN) ==
[2021-02-02] MEDS ORDERED: Acetaminophen 325 MG TABLET PO PRN (10:42)
[2021-02-02] MEDS ORDERED: Ondansetron ODT 4 MG TAB.RAPDIS SL PRN (10:42)
[2021-02-02] MEDS ORDERED: *HR* OxyCODONE Immed Rel 5 MG TABLET PO PRN ×2 (10:46)
[2021-02-02] MEDS ORDERED: D5% in Water 1,000 ML IVC PRN (11:49)
[2021-02-02] MEDS ORDERED: Dextrose Gel 15 GM/37.5 ML TUBE PO PRN ×2 (11:49)
[2021-02-02] MEDS ORDERED: *HR* Dextrose 50 % in Water (Vial) 50 ML VIAL IVP PRN (11:49)
[2021-02-02 12:10] LABS: Basophils # 0.1 K/mcL (0.0-0.2); Basophils % 0.8 %; Eosinophils # 0.5 K/mcL (0.0-0.6); Eosinophils % 4.5 %; Hematocrit 29.8 % (37.5-50.1); Hemoglobin 8.7 g/dL (12.9-16.9); Immature Granulocytes % 0.9 % (0-4); Lymphocytes # 1.6 K/mcL (0.6-4.6); Lymphocytes % 15.9 %; Mean Corpuscular HGB Conc 29.2 g/dL (31.6-35.5); Mean Corpuscular Hemoglobin 21.8 pg (28.0-33.3); Mean Corpuscular Volume 74.5 fL (83.0-100.0); Mean Platelet Volume 9.6 fL (9.4-12.4); Monocytes # 1.1 K/mcL (0.0-1.3); Monocytes % 10.9 %; Neutrophils # 6.8 K/mcL (1.6-8.9); Platelet Count 352 K/mcL (140-400); Red Cell Distribution Width 18.8 % (11.5-14.5); White Blood Count 10.2 K/mcL (4.3-11.1)
[2021-02-02 12:15] LABS: INR 2.6; Prothrombin Time 29.1 Seconds (9.4-12.1)
[2021-02-02 12:22] LABS: Anisocytosis 1+ (Not Present); Hypochromasia Present (Not Present); Platelet Estimate Normal (Normal)
[2021-02-02 12:28] LABS: Albumin 3.9 g/dL (3.5-5.7); Albumin/Globulin Ratio 1.2 (1.1-2.2); Bilirubin,Total 0.4 mg/dL (0.3-1.0); Calcium 10.3 mg/dL (8.6-10.3); Globulin 3.3 g/dL (2.4-3.5); Potassium 4.6 mEq/L (3.5-5.1); Total Protein 7.2 g/dL (6.4-8.9)
[2021-02-02] MEDS: Piperacillin/Tazobactam 3.375 GM in 0.9 % Sodium Chloride Mini Bag 100 ML IVPB SCH ×2 (12:59→20:47)
[2021-02-02] MEDS ORDERED: Vancomycin 2,000 MG/520 ML IV.SOLN IVPB ONE (13:00)
[2021-02-02 13:47] LABS: White Blood Count 10.3 K/mcL (4.3-11.1)
[2021-02-02 13:49] LABS: Hematocrit 29.5 % (37.5-50.1); Hemoglobin 8.3 g/dL (12.9-16.9); Mean Corpuscular HGB Conc 28.1 g/dL (31.6-35.5); Mean Corpuscular Hemoglobin 21.1 pg (28.0-33.3); Mean Corpuscular Volume 74.9 fL (83.0-100.0); Mean Platelet Volume 9.4 fL (9.4-12.4); Platelet Count 354 K/mcL (140-400); Red Blood Count 3.94 M/mcL (4.19-5.50); Red Cell Distribution Width 18.5 % (11.5-14.5)
[2021-02-02 13:53] LABS: INR 2.4; Prothrombin Time 27.4 Seconds (9.4-12.1)
[2021-02-02 13:55] LABS: Heparin anti-factor XA UFH 0.04 IU/mL (0.30-0.70)
[2021-02-02] MEDS: Insulin DETEMIR 100 UNIT/ML X5UNITS SUBQ SCH (14:31)
[2021-02-02] MEDS: Insulin LISPRO 300 UNITS/3 ML VIAL SUBQ SCH ×2 (16:17→20:48)
[2021-02-02 18:06] LABS: Estimated Average Glucose 235 mg/dl; Hemoglobin A1C 9.8 %
[2021-02-02] MEDS: Gabapentin 300 MG CAPSULE PO SCH (20:47)
[2021-02-02] MEDS ORDERED: *HR* Heparin 5,000 UNIT/ML VIAL IVP PRN ×2 (22:00)
[2021-02-02] MEDS: Heparin 25,000UNIT/250ML 1/2NS 25,000 UNIT/250 ML IV.SOLN IVC SCH (23:48)
[2021-02-03] MEDS: Piperacillin/Tazobactam 3.375 GM in 0.9 % Sodium Chloride Mini Bag 100 ML IVPB SCH ×3 (04:46→20:49)
[2021-02-03 05:40] LABS: Basophils # 0.1 K/mcL (0.0-0.2); Basophils % 0.6 %; Eosinophils # 0.5 K/mcL (0.0-0.6); Eosinophils % 4.2 %; Hematocrit 30.5 % (37.5-50.1); Hemoglobin 8.9 g/dL (12.9-16.9); Immature Granulocytes % 0.8 % (0-4); Lymphocytes % 17.9 %; Mean Corpuscular HGB Conc 29.2 g/dL (31.6-35.5); Mean Corpuscular Hemoglobin 21.8 pg (28.0-33.3); Mean Corpuscular Volume 74.8 fL (83.0-100.0); Mean Platelet Volume 9.7 fL (9.4-12.4); Monocytes # 1.2 K/mcL (0.0-1.3); Monocytes % 10.1 %; Neutrophils # 7.6 K/mcL (1.6-8.9); Platelet Count 386 K/mcL (140-400); Red Blood Count 4.08 M/mcL (4.19-5.50); Red Cell Distribution Width 18.8 % (11.5-14.5); Segmented Neutrophils % 66.4 %; White Blood Count 11.4 K/mcL (4.3-11.1)
[2021-02-03 05:52] LABS: Calcium 9.9 mg/dL (8.6-10.3); Potassium 4.3 mEq/L (3.5-5.1)
[2021-02-03] MEDS: Furosemide 40 MG TABLET PO SCH (10:21)
[2021-02-03] MEDS: Aspirin Enteric Coated 81 MG Tablet PO SCH (10:21)
[2021-02-03] MEDS: Gabapentin 300 MG CAPSULE PO SCH ×3 (10:21→20:50)
[2021-02-03] MEDS: Insulin DETEMIR 100 UNIT/ML X5UNITS SUBQ SCH (10:21)
[2021-02-03] MEDS: allopurinoL 300 MG TABLET PO SCH (10:21)
[2021-02-03] MEDS: Insulin LISPRO 300 UNITS/3 ML VIAL SUBQ SCH ×4 (10:22→20:50)
[2021-02-03] MEDS: Heparin 25,000UNIT/250ML 1/2NS 25,000 UNIT/250 ML IV.SOLN IVC SCH (14:32)
[2021-02-03] MEDS: DilTIAZem CD (24hr) 180 MG CAP.ER.24H PO SCH (14:32)
[2021-02-03 15:37] LABS: INR 1.6; Prothrombin Time 18.5 Seconds (9.4-12.1)
[2021-02-03] MEDS: Vancomycin 1,500 MG/265 ML IV.SOLN IVPB SCH (17:13)
[2021-02-04 03:02] LABS: Basophils # 0.1 K/mcL (0.0-0.2); Basophils % 0.5 %; Eosinophils # 0.5 K/mcL (0.0-0.6); Eosinophils % 5.4 %; Hematocrit 28.9 % (37.5-50.1); Hemoglobin 8.5 g/dL (12.9-16.9); Immature Granulocytes % 1.4 % (0-4); Mean Corpuscular HGB Conc 29.4 g/dL (31.6-35.5); Mean Corpuscular Hemoglobin 21.9 pg (28.0-33.3); Mean Corpuscular Volume 74.3 fL (83.0-100.0); Mean Platelet Volume 9.4 fL (9.4-12.4); Monocytes # 1.2 K/mcL (0.0-1.3); Monocytes % 12.4 %; Neutrophils # 5.7 K/mcL (1.6-8.9); Platelet Count 343 K/mcL (140-400); Red Blood Count 3.89 M/mcL (4.19-5.50); Red Cell Distribution Width 18.8 % (11.5-14.5); Segmented Neutrophils % 59.3 %; White Blood Count 9.6 K/mcL (4.3-11.1)
[2021-02-04 03:23] LABS: Calcium 9.8 mg/dL (8.6-10.3); Magnesium 1.6 mg/dL (1.6-2.6); Phosphorous 3.3 mg/dL (2.7-4.5); Potassium 3.8 mEq/L (3.5-5.1)
[2021-02-04 03:49] LABS: Folate > 22.3 ng/mL (3.0-16.0); Vitamin B12 377 pg/mL (250-1100)
[2021-02-04] MEDS: Piperacillin/Tazobactam 3.375 GM in 0.9 % Sodium Chloride Mini Bag 100 ML IVPB SCH ×3 (04:13→21:33)
[2021-02-04] MEDS ORDERED: Melatonin 3 MG TABLET PO PRN ×2 (08:19→17:45)
[2021-02-04] MEDS ORDERED: Iron Sucrose Complex 400 MG in 0.9 % Sodium Chloride 250 ML IVPB ONE (08:19)
[2021-02-04] MEDS ORDERED: Multivit/Ca/Min/Fe/FA 1 TAB TABLET PO SCH (09:00)
[2021-02-04 09:19] LABS: Heparin anti-factor XA UFH 0.67 IU/mL (0.30-0.70)
[2021-02-04 10:04] LABS: INR 1.4; Prothrombin Time 15.9 Seconds (9.4-12.1)
[2021-02-04] MEDS: Aspirin Enteric Coated 81 MG Tablet PO SCH (10:47)
[2021-02-04] MEDS: Heparin 25,000UNIT/250ML 1/2NS 25,000 UNIT/250 ML IV.SOLN IVC SCH ×3 (10:48→18:37)
[2021-02-04] MEDS: Furosemide 40 MG TABLET PO SCH (10:49)
[2021-02-04] MEDS: Insulin LISPRO 300 UNITS/3 ML VIAL SUBQ SCH ×5 (10:49→18:37)
[2021-02-04] MEDS: Gabapentin 300 MG CAPSULE PO SCH ×3 (10:50→21:32)
[2021-02-04] MEDS: Insulin DETEMIR 100 UNIT/ML X5UNITS SUBQ SCH (11:03)
[2021-02-04] MEDS: allopurinoL 300 MG TABLET PO SCH (12:16)
[2021-02-04] MEDS: DilTIAZem CD (24hr) 180 MG CAP.ER.24H PO SCH (12:16)
[2021-02-04] MEDS ORDERED: *HR* HYDROcodone/Acet 10/325 mg TABLET PO PRN ×2 (16:12→17:45)
[2021-02-04] MEDS ORDERED: *HR* Propofol 200 MG/20 ML VIAL IVP ONE (16:28)
[2021-02-04] MEDS ORDERED: Lidocaine -MPF 2% 2 ML VIAL ONE (16:29)
[2021-02-04] MEDS ORDERED: *HR* FentaNYL (PF) 100 MCG/2 ML VIAL ONE (16:30)
[2021-02-04] MEDS ORDERED: Bupivacaine/EPI 1:200k 0.25% 50 ML VIAL ONE (16:50)
[2021-02-04] MEDS ORDERED: *HR* OxyCODONE Immed Rel 5 MG TABLET PO PRN (17:45)
[2021-02-04] MEDS ORDERED: Ondansetron ODT 4 MG TAB.RAPDIS SL PRN (17:45)
[2021-02-04] MEDS ORDERED: Acetaminophen 325 MG TABLET PO PRN (17:45)
[2021-02-04] MEDS ORDERED: Dextrose Gel 15 GM/37.5 ML TUBE PO PRN ×2 (17:45)
[2021-02-04] MEDS ORDERED: D5% in Water 1,000 ML IVC PRN (17:45)
[2021-02-04] MEDS ORDERED: *HR* Dextrose 50 % in Water (Vial) 50 ML VIAL IVP PRN (17:45)
[2021-02-04] MEDS ORDERED: *HR* Heparin 5,000 UNIT/ML VIAL IVP PRN ×2 (17:45)
[2021-02-04] MEDS ORDERED: Warfarin perPT PO PRN (18:00)
[2021-02-04] MEDS: Vancomycin 1,500 MG/265 ML IV.SOLN IVPB SCH (18:36)
[2021-02-04] MEDS ORDERED: Insulin LISPRO 300 UNITS/3 ML VIAL SUBQ SCH (21:00)
[2021-02-05] MEDS: *HR* OxyCODONE Immed Rel 5 MG TABLET PO PRN ×2 (00:42→10:07)
[2021-02-05 00:47] LABS: Basophils # 0.1 K/mcL (0.0-0.2); Basophils % 0.5 %; Eosinophils # 0.5 K/mcL (0.0-0.6); Eosinophils % 4.2 %; Hemoglobin 8.1 g/dL (12.9-16.9); Immature Granulocytes % 1.3 % (0-4); Lymphocytes # 1.5 K/mcL (0.6-4.6); Lymphocytes % 13.6 %; Mean Corpuscular HGB Conc 27.9 g/dL (31.6-35.5); Mean Corpuscular Hemoglobin 21.1 pg (28.0-33.3); Mean Corpuscular Volume 75.5 fL (83.0-100.0); Mean Platelet Volume 9.2 fL (9.4-12.4); Monocytes # 1.3 K/mcL (0.0-1.3); Monocytes % 11.6 %; Neutrophils # 7.7 K/mcL (1.6-8.9); Nucleated Red Blood Cells 0.2 /100 WBC (0); Platelet Count 348 K/mcL (140-400); Red Blood Count 3.84 M/mcL (4.19-5.50); Red Cell Distribution Width 18.8 % (11.5-14.5); Segmented Neutrophils % 68.8 %; White Blood Count 11.2 K/mcL (4.3-11.1)
[2021-02-05 00:55] LABS: Heparin anti-factor XA UFH 0.69 IU/mL (0.30-0.70)
[2021-02-05 00:56] LABS: INR 1.3; Prothrombin Time 15.1 Seconds (9.4-12.1)
[2021-02-05 01:07] LABS: Calcium 9.7 mg/dL (8.6-10.3); Magnesium 1.9 mg/dL (1.6-2.6); Phosphorous 2.5 mg/dL (2.7-4.5); Potassium 3.9 mEq/L (3.5-5.1)
[2021-02-05 01:19] LABS: Hypochromasia Present (Not Present); Platelet Estimate Normal (Normal); Polychromasia 1+ (Not Present); Smudge Cells Present (Not Present)
[2021-02-05] MEDS: Piperacillin/Tazobactam 3.375 GM in 0.9 % Sodium Chloride Mini Bag 100 ML IVPB SCH ×2 (03:49→12:14)
[2021-02-05] MEDS: Gabapentin 300 MG CAPSULE PO SCH ×2 (07:31→16:00)
[2021-02-05] MEDS: Insulin LISPRO 300 UNITS/3 ML VIAL SUBQ SCH ×4 (08:20→12:15)
[2021-02-05] MEDS ORDERED: Multivit/Ca/Min/Fe/FA 1 TAB TABLET PO SCH (09:00)
[2021-02-05] MEDS ORDERED: Aspirin Enteric Coated 81 MG Tablet PO SCH (09:00)
[2021-02-05] MEDS ORDERED: allopurinoL 300 MG TABLET PO SCH (09:00)
[2021-02-05] MEDS ORDERED: Insulin DETEMIR 100 UNIT/ML X5UNITS SUBQ SCH (09:00)
[2021-02-05] MEDS ORDERED: DilTIAZem CD (24hr) 180 MG CAP.ER.24H PO SCH (09:00)
[2021-02-05] MEDS: Heparin 25,000UNIT/250ML 1/2NS 25,000 UNIT/250 ML IV.SOLN IVC SCH (10:04)
[2021-02-05] MEDS ORDERED: *HR* HYDROmorphone (PF) 1 MG/ML SYRINGE IVP ONE (11:18)
[2021-02-05] MEDS ORDERED: Vancomycin 1,500 MG/265 ML IV.SOLN IVPB SCH (14:00)
[2021-02-05 15:16] VITALS: BP 138/71; PULSE 85; TEMP 97.6; O2SAT 92
== END 2021-02-05 16:41 | disposition home or self-care (01) | DRG 617 ==
LOC: CDU → SUATTDRO 09:43
PROVIDERS: ADMIT Internal Medicine; ATTEND Family Medicine

== ENCOUNTER 2022-03-15 07:12 | Inpatient (IN) ==
[2022-03-15] MEDS ORDERED: Piperacillin/Tazobactam 3.375 GM in 0.9 % Sodium Chloride Mini Bag 100 ML IVPB ONE (07:21)
[2022-03-15 08:28] LABS: Eosinophils % 5.7 %; Hemoglobin 6.8 g/dL (12.9-16.9)
[2022-03-15 08:30] LABS: Basophils # 0.1 K/mcL (0.0-0.2); Basophils % 0.6 %; Eosinophils # 0.7 K/mcL (0.0-0.6); Hematocrit 24.9 % (37.5-50.1); Immature Granulocytes % 0.7 % (0-4); Lymphocytes # 1.8 K/mcL (0.6-4.6); Mean Corpuscular HGB Conc 27.3 g/dL (31.6-35.5); Mean Corpuscular Hemoglobin 18.6 pg (28.0-33.3); Mean Corpuscular Volume 68.2 fL (83.0-100.0); Mean Platelet Volume 9.7 fL (9.4-12.4); Monocytes # 1.3 K/mcL (0.0-1.3); Neutrophils # 7.8 K/mcL (1.6-8.9); Platelet Count 396 K/mcL (140-400); Red Blood Count 3.65 M/mcL (4.19-5.50); Red Cell Distribution Width 19.3 % (11.5-14.5); White Blood Count 11.7 K/mcL (4.3-11.1)
[2022-03-15 08:35] LABS: INR 2.7; Prothrombin Time 29.8 Seconds (9.4-12.1)
[2022-03-15 08:47] LABS: Calcium 10.2 mg/dL (8.6-10.3); Potassium 4.2 mEq/L (3.5-5.1)
[2022-03-15 09:10] LABS: Anisocytosis 3+ (Not Present); Microcytosis Present (Not Present); Poikilocytosis 1+ (Not Present)
[2022-03-15 09:11] LABS: Platelet Estimate Normal (Normal); Polychromasia 1+ (Not Present)
[2022-03-15] MEDS ORDERED: Acetaminophen 325 MG TABLET PO PRN (10:10)
[2022-03-15] MEDS ORDERED: Ondansetron 4 MG/2 ML VIAL IVP PRN (10:10)
[2022-03-15] MEDS ORDERED: Naloxone 0.4 MG/ML INJ IVP PRN (10:10)
[2022-03-15] MEDS ORDERED: *HR* Dextrose 50 % in Water (Syg) 50 ML SYRINGE IVP PRN (10:15)
[2022-03-15] MEDS ORDERED: Dextrose Gel 15 GM/37.5 ML TUBE PO PRN ×2 (10:15)
[2022-03-15] MEDS ORDERED: D5% in Water 1,000 ML IVC PRN (10:15)
[2022-03-15] MEDS ORDERED: *HR* Phytonadione 5 MG TABLET PO ONE (10:16)
[2022-03-15 11:20] LABS: Hematocrit 24.4 % (37.5-50.1); Hemoglobin 6.8 g/dL (12.9-16.9)
[2022-03-15] MEDS ORDERED: Gabapentin 300 MG CAPSULE PO SCH (21:00)
[2022-03-15] MEDS: Insulin LISPRO 300 UNITS/3 ML VIAL SUBQ SCH (22:52)
[2022-03-15] MEDS: Piperacillin/Tazobactam 3.375 GM in 0.9 % Sodium Chloride Mini Bag 100 ML IVPB SCH ×2 (22:53→23:22)
[2022-03-16 04:50] LABS: Calcium 9.7 mg/dL (8.6-10.3); Potassium 3.9 mEq/L (3.5-5.1)
[2022-03-16 04:56] LABS: Hematocrit 24.8 % (37.5-50.1); Hemoglobin 7.2 g/dL (12.9-16.9); Mean Corpuscular Hemoglobin 19.9 pg (28.0-33.3); Mean Corpuscular Volume 68.5 fL (83.0-100.0); Mean Platelet Volume 9.4 fL (9.4-12.4); Platelet Count 340 K/mcL (140-400); Red Blood Count 3.62 M/mcL (4.19-5.50); Red Cell Distribution Width 20.3 % (11.5-14.5); White Blood Count 11.4 K/mcL (4.3-11.1)
[2022-03-16 05:06] LABS: INR 2.3; Prothrombin Time 25.5 Seconds (9.4-12.1)
[2022-03-16] MEDS ORDERED: Furosemide 40 MG TABLET PO SCH (09:00)
[2022-03-16] MEDS ORDERED: Vancomycin 1,750 MG in 0.9 % Sodium Chloride 250 ML IVPB SCH ×2 (09:00→12:35)
[2022-03-16] MEDS ORDERED: DilTIAZem CD (24hr) 180 MG CAP.ER.24H PO SCH (09:00)
[2022-03-16] MEDS ORDERED: allopurinoL 300 MG TABLET PO SCH (09:00)
[2022-03-16] MEDS ORDERED: Gabapentin 300 MG CAPSULE PO SCH (09:00)
[2022-03-16] MEDS ORDERED: Aspirin Enteric Coated 81 MG Tablet PO SCH (09:00)
[2022-03-16] MEDS ORDERED: *HR* Midazolam HCl 2 MG/2 ML VIAL ONE (09:23)
[2022-03-16] MEDS ORDERED: *HR* Propofol 200 MG/20 ML VIAL IVP ONE (09:23)
[2022-03-16] MEDS ORDERED: *HR* FentaNYL (PF) 100 MCG/2 ML VIAL ONE (09:23)
[2022-03-16] MEDS ORDERED: Lidocaine -MPF 2% 5 ML VIAL ONE (09:24)
[2022-03-16] MEDS: Piperacillin/Tazobactam 3.375 GM in 0.9 % Sodium Chloride Mini Bag 100 ML IVPB SCH (09:34)
[2022-03-16] MEDS: Insulin LISPRO 300 UNITS/3 ML VIAL SUBQ SCH ×3 (09:35→17:24)
[2022-03-16] MEDS ORDERED: Vancomycin 1,750 MG/517.5 ML IV.SOLN IVPB ONE (10:00)
[2022-03-16] MEDS ORDERED: Ketamine HCL *QUVA* 50mg (1mL) SYRINGE ONE (10:50)
[2022-03-16] MEDS ORDERED: D5% in Water 1,000 ML IVC PRN (12:35)
[2022-03-16] MEDS ORDERED: Naloxone 0.4 MG/ML INJ IVP PRN (12:35)
[2022-03-16] MEDS ORDERED: Ondansetron 4 MG/2 ML VIAL IVP PRN (12:35)
[2022-03-16] MEDS ORDERED: Dextrose Gel 15 GM/37.5 ML TUBE PO PRN ×2 (12:35)
[2022-03-16] MEDS ORDERED: *HR* Dextrose 50 % in Water (Syg) 50 ML SYRINGE IVP PRN (12:35)
[2022-03-16] MEDS ORDERED: Acetaminophen 325 MG TABLET PO PRN (12:35)
[2022-03-16] MEDS ORDERED: metroNIDAZOLE 500 MG TABLET PO SCH (15:00)
[2022-03-16] MEDS: metroNIDAZOLE 500 MG TABLET PO SCH ×2 (17:02→20:15)
[2022-03-16] MEDS: Cefepime HCl 1,000 MG in 0.9 % Sodium Chloride Mini Bag 100 ML IVPB SCH (17:20)
[2022-03-16] MEDS ORDERED: Cefepime HCl 1,000 MG in 0.9 % Sodium Chloride Mini Bag 100 ML IVPB SCH (18:00)
[2022-03-16] MEDS: Gabapentin 300 MG CAPSULE PO SCH (20:15)
[2022-03-17 05:19] LABS: Immature Granulocytes % 0.8 % (0-4); Platelet Count 342 K/mcL (140-400)
[2022-03-17 05:21] LABS: Basophils # 0.1 K/mcL (0.0-0.2); Basophils % 0.6 %; Eosinophils # 0.7 K/mcL (0.0-0.6); Eosinophils % 5.6 %; Hematocrit 26.1 % (37.5-50.1); Hemoglobin 7.3 g/dL (12.9-16.9); Lymphocytes # 1.8 K/mcL (0.6-4.6); Mean Corpuscular Hemoglobin 19.8 pg (28.0-33.3); Mean Corpuscular Volume 70.7 fL (83.0-100.0); Mean Platelet Volume 9.3 fL (9.4-12.4); Monocytes # 1.6 K/mcL (0.0-1.3); Monocytes % 13.4 %; Neutrophils # 7.7 K/mcL (1.6-8.9); Red Blood Count 3.69 M/mcL (4.19-5.50); Segmented Neutrophils % 64.6 %; White Blood Count 11.9 K/mcL (4.3-11.1)
[2022-03-17 05:40] LABS: INR 1.8; Prothrombin Time 19.5 Seconds (9.4-12.1)
[2022-03-17] MEDS: Cefepime HCl 1,000 MG in 0.9 % Sodium Chloride Mini Bag 100 ML IVPB SCH ×2 (05:41→18:38)
[2022-03-17 06:07] LABS: Anisocytosis 2+ (Not Present); Microcytosis Present (Not Present); Platelet Estimate Normal (Normal)
[2022-03-17 06:49] LABS: Calcium 9.6 mg/dL (8.6-10.3); Magnesium 1.4 mg/dL (1.6-2.6)
[2022-03-17] MEDS: Insulin LISPRO 300 UNITS/3 ML VIAL SUBQ SCH ×3 (08:58→18:40)
[2022-03-17] MEDS: metroNIDAZOLE 500 MG TABLET PO SCH ×2 (09:04→18:37)
[2022-03-17] MEDS: allopurinoL 300 MG TABLET PO SCH (09:04)
[2022-03-17] MEDS: Aspirin Enteric Coated 81 MG Tablet PO SCH (09:04)
[2022-03-17] MEDS: DilTIAZem CD (24hr) 180 MG CAP.ER.24H PO SCH (09:05)
[2022-03-17] MEDS: Gabapentin 300 MG CAPSULE PO SCH ×2 (09:05→21:17)
[2022-03-17] MEDS: Vancomycin 1,750 MG/517.5 ML IV.SOLN IVPB SCH (10:36)
[2022-03-17 10:41] LABS: Estimated Average Glucose 126 mg/dl
[2022-03-18 04:51] LABS: INR 1.7; Prothrombin Time 19.2 Seconds (9.4-12.1)
[2022-03-18 05:03] LABS: Calcium 9.7 mg/dL (8.6-10.3); Magnesium 1.5 mg/dL (1.6-2.6); Potassium 3.8 mEq/L (3.5-5.1)
[2022-03-18 05:10] LABS: Hemoglobin 7.2 g/dL (12.9-16.9)
[2022-03-18 05:12] LABS: Hematocrit 25.4 % (37.5-50.1); Mean Corpuscular HGB Conc 28.3 g/dL (31.6-35.5); Mean Corpuscular Hemoglobin 19.9 pg (28.0-33.3); Mean Corpuscular Volume 70.4 fL (83.0-100.0); Mean Platelet Volume 9.3 fL (9.4-12.4); Platelet Count 341 K/mcL (140-400); Red Blood Count 3.61 M/mcL (4.19-5.50); Red Cell Distribution Width 21.6 % (11.5-14.5); White Blood Count 10.9 K/mcL (4.3-11.1)
[2022-03-18] MEDS: metroNIDAZOLE 500 MG TABLET PO SCH ×4 (05:33→20:49)
[2022-03-18] MEDS: Cefepime HCl 1,000 MG in 0.9 % Sodium Chloride Mini Bag 100 ML IVPB SCH (05:34)
[2022-03-18] MEDS: Insulin LISPRO 300 UNITS/3 ML VIAL SUBQ SCH ×3 (07:17→15:35)
[2022-03-18] MEDS: allopurinoL 300 MG TABLET PO SCH (08:57)
[2022-03-18] MEDS: Gabapentin 300 MG CAPSULE PO SCH ×2 (08:58→20:49)
[2022-03-18] MEDS: DilTIAZem CD (24hr) 180 MG CAP.ER.24H PO SCH (08:59)
[2022-03-18] MEDS: Aspirin Enteric Coated 81 MG Tablet PO SCH (08:59)
[2022-03-18 09:29] LABS: Eosinophils # 0.9 K/mcL (0.0-0.6); Lymphocytes # 1.5 K/mcL (0.6-4.6); Neutrophils # 6.5 K/mcL (1.6-8.9)
[2022-03-18 09:31] LABS: Anisocytosis 2+ (Not Present); Platelet Estimate Normal (Normal)
[2022-03-18 09:32] LABS: Hypochromasia Present (Not Present); Polychromasia 1+ (Not Present)
[2022-03-18] MEDS: Vancomycin 1,750 MG/517.5 ML IV.SOLN IVPB SCH (09:59)
[2022-03-18] MEDS: Cefepime HCl 1,000 MG in 0.9 % Sodium Chloride 10 ML IVP SCH ×2 (12:12→23:51)
[2022-03-19 07:01] LABS: Hematocrit 26.3 % (37.5-50.1); Immature Granulocytes % 0.5 % (0-4); Segmented Neutrophils % 64.6 %
[2022-03-19 07:02] LABS: Basophils # 0.1 K/mcL (0.0-0.2); Basophils % 0.7 %; Eosinophils # 0.6 K/mcL (0.0-0.6); Hemoglobin 7.3 g/dL (12.9-16.9); Lymphocytes # 1.5 K/mcL (0.6-4.6); Lymphocytes % 14.4 %; Mean Corpuscular HGB Conc 27.8 g/dL (31.6-35.5); Mean Corpuscular Hemoglobin 19.8 pg (28.0-33.3); Mean Corpuscular Volume 71.5 fL (83.0-100.0); Monocytes # 1.5 K/mcL (0.0-1.3); Monocytes % 13.8 %; Neutrophils # 6.8 K/mcL (1.6-8.9); Platelet Count 318 K/mcL (140-400); Red Blood Count 3.68 M/mcL (4.19-5.50); Red Cell Distribution Width 22.4 % (11.5-14.5); White Blood Count 10.5 K/mcL (4.3-11.1)
[2022-03-19 07:16] LABS: Calcium 10.2 mg/dL (8.6-10.3); Potassium 3.9 mEq/L (3.5-5.1)
[2022-03-19 07:21] LABS: INR 1.6; Prothrombin Time 18.3 Seconds (9.4-12.1)
[2022-03-19 07:36] LABS: Anisocytosis 1+ (Not Present); Hypochromasia Present (Not Present); Platelet Estimate Normal (Normal)
[2022-03-19] MEDS: Cefepime HCl 1,000 MG in 0.9 % Sodium Chloride 10 ML IVP SCH ×2 (11:36→23:57)
[2022-03-19] MEDS: allopurinoL 300 MG TABLET PO SCH (11:37)
[2022-03-19] MEDS: DilTIAZem CD (24hr) 180 MG CAP.ER.24H PO SCH (11:37)
[2022-03-19] MEDS: metroNIDAZOLE 500 MG TABLET PO SCH ×3 (11:37→20:41)
[2022-03-19] MEDS: Insulin LISPRO 300 UNITS/3 ML VIAL SUBQ SCH ×3 (11:38→20:33)
[2022-03-19] MEDS: Aspirin Enteric Coated 81 MG Tablet PO SCH (11:38)
[2022-03-19] MEDS: Gabapentin 300 MG CAPSULE PO SCH ×2 (11:44→20:40)
[2022-03-19] MEDS: Vancomycin 2,000 MG/520 ML IV.SOLN IVPB SCH (12:17)
[2022-03-19] MEDS ORDERED: Furosemide 40 MG/4 ML VIAL IVP ONE ×2 (14:24→18:15)
[2022-03-19] MEDS: Ipratropium/Albuterol Neb 3 ML IH SCH ×2 (15:51→21:40)
[2022-03-20 02:58] LABS: Eosinophils % 6.6 %; Mean Corpuscular HGB Conc 27.5 g/dL (31.6-35.5); Red Cell Distribution Width 22.8 % (11.5-14.5)
[2022-03-20 03:00] LABS: Basophils # 0.1 K/mcL (0.0-0.2); Basophils % 0.5 %; Eosinophils # 0.6 K/mcL (0.0-0.6); Hematocrit 25.5 % (37.5-50.1); Immature Granulocytes % 0.4 % (0-4); Lymphocytes # 1.6 K/mcL (0.6-4.6); Lymphocytes % 16.8 %; Mean Corpuscular Hemoglobin 19.8 pg (28.0-33.3); Mean Platelet Volume 9.2 fL (9.4-12.4); Monocytes # 1.3 K/mcL (0.0-1.3); Monocytes % 13.4 %; Platelet Count 326 K/mcL (140-400); Red Blood Count 3.54 M/mcL (4.19-5.50); Segmented Neutrophils % 62.3 %; White Blood Count 9.6 K/mcL (4.3-11.1)
[2022-03-20 03:06] LABS: INR 1.7; Prothrombin Time 18.4 Seconds (9.4-12.1)
[2022-03-20 03:12] LABS: Calcium 9.9 mg/dL (8.6-10.3); Magnesium 1.9 mg/dL (1.6-2.6); Potassium 3.8 mEq/L (3.5-5.1)
[2022-03-20 03:32] LABS: Anisocytosis 1+ (Not Present); Hypochromasia Present (Not Present)
[2022-03-20 03:33] LABS: Platelet Estimate Normal (Normal)
[2022-03-20] MEDS: Ipratropium/Albuterol Neb 3 ML IH SCH ×4 (04:12→21:41)
[2022-03-20] MEDS ORDERED: 0.9 % Sodium Chloride 250 ML IVC SCH (04:30)
[2022-03-20] MEDS ORDERED: Furosemide 40 MG/4 ML VIAL IVP ONE (07:36)
[2022-03-20] MEDS: Insulin LISPRO 300 UNITS/3 ML VIAL SUBQ SCH ×3 (08:24→16:36)
[2022-03-20] MEDS: Aspirin Enteric Coated 81 MG Tablet PO SCH (08:25)
[2022-03-20] MEDS: DilTIAZem CD (24hr) 180 MG CAP.ER.24H PO SCH (08:25)
[2022-03-20] MEDS: metroNIDAZOLE 500 MG TABLET PO SCH ×3 (08:25→21:12)
[2022-03-20] MEDS: allopurinoL 300 MG TABLET PO SCH (08:27)
[2022-03-20] MEDS: Gabapentin 300 MG CAPSULE PO SCH ×2 (08:27→21:11)
[2022-03-20] MEDS ORDERED: Furosemide 40 MG TABLET PO SCH (09:00)
[2022-03-20] MEDS: Vancomycin 2,000 MG/520 ML IV.SOLN IVPB SCH (11:13)
[2022-03-20] MEDS: Cefepime HCl 1,000 MG in 0.9 % Sodium Chloride 10 ML IVP SCH (11:17)
[2022-03-20 18:09] LABS: Hematocrit 28.4 % (37.5-50.1); Hemoglobin 8.1 g/dL (12.9-16.9)
[2022-03-21] MEDS: Cefepime HCl 1,000 MG in 0.9 % Sodium Chloride 10 ML IVP SCH (00:06)
[2022-03-21] MEDS: Ipratropium/Albuterol Neb 3 ML IH SCH ×2 (04:29→09:58)
[2022-03-21 05:42] LABS: Hemoglobin 7.8 g/dL (12.9-16.9); Immature Granulocytes % 0.4 % (0-4); Mean Platelet Volume 9.1 fL (9.4-12.4); Red Cell Distribution Width 23.2 % (11.5-14.5)
[2022-03-21 05:43] LABS: Basophils # 0.1 K/mcL (0.0-0.2); Basophils % 0.6 %; Eosinophils # 0.7 K/mcL (0.0-0.6); Eosinophils % 6.6 %; Lymphocytes # 1.7 K/mcL (0.6-4.6); Mean Corpuscular HGB Conc 27.9 g/dL (31.6-35.5); Mean Corpuscular Hemoglobin 20.6 pg (28.0-33.3); Mean Corpuscular Volume 73.9 fL (83.0-100.0); Monocytes # 1.2 K/mcL (0.0-1.3); Monocytes % 11.8 %; Neutrophils # 6.8 K/mcL (1.6-8.9); Platelet Count 330 K/mcL (140-400); Red Blood Count 3.79 M/mcL (4.19-5.50); Segmented Neutrophils % 64.6 %; White Blood Count 10.5 K/mcL (4.3-11.1)
[2022-03-21 06:02] LABS: Potassium 3.8 mEq/L (3.5-5.1)
[2022-03-21 06:10] LABS: Anisocytosis 3+ (Not Present); Hypochromasia Present (Not Present)
[2022-03-21 06:11] LABS: Platelet Estimate Normal (Normal)
[2022-03-21 07:02] VITALS: BP 142/78; PULSE 74; TEMP 97.9
[2022-03-21] MEDS: allopurinoL 300 MG TABLET PO SCH (08:36)
[2022-03-21] MEDS: metroNIDAZOLE 500 MG TABLET PO SCH (08:36)
[2022-03-21] MEDS: Aspirin Enteric Coated 81 MG Tablet PO SCH (08:36)
[2022-03-21] MEDS: Gabapentin 300 MG CAPSULE PO SCH (08:36)
[2022-03-21] MEDS: Insulin LISPRO 300 UNITS/3 ML VIAL SUBQ SCH (08:37)
[2022-03-21] MEDS: Vancomycin 2,000 MG/520 ML IV.SOLN IVPB SCH (08:37)
[2022-03-21] MEDS: DilTIAZem CD (24hr) 180 MG CAP.ER.24H PO SCH (08:43)
[2022-03-21] MEDS ORDERED: Furosemide 40 MG/4 ML VIAL IVP ONE (09:00)
[2022-03-21 10:04] VITALS: O2SAT 91
== END 2022-03-21 16:17 | disposition home or self-care (01) | DRG 617 ==
LOC: 4WAOSI 07:12 → EMEROOARM 07:12 → SUATTDRO 18:21 → OBSVTOIN 18:21 → 4WAOSI 22:06
PROVIDERS: ADMIT Internal Medicine; ATTEND Pharmacist